=== PATIENT | female | born 1950 | race Caucasian/White ===

== ENCOUNTER → 2017-11-04 16:51 | Outpatient (CLI) | payer MEDICARE, SELFPAY ==
[2017-11-04 18:17] LABS: Hematocrit 36.5 % (37-47); Hemoglobin 11.2 g/dl (12.0-15.0); Mean Corp Hgb Conc 30.7 g/gl (32-36); Mean Corpuscular Hgb 24.3 pg (27.0-32.0); Mean Corpuscular Volume 79.3 fL (81-99); Mean Platelet Vol. 9.7 fl (6.2-12.0); Platelet Count 194 K/mm3 (150-450); RBC Distribution Width CV 14.4 % (11.6-14.6); RBC Distribution Width SD 41.3 fl (35.1-43.9); White Blood Count 5.6 K/mm3 (4.4-11.0)
[2017-11-04 18:19] LABS: Scan Indicated on CBC? Y/N NO
== END ==
PROVIDERS: Family Provider Internal Medicine; PCP Internal Medicine; Visit Provider Surgery
DX: D64.9 Anemia, unspecified (principal)
CPT/HCPCS: 36415; 85027

== ENCOUNTER 2017-11-28 06:46 | Day surgery (SDC) | payer MEDICARE, SELFPAY ==
[2017-11-28] VITALS (7 sets, daily range): BP systolic 111–145; BP diastolic 63–80; PULSE 74–88; RESP 16–18; TEMP 36.3–37.1; O2SAT 92–97; BMI 40.0
--- NOTE | 2017-11-28 | IMM_PTH ---
PATIENT: JA ADAME LOC: [facility] U#:[id number] AGE/SX: 66/F ROOM: RE11/28/[address]: Dr. Jose M Carrillo MD : 1950 BED: DIS: 11/28/2017 SPEC #: [id number] RECD: 12/01/17 10:50 STATUS: YOAV REJaci #: [id number] ALFONSO: 11/28/17 00:[address]: Jose M Carrillo DEPT: IMMUNOHISTOCHEMISTRY RECD BY: Jenny Flores ENTERED: 12/01/17 10:51 SP TYPE: IMMUNO OTHR DR: Dr. Caitlin Moreland MD Tissues: D - Stomach, NOS Procedures: H Pylori (initial) PHYSICIAN & INSTITUTION [place] [id number] SPECIMEN INFORMATION: Tissue Source: D ? Biopsy gastric antrum Clinical Info: Positive FIT Specimen Number: [id number] CPT code: 02899 METHODOLOGY: Deparaffinized sections of prefer/formalin-fixed tissue or PAP/DQ stained slides are incubated with monoclonal/polyclonal antibodies/oligonucleotide probes. Localization is made via biotin free immunoperoxidase method. Appropriate controls are performed and reacted as expected. Results on target cell population are indicated in the following table: RESULTS: ANTIBODY / CLONE RESULT Block D H Pylori (polyclonal) negative These tests were developed and their performance characteristics determined by [facility]. They may not have been cleared or approved by the U.S. Food and Drug Administration. The FDA has determined that such clearance or approval is not necessary. INTERPRETATION: D. Gastric antrum, biopsy: Negative for Helicobacter pylori organisms. AM:bandar 12/03/17
--- NOTE | 2017-11-28 08:39 | COLBX_PTH ---
PATIENT: JA ADAME LOC: [facility] U#:[id number] AGE/SX: 66/F ROOM: RE11/28/[address]: Dr. Jose M Carrillo MD : 1950 BED: DIS: 11/28/2017 SPEC #: [id number] RECD: 11/28/17 11:38 STATUS: YOAV NEVA #: [id number] ALFONSO: 11/28/17 08:[address]: Jose M Carrillo DEPT: SURGICAL PATHOLOGY RECD BY: Jose Angel Carrizales ENTERED: 11/28/17 13:21 SP TYPE: COLON BX OTHR DR: Dr. Caitlin Moreland MD Tissues: A - Ileum, NOS B - Ascending colon C - Rectum, NOS D - Gastric mucous membrane E - Gastric mucous membrane F - Esophageal mucous membrane G - Esophageal mucous membrane Procedures: Surgery Specimen Level IV HEADER OPERATION: Colonoscopy; EGD with biopsy PRE-OP DIAGNOSIS: Positive FIT TISSUE SUBMITTED: A ? Terminal ileum biopsy, B ? Ascending colon biopsy adjacent to anastomosis, C ? Rectal polyp, D ? Biopsy gastric antrum, E ? Biopsy polyp, gastric, F ? Biopsy distal esophagus, G ? Biopsy mid esophagus MICROSCOPIC DIAGNOSIS A. Terminal ileum, biopsy: Ulceration with associated acute and chronic inflammation and granulation. B. Ascending colon adjacent to anastomosis, biopsy: No pathologic diagnosis. C. Rectal polyp, biopsy: Fragments of serrated adenoma. D. Gastric antrum, biopsy: Mild chronic gastritis. E. Gastric polyp, biopsy: Fundic gland polyp. F. Distal esophagus, biopsy: Strips of benign superficial squamous epithelium. G. Mid esophagus, biopsy: Strips of benign superficial squamous mucosa. No evidence of esophagitis. AM:bandar 12/01/17 COMMENT D. The results of immunohistochemistry for Helicobacter pylori will be reported separately ([id number]). F. There is no evidence of esophagitis. Junctional mucosa is not represented in the biopsy. Clinical correlation is suggested. MICROSCOPIC DESCRIPTION Slides are reviewed. GROSS DESCRIPTION A - Received in fixative is one container labeled with the patient's name and designated terminal ileum biopsy. The specimen consists of one irregular fragment of light smith soft tissue that measures 0.5 x 0.2 x 0.1 cm. The specimen is totally submitted in one cassette. B - Received in fixative is one container labeled with the patient's name and designated ascending colon biopsy adjacent to anastomosis. The specimen consists of one irregular fragment of light smith soft tissue that measures 1 x 0.2 x 0.1 cm. The specimen is totally submitted in one cassette. C - Received in fixative is one container labeled with the patient's name and designated rectal polyp. The specimen consists of multiple irregular fragments of light smith soft tissue that in aggregate measure 1 x 0.3 x 0.1 cm. The specimen is totally submitted in one cassette. D - Received in fixative is one container labeled with the patient's name and designated biopsy gastric antrum. The specimen consists of one irregular fragment of light smith soft tissue that measures 0.4 x 0.2 x 0.1 cm. The specimen is totally submitted in one cassette. E - Received in fixative is one container labeled with the patient's name and designated gastric polyp. The specimen consists of one irregular fragment of light smith soft tissue that measures 0.2 x 0.2 x 0.1 cm. The specimen is totally submitted in one cassette. F - Received in fixative is one container labeled with the patient's name and designated distal esophagus. The specimen consists of one irregular fragment of light smtih soft tissue that measures 0.3 x 0.1 x 0.1 cm. The specimen is totally submitted in one cassette. G - Received in fixative is one container labeled with the patient's name and designated biopsy mid esophagus. The specimen consists of one irregular fragment of light smith soft tissue that measures 0.3 x 0.1 x 0.1 cm. The specimen is totally submitted in one cassette. / SJ:rg 11/28/17 TC:2 CPT: 42259 x7
--- NOTE | 2017-11-28 08:50 | PCM.OPRPT ---
Problem List (1) Positive FIT (fecal immunochemical test) Status: Acute Report of Operation Date of Procedure: 11/28/17 Pre-Operative Diagnosis: Fit test positive Post-Operative Diagnosis: Antral gastritis, gastric fundic polyps. Patent ileocolonic anastomosis. Sigmoid diverticulosis. Diminutive polyp of the rectum. Internal and external hemorrhoids Surgery/Procedure Performed:: Esophagogastroduodenoscopy with antral biopsies and gastric polyp biopsies and distal and mid esophageal biopsies. Colonoscopy with terminal ileum biopsy. Ascending colon biopsy adjacent to the anastomosis. And cold forcep rectal biopsy polypectomy Description of Surgical Findings:: Timeout and informed consent was obtained. 66-year-old female was taken to the endoscopy suite. All biopsies performed with cold forceps. She underwent oral anesthesia with Cetacaine. She was placed in the left upper skin position. Throughout the procedure for both the upper and lower endoscopy she received a total of 100 mg of Demerol and 3 mg of Versed is intravenous sedation. GIF gastroscope was inserted and soft line that proximal mid distal esophagus did not appear to be grossly remarkable EG junction was at 35 cm upon entering the stomach a mild diffuse antral gastritis was identified. The scope was advanced through the pylorus the first and second and third portions of the duodenum were inspected this was not remarkable. The scope was withdrawn back into the stomach antral biopsy was obtained. The scope was retroflexed. The cardia was inspected and there were scattered gastric fundic polyps. No active bleeding. Scope was placed back in antegrade viewing position and greater and lesser curvatures were inspected. No free bleeding no ulcerations. A biopsy was obtained of 1 of the territory sales representative gastric fundic polyps. Excess fluid and air was aspirated free. The scope was withdrawn. The distal and midesophagus was biopsied. The mucosa otherwise appeared normal. Excess fluid and air was aspirated free. External inspection of the anus revealed external and internal hemorrhoids. Slight stenosis on digital palpation with a fibrous type field. No bleeding. Flexible colonoscope inserted the rectum advanced through a somewhat tortuous sigmoid colon was then nicely advanced to the transverse colon to the ascending colon where the ileocolonic anastomosis from the previous right colectomy was identified. Photographs were obtained. Cold forcep biopsy was obtained of the terminal ileum. Cold forcep biopsies of the proximal ascending colon adjacent to the anastomosis. The scope was then withdrawn from the ascending transverse descending sigmoid colon. Scattered diverticulosis of the sigmoid was identified no active bleeding. A diminutive sessile 6 mm polyp of the rectum was identified. Cold forceps were used to eradicate and sample this. The scope was retroflexed. Internal hemorrhoids noted. No active bleeding. Impression Antral gastritis. Gastric fundic polyps. No source for active upper GI bleeding though gastritis certainly potential source of card test positive. Patent ileocolonic anastomosis. Sigmoid diverticulosis. Diminutive sessile polyp of the rectum. Internal and external hemorrhoids. No active bleeding. His upper and lower endoscopy was September 13, 2010. Pending pathology results will recommend follow-up colonoscopy in 5 years. There were no clinical findings that would suggest current active Crohn's disease. Cc: Dr. Moreland and Carolyn Velazquez NP The upper endoscopy was initiated at 0827. It was completed at 0831. The colonoscopy started 0835. The ileocolonic anastomosis was reached at 0837. Procedure was completed at 0847. Jose M Carrillo M.D., F.A.C.S. Type of Anesthesia:: IV Sedation
== END 2017-11-28 09:45 | disposition home or self-care (01) ==
LOC: EN 06:47 → AC 06:56
PROVIDERS: Family Provider Internal Medicine; PCP Internal Medicine; Visit Provider Surgery
PROC: 0DJD8ZZ Inspection of Lower Intestinal Tract, Via Natural or Artificial Opening Endoscopic (ICD-10-PCS; CPT 45378; principal; 2017-11-28 07:55)
DX: K29.50 Unspecified chronic gastritis without bleeding (principal); K57.30 Diverticulosis of large intestine without perforation or abscess without bleeding; K62.1 Rectal polyp; K31.7 Polyp of stomach and duodenum; K64.4 Residual hemorrhoidal skin tags; I10 Essential (primary) hypertension; R19.5 Other fecal abnormalities; Z86.718 Personal history of other venous thrombosis and embolism; D64.9 Anemia, unspecified
CPT/HCPCS: 43239; 45380; 88305; 88342; 99152; 99153; J7120

== ENCOUNTER → 2018-05-06 08:40 | Outpatient (CLI) | payer MEDICARE, SELFPAY ==
--- NOTE | 2018-05-06 08:45 | RAD_ITS ---
STUDY: X-RAY - ESOPHAGUS (BARIUM SWALLOW) WITH FLUOROSCOPY REASON FOR EXAM: Female, 67 years old. Dysphagia. TECHNIQUE: 13 view(s) of the esophagus were obtained following swallowing of barium. FLUOROSCOPY TIME (if supplied): (0:33) minutes/seconds COMPARISON: None. FINDINGS: There is no demonstrated esophageal foreign body. There is no demonstrated stricture or mucosal abnormality. There is a small hiatal hernia of the fundus of the stomach. The patient ingested a 12 mm tablet of barium. The tablet is trapped at the gastroesophageal junction. There is atherosclerotic tortuosity of the aortic arch and descending thoracic aorta. Normal visualized pulmonary parenchyma. Normal visualized osseous structures of the thorax. IMPRESSION: Small hiatal hernia. No evidence of gastroesophageal junction. The patient ingested a 12 mm tablet of barium. The tablet is trapped at the gastroesophageal junction. Electronically Signed: Turner Samuel MD at 9:26 EDT Tel [phone], Service support , STUDY: AIR-CONTRAST UPPER GI SERIES. REASON FOR EXAM: Female, 67 years old. Abdominal pain and dysphagia. FLUOROSCOPY TIME (if supplied): (0:33) minutes/seconds. 14 fluoroscopic images were obtained. TECHNIQUE: The patient ingested barium. Multiple images of the esophagus, stomach and duodenum were obtained. COMPARISON: None. FINDINGS: There is a small sliding nail hernia without gastroesophageal reflux. The stomach is unremarkable. There is no evidence of ulceration. No mass lesion is seen. The duodenum is unremarkable as well. RAD/Upper GI w/BA Swallow IMPRESSION: Small sliding hiatal hernia without gastroesophageal reflux. Electronically Signed: Turner Samuel MD at 9:56 EDT Tel [phone], Service support ,
== END ==
PROVIDERS: Family Provider Internal Medicine; PCP Internal Medicine; Visit Provider Surgery
DX: R10.13 Epigastric pain (principal)
CPT/HCPCS: 74246

== ENCOUNTER 2018-06-11 07:11 | Day surgery (SDC) | payer MEDICARE, SELFPAY ==
[2018-06-11 07:24] VITALS: BP 139/78; PULSE 95; RESP 16; TEMP 36.3; O2SAT 100
--- NOTE | 2018-06-11 09:58 | SUR.OPER ---
LIDOCAINE GEL TO L. NARE. ATTEMPTED NASAL INTUBATION OF PROBE INTO L.NARE WITHOUT SUCCESS. LIDOCAINE GEL THEN APPLIED TO R.NARE. PROBE INSERTED TO APPROPRIATE LOCATION. TAPED IN PLACE WITH BLUE TAPE. PT. RECLINED. MANOMETRY TESTING PERFORMED. PROBE REMOVED. RN ESCORTED PT. OUT TO WAITING ROOM.
== END 2018-06-11 08:10 | disposition home or self-care (01) ==
LOC: EN 07:12
PROVIDERS: Family Provider Internal Medicine; PCP Internal Medicine; Referring Provider Surgery; Visit Provider Surgery
PROC: F00ZJWZ Instrumental Swallowing and Oral Function Assessment using Swallowing Equipment (ICD-10-PCS; CPT 43235; principal; 2018-06-11 07:25)
DX: R10.13 Epigastric pain (principal)
CPT/HCPCS: 91010

== ENCOUNTER 2019-01-18 13:17 | Observation (INO) | payer MEDICARE, SELFPAY ==
[2019-01-07 14:30] VITALS: BP 137/75; PULSE 84; RESP 16; TEMP 36.7; O2SAT 94; BMI 41.4
--- NOTE | 2019-01-07 14:37 | SDCEKG_ITS ---
Test Reason : Blood Pressure : / mmHG Vent. Rate : 076 BPM Atrial Rate : 076 BPM P-R Int : 192 ms QRS Dur : 156 ms QT Int : 426 ms P-R-T Axes : 050 009 013 degrees QTc Int : 479 ms Normal sinus rhythm Right bundle branch block Abnormal ECG Confirmed by KELI SOTO, RAUL ([id number]), film editor KATIANA JACOBS ([id number]) on 01/13/2019 11:54:11 AM Referred By: Roni Emmanuel Confirmed By:RAUL DICKEY MD
[2019-01-07 15:09] LABS: Absolute Lymphocyte Count 1.16 X10^3/ul (0.83-4.51); Absolute Neutrophil Count 4.3 X10^3/uL (2.0-7.7); Basophil# 0.03 X10^3/uL; Basophil% 0.5 % (0-1); Eosinophil# 0.23 X10^3/uL; Eosinophils% 3.7 % (0-5); Hematocrit 37.6 % (37-47); Hemoglobin 12.1 g/dl (12.0-15.0); Lymphocyte # 1.16 X10^3/ul (4.0); Lymphocyte % 18.6 % (19-41); Mean Corp Hgb Conc 32.2 g/gl (32-36); Mean Corpuscular Hgb 23.6 pg (27.0-32.0); Mean Corpuscular Volume 73.4 fL (81-99); Mean Platelet Vol. 9.9 fl (6.2-12.0); Monocyte# 0.45 X10^3/uL; Monocyte% 7.2 % (0-10); Neutrophil # 4.33 X10^3/uL (2.7-7.7); Neutrophil % 69.7 % (47-70); POSITIVE COUNT NO; POSITIVE DIFFERENTIAL NO; POSITIVE MORPHOLOGY NO; Platelet Count 223 K/mm3 (150-450); RBC Distribution Width CV 15.8 % (11.6-14.6); RBC Distribution Width SD 41.3 fl (35.1-43.9); Red Blood Count 5.12 M/mm3 (4.2-5.4); White Blood Count 6.2 K/mm3 (4.4-11.0)
[2019-01-07 15:28] LABS: Anion Gap 5 (5-15); BUN 23 mg/dL (7-18); BUN/Creat Ratio 24.4 RATIO (10-20); Calcium,Total 9.3 mg/dL (8.5-10.1); Chloride 107 mmol/L (98-107); Creatinine, Serum 0.94 mg/dL (0.55-1.02); EST Glomerular Filtration Rate 63 mL/min (>60); Est Glom Filt Rate - Afr Amer 76 mL/min (>60); Estimated Creatinine Clearance 43.22 ml/min; Glucose 99 mg/dL (74-106); Potassium 3.5 mmol/L (3.5-5.1); Sodium Level 139 mmol/L (136-145)
--- NOTE | 2019-01-14 14:11 | CASEMGMT ---
Call placed to patient to discuss discharge needs after upcoming surgery. Patient plans to return home with assistance from . Patient has outpatient PT set up at [facility] and will assist with transportation. Patient has a walker. She will be getting a shower seat and grab bars and the toilet is a higher rise toilet. There is a bedroom and bathroom on the 1st level of the home. There are approximately 4 steps to enter home. Informed patient that RN-CM will likely visit patient prior to discharge. Noelle Russ LPN Clinical Support
[2019-01-18] VITALS (9 sets, daily range): BP systolic 129–146; BP diastolic 58–83; PULSE 86–94; RESP 16; TEMP 36.3–36.9; O2SAT 94–99; BMI 41.4
[2019-01-18] MEDS: Acetaminophen 500 MG Tablet 1000 MG PO (11:38)
[2019-01-18] MEDS: oxyCODONE HCl Cr 10 MG Tablet PO (11:38)
[2019-01-18] MEDS: Lactated Ringers 1,000 ML 999 ML IV (11:54)
--- NOTE | 2019-01-18 12:40 | KNEE_PTH ---
PATIENT: JA ADAME LOC: MS3 U#:[id number] AGE/SX: 68/F ROOM: MS313 RE01/18/[address]: Dr. Roni Emmanuel DO : 1950 BED: 1 DIS: 01/19/2019 SPEC #: [id number] RECD: 01/18/19 16:16 STATUS: YOAV REJaci #: [id number] ALFONSO: 01/18/19 12:[address]: Roni Emmanuel DEPT: SURGICAL PATHOLOGY RECD BY: Oralia Isbell ENTERED: 01/19/19 09:24 SP TYPE: TOTAL KNEE OTHR DR: Dr. Caitlin Moreland MD Tissues: Knee, NOS Procedures: Decalcification bone/plaque Surgery Specimen Level IV HEADER OPERATION: Total knee replacement PRE-OP DIAGNOSIS: Endstage tricompartmental osteoarthritis, right knee TISSUE SUBMITTED: Right knee bone and tissue MICROSCOPIC DIAGNOSIS Bone and soft tissue, right knee, total knee replacement: Pieces of bone with degenerative osteoarthritic changes. Fibroadipose tissue, fibroconnective tissue and reactive synovial tissue. SHYLA:bandar 01/22/19 MICROSCOPIC DESCRIPTION Slides are reviewed. GROSS DESCRIPTION Received is one container designated bone and soft tissue right knee. The specimen consists of multiple fragments of smith-yellow bone measuring in aggregate 12 x 9 x 3 cm. Also in the specimen container are multiple fragments of yellow-white soft tissue measuring in aggregate 9 x 7 x 3 cm. A number of bony fragments contain articular surfaces consistent with tibial plateau and femoral condyle and displaying prominent osteophyte formation, eburnation, and bone erosion. Solar Energy Advisor sections are submitted in two cassettes as follows: 1 - soft tissue, 2 - bone after decalcification. / SHYLA:bandar 01/19/19 TC:5 [facility]: [id number], [id number]
--- NOTE | 2019-01-18 14:42 | PCM.OPRPT ---
Report of Operation Date of Procedure: 01/18/19 Pre-Operative Diagnosis: OA right knee Post-Operative Diagnosis: same Surgery/Procedure Performed:: Right TKR Description of Surgical Findings:: Primary Surgeon/Physician: Roni Emmanuel rail loader: Luke Munoz PA-C rail loader: Pre-Operative Diagnosis: OA right knee Post-Operative Diagnosis: same Surgery/Procedure Performed: Right TKR Estimated Blood Loss: minimal Specimen's Removed: bone Type of Anesthesia: spinal ASA Class: 3 Implants: [Chel Triathlon size 3 CR pressfit femur, size 4 pressfit tibia, 11 mm polyethylene spacer, 32 mm pressfit patella ] Indications: Patient has severe end-stage osteoarthritis diagnosed via x-rays in the knee. They have failed all forms of conservative measures including activity modification, injections, anti-inflammatories, use of assistive device. The patient has pain that affects on a daily basis and prevents him from doing things that they enjoyed. They have elected to undergo the above procedure. The risks of the procedure were discussed at length and their questions were answered. Procedure Description: The patient was greeted in the preoperative area. The [right ] knee was then marked with a surgical marker. Patient was then taken to or Suite 2. They were administered a dose of antibiotics as well as tranexamic acid. Once adequate anesthesia was obtained and airway was secured to placed in supine position on the operating room table. A well-padded tourniquet was placed on the affected extremity. Leg was then prepped and draped in the usual sterile fashion from the knee down. Ioban was used on the skin. Surgical timeout was then performed and confirmed with all present. Six-inch Esmarch was used to examine the limb and tourniquet was then inflated to 250 mmHg. A longitudinal incision was then planned and carried out in the anterior aspect of the knee. The dissection was then carried the length of the incision the extensor mechanism was identified. Standard medial parapatellar arthrotomy was then performed revealing severe eburnation of bone and periarticular osteophytes. There is complete loss of cartilage especially in the medial compartment with varus alignment. Anterior fat pad was removed for visualization purposes and the anterior medial aspect of the tibia was skeletonized for exposure to the knee. The knee was then flexed the patella was inverted. Opening reamer was then used in the femur approximately 1 cm anterior to the attachment of the PCL. The intramedullary valgus wand was then placed in the femur set at 5? of valgus. The distal femoral cutting jig was then applied to the femur with anticipated resection of approximately 8 mm. This was then made with a oscillating saw. The sizing guide was then placed referencing off the posterior condyles and also reference off the epicondylar axis. This was measured and the appropriate size 4-in-1 cutting jig was then applied to the distal femur. Anterior posterior cuts were made followed by the anterior and posterior chamfer cuts. These bony pieces and fragments were removed and placed on the back table. Posterior retractor was then utilized and the tibia was subluxed anteriorly. Intramedullary tibial alignment jig was then applied to the tibia referencing off the medial one third of the tibial tubercle the anterior tibial spine the middle aspect of the tibiotalar joint. Also reference off patient's naknek slope. The tibial cutting jig was then pinned with anticipated resection of 2 mm off of the deficient medial tibial condyle. This cut was made with the oscillating saw. Once this was complete a laminar expediter clerk was utilized in both medial lateral meniscus were removed and a posterior capsular osteophytes were also removed. Posterior capsule release was performed in the posterior capsule as well as the geniculate arteries are treated with the aqua Bertha. The tibia was incised and the appropriate sized tibial tray was then pinned. The femoral box cutting jig was then applied to the femur and the box was prepared removing a portion of the intercondylar notch. The femoral trial was then placed and the knee was trialed. Full flexion-extension were easily achieved. The knee seemed to balance quite nicely. Any remaining osteophytes were removed at this time. Once this was complete the patella was everted and the Nahid patella reaming device was then utilized the patella was then placed in the appropriate jig and reamer was then used to remove approximately 9 mm of the undersurface of the patella. A soft tissue remaining was in the way was removed and patella trial was then placed listed maintain excellent tracking using the no thumbs technique. The tibial tray at this point was punched to accommodate the fins of the final implant. The trial components were removed and the knee was copiously irrigated. Did use a cocktail of injection for postoperative pain control. The final components were then placed in the standard fashion. The tourniquet was deflated and hemostasis was perfect with Bovie cautery as well as the aqua Manus. The knee is once again trialed with different size polyethylenes to ensure the full range of motion was achieved as well as excellent balancing ligamentously was achieved. At this point the knee was copiously irrigated. Final implant was then inserted locking mechanism was engaged and confirmed to be locked. The arthrotomy was then closed with #1 Vicryl aggravate type fashion interrupted. Subcutaneous tissue was closed with 0 Vicryl and surgical vale were placed in the skin. A occlusive silver impregnated dressing was then applied followed by well-padded sterile dressing secured with an Mayur wrap. The patient was taken to the PACU in stable condition. No complications known at this time. Postoperatively we will maintain standard total knee postoperative protocol. The use of the physician activities assistant was integral during this procedure. They assisted with positioning placement of the tourniquet retracting closure and placement of the dressing. The procedure would have been much more difficult without their expertise and assistance rail loader: Jalil Munoz Type of Anesthesia:: Spinal Anesthesiologist: Drake Jo Specimen's removed: bone - Admit VTE Documentation VTE Present on Admission: No VTE Mechan Device Prophylaxis: SCD's, Thigh High RORO Hose VTE Pharm Prophylaxis ordered?: Yes
--- NOTE | 2019-01-18 14:48 | OP.PCM_ITS ---
Report of Operation Date of Procedure: 01/18/19 Pre-Operative Diagnosis: OA right knee Post-Operative Diagnosis: same Surgery/Procedure Performed:: Right TKR Description of Surgical Findings:: Primary Surgeon/Physician: Roni Emmanuel web site developer: Luke Munoz PA-C web site developer: Pre-Operative Diagnosis: OA right knee Post-Operative Diagnosis: same Surgery/Procedure Performed: Right TKR Estimated Blood Loss: minimal Specimen's Removed: bone Type of Anesthesia: spinal ASA Class: 3 Implants: [Chel Triathlon size 3 CR pressfit femur, size 4 pressfit tibia, 11 mm polyethylene spacer, 32 mm pressfit patella ] Indications: Patient has severe end-stage osteoarthritis diagnosed via x-rays in the knee. They have failed all forms of conservative measures including activity modification, injections, anti-inflammatories, use of assistive device. The patient has pain that affects on a daily basis and prevents him from doing things that they enjoyed. They have elected to undergo the above procedure. The risks of the procedure were discussed at length and their questions were answered. Procedure Description: The patient was greeted in the preoperative area. The [right ] knee was then marked with a surgical marker. Patient was then taken to or [address]. They were administered a dose of antibiotics as well as tranexamic acid. Once adequate anesthesia was obtained and airway was secured to placed in supine position on the operating room table. A well-padded tourniquet was placed on the affected extremity. Leg was then prepped and draped in the usual sterile fashion from the knee down. Ioban was used on the skin. Surgical timeout was then performed and confirmed with all present. Six-inch Esmarch was used to examine the limb and tourniquet was then inflated to 250 mmHg. A longitudinal incision was then planned and carried out in the anterior aspect of the knee. The dissection was then carried the length of the incision the extensor mechanism was identified. Standard medial parapatellar arthrotomy was then performed revealing severe eburnation of bone and periarticular osteoph ytes. There is complete loss of cartilage especially in the medial compartment with varus alignment. Anterior fat pad was removed for visualization purposes and the anterior medial aspect of the tibia was skeletonized for exposure to the knee. The knee was then flexed the patella was inverted. Opening reamer was then used in the femur approximately 1 cm anterior to the attachment of the PCL. The intramedullary valgus wand was then placed in the femur set at 5? of valgus. The distal femoral cutting jig was then applied to the femur with anticipated resection of approximately 8 mm. This was then made with a oscillating saw. The sizing guide was then placed referencing off the posterior condyles and also reference off the epicondylar axis. This was measured and the appropriate size 4-in-1 cutting jig was then applied to the distal femur. Anterior posterior cuts were made followed by the anterior and posterior chamfer cuts. These bony pieces and fragments were removed and placed on the back table. Posterior retractor was then utilized and the tibia was subluxed anteriorly. Intramedullary tibial alignment jig was then applied to the tibia referencing off the medial one third of the tibial tubercle the anterior tibial spine the middle aspect of the tibiotalar joint. Also reference off patient's tribe slope. The tibial cutting jig was then pinned with anticipated resection of 2 mm off of the deficient medial tibial condyle. This cut was made with the oscillating saw. Once this was complete a laminar electric motor rebuilder was utilized in both medial lateral meniscus were removed and a posterior capsular osteophytes were also removed. Posterior capsule release was performed in the posterior capsule as well as the geniculate arteries are treated with the aqua Bertha. The tibia was incised and the appropriate sized tibial tray was then pinned. The femoral box cutting jig was then applied to the femur and the box was prepared removing a portion of the intercondylar notch. The femoral trial was then placed and the knee was trialed. Full flexion-extension were easily achieved. The knee seemed to balance quite nicely. Any remaining osteophytes were removed at this time. Once this was complete the patella was everted and the Nahid patella reaming device was then utilized the patella was then placed in the appropriate jig and reamer was then used to remove approximately 9 mm of the undersurface of the patella. A soft tissue remaining was in the way was removed and patella trial was then placed listed maintain excellent tracking using the no thumbs technique . The tibial tray at this point was punched to accommodate the fins of the final implant. The trial components were removed and the knee was copiously irrigated. Did use a cocktail of injection for postoperative pain control. The final components were then placed in the standard fashion. The tourniquet was deflated and hemostasis was perfect with Bovie cautery as well as the aqua Manus. The knee is once again trialed with different size polyethylenes to ensure the full range of motion was achieved as well as excellent balancing ligamentously was achieved. At this point the knee was copiously irrigated. Final implant was then inserted locking mechanism was engaged and confirmed to be locked. The arthrotomy was then closed with #1 Vicryl aggravate type fashion interrupted. Subcutaneous tissue was closed with 0 Vicryl and surgical vale were placed in the skin. A occlusive silver impregnated dressing was then applied followed by well-padded sterile dressing secured with an Mayur wrap. The patient was taken to the PACU in stable condition. No complications known at this time. Postoperatively we will maintain standard total knee postoperative protocol. The use of the physician cafe assistant was integral during this procedure. They assisted with positioning placement of the tourniquet retracting closure and placement of the dressing. The procedure would have been much more difficult without their expertise and assistance web site developer: Jalil Munoz Type of Anesthesia:: Spinal Anesthesiologist: Drake Jo Specimen's removed: bone - Admit VTE Documentation VTE Present on Admission: No VTE Mechan Device Prophylaxis: SCD's, Thigh High RORO Hose VTE Pharm Prophylaxis ordered?: Yes
[2019-01-18] MEDS: Ondansetron 4 MG/2 ML Vial IV (17:31)
[2019-01-18] MEDS: Lactated Ringers 1,000 ML 100 ML IV (18:19)
[2019-01-18] MEDS: amLODIPine 10 MG Tablet PO (21:44)
[2019-01-18] MEDS: Aspirin 325 MG Tablet PO (21:44)
[2019-01-18] MEDS: Fluticasone 0.05% 1 SPRAY NASAL.SRY NASAL (21:44)
[2019-01-19 02:29] VITALS: BP 145/77; PULSE 80; RESP 16; TEMP 37.1; O2SAT 94
[2019-01-19] MEDS: HYDROcodone Bitartrate/Apap 5/325 Tablet PO ×2 (04:10→06:16)
[2019-01-19 07:44] VITALS: BP 129/54; PULSE 65; RESP 18; TEMP 37.1; O2SAT 95
--- NOTE | 2019-01-19 07:45 | PCM.PN.ORT ---
Subjective: Patient sitting at bedside, patient pain well managed. Patient denies chest pain, shortness breath, calf pain, nausea vomiting. Patient states she is ready for discharge home today. Objective: Dressing is clean dry intact, negative signs or symptoms of DVT. Vital signs labs within normal limits. Patient is neurovascular intact afebrile. Patient speaking in full sentences without respiratory distress. - Physical Exam General: Alert, Oriented x3, Cooperative HEENT: PERRLA Oral: Moist Mucosa Neurological: Cranial nerves II-XII grossly intact Psych/Mental Status: Normal Affect, Alert and oriented to time, place, person, mood and affect Vital Signs Temp Pulse Resp BP Pulse Ox 98.7 F 80 16 145/77 H 94 01/19/19 02:29 01/19/19 02:29 01/19/19 02:29 01/19/19 02:29 01/19/19 02:29 Oxygen Flow Rate (L/min) 2 Oxygen Delivery Method Room Air Weight: 99.5 kg Body Mass Index (BMI) 41.4 Intake and Output for Last 24 Hours 01/17/19 01/18/19 01/19/19 23:59 23:59 23:59 Intake Total 2330 / 2330 1900 / 1900 Output Total 1300 / 1300 Balance 2330 / 2330 600 / 600 Medical Necessity - Tobacco Use Smoking Status: Never smoker Tobacco Use: Non-smoker Assessment/Plan All Active Problems (Last Reviewed 06/17/18 @ 07:36 by Myah Coronado) Positive FIT (fecal immunochemical test) (Acute) [place] esophagus (Acute) Epigastric pain (Acute) S/P tonsillectomy (Acute) S/P cholecystectomy (Acute) S/P ovarian cystectomy (Acute) History of esophagogastroduodenoscopy (EGD) (Acute) S/P colonoscopy (Acute) Sesamoiditis (Acute) Sciatica (Acute) Internal hemorrhoids (Acute) Gastritis (Acute) Diverticulosis of large intestine (Acute) Diverticulosis of colon (Acute) DVT (deep venous thrombosis) (Acute) Cardiomegaly (Acute) Bowel perforation (Acute) Abdominal pain (Acute) Anemia (Acute) Chest pain (Acute) Status post right total knee arthroplasty 1. Will discontinue [place], will start Tylenol extra strength 2 every 8 hours, OxyIR 5 mg 1-2 every 6 for severe pain 2. Continue physical therapy with weightbearing as tolerated with walker 3. Aspirin 325 mg 1 p.o. every 12 hours x30 days for postop DVT prophylaxis 4. Encourage incentive spirometry 5. Follow-up as scheduled, see pink sheet 6. 6. Patient will continue with outpatient physical therapy at [facility] 7. Discharge home today after p.m. therapy
[2019-01-19] MEDS: Lisinopril 20 MG Tablet PO (07:52)
[2019-01-19] MEDS: Aspirin 325 MG Tablet PO (07:53)
[2019-01-19] MEDS: Pantoprazole Sodium 20 MG Tablet PO (07:55)
--- NOTE | 2019-01-19 07:57 | DCINST_ITS ---
Discharge Diet: No Restrictions Discharge Activity: May Not Drive, May Shower, Use Walker May shower in (days): 3 Ice area for (Minutes): 20 - each hour while awake. Weight Bearing Status: Weight bearing as tolerated Elevate: Operative Extremity Additional Activity Instructions:: Wear elastic stockings for 2 weeks after your surgery. Call your doctor if your incision/area has: Continuous Slow Oozing, Sudden Increased Bleeding, Increased Pain/ Swelling, Increased Redness, Foul Smelling Discharge Call your doctor if you observe: Fever of 101 or Higher, Coldness, Increased Pain - in extremity, Numbness or Tingling, Change in Color, Calf discomfort, Uncontrolled pain Change Dressing in (Days):: 0 - and daily as needed. Remove Dressing in (days):: 8 Cleanse incision/area with: Soap & Water Allergies/Adverse Reactions: Allergies amoxicillin trihydrate [From Augmentin] Allergy (Verified 01/07/19 14:16) Rash Cephalosporins Allergy (Verified 01/07/19 14:16) Rash potassium clavulanate [From Augmentin] Allergy (Verified 01/07/19 14:16) Rash Sulfa (Sulfonamide Antibiotics) Allergy (Verified 01/07/19 14:16) Rash Medications to take at Discharge Amlodipine [Norvasc] 10 mg PO QHS 04/03/16 Meloxicam [Mobic] 15 mg PO DAILY 04/03/16 albuterol sulfate HFA 90 mcg/actuation aerosol inhaler 2 puff INHALATION Q6H PRN 11/04/17 Fluticasone 0.05% [Flonase Nasal [place]] 1 spray NASAL QHS 01/07/19 Glucosa Gant 2Kcl/Chondroitin Gant [Glucosamine-Chondroitin Cap] 2,000 mg PO DAILY 01/07/19 Lisinopril [Zestril] 20 mg PO DAILY 01/07/19 Omeprazole 20 mg PO DAILY 01/07/19 Acetaminophen [Tylenol] 1,000 mg PO Q8 #90 tab 01/19/19 Aspirin 325 mg PO BID #60 tab 01/19/19 Oxycodone [Oxyir] 5 mg PO Q6H PRN PRN 7 Days #80 tab 01/19/19 Senna/Docusate Sodium [Senokot-S, Cesia-Colace] 1 tab PO DAILY #20 tab 01/19/19 The following prescriptions were given: Oxycodone [Oxyir] 5 mg PO Q6H PRN PRN 7 Days #80 tab PRN Reason: Severe Pain (-05/27) Acetaminophen [Tylenol] 1,000 mg PO Q8 #90 tab Senna/Docusate Sodium [Senokot-S, Cesia-Colace] 1 tab PO DAILY #20 tab Aspirin 325 mg PO BID #60 tab Primary Care Physician: Caitlin Moreland MD [Primary Care Provider] - Test Results: Test results from this visit will be discussed in further detail at your follow- up appointment, if applicable. Please Follow Up With: Jalil Munoz PA-C When: see pink sheet
[2019-01-19 09:30] LABS: Acetaminophen (Tylenol) Level 5.4 ug/mL (10.0-30.0)
--- NOTE | 2019-01-19 10:40 | CASEMGMT ---
RN REJI Face to Face with patient for initial transition planning/care coordination assessment. RN CM introduced self and role at [facility]. Patient lying in bed, alert and oriented. Patient willing to participate in assessment and is able to answer all questions appropriately. Care providers, pharmacy, and demographics verified. Patient wishes to discharge home and is setup with [facility] for outpatient therapy with providing transportation. Patient states she has cane, walker, raised toilet, and shower seat. Patient states she has no further needs or concerns at this time. CM to follow for discharge planning needs that may arise
[2019-01-19] MEDS: 0.9% NaCl Peripheral Flush Adult/Peds IV (12:01)
[2019-01-19] MEDS: oxyCODONE 5 MG Tablet PO (12:05)
[2019-01-19 13:17] VITALS: BP 150/66; PULSE 88; RESP 18; TEMP 36.7; O2SAT 98
[2019-01-19] MEDS: Acetaminophen 500 MG Tablet 1000 MG PO (13:22)
== END 2019-01-19 13:38 | disposition home or self-care (01) ==
LOC: SDC 13:51
PROVIDERS: Physician Assistant; Admitting Provider Orthopaedic Surgery; Family Provider Internal Medicine; PCP Internal Medicine; Referring Provider Orthopaedic Surgery; Visit Provider Orthopaedic Surgery
PROC: (CPT 27447; principal; 2019-01-18 12:15)
DX: M17.11 Unilateral primary osteoarthritis, right knee (principal); R94.31 Abnormal electrocardiogram [ECG] [EKG]; I45.10 Unspecified right bundle-branch block; I10 Essential (primary) hypertension; K21.9 Gastro-esophageal reflux disease without esophagitis; Z86.718 Personal history of other venous thrombosis and embolism; Z79.899 Other long term (current) drug therapy
CPT/HCPCS: 01400; 27447; 64447; 36415; 80048; 80329; 85025; 87081; 88305; 88311; 93005; 96361; 96365; 96366; 96375; 97162; 97166; 97530; 97535; 99218; C1776; J7120; A4216; G0378; G0379; G0480; J2405

== ENCOUNTER → 2019-05-20 13:11 | Outpatient (CLI) | payer MEDICARE, SELFPAY ==
[2019-01-18 16:42] VITALS: BMI 41.4
--- NOTE | 2019-05-20 13:13 | CT_ITS ---
Exam: Noncontrast CT of the left shoulder. HISTORY: Left shoulder pain. COMPARISON: None-no radiographs. FINDINGS: No acute fracture or dislocation. Severe glenohumeral osteoarthritis with subchondral cysts especially of the glenoid. Severe acromioclavicular osteoarthritis with inferior osteophytes. Marked cephalad migration of the humeral head indicating complete chronic rotator cuff tear. The humeral head articulates directly with the undersurface of the acromion which shows erosion of the undersurface. CT/Extremity Upper without Contra IMPRESSION: Severe degenerative changes and evidence for complete chronic rotator cuff tear. Electronically Signed: Stalin Sanchez MD at 18:27 EDT , Service support ,
== END ==
PROVIDERS: Family Provider Internal Medicine; PCP Internal Medicine; Referring Provider Specialist; Visit Provider Specialist
DX: M19.212 Secondary osteoarthritis, left shoulder (principal)
CPT/HCPCS: 73200

== ENCOUNTER → 2019-05-31 14:02 | Outpatient (CLI) | payer SELFPAY ==
[2019-01-18 16:42] VITALS: BMI 41.4
--- NOTE | 2019-05-31 14:09 | CT_ITS ---
STUDY: CT LEFT SHOULDER REASON FOR EXAM: Left shoulder osteoarthritis. TECHNIQUE: The patient was scanned in a multi detector CT scanner. High resolution transaxial imaging was performed without the administration of intravenous contrast material. Sagittal and coronal images were reconstructed. Individualized dose optimization techniques were used for this CT. COMPARISON: CT images 05/20/2019. FINDINGS: There is advanced glenohumeral arthrosis with marginal osteophytes of the humeral head, subchondral cystic change of the glenoid and humeral head, joint space loss and erosion of the posterior glenoid (axial images 15-22). There is superior migration of the humeral head abutting the acromion (sagittal reconstruction 67-69) consistent with rotator cuff pathology. There is cystic change of the greater tuberosity. Normal visualized lateral clavicle. There is acromioclavicular arthrosis (coronal reconstruction 48). There is a Type II morphology (curved), with a neutral orientation. There is atrophy with partial fat replacement of the supraspinatus, infraspinatus muscles and teres minor muscles (sagittal reconstruction 49). CT/Extremity Upper without Contra IMPRESSION: Advanced glenohumeral arthrosis with erosion of the posterior glenoid. Superior migration of the humeral head consistent with rotator cuff pathology with atrophy of the supraspinatus, infraspinatus and teres minor muscles. Acromioclavicular arthrosis. Electronically Signed: Buzz Cormier MD at 15:06 EDT Tel , Service support ,
== END ==
PROVIDERS: Family Provider Internal Medicine; PCP Internal Medicine; Referring Provider Specialist; Visit Provider Specialist
DX: M19.012 Primary osteoarthritis, left shoulder (principal)
CPT/HCPCS: 73200

== ENCOUNTER → 2020-09-18 14:47 | Outpatient (CLI) | payer MEDICARE, SELFPAY ==
[2019-01-18 16:42] VITALS: BMI 41.4
--- NOTE | 2020-09-18 14:49 | CT_ITS ---
STUDY: CT RIGHT SHOULDER REASON FOR EXAM: Female, 69 years old. Right shoulder osteoarthritis, materialize shoulder protocol. No injury or prior surgery, hx hypertension. RADIATION DOSAGE (If Supplied By Facility): CTDIvol = ( 30.78 ) mGy, DLP = ( 639.35 ) mGycm TECHNIQUE: The patient was scanned in a multi detector CT scanner. High resolution transaxial imaging was performed without the administration of intravenous contrast material. Sagittal and coronal images were reconstructed. Individualized dose optimization techniques were used for this CT. COMPARISON: None. FINDINGS: There is moderate to severe narrowing of the glenohumeral articulation and bulky osteophyte of the medial and inferior aspect head, in addition to subchondral cystic changes of the glenoid. A small joint effusion is also present. The humeral head is also high riding abutting the undersurface of the acromium indicating a full-thickness tear of the rotator cuff tendons. A small loose body is seen in the joint space. No demonstrated acute fracture. Normal coracoid process. Normal visualized lateral clavicle. There is mild osteoarthritis with articular joint space narrowing. There is a Type II morphology (curved), with a neutral orientation. Unremarkable visualized muscles and soft tissue structures. Unremarkable visualized aspects of the right lung. Degenerative changes are seen in the thoracic spine. CT/Extremity Upper without Contra IMPRESSION: Moderate to severe DJD of the right shoulder joint Electronically Signed: Franko Nam MD at 20:05 EST , Service support ,
== END ==
PROVIDERS: PCP Internal Medicine; Referring Provider Specialist; Visit Provider Specialist
DX: M19.211 Secondary osteoarthritis, right shoulder (principal)
CPT/HCPCS: 73200

== ENCOUNTER → 2020-10-27 13:56 | Outpatient (CLI) | payer MEDICARE, SELFPAY ==
[2020-10-27 15:54] LABS: Albumin, Serum 3.3 g/dL (3.2-5.0)
== END ==
PROVIDERS: PCP Internal Medicine; Referring Provider Specialist; Visit Provider Specialist
DX: Z01.812 Encounter for preprocedural laboratory examination (principal)
CPT/HCPCS: 36415; 82040

== ENCOUNTER 2021-08-15 15:25 | Inpatient (IN) | payer MEDICARE, SELFPAY ==
[2021-08-15] VITALS (8 sets, daily range): BP systolic 127–181; BP diastolic 64–78; PULSE 79–105; RESP 15–18; TEMP 36.9; O2SAT 95–99; BMI 40.2; BMI 41.1
--- NOTE | 2021-08-15 15:28 | EKG12_ITS ---
Test Reason : NEAR SYNCOPE Blood Pressure : / mmHG Vent. Rate : 088 BPM Atrial Rate : 088 BPM P-R Int : 180 ms QRS Dur : 144 ms QT Int : 384 ms P-R-T Axes : 057 021 007 degrees QTc Int : 464 ms Sinus rhythm with Premature supraventricular complexes Right bundle branch block Abnormal ECG Confirmed by KELI SOTO, RAUL ([id number]), supervising film or videotape editor SHAWN PALOMINO ([id number]) on 08/21/2021 10:27:42 AM Referred By: BRIANNE Confirmed By:RAUL DICKEY MD
--- NOTE | 2021-08-15 15:43 | RAD_ITS ---
INDICATION: Stroke EXAMINATION/TECHNIQUE: X-RAY - XR Chest 1 View COMPARISON: 04/03/2016 FINDINGS: LINES/DEVICES: None. LUNGS: No consolidation, edema or effusion. No pneumothorax. MEDIASTINUM AND CARDIOVASCULAR STRUCTURES: Cardiac silhouette not enlarged. Central airways and mediastinal contour are unremarkable. BONES AND SOFT TISSUES: Bilateral shoulder prosthesis is unremarkable. Degenerative bone changes are seen. RAD/Chest 1 View (Portable) IMPRESSION: No radiographic evidence of acute cardiopulmonary disease. Electronically Signed: Derrick Gray MD at 16:02 EST Tel , Service support ,
[2021-08-15 15:44] LABS: Absolute Lymphocyte Count 1.15 X10^3/uL (0.83-4.51); Absolute Neutrophil Count 4.2 X10^3/uL (2.0-7.7); Basophil# 0.05 X10^3/uL; Basophil% 0.8 % (0-1); Eosinophil# 0.17 X10^3/uL; Eosinophils% 2.8 % (0-5); Hematocrit 25.6 % (37-47); Lymphocyte # 1.15 X10^3/ul (0.83-4.51); Lymphocyte % 18.7 % (19-41); Mean Corp Hgb Conc 27.3 g/dL (32-36); Mean Corpuscular Hgb 16.8 pg (27.0-32.0); Mean Corpuscular Volume 61.5 fL (81-99); Monocyte# 0.52 X10^3/uL; Monocyte% 8.4 % (0-10); NRBC Flagged by Analyzer 0 % (0-5); Neutrophil # 4.22 X10^3/uL (2.7-7.7); Neutrophil % 68.5 % (47-70); Platelet Count 318 K/mm3 (150-450); RBC Distribution Width CV 17.2 % (11.6-14.6); RBC Distribution Width SD 36.7 fl (35.1-43.9); Red Blood Count 4.16 M/mm3 (4.2-5.4); White Blood Count 6.2 K/mm3 (4.4-11.0)
[2021-08-15 15:53] LABS: International Normalized Ratio 1.1; Prothrombin Time (Protime)PT. 13.4 SECONDS (11.7-14.9)
[2021-08-15 15:54] LABS: Partial Thromboplast Time 30.5 Seconds (24.1-36.2)
[2021-08-15 15:55] LABS: Anion Gap 7 (5-15); BUN 22 mg/dL (7-18); BUN/Creat Ratio 25.2 RATIO (10-20); Calcium,Total 9.6 mg/dL (8.5-10.1); Chloride 108 mmol/L (98-107); Creatinine, Serum 0.87 mg/dL (0.55-1.02); EST Glomerular Filtration Rate 68 mL/min (>60); Est Glom Filt Rate - Afr Amer 82 mL/min (>60); Estimated Creatinine Clearance 47.59 ml/min; Glucose 122 mg/dL (74-106); Potassium 3.7 mmol/L (3.5-5.1); Sodium Level 141 mmol/L (136-145)
--- NOTE | 2021-08-15 17:47 | EDS_ITS ---
HPI History of Present Illness Chief Complaint: Dizziness Informant: patient Onset/Context/Timing Onset: Today Context: Sudden Onset Timing: Continuous Quality: Lightheaded, weak, shaky Location: Generalized Worsened by: Nothing Relieved by: Nothing Narrative Narrative: Patient presents with dizziness that began today. Patient states she felt like she was going to pass out. Patient states she felt shaky and weak ever since. Patient states she feels lightheaded. Patient states nothing makes it worse and nothing makes it better. Patient denies any chest pain or shortness of breath. Patient denies any palpitations. Patient denies any nausea or or vomiting. Patient denies any melena or hematochezia. Patient denies any abdominal pain. Patient denies any fevers or chills. Patient denies any sick contacts. [facility] Medical History (Updated 08/15/21 @ 21:[address] Victor Hugo Jimenez, ) Abdominal pain Anemia Bowel perforation Cardiomegaly Chest pain Diverticulosis of colon Diverticulosis of large intestine DVT (deep venous thrombosis) Epigastric pain Gastritis HTN (hypertension) Internal hemorrhoids [place] esophagus Sciatica Sesamoiditis Home Medications amlodipine 10 mg PO QHS 04/03/16 [History Last Taken 11/27/17] meloxicam 15 mg PO DAILY 04/03/16 [History Last Taken 11/27/17] albuterol sulfate 90 mcg/actuation aerosol inhaler 2 puff INHALATION Q6H PRN 11/04/17 [History Last Taken 11/27/17] fluticasone propionate 1 spray NASAL QHS 01/07/19 [History Last Taken Unknown] lisinopril 20 mg PO DAILY 01/07/19 [History Last Taken Unknown] omeprazole 20 mg PO DAILY 01/07/19 [History Last Taken Unknown] acetaminophen 1,000 mg PO Q8 #90 tab 01/19/19 [Rx Last Taken Unknown] montelukast 10 mg PO DAILY 08/15/21 [History Last Taken Unknown] Allergy/AdvReac Type Severity Reaction Status Date / Time amoxicillin trihydrate Allergy Rash Verified 08/15/21 15:28 [From Augmentin] Cephalosporins Allergy Rash Verified 08/15/21 15:28 potassium clavulanate Allergy Rash Verified 08/15/21 15:28 [From Augmentin] Sulfa (Sulfonamide Allergy Rash Verified 08/15/21 15:28 Antibiotics) Family History (System 07/18/21 @ 10:02 by Pb Posey) Sister Arthritis Breast cancer Osteoporosis Father Diabetes Cancer Skin Mother Hypertension Cancer skin cancer Osteoporosis Surgical History History of esophagogastroduodenoscopy (EGD) Hx of ileostomy S/P cholecystectomy S/P colonoscopy S/P ovarian cystectomy S/P tonsillectomy Social History Smoking Status: Never smoker second hand exposure: No alcohol intake: never substance use type: does not use caffeine: Yes what type of physical activity do you participate in: none frequency: does not exercise seatbelt use: always ROS ROS ED Constitutional Constitutional ED: Denies chills or fever(s) Eyes Eyes: Denies blurry vision or change in vision ENT ENT ED: Denies rhinorrhea or sore throat Cardiovascular Cardiovascular: Denies chest pain or palpitations Respiratory/Chest Respiratory/Chest: Denies cough or dyspnea Gastrointestinal Gastrointestinal: Denies nausea or vomiting Genitourinary Genitourinary ED: Denies dysuria or hematuria Musculoskeletal Musculoskeletal: Denies back pain or neck pain Integumentary Denies abscess or rash Neurologic Neurologic: Reports weakness; Denies headache(s) Allergic/Immunologic Allergic/Immunologic ED: Denies mouth swelling or urticaria EXAM Physical Exam Const Vital Signs: 08/15/21 15:26 08/15/21 17:30 08/15/21 17:33 Temperature 98.4 F Temperature Source Temporal Pulse Rate 105 H 88 Pulse Rate [Lying] Pulse Rate [Sitting] Pulse Rate [Standing] Respiratory Rate 18 16 Respiratory Effort Normal Non-Labored Respiratory Pattern Normal Blood Pressure 181/65 H 142/71 H Blood Pressure [Lying] Blood Pressure [Sitting] Blood Pressure [Standing] Blood Pressure Mean 103 94 Blood Pressure Mean [Lying] Blood Pressure Mean [Sitting] Blood Pressure Mean [Standing] Pulse Ox 98 99 Oxygen Delivery Method Room Air Room Air 08/15/21 18:00 08/15/21 19:00 08/15/21 19:07 Temperature Temperature Source Pulse Rate 93 83 Pulse Rate [Lying] 79 Pulse Rate [Sitting] 95 Pulse Rate [Standing] 95 Respiratory Rate 15 16 Respiratory Effort Respiratory Pattern Blood Pressure 127/64 H Blood Pressure [Lying] 151/65 H Blood Pressure [Sitting] 153/67 H Blood Pressure [Standing] 163/78 H Blood Pressure Mean 85 Blood Pressure Mean [Lying] 93 Blood Pressure Mean [Sitting] 95 Blood Pressure Mean [Standing] 106 Pulse Ox 99 97 Oxygen Delivery Method Room Air Room Air Positive well nourished and well developed General Appearance ED: well developed HEENT Reports moist mucous membranes Neck supple and no JVD Resp normal respiratory effort and clear to auscultation bilaterally Cardio regular rate, regular rhythm and no murmurs GI normal to inspection, nondistended, normoactive bowel sounds and non-tender Palpation: soft Extremity normal to inspection General Extremety ED: Negative for edema or tenderness General Extremity: Negative for edema Neuro oriented x3, CN's II-XII intact bilaterally and no sensory deficits noted Sensorium / Orientation: alert Motor Exam: strength 5/5 throughout Psych mental status grossly normal Skin no rashes or lesions noted MDM MDM MDM Narrative Medical decision making narrative: EKG was obtained. On my interpretation, it showed a normal sinus rhythm with a rate of 88. CO interval, and QTc intervals were normal. [place] was normal. There is a right bundle branch block pattern noted. There are no acute ST or T wave changes. CBC shows a hemoglobin of 7.0 and hematocrit 25.6. Platelets were normal. Previous CBC was from 01/07/2019 which showed a normal hemoglobin of 12.1. PT with INR and PTT were normal. Basic metabolic profile was essentially within normal limits. Stool was guaiac negative. Portable 1 view chest x-ray was obtained. On my interpretation, lung allen are clear. There is normal cardiac silhouette. Bony thorax is normal. There is no acute process noted. Radiologist also interpreted the x-ray and agrees. Orthostatic vital signs were obtained and were within normal limits. Patient is feeling better on reevaluation. Patient states her dizziness is improving. Case was discussed with the hospitalist. She will be in to evaluate the patient and admit the patient for observation. She requested that a repeat CBC be obtained. This was ordered. Patient was typed and crossed for 1 unit of blood. This will be transfused. Patient understands and is agreeable with plan. All questions were answered. Lab Data Attestation: I reviewed the patient's lab results. Labs: Laboratory Results - last 24 hr 08/15/21 08/15/21 08/15/21 15:33 15:33 15:33 WBC 6.2 RBC 4.16 L Hgb 7.0 L Hct 25.6 L MCV 61.5 L MCH 16.8 L MCHC 27.3 L RDW Std Deviation 36.7 RDW Coeff of Anuradha 17.2 H Plt Count 318 MPV 9.0 Immature Gran % (Auto) 0.800 Neut % (Auto) 68.5 Lymph % (Auto) 18.7 L [place] % (Auto) 8.4 Eos % (Auto) 2.8 Baso % (Auto) 0.8 Absolute Neuts (auto) 4.2 Absolute Lymphs (auto) 1.15 Nucleated RBC % 0 PT 13.4 INR 1.1 APTT 30.5 Sodium 141 Potassium 3.7 Chloride 108 H Carbon Dioxide 26.0 Anion Gap 7 BUN 22 H Creatinine 0.87 Estim Creat Clear Calc 47.59 Est GFR (MDRD) Af Amer 82 Est GFR (MDRD) Non-Af 68 BUN/Creatinine Ratio 25.2 H Glucose 122 H Calcium 9.6 Iron TIBC Iron Saturation Ferritin Total Bilirubin Direct Bilirubin AST ALT Alkaline Phosphatase Total Protein Albumin Globulin 08/15/21 08/15/21 15:33 15:33 WBC RBC Hgb Hct MCV MCH MCHC RDW Std Deviation RDW Coeff of Anuradha Plt Count MPV Immature Gran % (Auto) Neut % (Auto) Lymph % (Auto) [place] % (Auto) Eos % (Auto) Baso % (Auto) Absolute Neuts (auto) Absolute Lymphs (auto) Nucleated RBC % PT INR APTT Sodium Potassium Chloride Carbon Dioxide Anion Gap BUN Creatinine Estim Creat Clear Calc Est GFR (MDRD) Af Amer Est GFR (MDRD) Non-Af BUN/Creatinine Ratio Glucose Calcium Iron 11 L TIBC 525 H Iron Saturation 2.1 L Ferritin 7 L Total Bilirubin 0.30 Direct Bilirubin 0.08 AST 14 L ALT 24 Alkaline Phosphatase 132 H Total Protein 6.9 Albumin 3.4 Globulin 3.5 Radiography Chest X-Ray - ED: 1 View, Read by ED Physician, Read by Radiologist and Normal Diagnostic Testing: Clinical Impression(s) from Imaging Studies Chest X-Ray 08/15/21 15:43 IMPRESSION: No radiographic evidence of acute cardiopulmonary disease. Electronically Signed: Derrick Gray MD at 16:02 EST Tel , Service support , EKG Initial EKG: Attestation: I personally reviewed and interpreted this EKG as follows: Interpretation: Sinus Rhythm (88), No Acute Injury Pattern and RBBB Prior EKG tracings: available for review Prior: Unchanged (01/07/2019) Treatment and Re-Evaluation Vital Sign Attestation:: Vital signs were reviewed prior to admission. They are stable. Discharge Plan Dx/Rx/DC Orders Clinical Impression: Anemia Disposition Disposition: Acute Care Hospital [facility] Discharge Date/Time: 08/15/21 21:45
[2021-08-15 21:31] LABS: AST(SGOT) 14 U/L (15-37); Alanine Aminotransfer ALT/SGPT 24 U/L (13-56); Albumin, Serum 3.4 g/dL (3.2-5.0); Alkaline Phosphatase 132 U/L (45-117); Bilirubin, Direct 0.08 mg/dL (0.00-0.30); Globulin 3.5 g/dL (2.2-4.2); Protein, Total 6.9 g/dL (6.4-8.2)
--- NOTE | 2021-08-15 22:08 | CDU_ITS ---
Reason For Study: Presyncope, Carotid bruit Rt. Velocities/BP Lt. Velocities/BP Prox CCA 96.9/20 cm/sec. Prox CCA 84.6/17 cm/sec. Mid CCA 91.7/25.2 cm/sec. Mid CCA 82.7/18.8 cm/sec. Dist CCA 65.6/20 cm/sec. Dist CCA 64.5/18.8 cm/sec. Prox ICA 51.3/14.7 cm/sec. Prox ICA 58.1/13.9 cm/sec. Mid ICA 106/35.8 cm/sec. Mid ICA 98.6/36 cm/sec. Dist ICA 156.1/43 cm/sec. Dist ICA 127/36.2 cm/sec. Rt. ICA/CCA = 1.70. Lt. ICA/CCA = 1.54. Prox ECA 93/10.8 cm/sec. Prox ECA 90/7.9 cm/sec. Rt. Vert. 73.1/20.4 cm/sec. Lt. Vert. 46.5/12.4 cm/sec. Right Extracranial There is homogeneous, smooth atherosclerotic plaque noted in the right common carotid artery. There is homogeneous, smooth atherosclerotic plaque noted in the right internal carotid artery. The right internal carotid artery is very tortuous. There is intimal thickening but no significant atherosclerotic plaque noted in the right external carotid artery. Antegrade flow is noted in the right vertebral artery. Left Extracranial There is homogeneous, smooth atherosclerotic plaque noted in the left common carotid artery. There is intimal thickening but no significant atherosclerotic plaque noted in the left internal carotid artery. The left internal carotid artery is very tortuous. There is intimal thickening but no significant atherosclerotic plaque noted in the left external carotid artery. Antegrade flow is noted in the left vertebral artery. Procedure This is a Carotid Duplex examination using B-mode, color flow and specral Doppler. Carotid Duplex [id number]. The study was technically difficult. Exam performed portable in patient room. VL/Carotid Duplex Ultrasound Interpretation Summary Minimal smooth plaque of the right internal carotid artery with tortuosity note d. There area of velocity elevations were noted in the distal internal carotid art brock and likely is artificially elevated at 156 cm/s flow consistent with 50 to 69% stenosis but t his is likely an overestimation. The velocity within the proximal right internal carotid artery is normal and less than 50% stenosis Less than 50% stenosis right external carotid artery Intimal thickening of the left internal carotid artery with tortuosity noted. Less than 50% stenosis left internal carotid artery Less than 50% stenosis left external carotid artery Patent antegrade vertebrals bilaterally Ordering Physician: Stacey Aldridge Referring Physician: Caitlin Moreland M.D. Performed By: Harriet Vargas RVT
--- NOTE | 2021-08-15 22:08 | ECHOD_ITS ---
Reason For Study: SYNCOPE/NEAR SYNCOPE Procedure This was a 2D Doppler, Color Flow transthoracic echocardiogram. The study was technically difficult. Poor parasternal accoustic windows. Exam performed portable in patient room. Left Ventricle Technically difficult study, image quality is about 6 out of 10, and may affect the reliability of interpretation. Despite this, I can still assess wall motion with confidence. The valvular structures are less well depicted. Preserved left ventricular systolic function, visually estimated left ventricular ejection fraction is about 65 to 70%. Upper normal LV wall thickness, normal chamber dimension, no regional wall motion abnormality is appreciated. No gross evidence of diastolic dysfunction. Right Ventricle The right ventricle is suboptimally visualized. Overall right ventricular systolic function appears normal right ventricular cavity size appears normal. Atria Left atrium is mildly dilated, with measured left atrial volume index of 42 mL/m??. Right atrial size is probably normal, with the right atrium is not adequately visualized. Mitral Valve The mitral valve is structurally normal. No prolapse or stenosis seen. Tricuspid Valve Normal tricuspid valve. Aortic Valve Difficult to visualize, but appears tricuspid without aortic stenosis or regurgitation. Pulmonic Valve The pulmonic valve is not well visualized. Great Vessels Normal aortic root. The inferior vena cava is not dilated. Inferior vena cava collapse with sniff. Pericardium/Pleural No pericardial effusion. MMode/2D Measurements & Calculations LVIDd: 4.8 cm IVSd: 1.1 cm Ao root diam: 3.2 cm LVIDs: 3.1 cm LVPWd: 1.1 cm RVDd: 3.3 cm FS: 35.9 % LAV(MOD-bp): 82.6 ml LVAd ap4: 29.0 cm2 LVAd ap2: 26.7 cm2 LAV(MOD-bp) Indexed: 41.6 ml/m2 LVLd ap4: 8.0 cm LVLd ap2: 8.0 cm LAV(MOD-sp2): 71.3 ml EDV(MOD-sp4): 87.5 ml EDV(MOD-sp2): 77.5 ml LAV(MOD-sp4): 88.9 ml EDV(sp4-el): 89.7 ml EDV(sp2-el): 75.7 ml LVAs ap4: 16.4 cm2 LVAs ap2: 15.8 cm2 LVLs ap4: 6.6 cm LVLs ap2: 6.4 cm ESV(MOD-sp4): 36.2 ml ESV(MOD-sp2): 32.2 ml ESV(sp4-el): 34.8 ml ESV(sp2-el): 33.0 ml EF(MOD-sp4): 58.6 % EF(MOD-sp2): 58.4 % EF(sp4-el): 61.3 % SV(MOD-sp4): 51.2 ml SV(MOD-sp2): 45.3 ml SV(sp4-el): 55.0 ml LA dimension(2D): 3.4 cm LA A4 area: 26.0 cm2 RA A4 area: 14.2 cm2 Doppler Measurements & Calculations MV E max sav: 70.7 cm/sec Lat Peak E' Sav: 10.5 cm/sec Med Peak E' Sav: 9.4 cm/sec MV A max sav: 94.6 cm/sec E/E' lat: 6.8 E/E' med: 7.5 MV E/A: 0.75 Ao V2 max: 171.6 cm/sec LV V1 max: 117.9 cm/sec PA V2 max: 100.8 cm/sec Ao max P.8 mmHg LV V1 max P.6 mmHg Ao V2 mean: 112.0 cm/sec LV V1 mean P.5 mmHg Ao mean P.6 mmHg LV V1 mean: 73.9 cm/sec Ao V2 VTI: 33.7 cm LV V1 VTI: 23.2 cm ECHO/Echo Complete Interpretation Summary Technically difficult study, image quality is about 6 out of 10, and may affect the reliability of interpretation. Despite this, I can still assess wall motion with confidence. T he valvular structures are less well depicted. Preserved left ventricular systolic function, visually estimated left ventricul ar ejection fraction is about 65 to 70%. Upper normal LV wall thickness, normal chamber dimension, no regional wall jerman on abnormality is appreciated. The right ventricle is suboptimally visualized. Overall right ventricular systo lic function appears normal right ventricular cavity size appears normal. No gross evidence of diastolic dysfunction. Left atrium is mildly dilated, with measured left atrial volume index of 42 mL/ m??. Right atrial size is probably normal, with the right atrium is not adequately v isualized Difficult to visualize, but appears tricuspid without aortic stenosis or regurg itation Within the limits of the study all valves appear grossly normal. There is no appreciable tricuspid regurgitation hence PA systolic pressure coul d not be assessed No prior echocardiogram report is available for comparison Ordering Physician: Stacey Aldridge Referring Physician: Caitlin Moreland Performed By: Myah Espinal, BENI, RVT
[2021-08-15 22:13] LABS: Ferritin 7 ng/mL (8-252); Iron 11 ug/dL (50-170); Iron Binding Capacity,Total 525 ug/dL (250-450); PERCENT IRON SATURATION 2.1 % (15.0-55.0)
[2021-08-15] MEDS: Fluticasone 0.05% 1 SPRAY NASAL.SRY NASAL (22:43)
[2021-08-15] MEDS: amLODIPine 10 MG Tablet PO (22:45)
--- NOTE | 2021-08-15 23:14 | PCM.HP.STD ---
HPI - General General Date of Admission: 08/15/21 Date of Service: 08/15/21 Chief Complaint: Presyncope HPI Narrative JA ADAME, is a 70 F who presented to the emergency department on 08/15/2021 with a presyncopal episode that occurred while she was sitting baking cookies earlier this evening. She states she was sitting there baking cookies and all of a sudden felt lightheaded and that she was going into a tunnel and almost passed out. She states she not had this previously and was feeling well prior to this but when pressed further she did admit to some exertional shortness of breath that had been going on for a little bit of time although specific timeframe was not able to be given. Upon my evaluation she felt completely better and felt that she was back to baseline. She denied any fever or chills, chest pain, nausea or vomiting, shortness of breath at rest, cough, nausea, vomiting, diarrhea, constipation, melena, hematemesis, hematochezia, abdominal pain, or sick contacts. Her vital signs in the emergency department were stable and her orthostatic vitals were negative. Her CBC revealed anemia with a hemoglobin of 7 and an MCV of 61. Her most recent lab that we have access to was on 01/07/2019 at which time she had a hemoglobin of 12.1 and an MCV of 73.4. Her platelet count was normal. Her coag studies were normal. Her CMP was overall unremarkable with a normal BUN to serum creatinine ratio normal bilirubin and normal LFTs. Given her marked microcytic anemia iron studies were performed and she has an elevated TIBC with a reduced iron, iron sat, and a low ferritin level. She was Hemoccult negative in the emergency department. She is on meloxicam for which she takes regularly and she did admit to taking 1 dose of aspirin prior to presentation given her presyncopal event. In the emergency department 1 unit of packed red blood cells was ordered and request for admission was made. It is unclear at this time where her blood loss is coming from as she has no obvious source at this time. [facility] Medical History Abdominal pain Anemia Bowel perforation Cardiomegaly Chest pain Diverticulosis of colon Diverticulosis of large intestine DVT (deep venous thrombosis) Epigastric pain Gastritis HTN (hypertension) Internal hemorrhoids [place] esophagus Sciatica Sesamoiditis Home Medications amlodipine 10 mg PO QHS 04/03/16 [History Last Taken 11/27/17] meloxicam 15 mg PO DAILY 04/03/16 [History Last Taken 11/27/17] albuterol sulfate 90 mcg/actuation aerosol inhaler 2 puff INHALATION Q6H PRN 11/04/17 [History Last Taken 11/27/17] fluticasone propionate 1 spray NASAL QHS 01/07/19 [History Last Taken Unknown] lisinopril 20 mg PO DAILY 01/07/19 [History Last Taken Unknown] omeprazole 20 mg PO DAILY 01/07/19 [History Last Taken Unknown] acetaminophen 1,000 mg PO Q8 #90 tab 01/19/19 [Rx Last Taken Unknown] montelukast 10 mg PO DAILY 08/15/21 [History Last Taken Unknown] Allergy/AdvReac Type Severity Reaction Status Date / Time amoxicillin trihydrate Allergy Rash Verified 08/15/21 15:28 [From Augmentin] Cephalosporins Allergy Rash Verified 08/15/21 15:28 potassium clavulanate Allergy Rash Verified 08/15/21 15:28 [From Augmentin] Sulfa (Sulfonamide Allergy Rash Verified 08/15/21 15:28 Antibiotics) Family History Sister Arthritis Breast cancer Osteoporosis Father Diabetes Cancer Skin Mother Hypertension Cancer skin cancer Osteoporosis Surgical History History of esophagogastroduodenoscopy (EGD) Hx of ileostomy S/P cholecystectomy S/P colonoscopy S/P ovarian cystectomy S/P tonsillectomy Social History Smoking Status: Never smoker second hand exposure: No alcohol intake: never substance use type: does not use caffeine: Yes what type of physical activity do you participate in: none frequency: does not exercise seatbelt use: always ROS Constitutional Constitutional: Denies anorexia, change in weight, chills, fatigue, fever(s), malaise, night sweats, weakness or other Eyes Eyes: Denies blurry vision, change in eye color, change in vision, discharge from eye(s), double vision, erythema, eye pain, loss of vision or other ENT HEENT: Denies abnormal hearing, dysphagia, ear pain, epistaxis, headache(s), hearing loss, nasal congestion, nasal discharge, post nasal drip, sinus pressure, sore throat or other Cardiovascular Cardiovascular: Reports dyspnea on exertion, lightheadedness and other Details: Presyncope ; Denies chest pain, claudication, edema, orthopnea, palpitations, paroxysmal nocturnal dyspnea, rapid heart rate or syncope Respiratory/Chest Respiratory/Chest: Reports shortness of breath with exertion; Denies cough, dyspnea, excessive phlegm production, hemoptysis, productive cough, shortness of breath at rest, wheezing or other Gastrointestinal Gastrointestinal: Denies abdominal pain, coffee ground emesis, constipation, diarrhea, dyspepsia, hematemesis, hematochezia, loose stools, melena, nausea, vomiting or other Genitourinary Genitourinary: Denies burning urination, difficulty urinating, dysuria, hematuria, nocturia, urinary frequency, urinary hesitancy, urinary incontinence, urinary urgency or other Musculoskeletal Musculoskeletal: Denies arthralgias, back pain, joint pain, joint stiffness, joint swelling, myalgias, neck pain or other Neurologic Neurologic: Denies abnormal gait, abnormal speech, confusion, disequilibrium, dizziness, focal weakness, headache(s), numbness, paresthesias, seizure-like activity, seizures, syncope, tingling, tremor(s) or other Psychiatric Psychiatric: Denies anxiety, depression, homicidal ideation, suicidal ideation or other Endocrine Endocrinology: Denies change in body appearance, cold intolerance, excessive sweating, heat intolerance, polydipsia, polyuria or other Hematologic/Lymphatic Hematologic/Lymphatic: Denies anemia, easy bleeding, easy bruising, lymphadenopathy or other Allergic/Immunologic Allergic/Immunologic: Denies rhinitis, hives, eczemia, asthma or other Vital Signs Vital Signs Vital Signs: 08/15/21 15:26 08/15/21 17:30 08/15/21 17:33 Temperature 98.4 F Temperature Source Temporal Pulse Rate 105 H 88 Pulse Rate [Lying] Pulse Rate [Sitting] Pulse Rate [Standing] Respiratory Rate 18 16 Respiratory Effort Normal Non-Labored Respiratory Pattern Normal Blood Pressure 181/65 H 142/71 H Blood Pressure [Lying] Blood Pressure [Sitting] Blood Pressure [Standing] Blood Pressure Mean 103 94 Blood Pressure Mean [Lying] Blood Pressure Mean [Sitting] Blood Pressure Mean [Standing] Blood Pressure Source Blood Pressure Position Blood Pressure Location Pulse Ox 98 99 Oxygen Delivery Method Room Air Room Air 08/15/21 18:00 08/15/21 19:00 08/15/21 19:07 Temperature Temperature Source Pulse Rate 93 83 Pulse Rate [Lying] 79 Pulse Rate [Sitting] 95 Pulse Rate [Standing] 95 Respiratory Rate 15 16 Respiratory Effort Respiratory Pattern Blood Pressure 127/64 H Blood Pressure [Lying] 151/65 H Blood Pressure [Sitting] 153/67 H Blood Pressure [Standing] 163/78 H Blood Pressure Mean 85 Blood Pressure Mean [Lying] 93 Blood Pressure Mean [Sitting] 95 Blood Pressure Mean [Standing] 106 Blood Pressure Source Blood Pressure Position Blood Pressure Location Pulse Ox 99 97 Oxygen Delivery Method Room Air Room Air 08/15/21 21:30 08/15/21 22:00 Temperature 98.4 F 98.4 F Temperature Source Temporal Oral Pulse Rate 90 91 Pulse Rate [Lying] Pulse Rate [Sitting] Pulse Rate [Standing] Respiratory Rate 15 18 Respiratory Effort Respiratory Pattern Blood Pressure 161/67 H 154/77 H Blood Pressure [Lying] Blood Pressure [Sitting] Blood Pressure [Standing] Blood Pressure Mean 98 102 Blood Pressure Mean [Lying] Blood Pressure Mean [Sitting] Blood Pressure Mean [Standing] Blood Pressure Source Monitor Blood Pressure Position Semi-Fowlers Blood Pressure Location Right Arm Pulse Ox 98 95 Oxygen Delivery Method Room Air Room Air Weight Weight: 101.9 kg Body Mass Index (BMI) 41.1 Physical Exam Const alert, oriented x3 and no apparent distress Constitutional Narrative: Morbidly obese older white female sitting up in bed, at bedside, patient appears comfortable and nontoxic General Appearance: cooperative HEENT normocephalic, head/scalp atraumatic, hearing grossly normal bilaterally and moist oral mucous membranes HEENT Narrative: Mallampati is 2, no thrush Eyes PERRL and EOMs intact bilaterally Eyes Narrative: Pale conjunctive a bilaterally, no scleral icterus Neck no lymphadenopathy, supple and no JVD Neck Narrative: Right-sided carotid bruit Resp normal respiratory effort, no retractions, no use of accessory muscles and clear to auscultation bilaterally Auscultation: Negative for crackles, rales, rhonchi or wheezes Cardio regular rate, regular rhythm, S1 normal heart sound, S2 normal heart sound, no murmurs, no rub, no gallops, no clicks and no JVD GI normal to inspection, nondistended, normoactive bowel sounds, soft to palpation, non-tender and non-distended Extremity no clubbing, cyanosis or edema Peripheral Pulses: Yes pulses 2+ throughout Skin no rashes or lesions noted, no wounds, skin turgor normal, no jaundice, no petechiae and no mottling Neuro oriented x3, CN's II-XII intact bilaterally, moves all extremities and no focal motor deficits Sensorium / Orientation: awake, alert, oriented to person, oriented to place and oriented to time Speech: speech normal Motor Exam: strength 5/5 throughout Results Lab / Micro Data Attestation: I reviewed the patient's lab results. Result Diagrams: 08/15/21 23:23 08/15/21 15:33 Labs: Laboratory Results - last 24 hr 08/15/21 15:33: WBC 6.2, RBC 4.16 L, Hgb 7.0 L, Hct 25.6 L, MCV 61.5 L, MCH 16.8 L, MCHC 27.3 L, RDW Std Deviation 36.7, RDW Coeff of Anuradha 17.2 H, Plt Count 318, MPV 9.0, Immature Gran % (Auto) 0.800, Neut % (Auto) 68.5, Lymph % (Auto) 18.7 L, Cottle % (Auto) 8.4, Eos % (Auto) 2.8, Baso % (Auto) 0.8, Absolute Neuts (auto) 4.2, Absolute Lymphs (auto) 1.15, Nucleated RBC % 0 08/15/21 15:33: PT 13.4, INR 1.1, APTT 30.5 08/15/21 15:33: Sodium 141, Potassium 3.7, Chloride 108 H, Carbon Dioxide 26.0, Anion Gap 7, BUN 22 H, Creatinine 0.87, Estim Creat Clear Calc 47.59, Est GFR (MDRD) Af Amer 82, Est GFR (MDRD) Non-Af 68, BUN/Creatinine Ratio 25.2 H, Glucose 122 H, Calcium 9.6 08/15/21 15:33: Total Bilirubin 0.30, Direct Bilirubin 0.08, AST 14 L, ALT 24, Alkaline Phosphatase 132 H, Total Protein 6.9, Albumin 3.4, Globulin 3.5 08/15/21 15:33: Iron 11 L, TIBC 525 H, Iron Saturation 2.1 L, Ferritin 7 L 08/15/21 21:18: WBC Cancelled, Corrected WBC Cancelled, RBC Cancelled, Hgb Cancelled, Hct Cancelled, MCV Cancelled, MCH Cancelled, MCHC Cancelled, RDW Std Deviation Cancelled, RDW Coeff of Anuradha Cancelled, Plt Count Cancelled, MPV Cancelled, Immature Gran % (Auto) Cancelled, Neut % (Auto) Cancelled, Lymph % (Auto) Cancelled, Cottle % (Auto) Cancelled, Eos % (Auto) Cancelled, Baso % (Auto) Cancelled, Absolute Neuts (auto) Cancelled, Absolute Lymphs (auto) Cancelled, Total Counted Cancelled, Neutrophils % (Manual) Cancelled, Band Neutrophils % Cancelled, Lymphocytes % (Manual) Cancelled, Monocytes % (Manual) Cancelled, Eosinophils % (Manual) Cancelled, Basophils % (Manual) Cancelled, Metamyelocytes % Cancelled, Myelocytes % Cancelled, Promyelocytes % Cancelled, Blast Cells % Cancelled, Plasma Cell % (Manual) Cancelled, Other Cells % Cancelled, Nucleated RBC % Cancelled, Nucleated RBCs/100 WBC Cancelled, Differential Comment Cancelled, Diff Path Review Cancelled, Hypersegmented Neuts Cancelled, Atypical Lymphocytes Cancelled, Reactive Lymphocytes Cancelled, Smudge Cells Cancelled, Toxic Granulation Cancelled, Toxic Vacuolation Cancelled, Dohle Bodies Cancelled, Eugenia Rods Cancelled, Platelet Estimate Cancelled, Plt Morphology Comment Cancelled, RBC Morphology Cancelled, Polychromasia Cancelled, Hypochromasia Cancelled, Poikilocytosis Cancelled, Basophilic Stippling Cancelled, Anisocytosis Cancelled, Microcytosis Cancelled, Macrocytosis Cancelled, Spherocytes Cancelled, Sickle Cells Cancelled, Target Cells Cancelled, Tear Drop Cells Cancelled, Ovalocytes Cancelled, Stomatocytes Cancelled, [place] Bodies Cancelled, [place] Cells Cancelled, Bite Cells Cancelled, Crenated Cell Cancelled, Acanthocytes (Spur) Cancelled, Rouleaux Cancelled, Schistocytes Cancelled 08/15/21 21:18: Crossmatch See Detail Micro: Microbiology 08/15/21 20:00 Stool Stool Occult Blood (NATA) - Final Radiology Impression Chest X-Ray 08/15/21 15:43 IMPRESSION: No radiographic evidence of acute cardiopulmonary disease. Electronically Signed: Derrick Gray MD at 16:02 EST Tel , Service support , Assessment & Plan Assessment/Plan (1) Microcytic anemia: (2) Pre-syncope: (3) Carotid bruit: (4) Iron deficiency: PLAN: Presyncope -Occurred while patient was in a sitting position -Orthostatic vitals were negative -Patient with marked anemia on admission and a hemoglobin of 7 -Patient also with a right-sided carotid bruit -Check carotid Dopplers -Check echocardiogram -Work-up anemia -Monitor on telemetry Iron deficient anemia -Hemoccult negative in the emergency department -Iron studies consistent with iron deficiency -1 unit packed red blood cells ordered for transfusion -200 mg of IV Venofer -Protonix IV 40 mg twice daily -Clear liquid diet for now -Consult GI for potential EGD and colonoscopy -Last EGD and colonoscopy were performed in 2018 for a positive FIT and she was found to have antral gastritis with gastric fundic polyps a patent ileocolonic anastomosis and sigmoid diverticulosis with a sessile polyp in the rectum and internal and external hemorrhoids -She is on meloxicam daily and took a 324 mg aspirin prior to presentation because she felt poorly today -Hold meloxicam -Check every 4 hour H&H's Right-sided carotid bruit -Check carotid Dopplers Hypertension -Continue amlodipine 10 A nightly -Continue lisinopril 20 mg daily GERD/hiatal hernia -Continue PPI but hold omeprazole and give IV Protonix 40 mg twice daily given concern for GI blood loss Allergies -Continue Singulair and nasal spray DVT prophylaxis -SCDs -No chemoprophylaxis given concern for bleeding CODE STATUS -Full code Charges/Coding Visit Charges Inpatient E&M: 18970 Init Hosp L3
[2021-08-15 23:29] LABS: Absolute Lymphocyte Count 1.39 X10^3/uL (0.83-4.51); Absolute Neutrophil Count 3.5 X10^3/uL (2.0-7.7); Basophil# 0.05 X10^3/uL; Basophil% 0.9 % (0-1); Eosinophil# 0.23 X10^3/uL; Eosinophils% 3.9 % (0-5); Hematocrit 23.2 % (37-47); Hemoglobin 6.4 g/dL (12.0-15.0); Lymphocyte # 1.39 X10^3/ul (0.83-4.51); Lymphocyte % 23.7 % (19-41); Mean Corp Hgb Conc 27.6 g/dL (32-36); Mean Corpuscular Hgb 16.8 pg (27.0-32.0); Mean Corpuscular Volume 61.1 fL (81-99); Mean Platelet Vol. 8.7 fl (6.2-12.0); Monocyte# 0.63 X10^3/uL; Monocyte% 10.8 % (0-10); NRBC Flagged by Analyzer 0 % (0-5); Neutrophil # 3.53 X10^3/uL (2.7-7.7); Neutrophil % 60.2 % (47-70); Platelet Count 262 K/mm3 (150-450); RBC Distribution Width CV 17.3 % (11.6-14.6); White Blood Count 5.9 K/mm3 (4.4-11.0)
[2021-08-16] VITALS (20 sets, daily range): BP systolic 131–168; BP diastolic 60–87; PULSE 76–96; RESP 16–18; TEMP 36.1–36.8; O2SAT 94–100; BMI 41.1
[2021-08-16 01:07] LABS: Hematocrit 23.7 % (37-47); Hemoglobin 6.4 g/dL (12.0-15.0)
--- NOTE | 2021-08-16 02:43 | NURSING ---
RN unable to chart vitals under Tar in [facility] in appropriate location for blood transfusion. RN will chart vitals in [facility] under vital location.
--- NOTE | 2021-08-16 03:26 | NURSING ---
RN unable to document vitals under TAR. Vitals documented in [facility] under prn vitals. Vitals at 0326 were HR 86, BP 148/73, Resp 18, 98% on Room Air, 97.8 degree temporal.
[2021-08-16] MEDS: 0.9% Saline Lock 10 ML Syringe IV ×2 (04:08→09:20)
--- NOTE | 2021-08-16 04:14 | NURSING ---
Pt completed blood transfusion at 0405 of 1 unit of PRBCs. Ending vitals were 97.8 degree oral temp, HR 85, BP 144/67, 97% on room air, resp 17.
--- NOTE | 2021-08-16 04:20 | PCS.PANDOC ---
PANDEMIC DOCUMENTATION INITIATED: Date: 04/02/2021 Time: 190
[2021-08-16 05:38] LABS: Absolute Lymphocyte Count 0.96 X10^3/uL (0.83-4.51); Absolute Neutrophil Count 2.6 X10^3/uL (2.0-7.7); Basophil# 0.03 X10^3/uL; Basophil% 0.7 % (0-1); Eosinophil# 0.17 X10^3/uL; Eosinophils% 3.9 % (0-5); Hemoglobin 7.2 g/dL (12.0-15.0); Lymphocyte # 0.96 X10^3/ul (0.83-4.51); Lymphocyte % 22.3 % (19-41); Mean Corp Hgb Conc 27.7 g/dL (32-36); Mean Corpuscular Hgb 17.8 pg (27.0-32.0); Mean Corpuscular Volume 64.2 fL (81-99); Mean Platelet Vol. 9.1 fl (6.2-12.0); Monocyte# 0.49 X10^3/uL; Monocyte% 11.4 % (0-10); NRBC Flagged by Analyzer 0.5 % (0-5); Neutrophil # 2.63 X10^3/uL (2.7-7.7); POSITIVE MORPHOLOGY YES; Platelet Count 264 K/mm3 (150-450); RBC Distribution Width CV 20.4 % (11.6-14.6); RBC Distribution Width SD 42.7 fl (35.1-43.9); Red Blood Count 4.05 M/mm3 (4.2-5.4); White Blood Count 4.3 K/mm3 (4.4-11.0)
[2021-08-16 05:43] LABS: Differential Indicated SCAN CRITERIA MET
[2021-08-16 05:55] LABS: Anisocytosis 3+
[2021-08-16 06:11] LABS: ALB/GLOB Ratio 0.9 RATIO (0.9-2.4); AST(SGOT) 15 U/L (15-37); Alanine Aminotransfer ALT/SGPT 21 U/L (13-56); Albumin, Serum 2.9 g/dL (3.2-5.0); Alkaline Phosphatase 113 U/L (45-117); Anion Gap 6 (5-15); BUN 15 mg/dL (7-18); Calcium,Total 8.7 mg/dL (8.5-10.1); Chloride 110 mmol/L (98-107); Creatinine, Serum 0.68 mg/dL (0.55-1.02); EST Glomerular Filtration Rate 91 mL/min (>60); Est Glom Filt Rate - Afr Amer 110 mL/min (>60); Globulin 3.2 g/dL (2.2-4.2); Glucose 120 mg/dL (74-106); Magnesium 2.1 mg/dL (1.6-2.6); Phosphorus 3.3 mg/dL (2.5-4.9); Potassium 3.4 mmol/L (3.5-5.1); Protein, Total 6.1 g/dL (6.4-8.2); Sodium Level 142 mmol/L (136-145)
--- NOTE | 2021-08-16 10:55 | CASEMGMT ---
RN CM Assessment: Face to Face with patient for initial transition planning/care coordination assessment. Patient alert and oriented, sitting up in bed, in no apparent distress. at bedside. CCM introduced self and role at [facility]. Care providers, pharmacy, and demographics verified. PCP: Merly Specialists: None Preferred Pharmacy: [facility] [place] Insurance: [facility] [place] Prescription Benefit: yes Living Will/HPOA: Patient states she has a living will. HPOA is [place]. Patient made aware these forms are not on file at [facility] and may be brought in to be scanned into record. LNOK: , [place] Golden Living Arrangements: Patient lives with in split-level house with no steps to enter the home. Patient states independent with ADLs prior to hospitalization. Social: never smoker, denies ETOH use Transportation: Self DME/HHC: Patient has shower chair, raised toilet seat and grab bars in home. Denies previous HHC or SNF stays. Plan: home
--- NOTE | 2021-08-16 12:02 | CHAPLAIN ---
Type of Pastoral Visit _x__ Initial Visit ___ Follow-up Visit ___ On-call Visit ___ General Patient Visit ___ Spiritual Assessment ___ Family Conference ___ Bereavement ___ Rapid Response ___ Code Blue ___ Other (describe below) Pastoral Care Referral From _x__ Patient ___ Family ___ Nurse ___ Physician ___ Tour Coordinator ___ Aging Department Supervisor ___ Other (describe below) Sacrament/Intervention _x__ Active listening ___ Anointing ___ Jewish ___ Bereavement ___ Communion _x__ Mira exploration ___ _x__ Life review _x__ Prayer ___ Reconciliation ___ Sacrament of Sick _x__ Supportive presence ___ Wedding ___ Other (describe below) Pastoral Comments spouse is with patient; both are waiting on test results
--- NOTE | 2021-08-16 13:55 | CON.PCM.SX_ITS ---
Assessment & Plan Assessment/Plan (1) Microcytic anemia: (2) Positive FIT (fecal immunochemical test): PLAN: I have discussed the above with the patient. I have offered the patient EGD for evaluation. Also discussed with patient if we do not find any obvious cause of bleeding may need to repeat a colonoscopy which could possibly be done as an outpatient depending on how patient is doing clinically. I have explained the risks/benefits of the procedure and described the procedure. I have discussed the risks with the patient, including but not limited to: infection, bleeding, perforation of the GI tract requiring emergency surgery, inability to complete the procedure, injury to any internal organs, complications of anesthesia, etc. - the patient understands and agrees to proceed. I have answered all the patient's questions to the patient's satisfaction and the patient has no further questions. Jeanie Rajput M.D. Pager: [phone] [facility] [address] [place] [address], [address] [place] [address] Office: [phone] HPI Consult Data Date of Consult: 08/16/21 HPI Narrative HPI Narrative: JA ADAME, is a 70 F who presents to the ER after presyncopal episode yesterday. Patient was noted to have a hemoglobin 6.4 patient did get 1 units packed red blood cells currently hemoglobin is 7.2. Patient denies any bright red blood per stool or black stool. Patient states she previously had an EGD and colonoscopy with Dr. Carrillo it has been several years may be around 3-5 patient is unsure. Patient does take omeprazole 40 mg p.o. daily along with meloxicam for joint pain. Patient states her reflux symptoms have been resolved with medication. [facility] Medical History Abdominal pain Anemia Bowel perforation Cardiomegaly Chest pain Diverticulosis of colon Diverticulosis of large intestine DVT (deep venous thrombosis) Epigastric pain Gastritis HTN (hypertension) Internal hemorrhoids [place] esophagus Sciatica Sesamoiditis Home Medications amlodipine 10 mg PO QHS 04/03/16 [History Last Taken 11/27/17] meloxicam 15 mg PO DAILY 04/03/16 [History Last Taken 11/27/17] albuterol sulfate 90 mcg/actuation aerosol inhaler 2 puff INHALATION Q6H PRN 11/04/17 [History Last Taken 11/27/17] fluticasone propionate 1 spray NASAL QHS 01/07/19 [History Last Taken Unknown] lisinopril 20 mg PO DAILY 01/07/19 [History Last Taken Unknown] omeprazole 20 mg PO DAILY 01/07/19 [History Last Taken Unknown] acetaminophen 1,000 mg PO Q8 #90 tab 01/19/19 [Rx Last Taken Unknown] montelukast 10 mg PO DAILY 08/15/21 [History Last Taken Unknown] Allergy/AdvReac Type Severity Reaction Status Date / Time amoxicillin trihydrate Allergy Rash Verified 08/15/21 15:28 [From Augmentin] Cephalosporins Allergy Rash Verified 08/15/21 15:28 potassium clavulanate Allergy Rash Verified 08/15/21 15:28 [From Augmentin] Sulfa (Sulfonamide Allergy Rash Verified 08/15/21 15:28 Antibiotics) Family History Sister Arthritis Breast cancer Osteoporosis Father Diabetes Cancer Skin Mother Hypertension Cancer skin cancer Osteoporosis Surgical History History of esophagogastroduodenoscopy (EGD) Hx of ileostomy S/P cholecystectomy S/P colonoscopy S/P ovarian cystectomy S/P tonsillectomy Social History Smoking Status: Never smoker second hand exposure: No alcohol intake: never substance use type: does not use caffeine: Yes what type of physical activity do you participate in: none frequency: does not exercise seatbelt use: always ROS Constitutional Constitutional: Denies anorexia, change in weight, chills, fever(s), malaise, night sweats, weakness or other Eyes Eyes: Denies blurry vision, change in eye color, discharge from eye(s), double vision, erythema, eye pain or other ENT HEENT: Denies abnormal hearing, dysphagia, ear pain, headache(s), hearing loss, post nasal drip, sore throat or other Cardiovascular Cardiovascular: Reports dyspnea on exertion, lightheadedness and other Details: Presyncope ; Denies chest pain, claudication, edema, orthopnea, palpitations, paroxysmal nocturnal dyspnea or rapid heart rate Respiratory/Chest Respiratory/Chest: Reports shortness of breath with exertion; Denies cough, excessive phlegm production, hemoptysis, shortness of breath at rest, wheezing or other Gastrointestinal Gastrointestinal: Denies abdominal pain, coffee ground emesis, constipation, diarrhea, dyspepsia, hematemesis, hematochezia, loose stools, melena, nausea, vomiting or other Genitourinary Genitourinary: Denies burning urination, dysuria, nocturia, urinary hesitancy or other Musculoskeletal Musculoskeletal: Reports joint pain; Denies arthralgias, joint stiffness, myalgias, neck pain or other Neurologic Neurologic: Denies abnormal speech, confusion, disequilibrium, focal weakness, headache(s), numbness, seizure-like activity, seizures, syncope, tingling, marisa mor(s) or other Psychiatric Psychiatric: Denies anxiety, depression, homicidal ideation, suicidal ideation or other Endocrine Endocrinology: Denies change in body appearance, cold intolerance, excessive sweating, polydipsia, polyuria or other Hematologic/Lymphatic Hematologic/Lymphatic: Denies anemia, easy bleeding, easy bruising, lymphadenopathy or other Allergic/Immunologic Allergic/Immunologic: Denies rhinitis, hives, eczemia, asthma or other Physical Exam Const alert, oriented x3 and no apparent distress HEENT normocephalic and head/scalp atraumatic Resp normal respiratory effort Cardio regular rate Rate: regular rate GI soft to palpation; Negative for non-distended Palpation: Negative for tender or guarding Extremity no clubbing, cyanosis or edema Skin Rashes: no rashes Neuro CN's II-XII intact bilaterally Psych mental status grossly normal Lab / Micro Data Result Diagrams: 08/16/21 05:10 08/16/21 05:10 Labs: Laboratory Results - last 24 hr 08/15/21 15:33: WBC 6.2, RBC 4.16 L, Hgb 7.0 L, Hct 25.6 L, MCV 61.5 L, MCH 16.8 L, MCHC 27.3 L, RDW Std Deviation 36.7, RDW Coeff of Anuradha 17.2 H, Plt Count 318, MPV 9.0, Immature Gran % (Auto) 0.800, Neut % (Auto) 68.5, Lymph % (Auto) 18.7 L , Spencer % (Auto) 8.4, Eos % (Auto) 2.8, Baso % (Auto) 0.8, Absolute Neuts (auto) 4.2, Absolute Lymphs (auto) 1.15, Nucleated RBC % 0 08/15/21 15:33: PT 13.4, INR 1.1, APTT 30.5 08/15/21 15:33: Sodium 141, Potassium 3.7, Chloride 108 H, Carbon Dioxide 26.0, Anion Gap 7, BUN 22 H, Creatinine 0.87, Estim Creat Clear Calc 47.59, Est GFR (MDRD) Af Amer 82, Est GFR (MDRD) Non-Af 68, BUN/Creatinine Ratio 25.2 H, Glucose 122 H, Calcium 9.6 08/15/21 15:33: Total Bilirubin 0.30, Direct Bilirubin 0.08, AST 14 L, ALT 24, Alkaline Phosphatase 132 H, Total Protein 6.9, Albumin 3.4, Globulin 3.5 08/15/21 15:33: Iron 11 L, TIBC 525 H, Iron Saturation 2.1 L, Ferritin 7 L 08/15/21 21:18: WBC Cancelled, Corrected WBC Cancelled, RBC Cancelled, Hgb Cancelled, Hct Cancelled, MCV Cancelled, MCH Cancelled, MCHC Cancelled, RDW Std Deviation Cancelled, RDW Coeff of Anuradha Cancelled, Plt Count Cancelled, MPV Cancelled, Immature Gran % (Auto) Cancelled, Neut % (Auto) Cancelled, Lymph % (Auto) Cancelled, Spencer % (Auto) Cancelled, Eos % (Auto) Cancelled, Baso % (Auto) Cancelled, Absolute Neuts (auto) Cancelled, Absolute Lymphs (auto) Cancelled, Total Counted Cancelled, Neutrophils % (Manual) Cancelled, Band Neutrophils % Cancelled, Lymphocytes % (Manual) Cancelled, Monocytes % (Manual) Cancelled, Eosinophils % (Manual) Cancelled, Basophils % (Manual) Cancelled, Metamyelocytes % Cancelled, Myelocytes % Cancelled, Promyelocytes % Cancelled, Blast Cells % Cancelled, Plasma Cell % (Manual) Cancelled, Other Cells % Cancelled, Nucleated RBC % Cancelled, Nucleated RBCs/100 WBC Cancelled, Differential Comment Cancelled, Diff Path Review Cancelled, Hypersegmented Neuts Cancelled, Atypical Lymphocytes Cancelled, Reactive Lymphocytes Cancelled, Smudge Cells Cancelled, Toxic Granulation Cancelled, Toxic Vacuolation Cancelled, Dohle Bodies Cancelled, Eugenia Rods Cancelled, Platelet Estimate Cancelled, Plt Morphology Comment Cancelled, RBC Morphology Cancelled, Polychromasia Cancelled, Hypochromasia Cancelled, Poikilocytosis Cancelled, Basophilic Stippling Cance lled, Anisocytosis Cancelled, Microcytosis Cancelled, Macrocytosis Cancelled, Spherocytes Cancelled, Sickle Cells Cancelled, Target Cells Cancelled, Tear Drop Cells Cancelled, Ovalocytes Cancelled, Stomatocytes Cancelled, [place] Bodies Cancelled, [place] Cells Cancelled, Bite Cells Cancelled, Crenated Cell Cancelled, Acanthocytes (Spur) Cancelled, Rouleaux Cancelled, Schistocytes Cancelled 08/15/21 21:18: Blood Type A POSITIVE, Antibody Screen NEGATIVE, Crossmatch See Detail 08/15/21 23:23: WBC 5.9, RBC 3.80 L, Hgb 6.4 L, Hct 23.2 L, MCV 61.1 L, MCH 16.8 L, MCHC 27.6 L, RDW Std Deviation 37.0, RDW Coeff of Anuradha 17.3 H, Plt Count 262, MPV 8.7, Immature Gran % (Auto) 0.500, Neut % (Auto) 60.2, Lymph % (Auto) 23.7, Spencer % (Auto) 10.8 H, Eos % (Auto) 3.9, Baso % (Auto) 0.9, Absolute Neuts (auto) 3.5, Absolute Lymphs (auto) 1.39, Nucleated RBC % 0 08/16/21 00:50: Hgb 6.4 L, Hct 23.7 L 08/16/21 05:10: WBC 4.3 L, RBC 4.05 L, Hgb 7.2 L, Hct 26.0 L, MCV 64.2 L D, MCH 17.8 L, MCHC 27.7 L, RDW Std Deviation 42.7, RDW Coeff of Anuradha 20.4 H, Plt Count 264, MPV 9.1, Immature Gran % (Auto) 0.700, Neut % (Auto) 61.0, Lymph % (Auto) 22.3, Spencer % (Auto) 11.4 H, Eos % (Auto) 3.9, Baso % (Auto) 0.7, Absolute Neuts (auto) 2.6, Absolute Lymphs (auto) 0.96, Nucleated RBC % 0.5, Anisocytosis 3+ 08/16/21 05:10: Sodium 142, Potassium 3.4 L, Chloride 110 H, Carbon Dioxide 26.0, Anion Gap 6, BUN 15, Creatinine 0.68, Estim Creat Clear Calc 41.40, Est GFR (MDRD) Af Amer 110, Est GFR (MDRD) Non-Af 91, BUN/Creatinine Ratio 22.0 H, Glucose 120 H, Calcium 8.7, Phosphorus 3.3, Magnesium 2.1, Total Bilirubin 0.40, AST 15, ALT 21, Alkaline Phosphatase 113, Total Protein 6.1 L, Albumin 2.9 L, Globulin 3.2, Albumin/Globulin Ratio 0.9 Micro: Microbiology 08/15/21 20:00 Stool Stool Occult Blood (NATA) - Final Radiology Impression Chest X-Ray 08/15/21 15:43 IMPRESSION: No radiographic evidence of acute cardiopulmonary disease. Electronically Signed: Derrick Gray MD at 16:02 EST Tel , Service support , Carotid Duplex 08/15/21 22:08 Interpretation Summary Minimal smooth plaque of the right internal carotid artery with tortuosity noted. There area of velocity elevations were noted in the distal internal carotid artery and likely is artificially elevated at 156 cm/s flow consistent with 50 to 69% stenosis but this is likely an overestimation. The velocity within the proximal right internal carotid artery is normal and less than 50% stenosis Less than 50% stenosis right external carotid artery Intimal thickening of the left internal carotid artery with tortuosity noted. Less than 50% stenosis left internal carotid artery Less than 50% stenosis left external carotid artery Patent antegrade vertebrals bilaterally Ordering Physician: Stacey Aldridge Referring Physician: Caitlin Moreland M.D. Performed By: Harriet Vargas RVT Procedure Criteria Type of Procedure Procedure Type: Elective Elective Risks - COVID COVID Risk Discussion: The surgeon/proceduralist and patient have discussed in detail the risk of exposure to and/or potential harm posed by the COVID-19 virus with having a surgery/procedure at this time versus the risk of delaying the surgery/procedure. It is not possible to know either the risk of delaying the surgery or procedure or chance of getting an infection with perfect accuracy, but a joint decision was made between the patient and the surgeon/proceduralist to proceed at this time with the scheduled surgery/procedure as indicated on the consent form. Charges/Coding Visit Charges Inpatient E&M: 43490 Init Hosp L3
--- NOTE | 2021-08-16 14:20 | IMM_PTH ---
PATIENT: JA ADAME LOC: [facility] U#:[id number] AGE/SX: 70/F ROOM: [facility] RE08/16/[address]: Dr. James Zambrano DO : 1950 BED: 1 DIS: 08/17/2021 SPEC #: [id number] RECD: 08/20/21 12:20 STATUS: YOAV REQ #: [id number] ALFONSO: 08/16/21 14:[address]: Jeanie Rajput DEPT: IMMUNOHISTOCHEMISTRY RECD BY: Jenny Flores ENTERED: 08/20/21 12:23 SP TYPE: IMMUNO OTHR DR: DO Dr. Caitlin Lopez MD Dr. Mark Tereletsky, DO Tissues: Stomach, NOS Procedures: H Pylori (initial) PHYSICIAN & INSTITUTION [place] [address] SPECIMEN INFORMATION: Tissue Source: Biopsy of gastric polyp near GE junction Clinical Info: Microcytic anemia, positive FIT Specimen Number: [id number] CPT code: 15243 METHODOLOGY: Deparaffinized sections of prefer/formalin-fixed tissue or PAP/DQ stained slides are incubated with monoclonal/polyclonal antibodies/oligonucleotide probes. Localization is made via biotin free immunoperoxidase method. Appropriate controls are performed and reacted as expected. Results on target cell population are indicated in the following table: RESULTS: ANTIBODY / CLONE RESULT H Pylori (polyclonal) negative These tests were developed and their performance characteristics determined by [facility]. They may not have been cleared or approved by the U.S. Food and Drug Administration. The FDA has determined that such clearance or approval is not necessary. INTERPRETATION: Gastric polyp near GE junction, biopsy: Negative for Helicobacter pylori organisms. SJ:bandar 08/21/2021
--- NOTE | 2021-08-16 14:20 | EGD_PTH ---
PATIENT: JA ADAME LOC: [facility] U#:[id number] AGE/SX: 70/F ROOM: [facility] RE08/16/[address]: Dr. James Zambrano DO : 1950 BED: 1 DIS: 08/17/2021 SPEC #: [id number] RECD: 08/20/21 09:31 STATUS: YOAV REJaci #: [id number] ALFONSO: 08/16/21 14:[address]: Jeanie Rajput DEPT: SURGICAL PATHOLOGY RECD BY: Gracia Morales ENTERED: 08/20/21 09:31 SP TYPE: EGD BIOPSY OTHR DR: DO Dr. Caitlin Lopez MD Dr. Mark Tereletsky, DO Dr. Tamera Robotham, MD Tissues: Gastric mucous membrane Procedures: Surgery Specimen Level IV Comments: @ Ordering doctor for SUIV edited from to @ by TURNER at 08/20/21 1516 @ Submitting doctor edited from to @ by KIMBEROD at 08/20/21 1516 HEADER OPERATION: [place] DIAGNOSIS: Microcytic anemia, positive FIT TISSUE SUBMITTED: Biopsy of gastric polyp near GE junction for H. pylori and path MICROSCOPIC DIAGNOSIS Gastric polyp near GE junction, biopsy: Fragments of gastric mucosa with focal changes consistent with hyperplastic/inflammatory polyp and chronic inflammation. SHYLA:bandar 08/21/2021 COMMENT The results of immunohistochemistry for Helicobacter pylori will be reported separately ([id number]). MICROSCOPIC DESCRIPTION Slides are reviewed. GROSS DESCRIPTION Received in fixative is one container labeled with the patient's name and designated biopsy gastric polyp near GE junction. The specimen consists of multiple irregular fragments of light smith soft tissue that in aggregate measure 0.4 x 0.3 x 0.1 cm. The specimen is totally submitted in one cassette. / SHYLA:bandar 08/20/21 TC:5 [facility]: [id number]
--- NOTE | 2021-08-16 16:15 | OP.EGD_ITS ---
Patient Name: Kayli Golden Procedure Date: 08/16/2021 3:43 PM Date of : 1950 Age: 70 Procedure: Upper GI endoscopy Indications: Iron deficiency anemia Providers: Jeanie Rajput MD Medicines: Monitored Anesthesia Care Patient Profile: This is a 70 year old female. Complications: No immediate complications. Procedure: Pre-Anesthesia Assessment: - Prior to the procedure, a History and Physical was performed, and patient medications and allergies were reviewed. The patient's tolerance of previous anesthesia was also reviewed. The risks and benefits of the procedure and the sedation options and risks were discussed with the patient. All questions were answered, and informed consent was obtained. Prior Anticoagulants: The patient has taken no previous anticoagulant or antiplatelet agents. ASA Grade Assessment: Per anesthesia. After reviewing the risks and benefits, the patient was deemed in satisfactory condition to undergo the procedure. After obtaining informed consent, the endoscope was passed under direct vision. Throughout the procedure, the patient's blood pressure, pulse, and oxygen saturations were monitored continuously. The gastroscope was introduced through the mouth, and advanced to the second part of duodenum. The upper GI endoscopy was accomplished without difficulty. The patient tolerated the procedure well. Scope In: 3:55:46 PM Scope Out: 4:05:45 PM Total Procedure Duration Time 0 hours 9 minutes 59 seconds Findings: The Z-line was variable and was found 40 cm from the incisors. Multiple less than 5 mm semi-sessile polyps with no bleeding and no stigmata of recent bleeding were found in the gastric body. The polyp was removed with a cold biopsy forceps. Resection and retrieval were complete. Biopsies were taken with a cold forceps for histology. Biopsies were taken with a cold forceps for Helicobacter pylori cultures. Mildly erythematous mucosa without bleeding was found in the gastric antrum. The examined duodenum was normal. The cardia and gastric fundus were normal on retroflexion. Impression: - Z-line variable, 40 cm from the incisors. - Multiple gastric polyps. Resected and retrieved. Biopsied. - Erythematous mucosa in the antrum. - Normal examined duodenum. Recommendation: - Await pathology results. - Return patient to [facility] for ongoing care. - Continue present medications. - Perform a colonoscopy to be scheduled as outpatient. Procedure Code(s): --- Professional --- 91123, Esophagogastroduodenoscopy, flexible, transoral; with biopsy, single or multiple Diagnosis Code(s): --- Professional --- K22.8, Other specified diseases of esophagus K31.7, Polyp of stomach and duodenum K31.89, Other diseases of stomach and duodenum D50.9, Iron deficiency anemia, unspecified CPT copyright 2017 [employer]. All rights reserved. The codes documented in this report are preliminary and upon vineyard tender review may be revised to meet current compliance requirements. MD Jeanie Kyle MD 08/16/2021 4:14:39 PM This report has been signed electronically. Number of Addenda: 0 Note Initiated On: 08/16/2021 3:43 PM
--- NOTE | 2021-08-16 16:16 | OP.CCLET_ITS ---
08/16/2021 Caitlin Moreland [address] [place] [address] Re : Upper GI endoscopy procedure for Kayli Golden Dear Dr. Moreland This procedure was performed on July. My impressions and recommendations are as follows: Impressions : - Z-line variable, 40 cm from the incisors. - Multiple gastric polyps. Resected and retrieved. Biopsied. - Erythematous mucosa in the antrum. - Normal examined duodenum. Recommendations : - Await pathology results. - Return patient to [facility] for ongoing care. - Continue present medications. - Perform a colonoscopy to be scheduled as outpatient. My findings are described in the full procedure note, which is enclosed. If I can be of further assistance, please feel free to contact me at Doctor phone number(s): , Work: . Sincerely, MD Jeanie Kyle MD 08/16/2021 4:14:39 PM This report has been signed electronically.
[2021-08-16] MEDS: Montelukast 10 MG Tablet PO (17:26)
[2021-08-16] MEDS: Lisinopril 20 MG Tablet PO (17:26)
--- NOTE | 2021-08-16 19:32 | PN.HOSP_ITS ---
Subjective Subjective Patient was seen and examined today, I talked at length with her and her , gastroenterology was not on-call today and I had general surgery perform an EGD today, EGD showed no evidence of acute bleeding and there was no evidence of gastric or duodenal ulcers. Esophagus also appeared to be normal. I recommend transfusing patient with 1 more unit of packed red blood cells, I will give her another infusion of Venofer tomorrow. CBC will be rechecked in the morning. Objective Data Objective Data Vital Signs: Vital Signs Temp Pulse Resp BP Pulse Ox 97.5 F L 86 16 151/74 H 98 08/16/21 17:00 08/16/21 17:00 08/16/21 17:00 08/16/21 17:00 08/16/21 17:00 Oxygen Delivery Method Room Air Weight: 101.9 kg Body Mass Index (BMI) 41.1 Intake & Output: Intake and Output for Last 24 Hours 08/14/21 08/15/21 08/16/21 23:59 23:59 23:59 Intake Total 330 / 330 680 / 680 Balance 330 / 330 680 / 680 Lab / Micro Data Result Diagrams: 08/17/21 14:19 08/16/21 05:10 Labs: Laboratory Results - last 24 hr 08/15/21 15:33: Total Bilirubin 0.30, Direct Bilirubin 0.08, AST 14 L, ALT 24, Alkaline Phosphatase 132 H, Total Protein 6.9, Albumin 3.4, Globulin 3.5 08/15/21 15:33: Iron 11 L, TIBC 525 H, Iron Saturation 2.1 L, Ferritin 7 L 08/15/21 21:18: WBC Cancelled, Corrected WBC Cancelled, RBC Cancelled, Hgb Cancelled, Hct Cancelled, MCV Cancelled, MCH Cancelled, MCHC Cancelled, RDW Std Deviation Cancelled, RDW Coeff of Anuradha Cancelled, Plt Count Cancelled, MPV Cancelled, Immature Gran % (Auto) Cancelled, Neut % (Auto) Cancelled, Lymph % (A uto) Cancelled, Bates % (Auto) Cancelled, Eos % (Auto) Cancelled, Baso % (Auto) Cancelled, Absolute Neuts (auto) Cancelled, Absolute Lymphs (auto) Cancelled, Total Counted Cancelled, Neutrophils % (Manual) Cancelled, Band Neutrophils % Cancelled, Lymphocytes % (Manual) Cancelled, Monocytes % (Manual) Cancelled, Eosinophils % (Manual) Cancelled, Basophils % (Manual) Cancelled, Metamyelocytes % Cancelled, Myelocytes % Cancelled, Promyelocytes % Cancelled, Blast Cells % Cancelled, Plasma Cell % (Manual) Cancelled, Other Cells % Cancelled, Nucleated RBC % Cancelled, Nucleated RBCs/100 WBC Cancelled, Differential Comment Cancelled, Diff Path Review Cancelled, Hypersegmented Neuts Cancelled, Atypical Lymphocytes Cancelled, Reactive Lymphocytes Cancelled, Smudge Cells Cancelled, Toxic Granulation Cancelled, Toxic Vacuolation Cancelled, Dohle Bodies Cancelled, Eugenia Rods Cancelled, Platelet Estimate Cancelled, Plt Morphology Comment Cancelled, RBC Morphology Cancelled, Polychromasia Cancelled, H ypochromasia Cancelled, Poikilocytosis Cancelled, Basophilic Stippling Cancelled, Anisocytosis Cancelled, Microcytosis Cancelled, Macrocytosis Cancelled, Spherocytes Cancelled, Sickle Cells Cancelled, Target Cells Cancelled, Tear Drop Cells Cancelled, Ovalocytes Cancelled, Stomatocytes Cancelled, [place] Bodies Cancelled, Solis Cells Cancelled, Bite Cells Cancelled, Crenated Cell Cancelled, Acanthocytes (Spur) Cancelled, Rouleaux Cancelled, Schistocytes Cancelled 08/15/21 21:18: Blood Type A POSITIVE, Antibody Screen NEGATIVE, Crossmatch See Detail 08/15/21 21:18: Crossmatch See Detail 08/15/21 23:23: WBC 5.9, RBC 3.80 L, Hgb 6.4 L, Hct 23.2 L, MCV 61.1 L, MCH 16.8 L, MCHC 27.6 L, RDW Std Deviation 37.0, RDW Coeff of Anuradha 17.3 H, Plt Count 262, MPV 8.7, Immature Gran % (Auto) 0.500, Neut % (Auto) 60.2, Lymph % (Auto) 23.7, Bates % (Auto) 10.8 H, Eos % (Auto) 3.9, Baso % (Auto) 0.9, Absolute Neuts (auto) 3.5, Absolute Lymphs (auto) 1.39, Nucleated RBC % 0 08/16/21 00:50: Hgb 6.4 L, Hct 23.7 L 08/16/21 05:10: WBC 4.3 L, RBC 4.05 L, Hgb 7.2 L, Hct 26.0 L, MCV 64.2 L D, MCH 17.8 L, MCHC 27.7 L, RDW Std Deviation 42.7, RDW Coeff of Anuradha 20.4 H, Plt Count 264, MPV 9.1, Immature Gran % (Auto) 0.700, Neut % (Auto) 61.0, Lymph % (Auto) 22.3, Bates % (Auto) 11.4 H, Eos % (Auto) 3.9, Baso % (Auto) 0.7, Absolute Neuts (auto) 2.6, Absolute Lymphs (auto) 0.96, Nucleated RBC % 0.5, Anisocytosis 3+ 08/16/21 05:10: Sodium 142, Potassium 3.4 L, Chloride 110 H, Carbon Dioxide 26.0, Anion Gap 6, BUN 15, Creatinine 0.68, Estim Creat Clear Calc 41.40, Est GFR (MDRD) Af Amer 110, Est GFR (MDRD) Non-Af 91, BUN/Creatinine Ratio 22.0 H, Glucose 120 H, Calcium 8.7, Phosphorus 3.3, Magnesium 2.1, Total Bilirubin 0.40, AST 15, ALT 21, Alkaline Phosphatase 113, Total Protein 6.1 L, Albumin 2.9 L, Globulin 3.2, Albumin/Globulin Ratio 0.9 Micro: Microbiology 08/15/21 20:00 Stool Stool Occult Blood (NATA) - Final Radiography Diagnostic Testing: Radiology Impression Carotid Duplex 08/15/21 22:08 Interpretation Summary Minimal smooth plaque of the right internal carotid artery with tortuosity noted. There area of velocity elevations were noted in the distal internal carotid artery and likely is artificially elevated at 156 cm/s flow consistent with 50 to 69% stenosis but this is likely an overestimation. The velocity within the proximal right internal carotid artery is normal and less than 50% stenosis Less than 50% stenosis right external carotid artery Intimal thickening of the left internal carotid artery with tortuosity noted. Less than 50% stenosis left internal carotid artery Less than 50% stenosis left external carotid artery Patent antegrade vertebrals bilaterally Ordering Physician: Stacey Aldridge Referring Physician: Caitlin Moreland M.D. Performed By: Harriet Vargas, EDUARDT Physical Exam Const alert, oriented x3, no apparent distress and healthy appearing General Appearance: cooperative, well kempt and well developed Orientation / Consciousness: awake, oriented to person, oriented to place and oriented to time HEENT normocephalic and moist oral mucous membranes Eyes PERRL, EOMs intact bilaterally and conjunctivae normal Neck nuchal rigidity, supple, no JVD, thyroid normal and no carotid bruits General: trachea midline Resp normal respiratory effort and clear to auscultation bilaterally Auscultation: Negative for rales, rhonchi or wheezes Cardio regular rate, regular rhythm, no murmurs, no rub and no gallops GI normal to inspection, nondistended, normoactive bowel sounds, soft to palpation, non-tender and non-distended Extremity no clubbing, cyanosis or edema Skin no rashes or lesions noted General Skin Exam: no breakdown Neuro oriented x3, CN's II-XII intact bilaterally, no focal motor deficits and no sensory deficits noted Sensorium / Orientation: awake and alert Speech: speech normal Psych thought process normal and affect normal Assessment & Plan Assessment/Plan (1) Iron deficiency: PLAN: 1. Acute anemia-iron deficient in nature, etiology unclear-patient will be transfused 1 unit of packed red blood cells and be given Venofer #2 presyncope secondary to #1-patient is ambulating without difficulty presently #3 essential hypertension-patient is to remain on her home medications #4 hyperlipidemia-patient is to remain on her home medications #5 osteoarthritis-patient is currently on meloxicam, she does use a PPI in addition Charges/Coding Visit Charges Inpatient E&M: 67657 Subs Hosp L2
[2021-08-16] MEDS: amLODIPine 10 MG Tablet PO (21:44)
[2021-08-16] MEDS: Fluticasone 0.05% 1 SPRAY NASAL.SRY NASAL (21:44)
[2021-08-17] VITALS (9 sets, daily range): BP systolic 127–141; BP diastolic 59–75; PULSE 73–90; RESP 16–18; TEMP 36.6; O2SAT 97–100
[2021-08-17 05:25] LABS: Absolute Lymphocyte Count 1.09 X10^3/uL (0.83-4.51); Absolute Neutrophil Count 3.1 X10^3/uL (2.0-7.7); Basophil# 0.06 X10^3/uL; Basophil% 1.2 % (0-1); Eosinophil# 0.18 X10^3/uL; Eosinophils% 3.6 % (0-5); Hematocrit 27.1 % (37-47); Hemoglobin 7.6 g/dL (12.0-15.0); Lymphocyte # 1.09 X10^3/ul (0.83-4.51); Lymphocyte % 21.7 % (19-41); Mean Corpuscular Hgb 17.9 pg (27.0-32.0); Mean Corpuscular Volume 63.9 fL (81-99); Monocyte# 0.58 X10^3/uL; Monocyte% 11.6 % (0-10); NRBC Flagged by Analyzer 0.4 % (0-5); Neutrophil # 3.06 X10^3/uL (2.7-7.7); Neutrophil % 60.9 % (47-70); POSITIVE MORPHOLOGY YES; Platelet Count 264 K/mm3 (150-450); RBC Distribution Width CV 20.8 % (11.6-14.6); RBC Distribution Width SD 43.8 fl (35.1-43.9); Red Blood Count 4.24 M/mm3 (4.2-5.4)
[2021-08-17 05:28] LABS: Differential Indicated SCAN CRITERIA MET
[2021-08-17 05:54] LABS: Anisocytosis 2+; Polychromasia RARE
--- NOTE | 2021-08-17 09:33 | PCM.PN.SRG ---
Subjective Subjective Patient is currently getting IV iron also was to get 1 unit packed red blood cells last night did not get hung until this morning. Patient's hemoglobin 7.6 from 7.2 without getting any blood. Objective Data Objective Data Vital Signs: Vital Signs Temp Pulse Resp BP Pulse Ox 97.9 F 85 16 141/75 H 100 08/17/21 08:58 08/17/21 08:58 08/17/21 08:43 08/17/21 08:58 08/17/21 08:58 Oxygen Delivery Method Room Air Weight: 224 lb 10.417 oz Body Mass Index (BMI) 41.1 Intake & Output: Intake and Output for Last 24 Hours 08/15/21 08/16/21 08/17/21 23:59 23:59 23:59 Intake Total 330 / 330 680 / 680 0 / 0 Balance 330 / 330 680 / 680 0 / 0 Lab / Micro Data Result Diagrams: 08/17/21 05:04 08/16/21 05:10 Labs: Laboratory Results - last 24 hr 08/15/21 21:18: Crossmatch See Detail 08/15/21 21:18: Crossmatch See Detail 08/17/21 05:04: WBC 5.0, RBC 4.24, Hgb 7.6 L, Hct 27.1 L, MCV 63.9 L, MCH 17.9 L, MCHC 28.0 L, RDW Std Deviation 43.8, RDW Coeff of Anuradha 20.8 H, Plt Count 264, MPV 9.0, Immature Gran % (Auto) 1.000 H, Neut % (Auto) 60.9, Lymph % (Auto) 21.7, Weld % (Auto) 11.6 H, Eos % (Auto) 3.6, Baso % (Auto) 1.2 H, Absolute Neuts (auto) 3.1, Absolute Lymphs (auto) 1.09, Nucleated RBC % 0.4, Polychromasia RARE, Anisocytosis 2+ Micro: Microbiology 08/15/21 20:00 Stool Stool Occult Blood (NATA) - Final Radiography Diagnostic Testing: Radiology Impression Carotid Duplex 08/15/21 22:08 Interpretation Summary Minimal smooth plaque of the right internal carotid artery with tortuosity noted. There area of velocity elevations were noted in the distal internal carotid artery and likely is artificially elevated at 156 cm/s flow consistent with 50 to 69% stenosis but this is likely an overestimation. The velocity within the proximal right internal carotid artery is normal and less than 50% stenosis Less than 50% stenosis right external carotid artery Intimal thickening of the left internal carotid artery with tortuosity noted. Less than 50% stenosis left internal carotid artery Less than 50% stenosis left external carotid artery Patent antegrade vertebrals bilaterally Ordering Physician: Stacey Aldridge Referring Physician: Caitlin Moreland M.D. Performed By: Harriet Vargas RVT Physical Exam Const oriented x3 and no apparent distress Resp normal respiratory effort Cardio regular rate GI soft to palpation and non-tender Inspection: Negative for abdominal distention Assessment & Plan Assessment/Plan (1) Microcytic anemia: (2) Positive FIT (fecal immunochemical test): PLAN: Patient's hemoglobin has remained stable and actually improved without continued blood to 7.6. Patient is currently getting 1 unit packed red blood cells this morning. Patient has no other complaints. We will plan for an outpatient colonoscopy with Dr. Carrillo as that is who patient requested. Office will contact patient on Friday. Jeanie Rajput M.D. Pager: [phone] [facility] [address] [place] [address], [facility], [address] [place] [address] Office: [phone]
[2021-08-17] MEDS: Lisinopril 20 MG Tablet PO (10:12)
[2021-08-17] MEDS: Pantoprazole Sodium 40 MG Tablet PO (10:12)
[2021-08-17 14:26] LABS: Hemoglobin 8.6 g/dL (12.0-15.0)
--- NOTE | 2021-08-17 14:54 | PCM.DC ---
Discharge Instructions Diet Discharge Diet: No restrictions Activity Discharge Activity: Return to Normal Activity Weight Bearing Status: Full weight bearing Follow Up Care Test Results: Test results from this visit will be discussed in further detail at your follow-up appointment, if applicable. Discharge Plan Admission Admit Date/Time: 08/16/21 10:06 Primary Reason for Your Visit: anemia Attending Provider: James Zambrano Primary Care Provider: Caitlin Moreland Consulting Providers: Jeanie Rajput Instructions Additional Instructions / Restrictions: Take Ferrous sulfate 325 mg twice a day on an empty stomach if possible Discharge Hemoglobin was 8.6 Discharge Orders/Prescriptions Prescriptions: New pantoprazole [Protonix] 40 mg tablet,delayed release (DR/EC) 40 mg PO DAILY Qty: 30 RF: 0 atorvastatin [Lipitor] 20 mg tablet 20 mg PO DAILY Qty: 30 RF: 0 Continued albuterol sulfate 90 mcg/actuation HFA aerosol inhaler 2 puff INHALATION Q6H PRN (Reason: Sob &/Or Wheezing) RF: 0 meloxicam 15 MG tablet 15 mg PO DAILY RF: 0 amlodipine 10 MG tablet 10 mg PO QHS RF: 0 fluticasone propionate 1 SPRAY spray,suspension 1 spray NASAL QHS RF: 0 lisinopril 20 MG tablet 20 mg PO DAILY RF: 0 acetaminophen 500 MG tablet 1,000 mg PO Q8 Qty: 90 RF: 0 montelukast 10 mg tablet 10 mg PO DAILY RF: 0 Discontinued omeprazole 20 MG tablet,delayed release (DR/EC) 20 mg PO DAILY RF: 0 Referrals / Follow Up: Caitlin Moreland MD [Primary Care Provider] - Within 2 Weeks Disposition Disposition (needs filled in before D/C Order can be placed): Home, Self Care
--- NOTE | 2021-08-17 15:00 | NURSING ---
This RN is taking over care at this time.
--- NOTE | 2021-08-17 15:25 | PCM.DC.SUM ---
Providers Date of Admission: 08/16/21 Date of Discharge: 08/17/21 Primary Care Physician: Dr. Caitlin Moreland MD Consultations 08/16/21 13:12 Consult: General Surgery Routine Consulting Provider: Jeanie Rajput Reason for Consult: anemia EMERGENT Consult: No MD Notified: Yes Date Notified: 08/16/21 Time Notified: 13:12 Method of Notification: Verbal Reason For Visit: PRESYNCOPE WITH ACUTE ANEMIA Diagnosis Discharge Diagnosis (1) Microcytic anemia: Status: Acute Code(s): D50.9 - Iron deficiency anemia, unspecified (2) Positive FIT (fecal immunochemical test): Status: Inactive Code(s): R19.5 - Other fecal abnormalities Plan: 1. Acute on chronic iron deficiency anemia-etiology unclear #2 presyncopal episode secondary to #1 #3 essential hypertension #4 osteoarthritis #5 hyperlipidemia #6 multiple gastric polyps #7 mild gastritis Medications at Discharge Home Medications amlodipine 10 mg PO QHS 04/03/16 meloxicam 15 mg PO DAILY 04/03/16 albuterol sulfate 90 mcg/actuation aerosol inhaler 2 puff INHALATION Q6H PRN 11/04/17 fluticasone propionate 1 spray NASAL QHS 01/07/19 lisinopril 20 mg PO DAILY 01/07/19 acetaminophen 1,000 mg PO Q8 #90 tab 01/19/19 montelukast 10 mg PO DAILY 08/15/21 atorvastatin [Lipitor] 20 mg PO DAILY #30 tab 08/17/21 pantoprazole [Protonix] 40 mg PO DAILY #30 tab 08/17/21 Hospital Course Operations None Procedures 2-D Echocardiogram, EGD and - (Carotid duplex scan) Summary of Care Provided Minutes Spent on Discharge: 31 Hospital Course: This 70-year-old white female was seen in the emergency room at [facility] after she had an episode at her home during which she almost fainted. Work-up in the emergency room revealed the patient to be anemic with a hemoglobin of 6.4. The remainder of the work-up done in the emergency room was unremarkable. Patient was admitted to PCU, she received transfusion of packed red blood cells, patient's iron level was noted to be low, she was given IV Venofer, she was seen in consultation by general surgery and underwent an EGD which revealed mild gastritis and multiple gastric polyps. No active bleeding was seen. On 08/17/2021, patient was seen and examined: On examination she appeared in good health and spirits, she does not appear to be in any distress. Vital signs as documented. Skin warm and dry and without overt rashes. Neck without JVD, thyroid appears normal, trachea is midline, neck is supple. Lungs clear, normal air movement was noted. Heart exam notable for regular rhythm, normal sounds and absence of murmurs, rubs or gallops. Abdomen unremarkable and without evidence of organomegaly, masses, or abdominal aortic enlargement, bowel sounds are present in all 4 quadrants, no abdominal tenderness was noted. Extremities nonedematous, no cyanosis was noted, no clubbing was noted. Neuro: Cranial nerves II through XII are grossly intact, no focal motor deficits were noted, sensation to light touch and pinprick is intact, motor exam 5/5 throughout. Psych: Patient is alert and oriented x3, she does not appear anxious or depressed, she does not appear agitated. Patient was discharged home in stable condition on 08/17/2021, I went over the risk of taking meloxicam with the patient and she decided she wanted continue taking the medication, I placed her on Protonix 40 mg daily to guard against any gastric irritation. Weight / BMI Weight Weight: 101.9 kg Body Mass Index (BMI) 41.1 ABG / Lab / Microbiology Data Result Diagrams: 08/17/21 14:19 08/16/21 05:10 Laboratory: Laboratory Results - last 24 hr 08/15/21 21:18: Crossmatch See Detail 08/15/21 21:18: Crossmatch See Detail 08/17/21 05:04: WBC 5.0, RBC 4.24, Hgb 7.6 L, Hct 27.1 L, MCV 63.9 L, MCH 17.9 L, MCHC 28.0 L, RDW Std Deviation 43.8, RDW Coeff of Anuradha 20.8 H, Plt Count 264, MPV 9.0, Immature Gran % (Auto) 1.000 H, Neut % (Auto) 60.9, Lymph % (Auto) 21.7, Bowie % (Auto) 11.6 H, Eos % (Auto) 3.6, Baso % (Auto) 1.2 H, Absolute Neuts (auto) 3.1, Absolute Lymphs (auto) 1.09, Nucleated RBC % 0.4, Polychromasia RARE, Anisocytosis 2+ 08/17/21 14:19: Hgb 8.6 L Microbiology: Microbiology 08/15/21 20:00 Stool Stool Occult Blood (NATA) - Final D/C Instructions Discharge Diet: No restrictions Weight Bearing Status: Full weight bearing Meaningful Use Info Meaningful Use Diagnoses (Choose all that apply): None applicable Discharge Plan Admission Admit Date/Time: 08/16/21 10:06 Primary Reason for Your Visit: anemia Attending Provider: James Zambrano Primary Care Provider: Caitlin Moreland Consulting Providers: Jeanie Rajput Instructions Additional Instructions / Restrictions: Take Ferrous sulfate 325 mg twice a day on an empty stomach if possible Discharge Hemoglobin was 8.6 Discharge Orders/Prescriptions Prescriptions: New pantoprazole [Protonix] 40 mg tablet,delayed release (DR/EC) 40 mg PO DAILY Qty: 30 RF: 0 atorvastatin [Lipitor] 20 mg tablet 20 mg PO DAILY Qty: 30 RF: 0 Continued albuterol sulfate 90 mcg/actuation HFA aerosol inhaler 2 puff INHALATION Q6H PRN (Reason: Sob &/Or Wheezing) RF: 0 meloxicam 15 MG tablet 15 mg PO DAILY RF: 0 amlodipine 10 MG tablet 10 mg PO QHS RF: 0 fluticasone propionate 1 SPRAY spray,suspension 1 spray NASAL QHS RF: 0 lisinopril 20 MG tablet 20 mg PO DAILY RF: 0 acetaminophen 500 MG tablet 1,000 mg PO Q8 Qty: 90 RF: 0 montelukast 10 mg tablet 10 mg PO DAILY RF: 0 Discontinued omeprazole 20 MG tablet,delayed release (DR/EC) 20 mg PO DAILY RF: 0 Referrals / Follow Up: Caitlin Moreland MD [Primary Care Provider] - Within 2 Weeks Disposition Disposition (needs filled in before D/C Order can be placed): Home, Self Care Charges/Coding Visit Charges Inpatient E&M: 52426 Disch Hosp
== END 2021-08-17 15:59 | disposition home or self-care (01) | DRG 812 ==
LOC: ED 21:11 → PCU 21:14
PROVIDERS: Surgery; Admitting Provider Internal Medicine; Emergency Provider Emergency Medicine; PCP Internal Medicine; Visit Provider Internal Medicine
PROC: 0DJ08ZZ Inspection of Upper Intestinal Tract, Via Natural or Artificial Opening Endoscopic (ICD-10-PCS; CPT 43235; principal; 2021-08-16 14:15)
DX: D50.9 Iron deficiency anemia, unspecified (principal); R09.89 Other specified symptoms and signs involving the circulatory and respiratory systems; K31.7 Polyp of stomach and duodenum; R19.5 Other fecal abnormalities; I10 Essential (primary) hypertension; K29.70 Gastritis, unspecified, without bleeding; K31.89 Other diseases of stomach and duodenum; E78.5 Hyperlipidemia, unspecified; M19.90 Unspecified osteoarthritis, unspecified site; R55 Syncope and collapse; K21.9 Gastro-esophageal reflux disease without esophagitis; K22.89 Other specified disease of esophagus; Z79.1 Long term (current) use of non-steroidal anti-inflammatories (NSAID); Z82.49 Family history of ischemic heart disease and other diseases of the circulatory system; Z83.3 Family history of diabetes mellitus; Z85.3 Personal history of malignant neoplasm of breast; Z85.828 Personal history of other malignant neoplasm of skin; Z88.1 Allergy status to other antibiotic agents; Z88.2 Allergy status to sulfonamides; Z90.49 Acquired absence of other specified parts of digestive tract; Z93.2 Ileostomy status
CPT/HCPCS: 36415; 71045; 80048; 80053; 80076; 82274; 82728; 83540; 83550; 83735; 84100; 85014; 85018; 85025; 85610; 85730; 86850; 86900; 86901; 86920; 86922; 88305; 88342; 93005; 93306; 93880; 99251; 99285; J7040; J7050; P9016; A4216; G0463; J2916

== ENCOUNTER 2021-09-18 08:55 | Day surgery (SDC) | payer MEDICARE, SELFPAY ==
[2021-09-18] VITALS (7 sets, daily range): BP systolic 95–142; BP diastolic 63–82; PULSE 69–81; RESP 16; TEMP 36.7–37.2; O2SAT 95–99; BMI 39.5
--- NOTE | 2021-09-18 | COLBX_PTH ---
PATIENT: JA ADAME LOC: EN U#:[id number] AGE/SX: 70/F ROOM: RE09/18/[address]: Dr. Jose M Carrillo MD : 1950 BED: DIS: 09/18/2021 SPEC #: [id number] RECD: 09/18/21 13:09 STATUS: YOAV NEVA #: [id number] ALFONSO: 09/18/21 00:[address]: Jose M Carrillo DEPT: SURGICAL PATHOLOGY RECD BY: Jose Angel Carrizales ENTERED: 09/18/21 13:09 SP TYPE: COLON BX OTHR DR: Dr. Caitlin Moreland MD Tissues: Ileum, NOS Procedures: Surgery Specimen Level IV HEADER OPERATION: Colonoscopy (MAC) PRE-OP DIAGNOSIS: Iron deficiency, microcytic anemia TISSUE SUBMITTED: Terminal ileum biopsy MICROSCOPIC DIAGNOSIS Terminal ileum, biopsy: Ulceration with associated acute and chronic inflammation and granulation. Fibrinopurulent material. AM:bandar 09/19/2021 MICROSCOPIC DESCRIPTION Slides are reviewed. GROSS DESCRIPTION Received in fixative is one container labeled with the patient's name and designated terminal ileum. The specimen consists of multiple irregular fragments of light smith soft tissue that in aggregate measure 1 x 0.5 x 0.1 cm. The specimen is totally submitted in one cassette. / AM:bandar 09/18/2021 TC:2 CPT: 88999
--- NOTE | 2021-09-18 09:37 | HP.PCM_ITS ---
HPI - General HPI Narrative JA ADAME, is a 70 F who presents for colonoscopy. She was hospitalized August 16, [address] Heard performed an upper endoscopy. The patient's had a previous colonoscopy November 2017 that was not remarkable. The patient needs completion of her suspected GI blood loss work-up with a col onoscopy. Yesterday she complained of some mild epigastric pain. It kind of waxed and waned. She states currently it is gone. She was able to take the MiraLAX bowel prep [facility] Medical History (Updated 09/13/21 @ 16:36 by Patricia Obregon) Abdominal pain Anemia Anemia Arthritis Back pain Bowel perforation Cardiomegaly Chest pain COVID Diverticulosis of colon Diverticulosis of large intestine DVT (deep venous thrombosis) DVT (deep venous thrombosis) Epigastric pain Gastric reflux Gastritis History of diverticulitis History of echocardiogram History of edema History of hiatal hernia History of steroid therapy History of stress test HTN (hypertension) Internal hemorrhoids [place] esophagus Non-smoker Positive FIT (fecal immunochemical test) Post-menopausal Pre-syncope Sciatica Sesamoiditis Shortness of breath on exertion Wears glasses Wears partial dentures Home Medications amlodipine 10 mg PO QHS 04/03/16 [History Last Taken 11/27/17] meloxicam 15 mg PO DAILY 04/03/16 [History Last Taken 11/27/17] albuterol sulfate 90 mcg/actuation aerosol inhaler 2 puff INHALATION Q6H PRN 0 11/04/17 [History Last Taken 11/27/17] fluticasone propionate 1 spray NASAL QHS 01/07/19 [History Last Taken Unknown] lisinopril 20 mg PO DAILY 01/07/19 [History Last Taken Unknown] montelukast 10 mg PO DAILY 08/15/21 [History Last Taken Unknown] pantoprazole [Protonix] 40 mg PO DAILY #30 tab 08/17/21 [Rx Last Taken Unknown] acetaminophen 1,000 mg PO Q8 PRN 08/22/21 [History Last Taken Unknown] ferrous sulfate 325 mg PO BID 08/22/21 [History Last Taken Unknown] multivitamin 1 tab PO DAILY 08/22/21 [History Last Taken Unknown] vitamins A,C,T-zafy-dqrzdy [PreserVision AREDS] 1 cap PO BID 08/22/21 [History Last Taken Unknown] atorvastatin [Lipitor] 20 mg PO QHS 09/13/21 [History Last Taken Unknown] Allergy/AdvReac Type Severity Reaction Status Date / Time amoxicillin trihydrate Allergy Rash Verified 09/18/21 09:35 [From Augmentin] Cephalosporins Allergy Rash Verified 09/18/21 09:35 potassium clavulanate Allergy Rash Verified 09/18/21 09:35 [From Augmentin] Sulfa (Sulfonamide Allergy Rash Verified 09/18/21 09:35 Antibiotics) Family History Sister Arthritis Breast cancer Osteoporosis Father Diabetes Cancer Skin Mother Hypertension Cancer skin cancer Osteoporosis Surgical History (Updated 08/22/21 @ 08:47 by Camila Slade) History of cardiac catheterization History of esophagogastroduodenoscopy (EGD) History of esophagogastroduodenoscopy (EGD) Hx of ileostomy Hx of total knee replacement Hx of total shoulder replacement S/P cholecystectomy S/P colonoscopy S/P ovarian cystectomy S/P tonsillectomy Social History Smoking Status: Never smoker second hand exposure: No alcohol intake: never substance use type: does not use caffeine: Yes what type of physical activity do you participate in: none frequency: does not exercise seatbelt use: always ROS Constitutional Constitutional: Reports systems reviewed and no addt'l complaints, except as documented Cardiovascular Cardiovascular: Denies chest pain Respiratory/Chest Respiratory/Chest: Denies shortness of breath at rest Gastrointestinal Gastrointestinal: Denies abdominal pain, change in bowel habits, hematochezia or melena Physical Exam Const alert, oriented x3 and no apparent distress General Appearance: cooperative and comfortable Eyes General Eye: normal appearance of both eyes Neck General: normal visual inspection Chest inspection of chest normal Resp Effort and Inspection: able to speak in complete sentences and symmetric chest movement Auscultation: clear to auscultation bilaterally Cardio regular rate and regular rhythm GI soft to palpation, non-tender and non-distended Extremity no calf tenderness Neuro oriented x3 Psych thought process normal Assessment & Plan Assessment/Plan (1) Iron deficiency: (2) Microcytic anemia: PLAN: The patient presents in somewhat of an open access forum. Plan to proceed with a colonoscopy looking for potential source of microcytic anemia. She is aware of the technique, benefit, risk, alternatives. She has had an opportunity to ask and have questions answered. We will proceed as noted. Regarding her epigastric pain she is already had a cholecystectomy. She might require additional primary care and/or surgical follow-up as an outpatient. Jose M Carrillo M.D., F.A.C.S.
[2021-09-18] MEDS: Lactated Ringers 1,000 ML 15 ML IV (09:45)
[2021-09-18 10:58] LABS: Hematocrit 38.4 % (37-47); Hemoglobin 11.5 g/dL (12.0-15.0); Mean Corp Hgb Conc 29.9 g/dL (32-36); Mean Corpuscular Hgb 21.5 pg (27.0-32.0); Mean Corpuscular Volume 71.6 fL (81-99); Mean Platelet Vol. 9.9 fl (6.2-12.0); POSITIVE MORPHOLOGY YES; Platelet Count 191 K/mm3 (150-450); Red Blood Count 5.36 M/mm3 (4.2-5.4); White Blood Count 4.3 K/mm3 (4.4-11.0)
[2021-09-18 11:00] LABS: Scan Indicated on CBC? Y/N YES- FLAGS NOTED
--- NOTE | 2021-09-18 11:07 | OP.COLON_ITS ---
Patient Name: Kayli Golden Procedure Date: 09/18/2021 10:37 AM Date of : 1950 Age: 70 Procedure: Colonoscopy Indications: Iron deficiency anemia Providers: Jose M Carrillo MD Medicines: See the Anesthesia note for documentation of the administered medications Patient Profile: Last Colonoscopy: November 2017. Complications: No immediate complications. Procedure: Pre-Anesthesia Assessment: - Prior to the procedure, a History and Physical was performed, and patient medications and allergies were reviewed. The patient's tolerance of previous anesthesia was also reviewed. The risks and benefits of the procedure and the sedation options and risks were discussed with the patient. All questions were answered, and informed consent was obtained. Prior Anticoagulants: The patient has taken no previous anticoagulant or antiplatelet agents. ASA Grade Assessment: II - A patient with mild systemic disease. After reviewing the risks and benefits, the patient was deemed in satisfactory condition to undergo the procedure. After I obtained informed consent, the scope was passed under direct vision. Throughout the procedure, the patient's blood pressure, pulse, and oxygen saturations were monitored continuously. The colonoscope was introduced through the anus and advanced to the ileocolonic anastomosis. The colonoscopy was performed without difficulty. The patient tolerated the procedure well. The quality of the bowel preparation was fair. Ileocolonic anastomosis were photographed. Scope In: 10:46:01 AM Scope Withdrawal Time 0 hours 7 minutes 57 seconds Scope Out: 10:59:14 AM Total Procedure Duration Time 0 hours 13 minutes 13 seconds Findings: The digital rectal exam findings include non-thrombosed internal hemorrhoids and internal hemorrhoids that prolapse with straining, but require manual replacement into the anal canal (Grade III). There was evidence of a prior functional end-to-end ileo-colonic anastomosis in the proximal ascending colon. This was patent and was characterized by inflammation. Biopsies were taken with a cold forceps for histology. Scattered diverticula were found in the sigmoid colon. Impression: - Preparation of the colon was fair. - Non-thrombosed internal hemorrhoids and internal hemorrhoids that prolapse with straining, but require manual replacement into the anal canal (Grade III) found on digital rectal exam. - Patent functional end-to-end ileo-colonic anastomosis, characterized by inflammation. Biopsied. - Diverticulosis in the sigmoid colon. Recommendation: - Discharge patient to home. - Resume previous diet. - Continue present medications. - Telephone my office for pathology results in 1 week. - Repeat colonoscopy in 10 years for screening purposes. Procedure Code(s): --- Professional --- 60014, Colonoscopy, flexible; with biopsy, single or multiple Diagnosis Code(s): --- Professional --- K64.2, Third degree hemorrhoids Z98.0, Intestinal bypass and anastomosis status D50.9, Iron deficiency anemia, unspecified K57.30, Diverticulosis of large intestine without perforation or abscess without bleeding CPT copyright 2017 [employer]. All rights reserved. The codes documented in this report are preliminary and upon embossing tool setter review may be revised to meet current compliance requirements. Jose M Carrillo MD 09/18/2021 11:06:27 AM This report has been signed electronically. Number of Addenda: 0 Note Initiated On: 09/18/2021 10:37 AM
--- NOTE | 2021-09-18 11:08 | OP.CCLET_ITS ---
09/18/2021 Caitlin Moreland [address] [place] [address] Re : Colonoscopy procedure for Kayli Golden Dear Dr. Moreland This procedure was performed on Saturday, September 18, 2021. My impressions and recommendations are as follows: Impressions : - Preparation of the colon was fair. - Non-thrombosed internal hemorrhoids and internal hemorrhoids that prolapse with straining, but require manual replacement into the anal canal (Grade III) found on digital rectal exam. - Patent functional end-to-end ileo-colonic anastomosis, characterized by inflammation. Biopsied. - Diverticulosis in the sigmoid colon. Recommendations : - Discharge patient to home. - Resume previous diet. - Continue present medications. - Telephone my office for pathology results in 1 week. - Repeat colonoscopy in 10 years for screening purposes. My findings are described in the full procedure note, which is enclosed. If I can be of further assistance, please feel free to contact me at Doctor phone number(s): Work: . Sincerely, Jose M Carrillo MD 09/18/2021 11:06:27 AM This report has been signed electronically.
== END 2021-09-18 23:59 | disposition home or self-care (01) ==
LOC: EN 08:57 → AC 08:58
PROVIDERS: PCP Internal Medicine; Referring Provider Internal Medicine; Visit Provider Surgery
PROC: 0DJD8ZZ Inspection of Lower Intestinal Tract, Via Natural or Artificial Opening Endoscopic (ICD-10-PCS; CPT 45378; principal; 2021-09-18 10:10)
DX: K57.30 Diverticulosis of large intestine without perforation or abscess without bleeding (principal); D50.9 Iron deficiency anemia, unspecified; K64.2 Third degree hemorrhoids; I10 Essential (primary) hypertension; Z98.0 Intestinal bypass and anastomosis status
CPT/HCPCS: 45380; 85027; 88305; J7120; J2405

== ENCOUNTER 2021-10-08 10:29 | Outpatient (CLI) | payer MEDICARE, SELFPAY ==
[2021-10-08 11:06] LABS: Erythrocyte Sedimentation Rate 23 mm/hr (0-30)
[2021-10-08 12:14] LABS: Vitamin B12 329 pg/mL (211-911)
[2021-10-08 12:18] LABS: CRP 5.82 mg/L (0.0-3.0); Iron 36 ug/dL (50-170); Iron Binding Capacity,Total 355 ug/dL (250-450); LDH 157 U/L (84-246); PERCENT IRON SATURATION 10.1 % (15.0-55.0)
[2021-10-09 16:08] LABS: Albumin 3.4 g/dL (2.9-4.4); Alpha-1-Globulins 0.2 g/dL (0.0-0.4); Alpha-2-Globulins 0.8 g/dL (0.4-1.0); Gamma Globulin 0.8 g/dL (0.4-1.8); HEPATITIS B SURFACE AG Negative (Negative); Hepatitis A IgM Antibody Negative (Negative); Hepatitis B Core AB IgM Negative (Negative); Immunoglobulin A 132 mg/dL (87-352); Immunoglobulin G 828 mg/dL (586-1602); Immunoglobulin M 76 mg/dL (26-217); PROEL- TOTAL PROTEIN 6.1 g/dL (6.0-8.5)
[2021-10-09 17:23] LABS: Hep C Antibodies <0.1 s/co ratio (0.0-0.9); IMMUNOFIXATION RESULT,S Comment: (.)
== END 2021-10-08 23:59 | disposition home or self-care (01) ==
LOC: LAB 10:31
PROVIDERS: PCP Internal Medicine; Referring Provider Internal Medicine Gastroenterology; Visit Provider Internal Medicine Gastroenterology
DX: K50.90 Crohn's disease, unspecified, without complications (principal)
CPT/HCPCS: 36415; 80074; 82607; 82746; 82784; 83540; 83550; 83615; 84165; 85652; 86140; 86334

== ENCOUNTER 2021-11-27 10:19 | Outpatient (CLI) | payer MEDICARE, SELFPAY ==
[2021-11-27 10:44] LABS: Absolute Lymphocyte Count 0.96 X10^3/uL (0.83-4.51); Basophil# 0.05 X10^3/uL; Basophil% 0.9 % (0-1); Eosinophil# 0.19 X10^3/uL; Eosinophils% 3.3 % (0-5); Hematocrit 40.3 % (37-47); Hemoglobin 12.5 g/dL (12.0-15.0); Lymphocyte # 0.96 X10^3/ul (0.83-4.51); Lymphocyte % 16.8 % (19-41); Mean Corpuscular Volume 77.5 fL (81-99); Mean Platelet Vol. 9.4 fl (6.2-12.0); Monocyte# 0.46 X10^3/uL; Monocyte% 8.1 % (0-10); NRBC Flagged by Analyzer 0 % (0-5); Neutrophil # 4.03 X10^3/uL (2.7-7.7); Neutrophil % 70.5 % (47-70); Platelet Count 199 K/mm3 (150-450); RBC Distribution Width CV 15.2 % (11.6-14.6); RBC Distribution Width SD 40.8 fl (35.1-43.9); RET-HE 27.6 pg (30-35); Reticulocyte Count 1.26 % (0.5-1.5); White Blood Count 5.7 K/mm3 (4.4-11.0)
[2021-11-27 11:18] LABS: Ferritin 62 ng/mL (8-252); Iron Binding Capacity,Total 354 ug/dL (250-450); LDH 169 U/L (84-246)
[2021-11-28 16:20] LABS: Albumin 3.5 g/dL (2.9-4.4); Alpha-1-Globulins 0.3 g/dL (0.0-0.4); Alpha-2-Globulins 0.9 g/dL (0.4-1.0); Endomysial Antibody IgA Negative (Negative); Immunoglobulin A 137 mg/dL (87-352); Immunoglobulin G 894 mg/dL (586-1602); Immunoglobulin M 70 mg/dL (26-217); PROEL- TOTAL PROTEIN 6.6 g/dL (6.0-8.5)
[2021-11-28 21:39] LABS: Deamidated Gliadin IgA 4 units (0-19); Deamidated Gliadin IgG 4 units (0-19); Haptoglobin 183 mg/dL (37-355); Immunoglobulin A 131 mg/dL (87-352); t-Transglutaminase IgA <2 U/mL (0-3)
== END 2021-11-27 23:59 | disposition home or self-care (01) ==
PROVIDERS: PCP Internal Medicine; Referring Provider Internal Medicine Gastroenterology; Visit Provider Internal Medicine Gastroenterology
DX: K50.90 Crohn's disease, unspecified, without complications (principal); D50.9 Iron deficiency anemia, unspecified
CPT/HCPCS: 36415; 82728; 82784; 83010; 83516; 83550; 83615; 84165; 85025; 85045; 86140; 86255; 86334

== ENCOUNTER → 2021-12-04 | Outpatient (CLI) | payer MEDICARE, SELFPAY ==
--- NOTE | 2021-12-04 13:50 | RAD_ITS ---
STUDY: X-RAY - ABDOMEN/PELVIS REASON FOR EXAM: Female, 70 years old. Patency Capsule patency capsule, pt. states she took it yesterday at 8 am TECHNIQUE: Single view AP. 2 images. At 1:52 PM. COMPARISON: None. FINDINGS: There is a rectangular shaped opaque object lower abdomen overlying the upper sacrum presumably the patency capsule. This may be within the sigmoid colon or small bowel. Bowel gas pattern is normal. No bowel obstruction. Calcified uterine fibroid. Surgical clips in the right midabdomen. Also surgical clips right upper abdomen previous cholecystectomy. RAD/Abdomen Single View IMPRESSION: Patency capsule overlying the lower abdomen at the upper sacrum. Electronically Signed: Pauline Romero MD at 4:40 EDT ,
== END | disposition home or self-care (01) ==
LOC: RAD 13:41
PROVIDERS: PCP Internal Medicine; Referring Provider Internal Medicine Gastroenterology; Visit Provider Internal Medicine Gastroenterology
DX: K50.90 Crohn's disease, unspecified, without complications (principal)
CPT/HCPCS: 74018

== ENCOUNTER → 2021-12-05 | Outpatient (CLI) | payer MEDICARE, SELFPAY ==
--- NOTE | 2021-12-05 07:19 | CT_ITS ---
STUDY: CT ABDOMEN AND PELVIS WITH CONTRAST REASON FOR EXAM: Female, 70 years old. Crohn''s disease monitoring RADIATION DOSAGE (If Supplied By Facility): CTDIvol = ( 17.76 ) mGy, DLP = ( 1028.18 ) mGycm TECHNIQUE: Transaxial images were obtained from the dome of the diaphragm to the symphysis pubis with oral contrast. Oral and amp; IV Readi-CAT and amp; 100mL Isovue-300 was administered. Sagittal and coronal images were reconstructed. Individualized dose optimization techniques were used for this CT. COMPARISON: 11/16/2012 FINDINGS: The visualized lung bases are unremarkable. The visualized portions of the heart are within normal limits. Normal liver. There are surgical clips in the gallbladder fossa consistent with a prior cholecystectomy. Normal spleen. Normal pancreas. Normal bilateral adrenal glands. Normal right kidney. 2 cm cyst in the upper pole the left kidney. Normal visualized stomach. Mild wall thickening and focal dilatation of the distal ileum a few centimeters proximal to the ileocecal valve with some small adjacent mesenteric lymph nodes consistent with chronic Crohn''s disease. No stranding of the surrounding fat to suggest active inflammation. Normal colon. There are surgical clips in the region of the appendix consistent with a prior appendectomy. Normal abdominal aorta. Normal inferior vena cava. Normal retroperitoneum. Normal urinary bladder. Partially calcified degenerated fibroid uterus. Normal abdominal wall. Mild dextroscoliosis of lumbar spine with degenerative disc disease. CT/Abdomen/Pelvis WITH Contrast IMPRESSION: Chronic Crohn''s disease with some focal wall thickening and dilatation of the distal ileum with some adjacent mesenteric lymph nodes but no evidence of active inflammation. Electronically Signed: Godwin Curran MD at 8:20 EDT ,
[2021-12-05 07:31] LABS: CREATININE FINGERSTICK 0.8 mg/dL (0.55-1.02); EGFR FINGERSTICK > 60.0000 mL/min (>60)
== END | disposition home or self-care (01) ==
LOC: CT 07:19
PROVIDERS: PCP Internal Medicine; Visit Provider Internal Medicine Gastroenterology
DX: I10 Essential (primary) hypertension (principal); K50.90 Crohn's disease, unspecified, without complications
CPT/HCPCS: 74177; Q9967

== ENCOUNTER 2023-09-15 09:51 | Inpatient (IN) | payer MEDICARE, SELFPAY ==
[2023-09-15] VITALS (13 sets, daily range): BP systolic 122–183; BP diastolic 67–93; PULSE 76–100; RESP 14–18; TEMP 35–36.7; O2SAT 95–99; BMI 44.0; BMI 43.7
[2023-09-15] MEDS: Aspirin 81 MG TAB.CHEW 324 MG PO (10:12)
--- NOTE | 2023-09-15 10:13 | EDS_ITS ---
HPI History of Present Illness Chief Complaint: Chest Pain Informant: patient and spouse/S.O. Narrative Narrative: Presents ED chest pressure recurrent 9 AM this morning. States 3 AM walk to the bathroom had pain in the left side going across her chest. She had tingling bilateral shoulders. She is short of breath and sweaty. Lasted 5 minutes and went away. 9 AM had substernal pressure took Tylenol currently pressure is 2 out of 10. She she states had heart cath 20 years ago with no intervention. Hypertension hyperlipidemia. Denies tobacco. Denies family history of MIs at a young age. Prior Similar Symptoms: No CVD Risk Factors: Positive for Hypertension and Hypercholesterolemia; Negative for Diabetes, Family History 1' </=55 or Smoking [facility] Medical History (Updated 09/15/23 @ 10:[address] Eric Fuentes DO) Abdominal pain Anemia Anemia Arthritis Back pain Bowel perforation Cardiomegaly Chest pain COVID Crohn's disease Diverticulosis of colon Diverticulosis of large intestine DVT (deep venous thrombosis) DVT (deep venous thrombosis) Epigastric pain Gastric reflux Gastritis History of diverticulitis History of echocardiogram History of edema History of hiatal hernia History of steroid therapy History of stress test HTN (hypertension) Internal hemorrhoids [place] esophagus Non-smoker Positive FIT (fecal immunochemical test) Post-menopausal Pre-syncope Sciatica Sesamoiditis Shortness of breath on exertion Wears glasses Wears partial dentures Home Medications amlodipine 10 mg tablet 10 mg PO QHS bp 04/03/16 [History Last Taken 09/14/23] albuterol sulfate 90 mcg/actuation aerosol inhaler 2 puff inhalation Q6H PRN Sob &/Or Wheezing 11/04/17 [History Last Taken 09/15/23] fluticasone propionate 50 mcg/actuation nasal spray,suspension 1 spray QHS nasal congestion 01/07/19 [History Last Taken 09/14/23] lisinopril 20 mg tablet 20 mg PO DAILY bp 01/07/19 [History Last Taken 09/15/23] montelukast 10 mg tablet 10 mg PO DAILY 08/15/21 [History Last Taken 09/14/23] acetaminophen 500 mg tablet 1,000 mg PO Q8 PRN Pain 08/22/21 [History Last Taken 09/15/23] multivitamin 1 tab PO DAILY 08/22/21 [History Last Taken 09/14/23] vitamins A,C,P-wnlg-amyous 4,296 mcg-226 mg-90 mg capsule (PreserVision AREDS) 1 cap PO BID 08/22/21 [History Last Taken 09/15/23] atorvastatin 20 mg tablet (Lipitor) 20 mg PO QHS 09/13/21 [History Last Taken 09/14/23] Lactobacillus acidophilus 10 billion cell capsule (NewFlora) 100 mmu cells PO DAILY 09/15/23 [History Last Taken 09/14/23] azelastine 205.5 mcg (0.15 %) nasal spray (Astepro Allergy) 1 spray intranasal DAILY 09/15/23 [History Last Taken 09/15/23] fluticasone furoate 200 mcg-vilanterol 25 mcg/dose inhalation powder (Breo Ellipta) 1 inh inhalation Q24H 09/15/23 [History Last Taken 09/14/23] omeprazole 20 mg delayed release,disintegrating tablet 20 mg PO DAILY 09/15/23 [History Last Taken 09/14/23] Allergy/AdvReac Type Severity Reaction Status Date / Time amoxicillin trihydrate Allergy Rash Verified 09/15/23 09:53 [From Augmentin] Cephalosporins Allergy Rash Verified 09/15/23 09:53 potassium clavulanate Allergy Rash Verified 09/15/23 09:53 [From Augmentin] Sulfa (Sulfonamide Allergy Rash Verified 09/15/23 09:53 Antibiotics) Family History Sister Arthritis Breast cancer Osteoporosis Father Diabetes Cancer Skin Mother Hypertension Cancer skin cancer Osteoporosis Surgical History History of cardiac catheterization History of esophagogastroduodenoscopy (EGD) History of esophagogastroduodenoscopy (EGD) Hx of ileostomy Hx of total knee replacement Hx of total shoulder replacement S/P cholecystectomy S/P colonoscopy S/P ovarian cystectomy S/P tonsillectomy Social History Smoking Status: Never smoker second hand exposure: No alcohol intake: never substance use type: does not use caffeine: Yes what type of physical activity do you participate in: none frequency: does not exercise seatbelt use: always ROS ROS ED Constitutional Constitutional ED: Denies chills, fever(s) or sweats Eyes Eyes: Denies change in vision ENT ENT ED: Denies dysphagia or sore throat Cardiovascular Cardiovascular: Reports chest pain; Denies leg edema, palpitations or racing heartbeat Respiratory/Chest Respiratory/Chest: Denies cough, dyspnea or dyspnea on exertion Gastrointestinal Gastrointestinal: Denies abdominal pain, diarrhea, nausea or vomiting Genitourinary Genitourinary ED: Denies dysuria, hematuria or urinary frequency Musculoskeletal Musculoskeletal: Denies back pain, extremity pain or neck pain Integumentary Denies rash or wounds Neurologic Neurologic: Denies headache(s), paresthesias or weakness EXAM Physical Exam Const Vital Signs: 09/15/23 09:52 09/15/23 10:07 09/15/23 10:15 Temperature 97.7 F L Temperature Source Temporal Pulse Rate 88 88 Respiratory Rate 16 16 Respiratory Effort Blood Pressure 183/93 H 163/89 H Blood Pressure Mean 123 113 Pulse Ox 99 98 97 Oxygen Delivery Method Room Air Room Air 09/15/23 10:10 09/15/23 10:15 09/15/23 10:22 Temperature Temperature Source Pulse Rate 100 90 Respiratory Rate 16 Respiratory Effort Normal Blood Pressure 181/83 H 178/86 H Blood Pressure Mean 116 Pulse Ox 97 Oxygen Delivery Method Room Air Positive well nourished and well developed General Appearance ED: well developed and NAD HEENT Reports moist mucous membranes normocephalic and atraumatic Eyes PERRL, EOMs intact bilaterally and conjunctivae normal General Eye ED: Yes normal appearance of both eyes Neck no lymphadenopathy and supple General: Negative for tenderness Chest Wall Chest: Negative for tenderness Resp normal respiratory effort and normal air movement Effort and Inspection: symmetric chest movement; Negative for respiratory distress Cardio regular rate, regular rhythm and no murmurs Peripheral Pulses: pulses 2+ throughout GI normal to inspection, nondistended, normoactive bowel sounds and non-tender Palpation: Negative for guarding or rebound tenderness present Back/Spine no CVA tenderness and no thoracic nor lumbar tenderness Extremity normal to inspection General Extremety ED: Negative for edema or tenderness General Extremity: Negative for edema Neuro oriented x3 and no sensory deficits noted Sensorium / Orientation: awake and alert Skin no rashes or lesions noted and no wounds Heart Score History: Highly Suspicious ECG: Significant ST-Depression Age: >/= 65 years Risk Factors: >/= 3 Risk Factors or History of CAD Score: 8 MDM MDM MDM Narrative Medical decision making narrative: Interventions / MDM: Differential diagnosis: Diagnosis considered but do not suspect: N/A My EKG interpretation: Sinus rhythm normal rate, ST depression lateral leads, isolated ST elevation in aVR, right bundle branch block. Right bundle branch is chronic compared to [address] changes compared to then. Imaging independently reviewed and interpreted by myself: 1 view chest x-ray: No acute process. External documents reviewed: N/A Test considered but not ordered:N/A ED course: EKG with concerning ST changes isolated aVR elevation. New compared to 2020. Concern for STEMI equivalent. She given aspirin nitro. Cardiac labs chest x-ray. I spoke with Dr. Jeter, interventionalists 1010, images were sent through the back line. He is coming down to evaluate the patient ED to help with disposition plans. 1025: Dr. Jeter down to see the patient. He agrees with the EKG changes. She has ACS symptoms. He request heparin bolus of 5000 units. 1 view chest x-ray interpreted myself shows no acute process. Cardiac enzymes pending. 1030: After his evaluate the patient patient symptom-free after nitroglycerin. With her currently symptom-free he would like her on heparin drip, admitted to hospitalist service to PCU, evaluation of cardiac enzymes and echocardiogram prior to decision to cath. Re-evaluation: stable Disposition discussed with patient/family/significant other: Patient and significant other Case discussed with consulting clinician: Interventional cardiology, hospitalist This note was generated with [employer] dictation software. It may contain incorrect words, spelling, and punctuation that were not noted in checking the note before signing. Lab Data Attestation: I reviewed the patient's lab results. Labs: Laboratory Results - last 24 hr 09/15/23 10:10 WBC 7.6 RBC 5.19 Hgb 12.7 Hct 40.8 MCV 78.6 L MCH 24.5 L MCHC 31.1 L RDW Std Deviation 45.1 H RDW Coeff of Anuradha 15.9 H Plt Count 211 MPV 9.4 Immature Gran % (Auto) 0.700 Neut % (Auto) 73.6 H Lymph % (Auto) 14.2 L Estill % (Auto) 7.5 Eos % (Auto) 3.3 Baso % (Auto) 0.7 Absolute Neuts (auto) 5.6 Absolute Lymphs (auto) 1.08 Nucleated RBC % 0 PT 12.9 INR 1.0 APTT 30.2 Sodium 141 Potassium 3.7 Chloride 108 H Carbon Dioxide 29.0 Anion Gap 4 L BUN 18 Creatinine 0.77 Estim Creat Clear Calc 71.24 Est GFR (MDRD) Af Amer 95 Est GFR (MDRD) Non-Af 79 BUN/Creatinine Ratio 23.5 H Glucose 161 H Calcium 9.8 Troponin I High Sens 7 Radiography Diagnostic Testing: Clinical Impression(s) from Imaging Studies Chest X-Ray 09/15/23 10:22 IMPRESSION: Mild degree of cardiomegaly. Prominence of the central pulmonary artery suggestive of a possible pulmonary hypertension. Status post bilateral shoulder replacement. Electronically Signed: Turner Samuel MD at 10:45 EST Reading Location ID and State: [address] [place] [address] , Service support , Critical Care Time Critical Care Time: Yes Critical care time (excluding procedures): 30-74 minutes, Discussing w/Patient &/or Family/Casino Accountant, Discussing w/Consultants, Arranging Admission or Transfer, Performing Direct Patient Care at Bedside and - (35 minutes) Discharge Plan Dx/Rx/DC Orders Clinical Impression: ACS (acute coronary syndrome), Chest pain, RBBB Disposition Disposition: Acute Care [facility] Discharge Date/Time: 09/15/23 12:26
[2023-09-15] MEDS: Nitroglycerin SL (ED/IMG/CATH) 0.4 MG TABLET 0.400000000000000022 MG SL (10:15)
[2023-09-15 10:21] LABS: Absolute Lymphocyte Count 1.08 X10^3/uL (0.83-4.51); Absolute Neutrophil Count 5.6 X10^3/uL (2.0-7.7); Basophil# 0.05 X10^3/uL; Basophil% 0.7 % (0-1); Eosinophil# 0.25 X10^3/uL; Eosinophils% 3.3 % (0-5); Hematocrit 40.8 % (37-47); Hemoglobin 12.7 g/dL (12.0-15.0); Lymphocyte # 1.08 X10^3/ul (0.83-4.51); Lymphocyte % 14.2 % (19-41); Mean Corp Hgb Conc 31.1 g/dL (32-36); Mean Corpuscular Hgb 24.5 pg (27.0-32.0); Mean Corpuscular Volume 78.6 fL (81-99); Mean Platelet Vol. 9.4 fl (6.2-12.0); Monocyte# 0.57 X10^3/uL; Monocyte% 7.5 % (0-10); NRBC Flagged by Analyzer 0 % (0-5); Neutrophil # 5.63 X10^3/uL (2.7-7.7); Neutrophil % 73.6 % (47-70); Platelet Count 211 K/mm3 (150-450); RBC Distribution Width CV 15.9 % (11.6-14.6); RBC Distribution Width SD 45.1 fl (35.1-43.9); Red Blood Count 5.19 M/mm3 (4.2-5.4); White Blood Count 7.6 K/mm3 (4.4-11.0)
--- NOTE | 2023-09-15 10:22 | RAD_ITS ---
STUDY: X-RAY CHEST REASON FOR EXAM: Female, 72 years old. Chest pain TECHNIQUE: Single AP portable view of the chest. COMPARISON: Comparison is made with prior study dated August 15, 2021. FINDINGS: The lungs are clear and expanded. There is no demonstrated pleural abnormality. There is mild cardiac enlargement. Normal mediastinum and rimma. There is prominence of the pulmonary hilar arteries without peripheral pulmonary vascular congestion, suggesting pulmonary hypertension. Normal visualized aortic arch and descending thoracic aorta. There are diffuse degenerative changes of the visualized thoracic spine. Status post bilateral reverse shoulder replacement. There is no demonstrated abnormality of the visualized soft tissue structures of the upper abdomen. RAD/Chest 1 View (Portable) IMPRESSION: Mild degree of cardiomegaly. Prominence of the central pulmonary artery suggestive of a possible pulmonary hypertension. Status post bilateral shoulder replacement. Electronically Signed: Turner Samuel MD at 10:45 EST ,
[2023-09-15] MEDS: Heparin Injection (Vial) 5,000 UNIT/ML VIAL 5000 UNIT IV (10:30)
--- NOTE | 2023-09-15 10:32 | ED.RN ---
THIS RN ENTYERS ROOM, DR. TRAN AT BEDSIDE WITH THE PATIENT. PT REPORTS THAT SHE IS PAIN FREE AFTER [address] TRAN PT WITH BE ADMITTED FOR CARDIAC WORKUP BUT THAT PATIENT DOES NOT NEED TO GOFROM ED TO WATCH AND CLOCK REPAIR CLERK OF THIS MOMENT.
[2023-09-15 10:37] LABS: Anion Gap 4 (5-15); BUN 18 mg/dL (7-18); BUN/Creat Ratio 23.5 RATIO (10-20); Calcium,Total 9.8 mg/dL (8.5-10.1); Chloride 108 mmol/L (98-107); Creatinine, Serum 0.77 mg/dL (0.55-1.02); EST Glomerular Filtration Rate 79 mL/min (>60); Est Glom Filt Rate - Afr Amer 95 mL/min (>60); Estimated Creatinine Clearance 71.24 ml/min; Glucose 161 mg/dL (74-106); Potassium 3.7 mmol/L (3.5-5.1); Sodium Level 141 mmol/L (136-145); Troponin-I HS (w/2H Reflex) 7 pg/mL (3.0-54.0)
[2023-09-15] MEDS: Nitroglycerin Oint 1 INCH PACKET TD (10:51)
[2023-09-15] MEDS: HEPARIN/D5w 25,000 UNITS 25,000 UNITS/250 ML IV.SOLN. 10 UNITS CONT INF (10:52)
[2023-09-15 10:56] LABS: Prothrombin Time (Protime)PT. 12.9 SECONDS (11.7-14.9)
[2023-09-15 10:57] LABS: Partial Thromboplast Time 30.2 Seconds (24.1-36.2)
[2023-09-15 12:15] LABS: Reflex Troponin-HS? (from REC) Y
--- NOTE | 2023-09-15 12:32 | ECHOCS_ITS ---
Reason For Study: CHEST PAIN Procedure This was a 2D Doppler, Color Flow transthoracic echocardiogram. The study was technically difficult. Exam performed portable in patient room. Left Ventricle Normal left ventricle. The estimated ejection fraction is 55-60 %. Right Ventricle Normal right ventricle. Normal systolic function. Atria The left atrium is mildly enlarged. Normal right atrium. Mitral Valve The mitral valve is structurally normal. No prolapse or stenosis seen. Trivial mitral valve insufficiency. Tricuspid Valve Normal tricuspid valve. Aortic Valve Trisinus/trileaflet aortic valve. Pulmonic Valve The pulmonic valve is not well visualized. Great Vessels Normal aortic root. Pericardium/Pleural No pericardial effusion. Medication Diluted definity 2ml given slow IV push to enhance endocardial definition. MMode/2D Measurements & Calculations LVIDd: 4.7 cm IVSd: 1.2 cm Ao root diam: 3.0 cm LVIDs: 2.8 cm LVPWd: 1.1 cm RVDd: 4.0 cm FS: 40.5 % LAV(MOD-bp): 49.7 ml LVAd ap4: 27.4 cm2 SV(MOD-sp4): 55.0 ml LAV(MOD-bp) Indexed: 24.6 ml/m2 LVLd ap4: 7.3 cm LAV(MOD-sp2): 47.5 ml EDV(MOD-sp4): 85.3 ml LAV(MOD-sp4): 51.5 ml EDV(sp4-el): 87.5 ml LVAs ap4: 14.6 cm2 LVLs ap4: 6.1 cm ESV(MOD-sp4): 30.3 ml ESV(sp4-el): 29.6 ml EF(MOD-sp4): 64.5 % EF(sp4-el): 66.2 % SV(sp4-el): 57.9 ml LA A4 area: 18.8 cm2 LA dimension(2D): 3.5 cm RA A4 area: 15.8 cm2 TAPSE: 2.1 cm Time Measurements MV dec time: 0.26 sec Doppler Measurements & Calculations MV E max sav: 54.8 cm/sec Lat Peak E' Sav: 10.1 cm/sec Med Peak E' Sav: 6.9 cm/sec MV A max sav: 79.3 cm/sec E/E' lat: 5.4 E/E' med: 7.9 MV E/A: 0.69 Ao V2 max: 153.3 cm/sec LV V1 max: 125.6 cm/sec PA V2 max: 97.8 cm/sec Ao max P.4 mmHg LV V1 max P.3 mmHg TR max sav: 258.5 cm/sec TR max P.7 mmHg ECHO/Echo Complete W/ Contrast Interpretation Summary The estimated ejection fraction is 55-60 %. Normal LV Systolic functjion Ordering Physician: Victor Hugo Pierre Referring Physician: KIMBERLY SULLIVAN Performed By: Aidee Benitez RDCS
[2023-09-15 13:18] LABS: Troponin-I HS 8 pg/mL (3.0-54.0)
--- NOTE | 2023-09-15 13:30 | PCM.CONS.C ---
Assessment & Plan Assessment/Plan (1) Chest pain: (2) RBBB: (3) HTN (hypertension): QUALIFIERS: Hypertension type: essential hypertension Qualified Code(s): I10 - Essential (primary) hypertension PLAN: Plan Troponins are pending. If troponins come back elevated would then pursue a diagnostic heart catheterization. If troponins are negative with patient's symptoms would like to proceed with a stress test. Either of these can be done tomorrow. Echocardiogram is pending. For now we will continue with home blood pressure medications. Will continue to monitor and adjust if need be. HPI Consult Data Date of Consult: 09/15/23 HPI Narrative HPI Narrative: JA ADAME, is a 72 F who presented to [facility] ER on 09/15/2023 with chest pain. Patient states that she awoke at 3 AM with substernal chest discomfort. It lasted approximately 5 minutes. She had contemplated on coming to the emergency room at that time however since it resolved she decided to stay at home. She then developed chest discomfort around 9:00 this morning this was similar to what it had been previously. She decided to present to the emergency room at this time. She did have a diagnostic heart catheterization in 2015 which demonstrated normal coronary arteries. She had an echocardiogram in July 2021. This demonstrated a preserved ejection fraction of about 60 to 70%. Left atrium was mildly dilated. She does have a history of hypertension, hyperlipidemia and a right bundle branch block. Troponin so far have trended 7 and 8. She denies any other cardiac symptoms. She does not have any worsening shortness of breath or fatigue. She does not have any palpitations. She does not have any lower extremity edema. She does not have any lightheadedness and or dizziness. [facility] Medical History (Updated 09/15/23 @ 10:[address] Eric Fuentes DO) Abdominal pain Anemia Anemia Arthritis Back pain Bowel perforation Cardiomegaly Chest pain COVID Crohn's disease Diverticulosis of colon Diverticulosis of large intestine DVT (deep venous thrombosis) DVT (deep venous thrombosis) Epigastric pain Gastric reflux Gastritis History of diverticulitis History of echocardiogram History of edema History of hiatal hernia History of steroid therapy History of stress test HTN (hypertension) Internal hemorrhoids [place] esophagus Non-smoker Positive FIT (fecal immunochemical test) Post-menopausal Pre-syncope Sciatica Sesamoiditis Shortness of breath on exertion Wears glasses Wears partial dentures Home Medications amlodipine 10 mg tablet 10 mg PO QHS bp 04/03/16 [History Last Taken 09/14/23] albuterol sulfate 90 mcg/actuation aerosol inhaler 2 puff inhalation Q6H PRN Sob &/Or Wheezing 11/04/17 [History Last Taken 09/15/23] fluticasone propionate 50 mcg/actuation nasal spray,suspension 1 spray QHS nasal congestion 01/07/19 [History Last Taken 09/14/23] lisinopril 20 mg tablet 20 mg PO DAILY bp 01/07/19 [History Last Taken 09/15/23] montelukast 10 mg tablet 10 mg PO DAILY 08/15/21 [History Last Taken 09/14/23] acetaminophen 500 mg tablet 1,000 mg PO Q8 PRN Pain 08/22/21 [History Last Taken 09/15/23] multivitamin 1 tab PO DAILY 08/22/21 [History Last Taken 09/14/23] vitamins A,C,Y-knli-rpvnir 4,296 mcg-226 mg-90 mg capsule (PreserVision AREDS) 1 cap PO BID 08/22/21 [History Last Taken 09/15/23] atorvastatin 20 mg tablet (Lipitor) 20 mg PO QHS 09/13/21 [History Last Taken 09/14/23] Lactobacillus acidophilus 10 billion cell capsule (NewFlora) 100 mmu cells PO DAILY 09/15/23 [History Last Taken 09/14/23] azelastine 205.5 mcg (0.15 %) nasal spray (Astepro Allergy) 1 spray intranasal DAILY 09/15/23 [History Last Taken 09/15/23] fluticasone furoate 200 mcg-vilanterol 25 mcg/dose inhalation powder (Breo Ellipta) 1 inh inhalation Q24H 09/15/23 [History Last Taken 09/14/23] omeprazole 20 mg delayed release,disintegrating tablet 20 mg PO DAILY 09/15/23 [History Last Taken 09/14/23] Allergy/AdvReac Type Severity Reaction Status Date / Time amoxicillin trihydrate Allergy Rash Verified 09/15/23 09:53 [From Augmentin] Cephalosporins Allergy Rash Verified 09/15/23 09:53 potassium clavulanate Allergy Rash Verified 09/15/23 09:53 [From Augmentin] Sulfa (Sulfonamide Allergy Rash Verified 09/15/23 09:53 Antibiotics) Family History Sister Arthritis Breast cancer Osteoporosis Father Diabetes Cancer Skin Mother Hypertension Cancer skin cancer Osteoporosis Surgical History History of cardiac catheterization History of esophagogastroduodenoscopy (EGD) History of esophagogastroduodenoscopy (EGD) Hx of ileostomy Hx of total knee replacement Hx of total shoulder replacement S/P cholecystectomy S/P colonoscopy S/P ovarian cystectomy S/P tonsillectomy Social History Smoking Status: Never smoker second hand exposure: No alcohol intake: never substance use type: does not use caffeine: Yes what type of physical activity do you participate in: none frequency: does not exercise seatbelt use: always ROS Constitutional Constitutional: Denies change in weight, chills, fatigue, frequent falls, headache(s) or lethargy Eyes Eyes: Denies acute decrease in peripheral vision, blurry vision or change in vision ENT HEENT: Denies dizziness, dry mouth, epistaxis, headache(s), tinnitus or vertigo Cardiovascular Cardiovascular: Reports as per HPI Respiratory/Chest Respiratory/Chest: Denies cough, dyspnea, dyspnea on exertion, tachypnea or wheezing Gastrointestinal Gastrointestinal: Denies abdominal pain, bloating, coffee ground emesis, diarrhea, heartburn, hematemesis, hematochezia, melena or nausea Genitourinary Genitourinary: Denies hematuria Musculoskeletal Musculoskeletal: Denies myalgias, numbness or tingling Neurologic Neurologic: Denies abnormal gait, abnormal speech, memory loss, paresthesias or weakness Physical Exam Const alert, oriented x3, no apparent distress and healthy appearing HEENT normocephalic, head/scalp atraumatic, hearing grossly normal bilaterally, external ears normal, external nose normal and moist oral mucous membranes Eyes PERRL, EOMs intact bilaterally, conjunctivae normal and no scleral icterus Neck no lymphadenopathy, supple and no JVD Resp normal respiratory effort and clear to auscultation bilaterally Cardio regular rate, regular rhythm, S1 normal heart sound, S2 normal heart sound, no murmurs, no rub, no gallops, no clicks, no JVD and peripheral pulses 2+ throughout GI normal to inspection, nondistended, normoactive bowel sounds, soft to palpation, non-tender and non-distended Extremity normal to inspection, normal capillary refill, no clubbing, cyanosis or edema and no pedal edema Neuro oriented x3, CN's II-XII intact bilaterally, moves all extremities and no focal motor deficits Psych cooperative and affect normal Risk Stratification Risk Stratification Applicable: Yes Age >/= 65: Yes >/= 3 CAD Risk Factors (HTN, HLD, DM, family hx of CAD, or current smoker): Yes Aspirin Use in the Past 7 Days: No Severe Angina (>/= episodes in 24 hours): Yes EKG ST Changes >/= 0.5mm: No Positive Cardiac Marker: No JACE Risk Stratification Score: 3 JACE % Risk: 13% Risk Charges/Coding Visit Charges Office Visits / Consults: 89706 IP Consult L3 Objective Data Vital Signs: Vital Signs Temp Pulse Resp BP Pulse Ox O2 Del Method 97.8 F 76 14 162/67 H 99 Room Air 09/15/23 12:34 09/15/23 12:34 09/15/23 12:34 09/15/23 12:34 09/15/23 12:34 09/15/23 12:34 Oxygen Delivery Method Room Air Weight: 231 lb 11.293 oz Body Mass Index (BMI) 43.7 Lab / Micro Data 09/15/23 10:10 09/15/23 10:10 Labs: Laboratory Results - last 24 hr 09/15/23 10:10: WBC 7.6, RBC 5.19, Hgb 12.7, Hct 40.8, MCV 78.6 L, MCH 24.5 L, MCHC 31.1 L, RDW Std Deviation 45.1 H, RDW Coeff of Anuradha 15.9 H, Plt Count 211, MPV 9.4, Immature Gran % (Auto) 0.700, Neut % (Auto) 73.6 H, Lymph % (Auto) 14.2 L, [place] % (Auto) 7.5, Eos % (Auto) 3.3, Baso % (Auto) 0.7, Absolute Neuts (auto) 5.6, Absolute Lymphs (auto) 1.08, Nucleated RBC % 0, PT 12.9, INR 1.0, APTT 30.2, Sodium 141, Potassium 3.7, Chloride 108 H, Carbon Dioxide 29.0, Anion Gap 4 L, BUN 18, Creatinine 0.77, Estim Creat Clear Calc 71.24, Est GFR (MDRD) Af Amer 95, Est GFR (MDRD) Non-Af 79, BUN/Creatinine Ratio 23.5 H, Glucose 161 H, Calcium 9.8, Troponin I High Sens 7 09/15/23 12:38: Troponin I High Sens 8 Cardiology Labs/Tests 09/15/23 10:10: WBC 7.6, RBC 5.19, Hgb 12.7, Hct 40.8, MCV 78.6 L, MCH 24.5 L, MCHC 31.1 L, Plt Count 211, MPV 9.4, Immature Gran % (Auto) 0.700, Neut % (Auto) 73.6 H, Lymph % (Auto) 14.2 L, [place] % (Auto) 7.5, Eos % (Auto) 3.3, Baso % (Auto) 0.7, Absolute Neuts (auto) 5.6, Nucleated RBC % 0, PT 12.9, INR 1.0, APTT 30.2, Sodium 141, Potassium 3.7, Chloride 108 H, Carbon Dioxide 29.0, Anion Gap 4 L, BUN 18, Creatinine 0.77, Est GFR (MDRD) Af Amer 95, Est GFR (MDRD) Non-Af 79, BUN/Creatinine Ratio 23.5 H, Glucose 161 H, Calcium 9.8 Radiography Diagnostic Testing: Radiology Impression Chest X-Ray 09/15/23 10:22 IMPRESSION: Mild degree of cardiomegaly. Prominence of the central pulmonary artery suggestive of a possible pulmonary hypertension. Status post bilateral shoulder replacement. Electronically Signed: Turner Samuel MD at 10:45 EST ,
--- NOTE | 2023-09-15 16:09 | PCM.HP.STD ---
HPI - General General Date of Admission: 09/15/23 Chief Complaint: Chest pain HPI Narrative JA ADAME, is a 72 F who presents with chest pain. Symptoms began at 3 AM. Patient was going to the bathroom when this occurred. His chest pain is left-sided going down both of her arms. Patient was diaphoretic and shortness of breath with this as well. Never experienced this before. Presented emergency room and I received nitroglycerin and heparin and symptoms subsequently resolved. Cardiology was contacted and recommended admission with further evaluation. [facility] Medical History Abdominal pain Anemia Anemia Arthritis Back pain Bowel perforation Cardiomegaly Chest pain COVID Crohn's disease Diverticulosis of colon Diverticulosis of large intestine DVT (deep venous thrombosis) DVT (deep venous thrombosis) Epigastric pain Gastric reflux Gastritis History of diverticulitis History of echocardiogram History of edema History of hiatal hernia History of steroid therapy History of stress test HTN (hypertension) Internal hemorrhoids [place] esophagus Non-smoker Positive FIT (fecal immunochemical test) Post-menopausal Pre-syncope Sciatica Sesamoiditis Shortness of breath on exertion Wears glasses Wears partial dentures Home Medications amlodipine 10 mg tablet 10 mg PO QHS bp 04/03/16 [History Last Taken 09/14/23] albuterol sulfate 90 mcg/actuation aerosol inhaler 2 puff inhalation Q6H PRN Sob &/Or Wheezing 11/04/17 [History Last Taken 09/15/23] fluticasone propionate 50 mcg/actuation nasal spray,suspension 1 spray QHS nasal congestion 01/07/19 [History Last Taken 09/14/23] lisinopril 20 mg tablet 20 mg PO DAILY bp 01/07/19 [History Last Taken 09/15/23] montelukast 10 mg tablet 10 mg PO DAILY 08/15/21 [History Last Taken 09/14/23] acetaminophen 500 mg tablet 1,000 mg PO Q8 PRN Pain 08/22/21 [History Last Taken 09/15/23] multivitamin 1 tab PO DAILY 08/22/21 [History Last Taken 09/14/23] vitamins A,C,C-upac-sghuva 4,296 mcg-226 mg-90 mg capsule (PreserVision AREDS) 1 cap PO BID 08/22/21 [History Last Taken 09/15/23] atorvastatin 20 mg tablet (Lipitor) 20 mg PO QHS 09/13/21 [History Last Taken 09/14/23] Lactobacillus acidophilus 10 billion cell capsule (NewFlora) 100 mmu cells PO DAILY 09/15/23 [History Last Taken 09/14/23] azelastine 205.5 mcg (0.15 %) nasal spray (Astepro Allergy) 1 spray intranasal DAILY 09/15/23 [History Last Taken 09/15/23] fluticasone furoate 200 mcg-vilanterol 25 mcg/dose inhalation powder (Breo Ellipta) 1 inh inhalation Q24H 09/15/23 [History Last Taken 09/14/23] omeprazole 20 mg delayed release,disintegrating tablet 20 mg PO DAILY 09/15/23 [History Last Taken 09/14/23] Allergy/AdvReac Type Severity Reaction Status Date / Time amoxicillin trihydrate Allergy Rash Verified 09/15/23 09:53 [From Augmentin] Cephalosporins Allergy Rash Verified 09/15/23 09:53 potassium clavulanate Allergy Rash Verified 09/15/23 09:53 [From Augmentin] Sulfa (Sulfonamide Allergy Rash Verified 09/15/23 09:53 Antibiotics) Family History Sister Arthritis Breast cancer Osteoporosis Father Diabetes Cancer Skin Mother Hypertension Cancer skin cancer Osteoporosis Surgical History History of cardiac catheterization History of esophagogastroduodenoscopy (EGD) History of esophagogastroduodenoscopy (EGD) Hx of ileostomy Hx of total knee replacement Hx of total shoulder replacement S/P cholecystectomy S/P colonoscopy S/P ovarian cystectomy S/P tonsillectomy Social History Smoking Status: Never smoker second hand exposure: No alcohol intake: never substance use type: does not use caffeine: Yes what type of physical activity do you participate in: none frequency: does not exercise seatbelt use: always Vital Signs Vital Signs Vital Signs: 09/15/23 09:52 09/15/23 10:07 09/15/23 10:15 Temperature 36.5 C L Temperature Source Temporal Pulse Rate 88 88 Respiratory Rate 16 16 Respiratory Effort Respiratory Depth Respiratory Pattern Blood Pressure 183/93 H 163/89 H Blood Pressure [BP] Blood Pressure Mean 123 113 Blood Pressure Mean [BP] Blood Pressure Source [BP] Blood Pressure Position [BP] Blood Pressure Location [BP] Pulse Ox 99 98 97 Oxygen Delivery Method Room Air Room Air 09/15/23 10:10 09/15/23 10:15 09/15/23 10:22 Temperature Temperature Source Pulse Rate 100 90 Respiratory Rate 16 Respiratory Effort Normal Respiratory Depth Respiratory Pattern Blood Pressure 181/83 H 178/86 H Blood Pressure [BP] Blood Pressure Mean 116 Blood Pressure Mean [BP] Blood Pressure Source [BP] Blood Pressure Position [BP] Blood Pressure Location [BP] Pulse Ox 97 Oxygen Delivery Method Room Air 09/15/23 10:51 09/15/23 12:13 09/15/23 11:00 Temperature 35 C L Temperature Source Pulse Rate 83 85 83 Respiratory Rate 15 16 Respiratory Effort Respiratory Depth Respiratory Pattern Blood Pressure 170/86 H 131/82 H 157/80 H Blood Pressure [BP] Blood Pressure Mean 98 105 Blood Pressure Mean [BP] Blood Pressure Source [BP] Blood Pressure Position [BP] Blood Pressure Location [BP] Pulse Ox 95 Oxygen Delivery Method Room Air 09/15/23 11:30 09/15/23 12:24 09/15/23 12:34 Temperature 36.6 C Temperature Source Oral Pulse Rate 84 81 76 Respiratory Rate 17 16 14 Respiratory Effort Respiratory Depth Respiratory Pattern Blood Pressure 122/80 H 124/77 H Blood Pressure [BP] 162/67 H Blood Pressure Mean 94 92 Blood Pressure Mean [BP] 98 Blood Pressure Source [BP] Monitor Blood Pressure Position [BP] Sitting Blood Pressure Location [BP] Right Arm Pulse Ox 98 95 99 Oxygen Delivery Method Room Air Room Air 09/15/23 14:00 Temperature Temperature Source Pulse Rate Respiratory Rate Respiratory Effort Normal Respiratory Depth Normal Respiratory Pattern Normal Blood Pressure Blood Pressure [BP] Blood Pressure Mean Blood Pressure Mean [BP] Blood Pressure Source [BP] Blood Pressure Position [BP] Blood Pressure Location [BP] Pulse Ox Oxygen Delivery Method Room Air Weight Weight: 105.1 kg Body Mass Index (BMI) 43.7 Physical Exam Const alert and no apparent distress HEENT normocephalic Cardio regular rate, regular rhythm and S1 normal heart sound GI normal to inspection, nondistended, normoactive bowel sounds Extremity normal to inspection and full ROM Neuro Sensorium / Orientation: awake and alert Results Lab / Micro Data 09/15/23 10:10 09/15/23 10:10 Labs: Laboratory Results - last 24 hr 09/15/23 10:10: WBC 7.6, RBC 5.19, Hgb 12.7, Hct 40.8, MCV 78.6 L, MCH 24.5 L, MCHC 31.1 L, RDW Std Deviation 45.1 H, RDW Coeff of Anuradha 15.9 H, Plt Count 211, MPV 9.4, Immature Gran % (Auto) 0.700, Neut % (Auto) 73.6 H, Lymph % (Auto) 14.2 L, [place] % (Auto) 7.5, Eos % (Auto) 3.3, Baso % (Auto) 0.7, Absolute Neuts (auto) 5.6, Absolute Lymphs (auto) 1.08, Nucleated RBC % 0, PT 12.9, INR 1.0, APTT 30.2, Sodium 141, Potassium 3.7, Chloride 108 H, Carbon Dioxide 29.0, Anion Gap 4 L, BUN 18, Creatinine 0.77, Estim Creat Clear Calc 71.24, Est GFR (MDRD) Af Amer 95, Est GFR (MDRD) Non-Af 79, BUN/Creatinine Ratio 23.5 H, Glucose 161 H, Calcium 9.8, Troponin I High Sens 7 09/15/23 12:38: Troponin I High Sens 8 Imaging Radiology Impression Chest X-Ray 09/15/23 10:22 IMPRESSION: Mild degree of cardiomegaly. Prominence of the central pulmonary artery suggestive of a possible pulmonary hypertension. Status post bilateral shoulder replacement. Electronically Signed: Turner Samuel MD at 10:45 EST , Assessment & Plan Assessment/Plan (1) ACS (acute coronary syndrome): PLAN: Plan Acute coronary syndrome Patient with acute symptoms. Resolved with nitroglycerin. Continue with heparin drip per cardiology recommendations. Patient did receive aspirin in the emergency room and will continue with 81 daily. Discussed with Rebeka with cardiology, plan is for stress test on the and then further evaluation based on that. Troponins thus far are normal. Chronic conditions Hypertension: Continue with amlodipine Hyperlipidemia: Continue with atorvastatin, lisinopril VTE prophylaxis: Not indicated as patient is already anticoagulated. Charges/Coding Visit Charges Inpatient E&M: 87569 Init Hosp L3
[2023-09-15 17:08] LABS: Troponin-I HS 9 pg/mL (3.0-54.0)
[2023-09-15 17:22] LABS: Partial Thromboplast Time 76.7 Seconds (24.1-36.2)
[2023-09-15] MEDS: Fluticasone 0.05% 1 SPRAY NASAL.SRY NASAL (21:04)
[2023-09-15] MEDS: Multivitamin (Healthy Eyes) Capsule 1 CAP PO (21:06)
[2023-09-15] MEDS: Atorvastatin Calcium 20 MG Tablet PO (21:08)
[2023-09-15] MEDS: amLODIPine 10 MG Tablet PO (21:08)
[2023-09-15] MEDS: Albuterol 2.5 MG/3 ML VIAL.NEB. INHALATION (21:15)
[2023-09-15] MEDS: Budesonide Respules 0.5 MG/2 ML AMPUL.NEB. INHALATION (21:15)
[2023-09-16 00:14] LABS: Partial Thromboplast Time 60.2 Seconds (24.1-36.2)
[2023-09-16 02:53] VITALS: BP 156/78; PULSE 80; RESP 18; TEMP 36.5; O2SAT 94
[2023-09-16 05:58] LABS: Partial Thromboplast Time 54.2 Seconds (24.1-36.2)
[2023-09-16 06:26] LABS: Cholesterol 132 mg/dL (200); High Density Lipoprotein 52 mg/dL; Triglycerides 348 mg/dL; Very Low Density Lipoprotein 70 mg/dL (5-40)
[2023-09-16] MEDS: Lisinopril 20 MG Tablet PO (07:18)
[2023-09-16] MEDS: Aspirin E.C. 81 MG Tablet PO (07:18)
[2023-09-16 07:20] VITALS: BP 157/68; PULSE 84; RESP 18; TEMP 36.6; O2SAT 96
--- NOTE | 2023-09-16 08:51 | PN.HOSP_ITS ---
Subjective Subjective No further chest pain. Feels well. Objective Data Objective Data Vital Signs: Vital Signs Temp Pulse Resp BP Pulse Ox O2 Del Method 36.6 C 84 18 157/68 H 96 Room Air 09/16/23 07:20 09/16/23 07:20 09/16/23 07:20 09/16/23 07:20 09/16/23 07:20 09/16/23 07:20 Oxygen Delivery Method Room Air Weight: 105.1 kg Body Mass Index (BMI) 43.7 Intake & Output: Intake and Output for Last 24 Hours 09/14/23 09/15/23 09/16/23 23:59 23:59 23:59 Intake Total 317.67 / 317.67 123.57 / 123.57 Balance 317.67 / 317.67 123.57 / 123.57 Lab / Micro Data 09/15/23 10:10 09/15/23 10:10 Labs: Laboratory Results - last 24 hr 09/15/23 10:10: WBC 7.6, RBC 5.19, Hgb 12.7, Hct 40.8, MCV 78.6 L, MCH 24.5 L, MCHC 31.1 L, RDW Std Deviation 45.1 H, RDW Coeff of Anruadha 15.9 H, Plt Count 211, MPV 9.4, Immature Gran % (Auto) 0.700, Neut % (Auto) 73.6 H, Lymph % (Auto) 14.2 L, [place] % (Auto) 7.5, Eos % (Auto) 3.3, Baso % (Auto) 0.7, Absolute Neuts (auto) 5.6, Absolute Lymphs (auto) 1.08, Nucleated RBC % 0, PT 12.9, INR 1.0, APTT 30.2, Sodium 141, Potassium 3.7, Chloride 108 H, Carbon Dioxide 29.0, Anion Gap 4 L, BUN 18, Creatinine 0.77, Estim Creat Clear Calc 71.24, Est GFR (MDRD) Af Amer 95, Est GFR (MDRD) Non-Af 79, BUN/Creatinine Ratio 23.5 H, Glucose 161 H, Calcium 9.8, Troponin I High Sens 7 09/15/23 12:38: Troponin I High Sens 8 09/15/23 16:40: APTT 76.7 H, Troponin I High Sens 9 09/15/23 23:45: APTT 60.2 H 09/16/23 05:35: APTT 54.2 H, Triglycerides 348 H, Cholesterol 132, LDL Cholesterol 10, VLDL Cholesterol 70 H, HDL Cholesterol 52 Radiography Diagnostic Testing: Radiology Impression Chest X-Ray 09/15/23 10:22 IMPRESSION: Mild degree of cardiomegaly. Prominence of the central pulmonary artery suggestive of a possible pulmonary hypertension. Status post bilateral shoulder replacement. Electronically Signed: Turner Samuel MD at 10:45 EST , Echocardiogram 09/15/23 12:32 Interpretation Summary The estimated ejection fraction is 55-60 %. Normal LV Systolic functjion Ordering Physician: Victor Hugo Pierre Referring Physician: KIMBERLY SULLIVAN Performed By: Aidee Benitez RDCS Physical Exam Const alert and no apparent distress HEENT head/scalp atraumatic and moist oral mucous membranes Resp no use of accessory muscles Assessment & Plan Assessment/Plan (1) ACS (acute coronary syndrome): PLAN: Plan Acute coronary syndrome * Patient with acute symptoms. Resolved with nitroglycerin. * Troponins, echo, stress test negative * EKG showed RBBB, reviewed with the patient and her at bedside, that was present at least in 2020. This is a benign finding and no additional workup necessary for that. Chronic conditions * Hypertension: Continue with amlodipine * Hyperlipidemia: Continue with atorvastatin, lisinopril VTE prophylaxis: Not indicated as patient is already anticoagulated.
[2023-09-16] MEDS: Montelukast 10 MG Tablet PO (09:14)
[2023-09-16] MEDS: Pantoprazole Sodium 20 MG Tablet PO (09:14)
[2023-09-16] MEDS: Multivitamin (Healthy Eyes) Capsule 1 CAP PO (09:14)
[2023-09-16 09:18] VITALS: BP 150/73; PULSE 90; RESP 16; TEMP 36.4; O2SAT 96
--- NOTE | 2023-09-16 10:04 | STRESSREP_ITS ---
Stress Test Report Pharmacologic/Lexiscan myocardial perfusion stress test. Indication; 72-year-old female with history of chest pain Has abnormal EKG with a right bundle branch block nonspecific T wave changes in the inferior lead Underwent evaluation by Lexiscan sestamibi to evaluate for myocardial ischemia Stress protocol: Resting EKG demonstrates. Normal sinus rhythm. 0.4 mg of regadenoson was infused per usual protocol followed by rapid intravenous saline flush injection continuous EKG monitoring was performed. The maximum heart rate attained was 108 bpm which was 72% of maximum predicted heart . Stress EKG showed[, no significant change from the resting EKG, underlying right bundle branch block With some T wave and ST changes in the inferior lead Arrhythmia: No arrhythmia demonstrated Symptoms: Patient had no symptoms of chest pain Blood pressure at rest: 154/88 mmHg blood pressure at the end of stress: 160/78 mmHg Myocardial perfusion protocol. 14.6 mCi ]of Technetium 99m Sestamibi was injected at rest. [ 0.4 mg ]of Regadenoson was infused per usual protocol peak infusion[44.7 mCi ]of Technetium 99m sestamibi was injected. Stress images were obtained stress and rest images were reconstructed and compared in the short axis vertical and horizontal long axis. Gated images were also obtained Perfusion SPECT analysis: Review of the images demonstrate normal uptake of sestamibi at rest, post stress images demonstrate similar uptake of sestamibi to the resting images, homogeneous tracer uptake With no evidence of reversible myocardial ischemia. Gated SPECT analysis: The gated ejection fraction is 77%. Wall motion showed hyperdynamic left ventricle. Conclusion: Negative Lexiscan sestamibi myocardial perfusion study for reversible myocardial ischemia Hyperdynamic left ventricle. Drake Jeter MD,FACC,[facility]
--- NOTE | 2023-09-16 11:15 | CASEMGMT ---
RN CM Face to Face with patient for initial transition planning/care coordination assessment. RN CM introduced self and role at [facility]. Patient lying in bed, alert and oriented, at bedside. Patient willing to participate in assessment and is able to answer all questions appropriately. Care providers, pharmacy, and demographics verified. Patient wishes to discharge home, denies need for home health at this time. Patient states she has no further needs or concerns at this time. CM to follow for discharge planning needs that may arise. PCP: Merly Specialists: Domi Jones child specialist; Preferred Pharmacy: [facility] Insurance: [facility] Prescription Benefit: yes Living Will/HPOA: yes, Adelso Golden LNOK: , son Living Arrangements: Patient lives with in a split level home with 7-8 steps and railing to enter the home. Patient states she is independent at home. Transportation: self, DME/HHC: Patient has shower chair, raised toilet, cane, and pulse ox. No previous HHC or SNF. Disposition Plan: Patient to discharge home with family support and follow-up plans in place. Harriet BENOIT, RN, CM
--- NOTE | 2023-09-16 11:58 | DS.PCM_ITS ---
Providers Date of Admission: 09/15/23 Primary Care Physician: Dr. Caitlin Sullivan MD Consultations 09/15/23 12:32 Consult: Cardiology Routine Consulting Provider: Drake Jeter Reason for Consult: Chest Pain EMERGENT Consult: No MD Notified: Yes Date Notified: 09/15/23 Time Notified: 10:50 Method of Notification: ED Physician Initiated Reason For Visit: ACS Diagnosis Discharge Diagnosis (1) ACS (acute coronary syndrome): Status: Acute Code(s): I24.9 - Acute ischemic heart disease, unspecified Plan Acute coronary syndrome * Patient with acute symptoms. Resolved with nitroglycerin. * Troponins, echo, stress test negative * EKG showed RBBB, reviewed with the patient and her at bedside, that was present at least in 2020. This is a benign finding and no additional w orkup necessary for that. Chronic conditions * Hypertension: Continue with amlodipine * Hyperlipidemia: Continue with atorvastatin, lisinopril VTE prophylaxis: Not indicated as patient is already anticoagulated. Medications at Discharge Home Medications amlodipine 10 mg tablet 10 mg PO QHS bp 04/03/16 albuterol sulfate 90 mcg/actuation aerosol inhaler 2 puff inhalation Q6H PRN Sob &/Or Wheezing 11/04/17 fluticasone propionate 50 mcg/actuation nasal spray,suspension 1 spray QHS nasal congestion 01/07/19 lisinopril 20 mg tablet 20 mg PO DAILY bp 01/07/19 montelukast 10 mg tablet 10 mg PO DAILY 08/15/21 acetaminophen 500 mg tablet 1,000 mg PO Q8 PRN Pain 08/22/21 multivitamin 1 tab PO DAILY 08/22/21 vitamins A,C,K-rreg-cybsym 4,296 mcg-226 mg-90 mg capsule (PreserVision AREDS) 1 cap PO BID 08/22/21 atorvastatin 20 mg tablet (Lipitor) 20 mg PO QHS 09/13/21 Lactobacillus acidophilus 10 billion cell capsule (NewFlora) 100 mmu cells PO DAILY 09/15/23 azelastine 205.5 mcg (0.15 %) nasal spray (Astepro Allergy) 1 spray intranasal DAILY 09/15/23 fluticasone furoate 200 mcg-vilanterol 25 mcg/dose inhalation powder (Breo Ellipta) 1 inh inhalation Q24H 09/15/23 omeprazole 20 mg delayed release,disintegrating tablet 20 mg PO DAILY 09/15/23 Hospital Course Operations None Procedures 2-D Echocardiogram and Stress test Summary of Care Provided Minutes Spent on Discharge: 35 Weight / BMI Weight Weight: 105.1 kg Body Mass Index (BMI) 43.7 ABG / Lab / Microbiology Data 09/15/23 10:10 09/15/23 10:10 Laboratory: Laboratory Results - last 24 hr 09/15/23 12:38: Troponin I High Sens 8 09/15/23 16:40: APTT 76.7 H, Troponin I High Sens 9 09/15/23 23:45: APTT 60.2 H 09/16/23 05:35: APTT 54.2 H, Triglycerides 348 H, Cholesterol 132, LDL Cholesterol 10, VLDL Cholesterol 70 H, HDL Cholesterol 52 Radiography Diagnostic Testing: Radiology Impression Echocardiogram 09/15/23 12:32 Interpretation Summary The estimated ejection fraction is 55-60 %. Normal LV Systolic functjion Ordering Physician: Victor Hugo Pierre Referring Physician: CAITLIN SULLIVAN Performed By: Aidee Benitez ABDULKADIR D/C Instructions Discharge Diet: No restrictions Meaningful Use Info Meaningful Use Diagnoses (Choose all that apply): None applicable Discharge Plan Admission Admit Date/Time: 09/15/23 10:46 Primary Reason for Your Visit: chest pain Attending Provider: Victor Hugo Pierre Primary Care Provider: Caitlin Sullivan Consulting Providers: Drake Jeter Instructions Additional Instructions / Restrictions: You underwent a workup for your chest pain. It does not appear to be cardiac. Possibly could be related with esophageal spasm but your heart was okay with echocardiogram and stress test. You do have a right bundle branch block on your EKG. This has been present since 2020. This typically is a benign finding and no additional workup is necessary. Discharge Orders/Prescriptions Prescriptions: Continued albuterol sulfate 90 mcg/actuation HFA aerosol inhaler 2 puff INHALATION Q6H PRN (Reason: Sob &/Or Wheezing) amlodipine 10 MG tablet 10 mg PO QHS Patient Comments: heart, blood pressure fluticasone propionate 1 SPRAY spray,suspension 1 spray NASAL QHS lisinopril 20 MG tablet 20 mg PO DAILY Patient Comments: blood pressure montelukast 10 mg tablet 10 mg PO DAILY Patient Comments: TAKE 1 TABLET DAILY AT BEDTIME acetaminophen 500 MG tablet 1,000 mg PO Q8 PRN (Reason: Pain) multivitamin Tablet 1 tab PO DAILY PreserVision AREDS [phone],320-226-200 gdtp-ah-yzag Capsule 1 cap PO BID atorvastatin [Lipitor] 20 mg tablet 20 mg PO QHS fluticasone furoate-vilanterol [Breo Ellipta] 200-25 mcg/dose blister with device 1 inh INHALATION Q24H omeprazole 20 mg tablet,disintegrat, delay rel 20 mg PO DAILY azelastine [Astepro Allergy] 205.5 mcg (0.15 %) spray,non-aerosol 1 spray intranasal DAILY Rx Instructions: administer into each nostril NewFlora 10 billion cell capsule 100 mmu cells PO DAILY Patient Comments: UNSURE OF STRENGTH OR BRAND PURCHASED PRIOBIOTIC AT THE [employer] [facility] [place] Referrals / Follow Up: Caitlin Sullivan MD [Primary Care Provider] - Within 2 Weeks Disposition Disposition (needs filled in before D/C Order can be placed): Home, Self Care Charges/Coding Visit Charges Inpatient E&M: 58789 Disch Hosp >30min
--- NOTE | 2023-09-16 12:05 | PHA.DC.MR.R ---
Pharmacy [place] Med Reconciliation Pharmacy Service has performed discharge medication reconciliation for this patient. The patient's discharge medication list was reviewed for discrepancies and discrepancies were resolved. Medications at Discharge Home Medications amlodipine 10 mg tablet 10 mg PO QHS bp 04/03/16 albuterol sulfate 90 mcg/actuation aerosol inhaler 2 puff inhalation Q6H PRN Sob &/Or Wheezing 11/04/17 fluticasone propionate 50 mcg/actuation nasal spray,suspension 1 spray QHS nasal congestion 01/07/19 lisinopril 20 mg tablet 20 mg PO DAILY bp 01/07/19 montelukast 10 mg tablet 10 mg PO DAILY 08/15/21 acetaminophen 500 mg tablet 1,000 mg PO Q8 PRN Pain 08/22/21 multivitamin 1 tab PO DAILY 08/22/21 vitamins A,C,P-ebvm-ichdym 4,296 mcg-226 mg-90 mg capsule (PreserVision AREDS) 1 cap PO BID 08/22/21 atorvastatin 20 mg tablet (Lipitor) 20 mg PO QHS 09/13/21 Lactobacillus acidophilus 10 billion cell capsule (NewFlora) 100 mmu cells PO DAILY 09/15/23 azelastine 205.5 mcg (0.15 %) nasal spray (Astepro Allergy) 1 spray intranasal DAILY 09/15/23 fluticasone furoate 200 mcg-vilanterol 25 mcg/dose inhalation powder (Breo Ellipta) 1 inh inhalation Q24H 09/15/23 omeprazole 20 mg delayed release,disintegrating tablet 20 mg PO DAILY 09/15/23
[2023-09-16 13:17] VITALS: BP 148/70; PULSE 89; RESP 18; TEMP 36.3; O2SAT 97
--- NOTE | 2023-09-16 14:18 | CHAPLAIN ---
Type of Pastoral Visit _x__ Initial Visit ___ Follow-up Visit ___ On-call Visit ___ General Patient Visit ___ Spiritual Assessment ___ Family Conference ___ Bereavement ___ Rapid Response ___ Code Blue ___ Other (describe below) Pastoral Care Referral From _x__ Patient ___ Family ___ Nurse ___ Physician ___ Rivet Sticker ___ Bed Setter ___ Other (describe below) Sacrament/Intervention _x__ Active listening ___ Anointing ___ Latter-Day ___ Bereavement ___ Communion ___ Mira exploration ___ ___ Life review ___ Prayer ___ Reconciliation ___ Sacrament of Sick ___ Supportive presence ___ Wedding ___ Other (describe below) Pastoral Comments patient and spouse are in room; pt reports that she has had testing and nothing unusual was found and I'm feeling much better since I came in ; pt is being discharged so declares there are no further concerns or needs
== END 2023-09-16 13:15 | disposition home or self-care (01) | DRG 311 ==
LOC: ED 10:33 → PCU 11:05
PROVIDERS: Emergency Provider Emergency Medicine; PCP Internal Medicine
DX: I24.9 Acute ischemic heart disease, unspecified (principal); E78.5 Hyperlipidemia, unspecified; I10 Essential (primary) hypertension; I45.10 Unspecified right bundle-branch block; Z86.16 Personal history of COVID-19
CPT/HCPCS: 36415; 71045; 78452; 80048; 80061; 84484; 85025; 85610; 85730; 93005; 93017; 93306; 94640; 99285; A9500; J7030; Q9957; A4216; C8929; J2785

== ENCOUNTER → 2023-10-30 | Outpatient (CLI) | payer MEDICARE, SELFPAY ==
--- NOTE | 2023-10-30 14:42 | CT_ITS ---
CT LEFT LOWER EXTREMITY WITH 3-D IMAGING CLINICAL INDICATION: UNILATERAL PRIMARY OSTEO, LEFT KNEE TECHNIQUE: Axial CT images of the left lower extremity (including left hip, left knee, and left ankle) was performed without IV contrast material. Coronal and sagittal reformats were provided. RADIATION DOSAGE (If Supplied By Facility): CTDIvol = ( 19.31 ) mGy, DLP = ( 1548.63 ) mGycm COMPARISON: Left knee radiographs dated 12/23/2011. FINDINGS: Bones: There is mild degenerative arthrosis of the left hip joint with small marginal osteophyte formation. There is tricompartment degenerative arthrosis of the left knee with joint space narrowing, marginal osteophyte formation, and subchondral sclerosis/cyst formation, most severe in the medial femorotibial compartment. There is degenerative arthrosis at the talonavicular, navicular-cuneiform, and second through fifth tarsometatarsal joints. There are plantar and posterior calcaneal spurs. Osseous structures are intact without evidence of fracture or dislocation. No lytic or blastic osseous masses. Soft Tissues: There are calcified uterine fibroids, the largest measuring 3.6 cm in diameter. There is a moderate left knee joint effusion. The deep soft tissue structures are unremarkable. The superficial soft tissues are unremarkable without evidence of edema, hematoma, or foreign body. CT/Extremity Lower without Contra IMPRESSION: Tricompartment degenerative arthrosis of the left knee, most severe in the medial femorotibial compartment. Moderate left knee joint effusion. Electronically Signed: Kole Aldridge MD at 15:10 EDT Reading Location ID and State: 6 [facility] , Service support ,
== END | disposition home or self-care (01) ==
LOC: CT 14:32
PROVIDERS: PCP Internal Medicine; Referring Provider Orthopaedic Surgery; Visit Provider Orthopaedic Surgery
DX: M17.12 Unilateral primary osteoarthritis, left knee (principal); M21.162 Varus deformity, not elsewhere classified, left knee
CPT/HCPCS: 73700

== ENCOUNTER 2023-11-17 05:17 | Day surgery (SDC) | payer MEDICARE, SELFPAY ==
[2023-10-20 13:35] LABS: Hemoglobin A1c 6.8 % (3.8-5.6)
[2023-10-30 16:18] LABS: Absolute Lymphocyte Count 1.08 X10^3/uL (0.83-4.51); Absolute Neutrophil Count 5.7 X10^3/uL (2.0-7.7); Basophil# 0.06 X10^3/uL; Basophil% 0.8 % (0-1); Eosinophil# 0.32 X10^3/uL; Eosinophils% 4.1 % (0-5); Hematocrit 39.4 % (37-47); Hemoglobin 12.1 g/dL (12.0-15.0); Lymphocyte # 1.08 X10^3/ul (0.83-4.51); Mean Corp Hgb Conc 30.7 g/dL (32-36); Mean Corpuscular Hgb 24.4 pg (27.0-32.0); Mean Corpuscular Volume 79.4 fL (81-99); Mean Platelet Vol. 10.1 fl (6.2-12.0); Monocyte# 0.55 X10^3/uL; Monocyte% 7.1 % (0-10); NRBC Flagged by Analyzer 0 % (0-5); Neutrophil % 73.6 % (47-70); Platelet Count 217 K/mm3 (150-450); RBC Distribution Width CV 15.1 % (11.6-14.6); RBC Distribution Width SD 43.6 fl (35.1-43.9); Red Blood Count 4.96 M/mm3 (4.2-5.4); White Blood Count 7.7 K/mm3 (4.4-11.0)
[2023-10-30 16:57] LABS: Anion Gap 8 (5-15); BUN 27 mg/dL (7-18); BUN/Creat Ratio 35.4 RATIO (10-20); Calcium,Total 9.5 mg/dL (8.5-10.1); Chloride 105 mmol/L (98-107); Creatinine, Serum 0.76 mg/dL (0.55-1.02); EST Glomerular Filtration Rate 79 mL/min (>60); Est Glom Filt Rate - Afr Amer 96 mL/min (>60); Glucose 170 mg/dL (74-106); Potassium 3.8 mmol/L (3.5-5.1); Sodium Level 140 mmol/L (136-145)
--- NOTE | 2023-11-06 11:40 | EKG12_ITS ---
Test Reason : PRE-OP Blood Pressure : / mmHG Vent. Rate : 080 BPM Atrial Rate : 080 BPM P-R Int : 194 ms QRS Dur : 160 ms QT Int : 418 ms P-R-T Axes : 045 019 003 degrees QTc Int : 482 ms Normal sinus rhythm Right bundle branch block Abnormal ECG Confirmed by KELI SOTO, RAUL ([id number]), continuity editor MENDEL MA ([id number]) on 11/07/2023 6:17:32 AM Referred By: Roni Emmanuel Confirmed By:RAUL DICKEY MD
[2023-11-17] VITALS (8 sets, daily range): BP systolic 113–177; BP diastolic 71–95; PULSE 87–100; RESP 12–18; TEMP 36.2–37.1; O2SAT 94–100; BMI 42.8
--- NOTE | 2023-11-17 | KNEE_PTH ---
PATIENT: JA ADMAE LOC: [facility] [place] U#:[id number] AGE/SX: 72/F ROOM: RE11/17/[address]: Dr. Placido Jaramillo MD : 1950 BED: DIS: 11/17/2023 SPEC #: [id number] RECD: 11/17/23 13:00 STATUS: YOAV NEVA #: [id number] ALFONSO: 11/17/23 00:[address]: Placido Jaramillo DEPT: SURGICAL PATHOLOGY RECD BY: Jose Angel Carrizales ENTERED: 11/17/23 13:00 SP TYPE: TOTAL KNEE OTHR DR: Dr. Caitlin Moreland MD Tissues: Knee, NOS Procedures: Decalcification bone/plaque Surgery Specimen Level IV HEADER OPERATION: ERAS, total knee replacement robotic arm assist PRE-OP DIAGNOSIS: Unilateral primary osteoarthritis, left knee TISSUE SUBMITTED: Bone and soft tissue left knee MICROSCOPIC DIAGNOSIS Bone and soft tissue, left knee, total knee replacement/resection: Pieces of bone with degenerative osteoarthritic changes. Fibroadipose tissue, fibroconnective tissue and reactive synovial tissue. SHYLA: 11/20/23 MICROSCOPIC DESCRIPTION Slides are reviewed. GROSS DESCRIPTION Received is one container designated bone and soft tissue left knee. The specimen consists of multiple fragments of smith-yellow bone measuring in aggregate 9.0 x 10.0 x 3.0 cm. Also in the specimen container are multiple fragments of fibrocartilaginous tissue measuring in aggregate 8.0 x 5.0 x 2.0 cm. A number of bony fragments contain articular surfaces consistent with tibial plateau and femoral condyle and displaying prominent osteophyte formation, eburnation and bone erosion. Brick And Blocker Aid Labor sections are submitted in two cassettes as follows: 1 - soft tissue, 2 - bone after decalcification. SHYLA/ 11/17/23 TC:5 CPT: 28448, 09632
[2023-11-17] MEDS: Lactated Ringers 1,000 ML 999 ML IV ×2 (06:03→09:38)
[2023-11-17] MEDS: Magnesium 1 GM over 15 mins IV (06:04)
[2023-11-17] MEDS: Acetaminophen 500 MG Tablet 1000 MG PO (06:05)
[2023-11-17] MEDS: Gabapentin 600 MG Tablet PO (06:06)
[2023-11-17] MEDS: Lactated Ringers 1,000 ML 75 ML IV (06:10)
[2023-11-17 06:36] LABS: Bedside Glucose 162 mg/dL (74-106)
[2023-11-17] MEDS: DEXTROSE 5% IV (07:30)
[2023-11-17] MEDS: CLINDAMYCIN IV (07:30)
[2023-11-17] MEDS: WATER IV (07:30)
[2023-11-17] MEDS: TXA 1000mg in NS100 100ml (IVPB at Incision) 660 MG IV (07:45)
[2023-11-17] MEDS: dexAMETHasone 10 MG/ML Vial IV (07:50)
[2023-11-17] MEDS: TXA 1000mg in NS100 100ml (IVPB at Closure) 660 MG IV (08:41)
[2023-11-17] MEDS: JPS (Morphine 10mg/ml) OPERA.SITE (08:42)
--- NOTE | 2023-11-17 08:43 | OP.PCM_ITS ---
Report of Operation Date of Procedure: 11/17/23 Pre-Operative Diagnosis: Left knee primary osteoarthritis Post-Operative Diagnosis: Left knee primary osteoarthritis Surgery/Procedure Performed:: Left knee minimally invasive robotic assisted total knee replacement. Description of Surgical Findings:: Stable knee with good patella tracking. STAGE 4 OA. Despite varus wear pattern, patient had with soft tissue Surgeon: Placido Jaramillo electrical wiring lineman: Jalil Munoz Type of Anesthesia: Spinal General Anesthesia Anesthesiologist: Drake Jo Special Medications: 2 g Ancef, 1 g TXA at incision, 1 g TXA closure, 10 mg Decadron, joint cocktail (5 mg Duramorph, 30 mL of 0.5% Ropivicaine, 1000 units of epinephrine, 30 mg of Toradol) Specimen's removed: Bony cuts Estimated Blood Loss (mL): 125 Fluids Replaced: 1000 mL crystalloid Description of Procedure: Implants used: 1. Chel size 2 triathlon cruciate retaining distal femoral press-fit component 2. Chel size 3 press-fit tritanium tibial baseplate 3. Gully X3 12 mm CS polyethylene 4. Chel X3 35 mm asymmetric patella Brief history operative indications: 72-year-old F with history of left knee osteoarthritis with radiographic findi ngs with loss of joint space, osteophyte formation and subchondral sclerosis. Failed conservative measures as mentioned in the H&P. Discussion of total knee arthroplasty as well as risk and benefits were discussed the patient including but not limited to blood loss, DVTs, PEs, neurovascular damage, general risk of anesthesia including loss of life, and stiffness or instability were discussed with patient. Patient demonstrated understanding and was able to sign informed consent. Procedure: On the date of procedure patient's left lower extremity was marked in the preoperative area. The patient was then taken back to the operating room where the patient was placed on the table in the supine position. All bony prominences were identified a well-padded. Anesthesia assumed control of the C-spine and airway and remained controlled throughout the remainder of the procedure. A tourniquet was placed on the left upper thigh and the leg was prepped in a sterile fashion. The surgeon then scrubbed at this time .Upon reentering the room left lower extremity was draped in a standard orthopedic fashion. A timeout was then called and everyone agreed upon the side, the site, the procedure to be performed, patient's identity and antibiotics given. Esmarch bandage was used to exsanguinate the extremity and the tourniquet was placed up to 250 mmHg with the knee in flexion. A midline skin incision was made and sharp dissection was taken down through skin subcutaneous tissue and fat. The standard medial parapatellar incision was made and the patella was subluxed laterally. An Appropriate deep MCL release was done and the fat pad was resected. Our attention was then directed to the patella. The patella was everted and a flat resection was made. The knee was then flexed up in 2 femoral pins were placed inside the incision and 2 tibial pins were placed outside the incision in the medial tibia bicortically. Once this was completed the 2 checkpoints in the femur and tibia were placed. Knee was then flexed up and the bony landmarks were registered. Once this was completed knee was taken through range of motion and manually stressed allowing us to a plan for an appropriate tibial cut. The robotic arm was brought into the field sterilely and checkpoint and saw were registered. Based on the patient's deformity the tibial cut was made neutral to the tibial axis. At this time the tensioner was then placed in the joint and ligament tension was checked at 90 degrees and full extension. Based on the patient's ligamentous tension appropriate adjustments were made to the operative plan and ligament releases were done. Once we were happy with our operative plan with balanced flexion and extension gaps our attention was directed to the femur. The robot was brought into the fi eld sterilely and registered. Posterior condylar cuts, anterior chamfer cuts and anterior cuts were appropriately made for a size 2 femur. When these were completed the saws were switched out in the distal femoral and posterior chamfer cuts were made. Protecting the soft tissue throughout this time. A size 3 tibial base plate was selected. the knee was flexed to 90 degrees and the soft tissues and posterior osteophytes were removed from the joint. 40 cc of the periarticular injection was injected into the posterior medial corner of the joint. The appropriate trials were then placed on the femur and tibia. A trial polyethylene was trialed to ensure proper balancing and stability of the knee. The appropriate tibial internal rotation was then marked with a bovie. Our attention was then directed to the patella. The lug holes were drilled and the patella trial was placed. Patellar tracking was checked and deemed appropriate. Once we were happy lug holes were drilled for the femur and trial components were removed. the tibia was subluxed and pinned into place and the keel was punched and drilled appropriately. Final components were verified and opened, and cement was mixed in a vacuum. [facility] Simplex cement was used. The wound was copiously irrigated with normal saline. When the cement was ready the components were impacted into place starting with the tibia, femur and finally cementing the patella. The trial poly component was placed and the knee was placed in full extension. All excess cement was removed in the process. Once the cement had cured the tracking, alignment and balance were verified and a size 12 mm CS polyethylene component was placed. Once the final components were placed a 3-minute dilute Betadine lavage was performed followed by an Irrisept lavage was performed and the wound was copiously irrigated with normal saline solution and the periarticular injection was given. The wound was closed in a layer palacios fashion using #1 vicryl interrupted sutures for the arthrotomy, 2-0 interrupted Vicryl suture for the subcuticular layer and vale for final skin closure. A sterile compressive dressing was then placed. The patient was then awakened from anesthesia, transferred to the [facility] and transferred to the PACU for recovery. Post op plan DVT ppx: Xarelto 10 mg daily for 2 weeks due to previous DVT followed by 2 weeks of ASA 81mg BID, thigh high compression stockings Follow up: in office in 2 weeks for wound check PT: to start POD #0 at hospital, outpatient PT should be arranged. Patient's BMI is greater than [address] her on doxycycline for 2 weeks postoperatively My physician assistant hall director was a vital part of this case. He was important in appropriate retraction during the case, and protection of soft tissues during bony cuts. His intimate knowledge of the case and my steps aided in safe and expedient completion of the procedure as well as appropriate position of the leg during the case. He was also vital in assisting with closure under my direct supervision. Due to the complexity of this case robotic arm was used to assist in the surgery to improve accuracy and clinical outcomes. Complications No intraoperative complications Admit VTE Documentation VTE Present on Admission: No VTE Mechan Device Prophylaxis: SCD's and Thigh High RORO Hose VTE Pharm Prophylaxis ordered?: Yes
--- NOTE | 2023-11-17 08:49 | RAD_ITS ---
STUDY: X-RAY - LEFT KNEE REASON FOR EXAM: Female, 72 years old. TKA -- in PACU TECHNIQUE: 2 views of the left knee. COMPARISON: None. FINDINGS: There are new postoperative changes related to left total knee arthroplasty with patellar resurfacing. There is a vertical staple line along the anterior aspect of the knee. There is gas in the patellofemoral joint recess and anterior soft tissues, compatible with recent surgery. The orthopedic hardware components are intact. There is no periprosthetic fracture. Normal proximal tibiofibular articulation. RAD/Knee 1 or 2 Views IMPRESSION: New postoperative changes related to left total knee arthroplasty. Electronically Signed: Kole Aldridge MD at 10:26 EDT ,
[2023-11-17] MEDS: Lactated Ringers 1,000 ML 125 ML IV (10:50)
[2023-11-17] MEDS: Cefazolin 1 GM/50 ML BAG IV (11:39)
== END 2023-11-17 13:15 | disposition home or self-care (01) ==
LOC: SDC 05:21 → AC 05:22
PROVIDERS: Anesthesiology; Orthopaedic Surgery; PCP Internal Medicine; Referring Provider Specialist; Visit Provider Specialist
PROC: 0SRD0JZ Replacement of Left Knee Joint with Synthetic Substitute, Open Approach (ICD-10-PCS; CPT 27447; principal; 2023-11-17 07:00)
DX: M17.12 Unilateral primary osteoarthritis, left knee (principal); K50.90 Crohn's disease, unspecified, without complications; Z68.41 Body mass index [BMI] 40.0-44.9, adult; Z86.718 Personal history of other venous thrombosis and embolism; M21.162 Varus deformity, not elsewhere classified, left knee; I10 Essential (primary) hypertension; E66.9 Obesity, unspecified; Z90.49 Acquired absence of other specified parts of digestive tract; Z87.42 Personal history of other diseases of the female genital tract; Z86.16 Personal history of COVID-19; K21.9 Gastro-esophageal reflux disease without esophagitis; Z96.611 Presence of right artificial shoulder joint; Z96.612 Presence of left artificial shoulder joint; R94.31 Abnormal electrocardiogram [ECG] [EKG]; I45.10 Unspecified right bundle-branch block; Z79.899 Other long term (current) drug therapy
CPT/HCPCS: 27447; 64447; 01402; S2900; 36415; 73560; 80048; 82962; 83036; 83735; 85025; 87081; 88305; 88311; 93005; 97162; C1776; J7120; J2405; J3475

== ENCOUNTER → 2023-11-24 | Outpatient (CLI) | payer MEDICARE, SELFPAY ==
--- NOTE | 2023-11-24 10:58 | VDLE_ITS ---
Reason For Study: LLE SWELLING RIGHT LEFT CFV is compressible, spontaneous, phasic, GSV is normal. competent and demonstrates normal CFV is compressible, spontaneous, phasic, augmentation. competent, and demonstrates normal Procedure augmentation. This is a venous duplex using B-mode, color FV is compressible, spontaneous, phasic, flow and spectral Doppler. competent and demonstrates normal Exam performed in department. augmentation. The study was technically difficult. POP V is compressible, spontaneous, phasic, A preliminary report was called and/or faxed competent and demonstrates normal to Primo Valverde PA-C @ [phone] @ 11:25 augmentation. AM. T/P Trunk is compressible. PTV & PERV difficult to asses, appear compressible. VL/Venous Duplex US, Unilateral Interpretation Summary Deep veins of the left lower extremity are patent and compressible segmentally. There is no evidence of left lower extremity deep vein thrombosis. The left great saphenous vein ginna ears patent and compressible segmentally. Limited study below knee Ordering Physician: Primo Valverde Referring Physician: Caitlin Moreland Performed By: Myah Espinal, BENI, RVT
== END | disposition home or self-care (01) ==
LOC: CVS 10:57
PROVIDERS: PCP Internal Medicine; Referring Provider Physician Assistant Surgical; Visit Provider Physician Assistant Surgical
DX: R22.42 Localized swelling, mass and lump, left lower limb (principal)
CPT/HCPCS: 93971

== ENCOUNTER 2024-08-23 06:34 | Day surgery (SDC) | payer MEDICARE, SELFPAY ==
--- NOTE | 2024-07-27 15:45 | PAT.ANE_ITS ---
PAT status Pat Assessment PAT Assessment: PAT Anesthesia Results to Eval 07/27/24 14:28 Pre-Assessment Diagnosis/Proposed Procedure Planned Operative Procedure(s): ANTERIOR RIGHT TOTAL HIP ARTHROPLASTY Anesthesia History Anesthesia History - director financial planning: Anesthesia History - director financial planning Hx Hospitalization No 07/27/24 14:17 Any Problems With Anesthesia No 07/27/24 14:17 Cholinesterase deficiency No 07/27/24 14:17 You/Your Family Experience No 07/27/24 14:17 fever (hyperthermia) with Relationship Recent Exposure to Contagious No 11/17/23 06:12 Disease Does patient have nerve No 07/27/24 14:17 stimulator Patient instructed to have device shut off --Does patient have Pacemaker or ICD? When Was Last Pacemaker Check QUESTION #4 FULL TEXT: You/Your Family Experience fever (hyperthermia) with Anesthesia Last Oral Intake Last Oral intake: Last Oral Intake NPO since Meds taken in AM with sips of water? Meds patient instructed to take am of surgery PONV PONV - director financial planning: PONV - director financial planning Female Yes 07/27/24 14:17 HX of Motion Sickness No 07/27/24 14:17 HX of N/V After Surgery No 07/27/24 14:17 Non-Smoker Yes 07/27/24 14:17 Duration of Surgery greater Yes 07/27/24 14:17 than 60 minutes Number of Risk Factors 3 07/27/24 14:17 PONV Score Moderate Risk 07/27/24 14:17 Height & Weight Height & Weight: Anesthesia: Height & Weight Height 5 ft 2 in 11/17/23 06:12 Respiratory Assessment Respiratory Assessment - director financial planning: Respiratory Tract Infection Hx - director financial planning Hx Respiratory Tract Infection No 07/27/24 14:17 STOP Sleep Apnea STOP Sleep Apnea - director financial planning: STOP Sleep Apnea - director financial planning Hx Hypertension Yes: CONTROLLED WITH MEDS 07/27/24 14:17 Hx Sleep Apnea No 07/27/24 14:17 CPAP BIPAP Do you snore loudly (louder No 07/27/24 14:17 than talking or can be heard Do you often feel tired/ No 07/27/24 14:17 fatigued/ sleepy during daytime? Has anyone observed you stop No 07/27/24 14:17 breathing during sleep? STOP Results Negative 07/27/24 14:17 QUESTION #5 FULL TEXT : Do you snore loudly (louder than talking or can be heard through closed doors)? 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 Specify any problems Hx of Preganancy in last 3 No 07/27/24 14:17 Months Nurse Filling Out Transfusion DSCHRIBER 07/27/24 14:17 & Questions: Date: 07/27/24 07/27/24 14:17 Time: 14:18 07/27/24 14:17 Patient unable to answer at this time (ie. confused, unrespo /Reproduction History /Reproductive History - director financial planning: /Reproductive Hx- director financial planning Hx Now No 07/27/24 14:17 Gestational Age (in weeks): EDC: Hx Hx Para Hx Section SAB No 07/27/24 14:17 PFSH Medical History (Updated 07/27/24 @ 14:24 by Denise Varner) History of renal disease Restless legs Dietary restriction Asthma History of pain when walking Hypertension Chest pain RBBB Crohn's disease COVID Wears partial dentures Wears glasses Post-menopausal Arthritis Anemia DVT (deep venous thrombosis) History of hiatal hernia History of diverticulitis Gastric reflux Non-smoker History of edema History of echocardiogram History of stress test Jackhammer esophagus Epigastric pain Positive FIT (fecal immunochemical test) Sesamoiditis Sciatica Internal hemorrhoids Gastritis Diverticulosis of large intestine Diverticulosis of colon DVT (deep venous thrombosis) Cardiomegaly Bowel perforation Abdominal pain Anemia Chest pain HTN (hypertension) Home Medications ?Medication ?Instructions ?Recorded ?Last Taken ?Type amlodipine 10 mg tablet 10 mg PO QPM bp 04/03/16 11/16/23 History albuterol sulfate 90 mcg/actuation 2 puff inhalation Q6H PRN Sob &/Or 11/04/17 11/03/23 History aerosol inhaler Wheezing fluticasone propionate 50 1 spray QHS nasal congestion 01/07/19 11/16/23 History mcg/actuation nasal spray,suspension lisinopril 20 mg tablet 20 mg PO DAILY bp 01/07/19 11/17/23 History montelukast 10 mg tablet 10 mg PO QHS 08/15/21 11/16/23 History acetaminophen 500 mg tablet 1,000 mg PO Q8 PRN Pain 08/22/21 09/15/23 History multivitamin 1 tab PO DAILY 08/22/21 11/12/23 History atorvastatin 20 mg tablet (Lipitor) 20 mg PO QHS 09/13/21 11/16/23 History Lactobacillus acidophilus 10 100 mmu cells PO DAILY 09/15/23 11/12/23 History billion cell capsule (NewFlora) azelastine 205.5 mcg (0.15 %) 1 spray intranasal DAILY 09/15/23 11/16/23 History nasal spray (Astepro Allergy) omeprazole 20 mg delayed 20 mg PO DAILY 09/15/23 11/17/23 History release,disintegrating tablet mometasone-formoterol HFA 200 2 inh inhalation BID 10/15/23 Unknown History mcg-5 mcg/actuation aerosol inhaler (Dulera) cholecalciferol (vitamin D3) 25 25 mcg PO DAILY 07/27/24 Unknown History mcg (1,000 unit) capsule (Vitamin D3) Allergy/AdvReac Type Severity Reaction Status Date / Time amoxicillin trihydrate (From Allergy Rash Verified 07/27/24 14:10 Augmentin) Cephalosporins Allergy Rash Verified 07/27/24 14:10 potassium clavulanate (From Allergy Rash Verified 07/27/24 14:10 Augmentin) Sulfa (Sulfonamide Allergy Rash Verified 07/27/24 14:10 Antibiotics) Family History Sister Arthritis Breast cancer Osteoporosis Father Diabetes Cancer Skin Mother Hypertension Cancer skin cancer Osteoporosis Surgical History (Updated 07/27/24 @ 14:24 by Denise Varner) Hx of total knee arthroplasty History of cardiac catheterization Hx of total knee replacement Hx of total shoulder replacement History of esophagogastroduodenoscopy (EGD) Hx of ileostomy S/P tonsillectomy S/P cholecystectomy S/P ovarian cystectomy History of esophagogastroduodenoscopy (EGD) S/P colonoscopy Social History Smoking Status: Never smoker second hand exposure: No alcohol intake: never substance use type: does not use caffeine: Yes what type of physical activity do you participate in: none frequency: does not exercise seatbelt use: always
--- NOTE | 2024-07-27 16:18 | PAT.ANESEVAL ---
PAT status Pat Assessment PAT Assessment: PAT Anesthesia Results to Eval 07/27/24 14:28 Pre-Assessment Diagnosis/Proposed Procedure Planned Operative Procedure(s): ANTERIOR RIGHT TOTAL HIP ARTHROPLASTY Anesthesia History Anesthesia History - patient support tech: Anesthesia History - patient support tech Hx Hospitalization No 07/27/24 14:17 Any Problems With Anesthesia No 07/27/24 14:17 Cholinesterase deficiency No 07/27/24 14:17 You/Your Family Experience No 07/27/24 14:17 fever (hyperthermia) with Relationship Recent Exposure to Contagious No 11/17/23 06:12 Disease Does patient have nerve No 07/27/24 14:17 stimulator Patient instructed to have device shut off --Does patient have Pacemaker or ICD? When Was Last Pacemaker Check QUESTION #4 FULL TEXT: You/Your Family Experience fever (hyperthermia) with Anesthesia Last Oral Intake Last Oral intake: Last Oral Intake NPO since Meds taken in AM with sips of water? Meds patient instructed to take am of surgery PONV PONV - patient support tech: PONV - patient support tech Female Yes 07/27/24 14:17 HX of Motion Sickness No 07/27/24 14:17 HX of N/V After Surgery No 07/27/24 14:17 Non-Smoker Yes 07/27/24 14:17 Duration of Surgery greater Yes 07/27/24 14:17 than 60 minutes Number of Risk Factors 3 07/27/24 14:17 PONV Score Moderate Risk 07/27/24 14:17 Height & Weight Height & Weight: Anesthesia: Height & Weight Height 5 ft 2 in 11/17/23 06:12 Respiratory Assessment Respiratory Assessment - patient support tech: Respiratory Tract Infection Hx - patient support tech Hx Respiratory Tract Infection No 07/27/24 14:17 STOP Sleep Apnea STOP Sleep Apnea - patient support tech: STOP Sleep Apnea - patient support tech Hx Hypertension Yes: CONTROLLED WITH MEDS 07/27/24 14:17 Hx Sleep Apnea No 07/27/24 14:17 CPAP BIPAP Do you snore loudly (louder No 07/27/24 14:17 than talking or can be heard Do you often feel tired/ No 07/27/24 14:17 fatigued/ sleepy during daytime? Has anyone observed you stop No 07/27/24 14:17 breathing during sleep? STOP Results Negative 07/27/24 14:17 QUESTION #5 FULL TEXT : Do you snore loudly (louder than talking or can be heard through closed doors)? 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 Specify any problems Hx of Preganancy in last 3 No 07/27/24 14:17 Months Nurse Filling Out Transfusion DSCHRIBER 07/27/24 14:17 & Questions: Date: 07/27/24 07/27/24 14:17 Time: 14:18 07/27/24 14:17 Patient unable to answer at this time (ie. confused, unrespo /Reproduction History /Reproductive History - patient support tech: /Reproductive Hx- patient support tech Hx Now No 07/27/24 14:17 Gestational Age (in weeks): EDC: Hx Hx Para Hx Section SAB No 07/27/24 14:17 PFSH Medical History (Updated 07/27/24 @ 14:24 by Denise Varner) History of renal disease Restless legs Dietary restriction Asthma History of pain when walking Hypertension Chest pain RBBB Crohn's disease COVID Wears partial dentures Wears glasses Post-menopausal Arthritis Anemia DVT (deep venous thrombosis) History of hiatal hernia History of diverticulitis Gastric reflux Non-smoker History of edema History of echocardiogram History of stress test Jackhammer esophagus Epigastric pain Positive FIT (fecal immunochemical test) Sesamoiditis Sciatica Internal hemorrhoids Gastritis Diverticulosis of large intestine Diverticulosis of colon DVT (deep venous thrombosis) Cardiomegaly Bowel perforation Abdominal pain Anemia Chest pain HTN (hypertension) Home Medications ?Medication ?Instructions ?Recorded ?Last Taken ?Type amlodipine 10 mg tablet 10 mg PO QPM bp 04/03/16 11/16/23 History albuterol sulfate 90 mcg/actuation 2 puff inhalation Q6H PRN Sob &/Or 11/04/17 11/03/23 History aerosol inhaler Wheezing fluticasone propionate 50 1 spray QHS nasal congestion 01/07/19 11/16/23 History mcg/actuation nasal spray,suspension lisinopril 20 mg tablet 20 mg PO DAILY bp 01/07/19 11/17/23 History montelukast 10 mg tablet 10 mg PO QHS 08/15/21 11/16/23 History acetaminophen 500 mg tablet 1,000 mg PO Q8 PRN Pain 08/22/21 09/15/23 History multivitamin 1 tab PO DAILY 08/22/21 11/12/23 History atorvastatin 20 mg tablet (Lipitor) 20 mg PO QHS 09/13/21 11/16/23 History Lactobacillus acidophilus 10 100 mmu cells PO DAILY 09/15/23 11/12/23 History billion cell capsule (NewFlora) azelastine 205.5 mcg (0.15 %) 1 spray intranasal DAILY 09/15/23 11/16/23 History nasal spray (Astepro Allergy) omeprazole 20 mg delayed 20 mg PO DAILY 09/15/23 11/17/23 History release,disintegrating tablet mometasone-formoterol HFA 200 2 inh inhalation BID 10/15/23 Unknown History mcg-5 mcg/actuation aerosol inhaler (Dulera) cholecalciferol (vitamin D3) 25 25 mcg PO DAILY 07/27/24 Unknown History mcg (1,000 unit) capsule (Vitamin D3) Allergy/AdvReac Type Severity Reaction Status Date / Time amoxicillin trihydrate (From Allergy Rash Verified 07/27/24 14:10 Augmentin) Cephalosporins Allergy Rash Verified 07/27/24 14:10 potassium clavulanate (From Allergy Rash Verified 07/27/24 14:10 Augmentin) Sulfa (Sulfonamide Allergy Rash Verified 07/27/24 14:10 Antibiotics) Family History Sister Arthritis Breast cancer Osteoporosis Father Diabetes Cancer Skin Mother Hypertension Cancer skin cancer Osteoporosis Surgical History (Updated 07/27/24 @ 14:24 by Denise Varner) Hx of total knee arthroplasty History of cardiac catheterization Hx of total knee replacement Hx of total shoulder replacement History of esophagogastroduodenoscopy (EGD) Hx of ileostomy S/P tonsillectomy S/P cholecystectomy S/P ovarian cystectomy History of esophagogastroduodenoscopy (EGD) S/P colonoscopy Social History Smoking Status: Never smoker second hand exposure: No alcohol intake: never substance use type: does not use caffeine: Yes what type of physical activity do you participate in: none frequency: does not exercise seatbelt use: always Audit: Pertinent Findings Pertinent Findings EKG Perinent findings: November 06, 2023. Normal sinus rhythm. Right bundle branch block. Stress test pertinent findings: September 16, 2023. Ejection fraction is 77%. No evidence of reversible myocardial ischemia. Echo (EF%) pertinent findings: September 15, 2023. Ejection fraction is 55 to 60%. Consult pertinent findings: September 15, 2023. Cardiac checkup. Patient with chest pain right bundle branch block and hypertension. Will check an echo. See above Recommendation Anesthesia Recommendation Anesthesia recommendation: OPTIMIZED for anesthesia
[2024-07-27 16:33] LABS: Absolute Lymphocyte Count 1.39 X10^3/uL (0.83-4.51); Absolute Neutrophil Count 4.7 X10^3/uL (2.0-7.7); Basophil# 0.05 X10^3/uL; Basophil% 0.7 % (0-1); Eosinophil# 0.27 X10^3/uL; Eosinophils% 3.9 % (0-5); Hematocrit 38.2 % (37-47); Hemoglobin 11.7 g/dL (12.0-15.0); Lymphocyte # 1.39 X10^3/ul (0.83-4.51); Lymphocyte % 19.9 % (19-41); Mean Corp Hgb Conc 30.6 g/dL (32-36); Mean Corpuscular Hgb 23.2 pg (27.0-32.0); Mean Corpuscular Volume 75.6 fL (81-99); Mean Platelet Vol. 10.4 fl (6.2-12.0); Monocyte# 0.53 X10^3/uL; Monocyte% 7.6 % (0-10); NRBC Flagged by Analyzer 0 % (0-5); Neutrophil # 4.74 X10^3/uL (2.7-7.7); Neutrophil % 67.6 % (47-70); Platelet Count 231 K/mm3 (150-450); RBC Distribution Width CV 14.9 % (11.6-14.6); RBC Distribution Width SD 40.6 fl (35.1-43.9); Red Blood Count 5.05 M/mm3 (4.2-5.4)
[2024-07-27 16:41] LABS: Albumin, Serum 3.5 g/dL (3.2-5.0); Anion Gap 5 (5-15); BUN 20 mg/dL (7-18); BUN/Creat Ratio 25.8 RATIO (10-20); Calcium,Total 9.7 mg/dL (8.5-10.1); Chloride 105 mmol/L (98-107); Creatinine, Serum 0.77 mg/dL (0.55-1.02); EST Glomerular Filtration Rate 78 mL/min (>60); Est Glom Filt Rate - Afr Amer 94 mL/min (>60); Glucose 100 mg/dL (74-106); Potassium 4.1 mmol/L (3.5-5.1); Sodium Level 138 mmol/L (136-145)
[2024-07-27 16:54] LABS: Magnesium 1.9 mg/dL (1.6-2.6)
--- NOTE | 2024-08-16 14:15 | HP.PCM_ITS ---
History and Physical History and Physical Patient Name: Kayli Golden : 1950From:? ANNALISE TERRY PA-C DATE OF PRE-OPERATIVE EXAM: 08/16/2024 DATE OF SURGERY:? 08/23/2024 SCHEDULED PROCEDURE:? Direct anterior right total hip arthroplasty HISTORY OF PRESENT ILLNESS: Preoperative history and physical exam was performed on August 16, 2024.? This is a 73-year-old female who has had ongoing pain with her right hip since 2020.? She gets pain in the groin and deep buttock region.? Pain has been aching and sharp.? Pain has been more consistent over the past several months.? She does state the pain can reach a 10/10 at the end of the day and on average 5/10.? Pain does worsen throughout the day.? She has difficulty with activities of daily living including walking, housework, shopping, and leisure activities.? She has tried conservative measures including rest, elevation, physical therapy and home exercises with minimal relief.? She has also been on oral medications including Tylenol and meloxicam with minimal relief.? She denies past history of surgery on the right hip.? Patient does state her sleep has been affected from the right hip pain.? She has recently underwent a left total knee arthroplasty on November 17, 2023 and doing well.? Patient has obtain surgical clearance from the primary care provider Silvana Silveira.? Patient has medical history pertinent for hypertension, gastroesophageal reflux disease, esophageal spasms, hypercholesterolemia, asthma, Crohn's disease, history of right leg cellulitis 2009, history of DVT 2013 after bowel surgery, anemia.? Patient denies any recent chest pain, shortness of breath, fevers chills or recent infections.? After failing conservative measures and discussing all treatment options with Dr. Placido Jaramillo, the patient does wish to proceed with a direct anterior right total hip arthroplasty. REVIEW OF SYSTEMS: Review Of Systems: Constitutional: Denies change in appetite, fever and weight change. Cardiovasular: Denies chest pain, heart murmur and irregular heartbeat. Respiratory: Reports wheezing, but denies cough, pneumonia, shortness of breath and tuberculosis. Gastrointestinal: Reports diarrhea and heartburn, but denies constipation, nausea, rectal itching, bloody stools and vomiting. Genitourinary: Reports incontinence. Musculoskeletal: Reports gait disturbance, leg swelling, pain and trouble walking, but denies weakness. Skin: Denies Raynaud's, history of shingles and tattoo. Neurological: Denies ambulatory dysfunction, dizziness, numbness/tingling and tremor. Psychiatric: Denies anxiety, insomnia and stress. Hematologic/Lymphatic: Reports anemia and past transfusion, but denies bleeding/bruising tendency. Reviewed and updated. PAST MEDICAL HISTORY: Advance Care Plan: Other Directive, LIVING WILL Effective Date: 12/23/2018 Past Medical History: Medical Problems: Arthritis, High Blood Pressure, GERD, esophageal spasms, Hypercholesterolemia, Asthma, crohn's diease cellulitis - (2009) right leg History Of Blood Clots/ DVT - (2013) right leg Anemia, Sciatica, cardiomegaly, previous blood transfusion Accidents: None Surgical Hx: Colon Resection - (2011) [facility] DR SOLIS Gallbladder - (1995) [facility] Tonsillectomy - (1959) RT TKR - (01/18/2019) [email or web address] LT Total Shoulder Reverse - (07/06/2019) [facility] @ [facility] RT Reverse Total Shoulder - (10/31/2020) [facility] AT [facility] Knee Replacement LT - (11/17/2023) ROBOTIC ASSISTED DR. JARAMILLO AT [facility] Anesthesia Complications: None Assistive Devices: Glasses, Dentures Reviewed and updated. SOCIAL HISTORY: Social History: Marital: .Occupation: Retired.Work Status: Retired.Hand Dominance: Right- handed. Personal Habits:? Cigarette Use: Never Smoked Cigarettes.Smokeless Tobacco: Never Used Smokeless Tobacco.E-Cigarette Use: Never used.Alcohol: Denies use.Drug Use: Denies Use.Enjoy Exercising: Exercises 1-3 x/month. Reviewed and updated. VITALS: Ht: 62 Wt: 208lb Wt k.349 BMI: 38.0 BP: 128/78 Pulse: 61 Resp: 16 T: 97.3 T: 36.3C Pain Level: 5 O2SatR: 97 ALLERGIES: Augmentin - Rash Cephalosporins - Rash Sulfa - Rash Doxycycline MEDICATIONS: Oxycodone HCL 5 mg 1-2 tablets? by mouth every 4 hours as needed, Ondansetron HCL 4 mg 1 tablet by mouth every 8 hours as needed for nausea, Xarelto 10 mg 1 tablet by mouth every day, Folic Acid 1 mg 1 by mouth every day, Iron 325 (65 Fe) MG daily, Amlodipine Besylate 10 mg 1 by mouth every day, Omeprazole 20 mg 1 by mouth every day, Fluticasone Propionate Nasal [place] 50 mcg/Act 1 po daily, Lisinopril 20 mg 1po qday, Centrum Silver? 1 by mouth every day, Albuterol Sulfate HFA 108 (90 Base) mcg/Act inhale 2 puffs as instructed every 4 hours as needed for wheezing/shortness of b, Atorvastatin Calcium 20 mg 1 po qdaily, Montelukast Sodium 10 mg 1 po qdaily, Meloxicam 7.5 mg twice daily PRE-OP EXAM: General appearance:NORMAL? Other: Eyes: Conjunctivae and lids: NORMAL? Pupils: ERR Ears, Nose, Mouth, and Throat: NORMAL? Other: Inspection of lips, teeth and gums: NORMAL?? Other: Neck: Examination of neck: no masses noted. Respiratory: Assessment of respiratory effort: NORMAL?? Other: ? Auscultation of lungs: clear to auscultation no wheezes, rhonchi or rales. Cardiovascular:? Auscultation of heart: regular rate and rhythm, no murmurs, gallops or rubs. PHYSICAL EXAMINATION: On exam patient walks with an antalgic gait.? Right hip has tenderness to palpation over the lateral hip at the greater trochanteric region.? She has increased pain with range of motion with internal rotation in neutral and external rotation 30.? Strength 4/5 secondary to pain.? Hip flexion 70.? Sensation intact to light touch. IMAGING STUDIES: Previous x-rays of the right hip reveal moderate to severe joint space narrowing with osteophyte formation and subchondral sclerosis consistent with moderate to severe stage IV osteoarthritis.? There are central calcifications and densities in patient's abdomen. IMPRESSION: 1.? Severe right hip osteoarthritis 2.? Hypertension 3.? Gastroesophageal reflux disease 4.? Hypercholesterolemia ? 5.? Asthma 6.? Crohn's disease 7.? History of DVT 2014 8.? Anemia 9.? Sciatica 10.? Obesity with BMI 38.0 PLAN: Dr. Placido Jaramillo did discuss and review with the patient all treatment options including surgical versus nonsurgical options.? Patient does wish to proceed with the above-stated procedure.? Potential risks, benefits, and complications of the procedure were discussed in detail including but not limited to , infection, nerve and blood vessel damage, persistent pain, numbness, tingling, paresthesias, blood clot, pulmonary embolism, and requirement for possible further surgery.? The patient expressed full understanding and has no further questions for the doctor.? Patient does agree to proceed with the above-stated procedure and has signed the surgery consent form. POST-OP MEDICATION PLAN: Pain Medications:? Patient was given the following medications at the preoperative visit: Oxycodone, Rivaroxaban, Zofran.? She was instructed to lease picker aspirin 81 mg, extra strength Tylenol, and senna.? Patient takes omeprazole at home.? I did advise patient to hold off of the meloxicam until she has finished the Rivaroxaban for DVT prophylaxis.? She was recently placed on folic acid and ferrous sulfate due to recent anemia.? She will remain on this postoperatively until following up with her primary care physician.? She states she has PCP appointment 1 week postoperatively.? I did advise patient that she will continue on our anemia protocol and I would defer to primary care for future labs and continue treatment.? She voiced understanding.? She will also continue our nutrition protocol.? She will bring her walker to the hospital for postoperative use. DVT Prophylaxis: Due to patient's past history of DVT she will be placed on Rivaroxaban 10 mg once daily for 2 weeks postoperatively.? This will be followed by aspirin 81 mg twice daily for an additional 2 weeks. This dictation was created using voice recognition software. Phonetic and/or grammatical errors may exist. ___? I have re-examined the patient.? There are no clinical changes since date of exam. ___? See progress notes for changes. ___? Dictated on admission Date: ? Time: Signature:
[2024-08-23] VITALS (13 sets, daily range): BP systolic 120–147; BP diastolic 39–77; PULSE 73–91; RESP 16–20; TEMP 36.1–37; O2SAT 96–100; BMI 38.0
[2024-08-23] MEDS: Magnesium 2 GM for ERAS IV (07:10)
[2024-08-23] MEDS: Lactated Ringers 1,000 ML 999 ML IV (07:26)
[2024-08-23] MEDS: Gabapentin 600 MG Tablet PO (07:26)
[2024-08-23] MEDS: Acetaminophen 500 MG Tablet 1000 MG PO ×2 (07:26→15:16)
[2024-08-23 07:46] LABS: Bedside Glucose 139 mg/dL (74-106)
--- NOTE | 2024-08-23 07:54 | PRE.ANES_ITS ---
ASA Classification* ASA Classification ASA Classification: 3 Assessment & Plan Anesthesia* Anesthesia Assessment Anesthesia Assessment: Discussed sedation and/or anesthesia options, risks, benefits, and alternatives with patient/parents/legal guardian/POA. Questions invited. The patient/parents/legal guardian/POA seems to understand and agrees to proceed with anesthesia plan. Reviewed the physical assessment, medical history, allergy history and patient home medications list prior to surgery/procedure/anesthetic and documented any changes. Performed airway and anesthesia risk assessments. Anesthesia Type Anesthesia Type: Spinal Anesthesia Focused Assessment* Temperature: 98.6 F Pulse Rate: 73 Blood Pressure: 147/64 Respiratory Rate: 18 Pulse Ox: 99 Airway Assessment Mouth opens: >3 cm Mallampati Score: II Focused Labs Anesthesia Preop lab: CBC WBC 7.0 K/mm3 (4.4-11.0) 07/27/24 15:36 RBC 5.05 M/mm3 (4.2-5.4) 07/27/24 15:36 Hgb 11.7 g/dL (12.0-15.0) L 07/27/24 15:36 Hct 38.2 % (37-47) 07/27/24 15:36 Plt Count 231 K/mm3 (150-450) 07/27/24 15:36 CHEMISTRY Potassium 4.1 mmol/L (3.5-5.1) 07/27/24 15:36 Sodium 138 mmol/L (136-145) 07/27/24 15:36 Magnesium 1.9 mg/dL (1.6-2.6) 07/27/24 15:36 Phosphorus 3.3 mg/dL (2.5-4.9) 08/16/21 05:10 BUN 20 mg/dL (7-18) H 07/27/24 15:36 Creatinine 0.77 mg/dL (0.55-1.02) 07/27/24 15:36 Glucose 100 mg/dL (74-106) 07/27/24 15:36 POC Glucose 139 mg/dL (74-106) H 08/23/24 07:19 TSH 1.05 uIU/mL (0.358-3.74) 04/03/16 09:14 COAG PT 12.9 SECONDS (11.7-14.9) 09/15/23 10:10 Pre-Assessment Diagnosis/Proposed Procedure Planned Operative Procedure(s): ANTERIOR RIGHT TOTAL HIP ARTHROPLASTY Anesthesia History Anesthesia History - cleaner: Anesthesia History - cleaner Hx Hospitalization No 07/27/24 14:17 Any Problems With Anesthesia No 07/27/24 14:17 Cholinesterase deficiency No 07/27/24 14:17 You/Your Family Experience No 07/27/24 14:17 fever (hyperthermia) with Relationship Recent Exposure to Contagious No 08/23/24 07:03 Disease Does patient have nerve No 07/27/24 14:17 stimulator Patient instructed to have device shut off --Does patient have Pacemaker No 08/23/24 07:03 or ICD? When Was Last Pacemaker Check QUESTION #4 FULL TEXT: You/Your Family Experience fever (hyperthermia) with Anesthesia Last Oral Intake Last Oral intake: Last Oral Intake NPO since 04:30 08/23/24 07:03 Meds taken in AM with sips of Yes 08/23/24 07:03 water? Meds patient instructed to dulera 08/23/24 07:03 take am of surgery PONV PONV - cleaner: PONV - cleaner Female Yes 07/27/24 14:17 HX of Motion Sickness No 07/27/24 14:17 HX of N/V After Surgery No 07/27/24 14:17 Non-Smoker Yes 07/27/24 14:17 Duration of Surgery greater Yes 07/27/24 14:17 than 60 minutes Number of Risk Factors 3 07/27/24 14:17 PONV Score Moderate Risk 07/27/24 14:17 Height & Weight Height & Weight: Anesthesia: Height & Weight Height 5 ft 2 in 08/23/24 07:03 Weight: 94.3 kg 08/23/24 07:03 Body Mass Index (BMI) 38.0 08/23/24 07:03 Respiratory Assessment Respiratory Assessment - cleaner: Respiratory Tract Infection Hx - cleaner Hx Respiratory Tract Infection No 07/27/24 14:17 STOP Sleep Apnea STOP Sleep Apnea - cleaner: STOP Sleep Apnea - cleaner Hx Hypertension Yes: CONTROLLED WITH MEDS 07/27/24 14:17 Hx Sleep Apnea No 07/27/24 14:17 CPAP BIPAP Do you snore loudly (louder No 07/27/24 14:17 than talking or can be heard Do you often feel tired/ No 07/27/24 14:17 fatigued/ sleepy during daytime? Has anyone observed you stop No 07/27/24 14:17 breathing during sleep? STOP Results Negative 07/27/24 14:17 QUESTION #5 FULL TEXT : Do you snore loudly (louder than talking or can be heard through closed doors)? 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 Specify any problems Hx of Preganancy in last 3 No 07/27/24 14:17 Months Nurse Filling Out Transfusion DSCHRIBER 07/27/24 14:17 & Questions: Date: 07/27/24 07/27/24 14:17 Time: 14:18 07/27/24 14:17 Patient unable to answer at this time (ie. confused, unrespo /Reproduction History /Reproductive History - cleaner: /Reproductive Hx- cleaner Hx Now No 07/27/24 14:17 Gestational Age (in weeks): EDC: Hx Hx Para Hx Section SAB No 07/27/24 14:17 Active Medications Active Medications: Current Medications Generic Name Dose Route Start Last Admin Trade Name Freq PRN Reason Stop Dose Admin Acetaminophen 1,000 mg 08/23/24 08:45 08/23/24 07:26 Acetaminophen 500 Mg Tablet PO 08/23/24 08:46 1,000 mg X1 ONE Administration Acetaminophen 1,000 mg 08/23/24 14:00 Acetaminophen 500 Mg Tablet PO Q8 DIMITRIS Albuterol Sulfate 2 puff 08/23/24 07:21 Albuterol Sulfate 8 Gm Inhaler (60 Puffs) INHALATION Q6H PRN Sob &/Or Wheezing Amlodipine Besylate 10 mg 08/23/24 21:00 Amlodipine 10 Mg Tablet PO QPM [facility] Protocol Atorvastatin Calcium 20 mg 08/23/24 22:00 Atorvastatin Calcium 20 Mg Tablet PO QHS [facility] Cholecalciferol 25 mcg 08/23/24 10:00 Cholecalciferol (Vit D3) 25 Mcg Tablet (1,000 Units) PO DAILY [facility] Tranexamic Acid 2,000 mg/ 0 mg 08/23/24 08:45 Sodium Chloride 100 ml OPERA.SITE 08/23/24 08:46 X1 ONE Sodium Chloride 77.4 ml/ 0 ml 08/23/24 08:45 Ropivacaine 200 mg/ OPERA.SITE 08/23/24 08:46 Epinephrine HCl 0.6 mg/ X1 ONE Ketorolac Tromethamine 30 mg/ Morphine Sulfate 5 mg Dexamethasone Sodium Phosphate 10 mg 08/23/24 08:45 Dexamethasone 10 Mg/Ml Vial IV 08/23/24 08:46 X1 ONE Enteral Nutritional Formula 237 ml 08/23/24 08:00 Ensure Surgery 237 Ml Liquid PO TIDCM [facility] Famotidine 20 mg 08/23/24 10:00 Famotidine 20 Mg Tablet PO DAILY [facility] Fluticasone Propionate 1 spray 08/23/24 22:00 Fluticasone 0.05% 1 [place] Nasal.Sry NASAL QHS [facility] Gabapentin 600 mg 08/23/24 08:45 08/23/24 07:26 Gabapentin 600 Mg Tablet PO 08/23/24 08:46 600 mg X1 ONE Administration Lactated Ringer's 1,000 mls @ 999 mls/hr 08/23/24 08:45 08/23/24 07:26 IV 08/23/24 09:45 999 mls/hr .Q1H1M [facility] Administration Cefazolin Sodium 2 gm/ N/A 20 mls @ 400 mls/hr 08/23/24 08:45 IV 08/23/24 08:47 PREOP ONE Magnesium Sulfate 2 gm/ 104 mls @ 208 mls/hr 08/23/24 08:45 08/23/24 07:10 Dextrose IV 08/23/24 09:14 208 mls/hr X1 ONE Administration Cefazolin Sodium 1 gm in 50 mls @ 150 mls/hr 08/23/24 14:00 IV 08/23/24 22:19 Q8 [facility] Insulin Human Lispro 1 - 6 unit 08/23/24 08:45 Insulin Lispro 100 Unit/Ml Insuln.Pen SC Q4H PRN PRN BG>/= 180, SEE PROTOCOL Protocol Ketorolac Tromethamine 15 mg 08/23/24 07:22 Ketorolac 15 Mg/Ml Vial IV 08/25/24 07:24 Q6H PRN PRN Pain Score 1-5 Lisinopril 20 mg 08/23/24 10:00 Lisinopril 20 Mg Tablet PO DAILY [facility] Protocol Montelukast Sodium 10 mg 08/23/24 22:00 Montelukast 10 Mg Tablet PO QHS [facility] Morphine Sulfate 2 - 4 mg 08/23/24 07:22 Morphine 2 Mg/Ml Syringe IV Q2H PRN PRN Pain Score 4-10 Multivitamins 1 tablet 08/23/24 10:00 Multivitamins,Therapeutic Tablet PO DAILY [facility] Non-Formulary Medication 1 spray 08/23/24 10:00 Azelastine [Astepro Allergy] INTRANASAL DAILY [facility] Non-Formulary Medication 2 inh 08/23/24 10:00 Mometasone-Formoterol [Dulera] INHALATION BID [facility] Ondansetron HCl 4 mg 08/23/24 07:22 Ondansetron 4 Mg/2 Ml Vial IV Q8H PRN PRN NAUSEA Oxycodone HCl 5 - 10 mg 08/23/24 07:22 Oxycodone 5 Mg Tablet PO Q4H PRN PRN Pain Score 4-10 Pantoprazole Sodium 20 mg 08/23/24 10:00 Pantoprazole Sodium 20 Mg Tablet PO DAILY [facility] Promethazine HCl 12.5 mg 08/23/24 07:22 Promethazine 25 Mg/Ml Syringe IM Q6H PRN PRN NAUSEA/VOMITING Protocol Rivaroxaban 10 mg 08/24/24 06:00 Rivaroxaban 10 Mg Tablet PO DAILY@0600 [facility] Senna/Docusate Sodium 2 tablet 08/23/24 10:00 Senna/Docusate Sodium 1 Tablet PO BID [facility] Medical History History of renal disease Restless legs Dietary restriction Asthma History of pain when walking Hypertension Chest pain RBBB Crohn's disease COVID Wears partial dentures Wears glasses Post-menopausal Arthritis Anemia DVT (deep venous thrombosis) History of hiatal hernia History of diverticulitis Gastric reflux Non-smoker History of edema History of echocardiogram History of stress test [place] esophagus Epigastric pain Positive FIT (fecal immunochemical test) Sesamoiditis Sciatica Internal hemorrhoids Gastritis Diverticulosis of large intestine Diverticulosis of colon DVT (deep venous thrombosis) Cardiomegaly Bowel perforation Abdominal pain Anemia Chest pain HTN (hypertension) Home Medications ?Medication ?Instructions ?Recorded ?Last Taken ?Type amlodipine 10 mg tablet 10 mg PO QPM bp 04/03/16 11/16/23 History albuterol sulfate 90 mcg/actuation 2 puff inhalation Q6H PRN Sob &/Or 11/04/17 11/03/23 History aerosol inhaler Wheezing fluticasone propionate 50 1 spray QHS nasal congestion 01/07/19 11/16/23 History mcg/actuation nasal spray,suspension lisinopril 20 mg tablet 20 mg PO DAILY bp 01/07/19 11/17/23 History montelukast 10 mg tablet 10 mg PO QHS 08/15/21 11/16/23 History acetaminophen 500 mg tablet 1,000 mg PO Q8 PRN Pain 08/22/21 09/15/23 History multivitamin 1 tab PO DAILY 08/22/21 11/12/23 History atorvastatin 20 mg tablet (Lipitor) 20 mg PO QHS 09/13/21 11/16/23 History Lactobacillus acidophilus 10 100 mmu cells PO DAILY 09/15/23 11/12/23 History billion cell capsule (NewFlora) azelastine 205.5 mcg (0.15 %) 1 spray intranasal DAILY 09/15/23 11/16/23 History nasal spray (Astepro Allergy) omeprazole 20 mg delayed 20 mg PO DAILY 09/15/23 11/17/23 History release,disintegrating tablet mometasone-formoterol HFA 200 2 inh inhalation BID 10/15/23 08/23/24 History mcg-5 mcg/actuation aerosol inhaler (Dulera) cholecalciferol (vitamin D3) 25 25 mcg PO DAILY 07/27/24 Unknown History mcg (1,000 unit) capsule (Vitamin D3) Allergy/AdvReac Type Severity Reaction Status Date / Time amoxicillin trihydrate (From Allergy Rash Verified 08/23/24 07:02 Augmentin) Cephalosporins Allergy Rash Verified 08/23/24 07:02 potassium clavulanate (From Allergy Rash Verified 08/23/24 07:02 Augmentin) Sulfa (Sulfonamide Allergy Rash Verified 08/23/24 07:02 Antibiotics) Family History Sister Arthritis Breast cancer Osteoporosis Father Diabetes Cancer Skin Mother Hypertension Cancer skin cancer Osteoporosis Surgical History Hx of total knee arthroplasty History of cardiac catheterization Hx of total knee replacement Hx of total shoulder replacement History of esophagogastroduodenoscopy (EGD) Hx of ileostomy S/P tonsillectomy S/P cholecystectomy S/P ovarian cystectomy History of esophagogastroduodenoscopy (EGD) S/P colonoscopy Social History Smoking Status: Never smoker second hand exposure: No alcohol intake: never substance use type: does not use caffeine: Yes what type of physical activity do you participate in: none frequency: does not exercise seatbelt use: always Review of Systems (Anesthesia) ROS Narrative System reviewed and no additional complaints, except as documented.
[2024-08-23] MEDS: Lactated Ringers 1,000 ML 75 ML IV (08:30)
--- NOTE | 2024-08-23 08:45 | HIP_PTH ---
PATIENT: JA ADAME LOC: [facility] [place] U#:[id number] AGE/SX: 73/F ROOM: RE08/23/[address]: Dr. Placido Jaramillo MD : 1950 BED: DIS: 08/23/2024 SPEC #: [id number] RECD: 08/23/24 14:20 STATUS: YOAV REJaci #: [id number] ALFONSO: 08/23/24 08:[address]: Placido Jaramillo DEPT: SURGICAL PATHOLOGY RECD BY: Gracia Morales ENTERED: 08/24/24 10:50 SP TYPE: TOTAL HIP OTHR DR: Dr. Caitlin Moreland MD Tissues: Hip, NOS Procedures: Decalcification bone/plaque Surgery Specimen Level IV HEADER OPERATION: Anterior right total hip arthroplasty PRE-OP DIAGNOSIS: Severe right hip osteoarthritis TISSUE SUBMITTED: Right hip bone MICROSCOPIC DIAGNOSIS Right hip bone and soft tissue, total hip replacement/resection: Femoral head with degenerative osteoarthritic changes. Fragments of fibrocartilaginous tissue and reactive synovial tissue. SJ: 08/27/2024 MICROSCOPIC DESCRIPTION Slides are reviewed. GROSS DESCRIPTION Received is one container labeled with the patient's name and designated bone and soft tissue right hip. The specimen consists of a smith femoral head measuring 4.0 x 4.0 x 3.0 cm. The articular surface displays prominent osteophyte formation and bone erosion. Also present in the specimen container are two detached pieces of bone consistent with portion of femoral neck measuring in aggregate 4.5 x 3.0 x 1.2cm. Detached pieces of soft tissue including reamings measures in aggregate 7.0 x 3.5 x 2.0cm. Real Estate Specialist sections are submitted in two cassettes as follows: 1 - soft tissue, 2 - bone after decalcification. / SHYLA. 08/24/2024 TC:5 CPT: 89126, 92317
[2024-08-23] MEDS: Cefazolin 2 GM in Syringe 10 ML IV (09:12)
[2024-08-23] MEDS: dexAMETHasone 10 MG/ML Vial IV (09:28)
--- NOTE | 2024-08-23 09:40 | RAD_ITS ---
STUDY: X-RAY - PELVIS AND RIGHT HIP REASON FOR EXAM: Female, 73 years old. Right hip arthroplasty TECHNIQUE: 6 intraoperative views of the pelvis and hip. 14.6 seconds of fluoroscopy, dose of 2.26mGy COMPARISON: None. FINDINGS: No intraoperative complications are noted during right hip replacement surgery. Components demonstrate anatomic alignment. RAD/Hip 1 view with Pelvis IMPRESSION: No intraoperative complications noted during right hip replacement surgery Electronically Signed: Edi Patton MD at 10:56 EST ,
--- NOTE | 2024-08-23 10:24 | OP.PCM_ITS ---
Operative Report (Standard) Operative Information Date of Procedure: 08/23/24 Pre-Operative Diagnosis: Right hip primary osteoarthritis Post-Operative Diagnosis: Right hip primary osteoarthritis Surgery/Procedure Performed: Right minimally invasive direct anterior hip replacement communications senior associate: Yes Tv Production Assistant: Primo Valverde Tasks completed by first sampler: Other (See operative report) Additional medical assistant dermatology?: No Type of Anesthesia: Spinal RN Documented Start/Stop Times: Operation Date: 08/23/24 08:45 Case Time Into Pre-Op 08/23/24 06:49 Anesthesia Start 08/23/24 08:58 Into Room 08/23/24 08:58 Out of Pre-Op 08/23/24 08:58 Procedure Start 08/23/24 09:14 Procedure End 08/23/24 11:00 Anesthesia End 08/23/24 11:06 Out of Room 08/23/24 11:06 Into Recovery 08/23/24 11:10 Into Phase II Recovery 08/23/24 11:56 Out of Recovery 08/23/24 11:56 Procedure Start Time: 09:14 Procedure Stop Time: 11:00 Select all DRAINS/GRAFTS/IMPLANTS that apply: Prosthetic device Prosthetic device details: See operative report Special Medications: Ancef Estimated Blood Loss: 300 mL Fluids Replaced: 1200 mL crystalloid Specimen collected: Yes Description of specimen(s) removed: Bony cuts Description of surgery: Components used: 1. Accolade 2 [place] femoral stem size 2 127? 2. Chel trident 2 acetabular shell size 48 mm 3. Chel X3 polyethylene D 4. [place] Biolox delta 36mm, 0mm femoral head Brief history operative indications: 73 yo F who failed conservative measures for their hip osteoarthritis. X-rays were consistent with osteoarthritis including joint space narrowing, osteophyte formation and subchondral cysts. Total hip replacement was discussed with the patient with risks and benefits including but not limited to blood loss, DVTs, PEs, neurovascular damage, dislocation, general risks of anesthesia including loss of life. Patient demonstrated an understanding medical clearance is obtained the patient was consented for surgery. Procedure: On the date of procedure the patient's R hip was marked in the preoperative area. Patient was then taken back to the operating room where anesthesia assumed control of the C-spine and airway and administered anesthetic. Patient was transferred to the operating table and placed in the supine position. The hips were placed at the break of the bed and a sacral bump was placed. The R lower extremity was then prepped out in a sterile fashion using chlorhexidine while the surgeon scrubbed. The PA was vital in the positioning of the patient. Upon reentering the room the R lower extremity was draped in the standard orthopedic fashion and the incision was marked. A timeout was called and everyone agreed upon the side, the site, the procedure be performed, antibody given, and patient's identity. At this time incision was made through skin, subcutaneous tissue, and fat down to fascia. The fascia was then incised and the TFL was retracted laterally. A retractor was placed on the lateral border of the femoral neck. Attention was directed to the inferior portion of the approach and all crossing vessels were identified and appropriately coagulated. A retractor was then placed on the medial portion of the femoral neck. The anterior capsule was then cleared of all soft tissue and then H shaped c apsulotomy was made. The retractors were then placed inside the capsule. The femoral neck was identified and a cleanup cut was made. At this time a power corkscrew was used to remove the femoral head. Attention was then turned toward the acetabulum where the soft tissues were appropriately retracted and the acetabulum was sequentially reamed to 48 mm. A 48 mm cup was then selected and impacted into place. Acetabular liner was impacted into place and locking mechanism was verified. The position of the acetabular cup was then verified under live fluoroscopy. Attention was then turned to the femur. Soft tissue releases on the medial and lateral femoral neck were appropriately done, the leg was externally rotated and lateralized. A Meier retractor was placed medially and proximally to the greater trochanter this allowed appropriate visualization and exposure of the femoral canal. Rongeour was then used to remove excess lateral bone. A canal finder and entry broach were used to open the proximal canal. Once we verified we were down the femoral canal we subsequently broached up to a size 2 femur. The appropriate neck was placed in the previously selected head was trialed with a 0 mm neck. Traction was pulled and the hip was reduced with internal rotation. Once it was appropriately reduced and stability was checked. There was minimal shuck, equal leg lengths and appropriate stability with hyperextension and external rotation as well as with 90? flexion and internal rotation. Fluoroscopy was then also used to verify the position of the components and leg lengths using the contralateral side for comparison. The trial components were then dislocated the proximal femur was again exposed and the components were removed from the wound. The final components were verified and opened. The wound was copiously irrigated out with normal saline. The acetabulum was checked for any residual debris. The final components were placed and impacted. Traction and internal rotation were again used to reduce the hip. After adequate reduction the hip remained stable with appropriate leg lengths. The final components were once again checked with live fluoroscopy and were found to be satisfactory. The wound was then copiously irrigated with normal saline once more, and hemostasis was obtained. Closure was then done using #1 Vicryl runner to close the fascia. A 2-0 vicryl interuppted sutures were used to close the subcutaneous skin. A 3-0 Monocryl and Steri-Strips were used for final skin closure. A Silverlon dressing was placed. Patient was awakened by anesthesia and transferred to the [facility]. Patient was then transferred to the PACU for recovery. Postoperative plan: Patient will get 24 hours postop antibiotics. Patient will get in-house physic al therapy and will be weight-bear as tolerated. Patient will follow up in office in 2 weeks for a wound check and x-rays. Xarelto for DVT prophylaxis due to previous DVT. During the course of the procedure the physician customs opener verifier packer (PE) played a vital role. Their intimate knowledge of my steps in the procedure aided in safe and expedient completion of the procedure. The PE played a vital rolls in positioning particularly in obtaining the appropriate positioning of the sacral bump. The PE was also vital in the retraction of soft tissues during the exposure and especially the femoral work as this is a vital part of the procedure to prevent complications and fractures. The PE was also vital and protecting soft tissues during times of bony cuts and reaming. He also played a vital role in closure with my direct supervision. The PE was also important during reduction and dislocation of the joint and trials intraoperatively. Surgical Findings: Stable hip. Leg lengths restored Complications Complications: No Admit VTE Documentation VTE Present on Admission: No VTE Mechan Device Prophylaxis: SCD's and Thigh High RORO Hose VTE Pharm Prophylaxis ordered?: Yes
[2024-08-23] MEDS: TRANEXAMIC ACID 2,000 MG, 0.9% Normal Saline (100mL Bag) 100 ML OPERA.SITE (10:25)
[2024-08-23] MEDS: JPS (Morphine 10mg/ml) OPERA.SITE (10:29)
--- NOTE | 2024-08-23 11:10 | PCM.POST.ANE ---
Anesthesia: Postop Eval I Current Vital Signs Temperature: 97.8 F Pulse Rate: 76 Blood Pressure: 120/52 Respiratory Rate: 16 Pulse Ox: 97 Oxygen Delivery Method: Room Air Assessment Airway patent: Yes Spontaneous unlabored respirations: Yes Mental status: Awake and Calm nausea: No Vomiting: No Anesthesia Complication: No Fluid Hydration Crystalloid volume administer (ml): 1,400 Total IV fluid infused: 1,400 Progress Note Anesthesia document: Postop Eval 1 completed: Yes
--- NOTE | 2024-08-23 11:13 | EKG12_ITS ---
Test Reason : post opp Blood Pressure : */* mmHG Vent. Rate : 81 BPM Atrial Rate : 81 BPM P-R Int : 202 ms QRS Dur : 172 ms QT Int : 444 ms P-R-T Axes : 50 2 21 degrees QTcB Int : 515 ms Normal sinus rhythm Right bundle branch block Abnormal ECG No previous ECGs available Confirmed by Roni Dash ([id number]), social media editor SHAWN PALOMINO ([id number]) on 08/25/2024 9:45:52 AM Referred By: Placido Jaramillo Confirmed By: Roni Dash
--- NOTE | 2024-08-23 11:35 | RAD_ITS ---
STUDY: X-RAY - PELVIS AND RIGHT HIP REASON FOR EXAM: Female, 73 years old. Postop from hip replacement surgery TECHNIQUE: 2 views of the pelvis and hip. COMPARISON: None. FINDINGS: Patient is postop from right hip replacement surgery. Components demonstrate anatomic alignment. No plain film evidence of postoperative complication. Normal postoperative soft tissue swelling and subcutaneous emphysema RAD/Hip Min 2 Views (Portable) IMPRESSION: Replaced right hip joint demonstrates anatomic alignment, no plain film evidence of postoperative complication Electronically Signed: Edi Patton MD at 12:09 EST ,
--- NOTE | 2024-08-23 12:00 | PCM.POSTANE2 ---
Anesthesia Postop Eval I Sum Postop Eval Completion status Anesthesia document: Postop Eval 1 completed: Yes Anesthesia Postop Eval I Summary Anesthesia Postop Eval I Summary: Anesthesia Postop Eval I: Assessment Summary Airway patent Yes 08/23/24 11:14 Spontaneous unlabored Yes 08/23/24 11:14 respirations Mental status Awake,Calm 08/23/24 11:14 nausea No 08/23/24 11:14 Vomiting No 08/23/24 11:14 Anesthesia Postop Eval I: Fluid Summary Crystalloid volume administer 1,400 08/23/24 11:14 (ml) Colloids volume administered ( ml) Blood Product volume administered (ml) Total IV fluid infused 1,400 08/23/24 11:14 Anesthesia Postop Eval I: Summary Notes Anesthesia Complication No 08/23/24 11:14 Anesthesia Complication Comment: Post-operative progress note Anesthesia: Postop Eval II Evaluation Mental status: Awake Pain Level: 0 nausea: No Vomiting: No
--- NOTE | 2024-08-23 14:05 | SUR.PHASEII ---
PATIENT HAD TO VOID. SO THIS NURSE AND ANOTHER NURSE GOT PATIENT UP TO [facility] [place]. PATIENT DID WELL, BUT HAS SOME WEAKNESS IN THAT RIGHT LEG THAT CAUSED IT TO START TO BUCKLE. PATIENT PUT IN CHAIR WITH ARMS. GOING TO MONITOR THIS AND TRY AGAIN IN 30MIN-HOUR TO SEE IF SHE WILL BE READY FOR PHYSICALL THERAPY.
--- NOTE | 2024-08-23 15:30 | SUR.PHASEII ---
PATIENT UP TO [facility] AGAIN. HER RIGHT LEG GAVE OUT SOME AGAIN ON THE WAY TO THE [facility]. I HAD ANOTHER NURSE ASSIST BACK TO THE CHAIR AND SHE DID BETTER ON THAT TRANSFER. PT CALLED TO COME DOWN TO TALK TO HER AND EVALUATE.
--- NOTE | 2024-08-23 16:10 | SUR.PHASEII ---
PATIENT IS CURRENTLY WORKING WITH PHYSCIAL THERAPY AND DOING WELL. SHE WILL BE READY TO DISCHARGE THEN.
== END 2024-08-23 16:36 | disposition home or self-care (01) ==
LOC: SDC 06:34 → AC 06:36
PROVIDERS: Anesthesiology; PCP Internal Medicine; Referring Provider Specialist; Visit Provider Specialist
PROC: (CPT 27284; principal; 2024-08-23 08:20)
DX: M16.11 Unilateral primary osteoarthritis, right hip (principal); Z79.4 Long term (current) use of insulin; J45.909 Unspecified asthma, uncomplicated; D64.9 Anemia, unspecified; E78.00 Pure hypercholesterolemia, unspecified; I10 Essential (primary) hypertension; K21.9 Gastro-esophageal reflux disease without esophagitis; Z96.652 Presence of left artificial knee joint; Z86.718 Personal history of other venous thrombosis and embolism; Z79.01 Long term (current) use of anticoagulants; Z79.899 Other long term (current) drug therapy
CPT/HCPCS: 27130; 01214; 36415; 73501; 73502; 76000; 80048; 82040; 82962; 83735; 85025; 87081; 88305; 88311; 93005; 97162; C1776

== ENCOUNTER 2024-09-30 12:50 | Emergency (ER) | payer MEDICARE, SELFPAY ==
[2024-09-30] VITALS (7 sets, daily range): BP systolic 136–183; BP diastolic 65–90; PULSE 79–103; RESP 16–19; TEMP 36.6–36.8; O2SAT 95–99; BMI 41.1
--- NOTE | 2024-09-30 13:05 | RAD_ITS ---
EXAM: HIP, UNI W/ PELVIS 2-3 VIEWS CLINICAL HISTORY: Possible right hip dislocation following injury. COMPARISON: Comparison is made with prior examination dated August 23, 2024. TECHNIQUE: Three views were obtained. FINDINGS: There is evidence of superior anterior dislocation of the prosthetic right hip. Calcified fibroid uterus. Disc space narrowing in the lower lumbar spine. RAD/HIP, UNI W/ Pelvis 2-3 Views IMPRESSION: Lateral anterior dislocation of the prosthetic right hip. Reading Location: [facility]
[2024-09-30] MEDS: Ondansetron 4 MG/2 ML Vial IV (13:10)
[2024-09-30] MEDS: Morphine 4 MG/ML Syringe IV ×2 (13:11→14:20)
--- NOTE | 2024-09-30 13:17 | ED.VIS.LOWEX ---
HPI History of Present Illness Chief Complaint: Lower Extremity Injury Informant: patient and family Narrative Narrative: 5-week postop right total hip arthroplasty performed electively by Dr. Jaramillo. Patient went home the same day has been doing well. Today turning to get in the shower she felt her hip pop out. She sat down on the commode. No direct falls or injuries. Last meal 10:30 AM. Was brought in by EMS. [facility] Medical History History of renal disease Restless legs Dietary restriction Asthma History of pain when walking Hypertension Chest pain RBBB Crohn's disease COVID Wears partial dentures Wears glasses Post-menopausal Arthritis Anemia DVT (deep venous thrombosis) History of hiatal hernia History of diverticulitis Gastric reflux Non-smoker History of edema History of echocardiogram History of stress test [place] esophagus Epigastric pain Positive FIT (fecal immunochemical test) Sesamoiditis Sciatica Internal hemorrhoids Gastritis Diverticulosis of large intestine Diverticulosis of colon DVT (deep venous thrombosis) Cardiomegaly Bowel perforation Abdominal pain Anemia Chest pain HTN (hypertension) Home Medications ?Medication ?Instructions ?Recorded ?Last Taken ?Type amlodipine 10 mg tablet 10 mg PO QPM bp 04/03/16 11/16/23 History albuterol sulfate 90 mcg/actuation 2 puff inhalation Q6H PRN Sob &/Or 11/04/17 11/03/23 History aerosol inhaler Wheezing fluticasone propionate 50 1 spray QHS nasal congestion 01/07/19 11/16/23 History mcg/actuation nasal spray,suspension lisinopril 20 mg tablet 20 mg PO DAILY bp 01/07/19 11/17/23 History montelukast 10 mg tablet 10 mg PO QHS 08/15/21 11/16/23 History acetaminophen 500 mg tablet 1,000 mg PO Q8 PRN Pain 08/22/21 09/15/23 History multivitamin 1 tab PO DAILY 08/22/21 11/12/23 History atorvastatin 20 mg tablet (Lipitor) 20 mg PO QHS 09/13/21 11/16/23 History Lactobacillus acidophilus 10 100 mmu cells PO DAILY 09/15/23 11/12/23 History billion cell capsule (NewFlora) azelastine 205.5 mcg (0.15 %) 1 spray intranasal DAILY 09/15/23 11/16/23 History nasal spray (Astepro Allergy) omeprazole 20 mg delayed 20 mg PO DAILY 09/15/23 11/17/23 History release,disintegrating tablet mometasone-formoterol HFA 200 2 inh inhalation BID 10/15/23 08/23/24 History mcg-5 mcg/actuation aerosol inhaler (Dulera) cholecalciferol (vitamin D3) 25 25 mcg PO DAILY 07/27/24 Unknown History mcg (1,000 unit) capsule (Vitamin D3) Allergy/AdvReac Type Severity Reaction Status Date / Time amoxicillin trihydrate (From Allergy Rash Verified 09/30/24 12:51 Augmentin) Cephalosporins Allergy Rash Verified 09/30/24 12:51 potassium clavulanate (From Allergy Rash Verified 09/30/24 12:51 Augmentin) Sulfa (Sulfonamide Allergy Rash Verified 09/30/24 12:51 Antibiotics) Family History Sister Arthritis Breast cancer Osteoporosis Father Diabetes Cancer Skin Mother Hypertension Cancer skin cancer Osteoporosis Surgical History Hx of total knee arthroplasty History of cardiac catheterization Hx of total knee replacement Hx of total shoulder replacement History of esophagogastroduodenoscopy (EGD) Hx of ileostomy S/P tonsillectomy S/P cholecystectomy S/P ovarian cystectomy History of esophagogastroduodenoscopy (EGD) S/P colonoscopy Social History Smoking Status: Never smoker second hand exposure: No alcohol intake: never substance use type: does not use caffeine: Yes what type of physical activity do you participate in: none frequency: does not exercise seatbelt use: always ROS ROS ED Constitutional Constitutional ED: Denies chills, fever(s) or sweats Cardiovascular Cardiovascular: Denies chest pain Respiratory/Chest Respiratory/Chest: Denies cough Gastrointestinal Gastrointestinal: Denies abdominal pain, diarrhea, nausea or vomiting Musculoskeletal Musculoskeletal: Reports extremity pain; Denies back pain or neck pain Neurologic Neurologic: Denies headache(s) EXAM Physical Exam Const Vital Signs: 09/30/24 12:51 09/30/24 14:50 09/30/24 15:04 Temperature 98.3 F 98.1 F Temperature Source Oral Pulse Rate 89 103 H Pulse Rate [1 (Initial Baseline)] Pulse Rate [4] Pulse Rate [5] Respiratory Rate 16 18 Respiratory Rate [1 (Initial Baseline)] Respiratory Rate [4] Respiratory Rate [5] Blood Pressure 183/72 H 174/90 H Blood Pressure [1 (Initial Baseline)] Blood Pressure [4] Blood Pressure [5] Blood Pressure Mean 109 Baseline BP 174/90 Pulse Ox 98 99 Oxygen Delivery Method Room Air Nasal Cannula Oxygen Delivery Method [1 (Initial Baseline)] Oxygen Delivery Method [4] Oxygen Delivery Method [5] Oxygen Flow Rate (L/min) 2 Oxygen Flow Rate (L/min) [1 (Initial Baseline)] Oxygen Flow Rate (L/min) [4] Oxygen Flow Rate (L/min) [5] EtCo2 (Normal 35-45 , high quality CPR 10-20 & ROSC>/=40mmHg 36 36 EtCo2 (Normal 35-45 , high quality CPR 10-20 & ROSC>/=40mmHg [1 (Initial Baseline)] EtCo2 (Normal 35-45 , high quality CPR 10-20 & ROSC>/=40mmHg [4] EtCo2 (Normal 35-45 , high quality CPR 10-20 & ROSC>/=40mmHg [5] 09/30/24 15:04 09/30/24 15:14 09/30/24 15:19 Temperature Temperature Source Pulse Rate 89 91 Pulse Rate [1 (Initial Baseline)] 88 Pulse Rate [4] 88 Pulse Rate [5] 91 Respiratory Rate 18 18 Respiratory Rate [1 (Initial Baseline)] 18 Respiratory Rate [4] 18 Respiratory Rate [5] 18 Blood Pressure 157/73 H 151/66 H Blood Pressure [1 (Initial Baseline)] 174/90 H Blood Pressure [4] 145/65 H Blood Pressure [5] 157/73 H Blood Pressure Mean Baseline BP Pulse Ox 98 95 Oxygen Delivery Method Nasal Cannula Room Air Oxygen Delivery Method [1 (Initial Baseline)] Nasal Cannula Oxygen Delivery Method [4] Nasal Cannula Oxygen Delivery Method [5] Nasal Cannula Oxygen Flow Rate (L/min) 2 Oxygen Flow Rate (L/min) [1 (Initial Baseline)] 2 Oxygen Flow Rate (L/min) [4] 2 Oxygen Flow Rate (L/min) [5] 2 EtCo2 (Normal 35-45 , high quality CPR 10-20 & ROSC>/=40mmHg 33 34 EtCo2 (Normal 35-45 , high quality CPR 10-20 & ROSC>/=40mmHg [1 (Initial Baseline)] 36 EtCo2 (Normal 35-45 , high quality CPR 10-20 & ROSC>/=40mmHg [4] 35 EtCo2 (Normal 35-45 , high quality CPR 10-20 & ROSC>/=40mmHg [5] 34 09/30/24 15:23 09/30/24 15:26 Temperature Temperature Source Pulse Rate 91 91 Pulse Rate [1 (Initial Baseline)] Pulse Rate [4] Pulse Rate [5] Respiratory Rate 18 19 H Respiratory Rate [1 (Initial Baseline)] Respiratory Rate [4] Respiratory Rate [5] Blood Pressure 153/70 H 153/70 H Blood Pressure [1 (Initial Baseline)] Blood Pressure [4] Blood Pressure [5] Blood Pressure Mean 97 Baseline BP Pulse Ox 95 95 Oxygen Delivery Method Room Air Room Air Oxygen Delivery Method [1 (Initial Baseline)] Oxygen Delivery Method [4] Oxygen Delivery Method [5] Oxygen Flow Rate (L/min) Oxygen Flow Rate (L/min) [1 (Initial Baseline)] Oxygen Flow Rate (L/min) [4] Oxygen Flow Rate (L/min) [5] EtCo2 (Normal 35-45 , high quality CPR 10-20 & ROSC>/=40mmHg 34 EtCo2 (Normal 35-45 , high quality CPR 10-20 & ROSC>/=40mmHg [1 (Initial Baseline)] EtCo2 (Normal 35-45 , high quality CPR 10-20 & ROSC>/=40mmHg [4] EtCo2 (Normal 35-45 , high quality CPR 10-20 & ROSC>/=40mmHg [5] Positive well nourished and well developed General Appearance ED: well developed and NAD HEENT Reports moist mucous membranes normocephalic and atraumatic Eyes General Eye ED: Yes normal appearance of both eyes Neck full ROM Chest Wall Chest: Negative for tenderness Resp normal respiratory effort and normal air movement Effort and Inspection: symmetric chest movement; Negative for respiratory distress Cardio regular rate, regular rhythm and no murmurs Peripheral Pulses: pulses 2+ throughout GI normal to inspection, nondistended, normoactive bowel sounds and non-tender Palpation: Negative for guarding or rebound tenderness present Extremity Extremity Narrative: Patient right lower extremity, shortening and external rotation. General Extremety ED: Yes edema and tenderness General Extremity: edema Neuro oriented x3 and no sensory deficits noted Sensorium / Orientation: awake and alert Skin no rashes or lesions noted and no wounds MDM MDM MDM Narrative Medical decision making narrative: Interventions / MDM: Differential diagnosis: Right hip dislocation, conscious sedation Diagnosis considered but do not suspect: N/A My EKG interpretation: N/A Imaging independently reviewed and interpreted by myself: Three-view x-ray right hip with pelvis: Anterior dislocation of the prosthetic hip. No fracture. Also read by radiology. Postreduction 2 view right hip: reduction of the hip. External documents reviewed: N/A Test considered but not ordered:N/A ED course: Clinically concerns for dislocation with her history. Will keep n.p.o. establish IV for basic labs, morphine Zofran, right hip and pelvis x-ray for further evaluation. Three-view x-ray right hip with pelvis: Anterior dislocation. Consent obtained discussed relocation. 1504: Written consent obtained risk and benefits discussed. Procedure note:Patient placed director cardiac pulse ox capnography oxygen nasal cannula. Timeout 1504. Total of 70 mg IV propofol was given. Good sedation performed blood pressure stable pulse ox capnography stable. Nursing assistance with stabilization of the pelvis, perform gentle Theron's maneuver of the lower leg, felt pop back into place. No difficulties. Normal lengthening of the leg with good movement of the hip. Knee immobilizer was placed. Patient tolerated procedure well. Postreduction films ordered. 1650: Patient able to ambulate with a walker with no difficulties. I discussed with on-call orthopedist Dr. Shahab Bella who will update her orthopedist. She will call the office tomorrow for outpatient follow-up. Re-evaluation: stable Disposition discussed with patient/family/significant other: Patient and family Case discussed with consulting clinician: Orthopedics This note was generated with [employer] D[employer] dictation software. It may contain incorrect words, spelling, and punctuation that were not noted in checking the note before signing. Lab Data Labs: Laboratory Results - last 24 hr 09/30/24 13:00 WBC 7.5 RBC 4.76 Hgb 11.2 L Hct 37.5 MCV 78.8 L MCH 23.5 L MCHC 29.9 L RDW Std Deviation 43.7 RDW Coeff of Anuradha 15.2 H Plt Count 226 MPV 9.9 Immature Gran % (Auto) 0.400 Neut % (Auto) 78.5 H Lymph % (Auto) 11.8 L [place] % (Auto) 6.6 Eos % (Auto) 2.3 Baso % (Auto) 0.4 Absolute Neuts (auto) 5.9 Absolute Lymphs (auto) 0.88 Nucleated RBC % 0 Sodium 142 Potassium 3.7 Chloride 108 H Carbon Dioxide 26.0 Anion Gap 7 BUN 24 H Creatinine 0.81 Estim Creat Clear Calc 69.20 Est GFR (MDRD) Af Amer 88 Est GFR (MDRD) Non-Af 73 BUN/Creatinine Ratio 29.5 H Glucose 184 H Calcium 9.4 Radiography Diagnostic Testing: Clinical Impression(s) from Imaging Studies Hip/Pelvis X-Ray 09/30/24 13:05 IMPRESSION: Lateral anterior dislocation of the prosthetic right hip. Reading Location: [facility] Hip X-Ray 09/30/24 15:35 IMPRESSION: Satisfactory right prosthetic hip reduction. Reading Location: [facility] Procedures Procedural Sedation 1 (Initial Baseline): Consent Signed: Yes Any Problems With Anesthesia: No Sedation medication: Propofol Dose: 70 Route: IV Maliampati Score: Class II ASA Classification: II Discharge Plan Triage Chief Complaint: Lower Extremity Injury ED Provider: Eric Fuentes Dx/Rx/DC Orders Clinical Impression: Anterior dislocation of right hip, History of conscious sedation Instructions: ED Procedural Sedation, (Adult), ED Hip Replace Dislocation Reduc Prescriptions: No Action albuterol sulfate 90 mcg/actuation HFA aerosol inhaler 2 puff INHALATION Q6H PRN (Reason: Sob &/Or Wheezing) amlodipine 10 MG tablet 10 mg PO QPM Patient Comments: heart, blood pressure fluticasone propionate 1 SPRAY spray,suspension 1 spray NASAL QHS lisinopril 20 MG tablet 20 mg PO DAILY Patient Comments: blood pressure montelukast 10 mg tablet 10 mg PO QHS Patient Comments: TAKE 1 TABLET DAILY AT BEDTIME acetaminophen 500 MG tablet 1,000 mg PO Q8 PRN (Reason: Pain) multivitamin Tablet 1 tab PO DAILY atorvastatin [Lipitor] 20 mg tablet 20 mg PO QHS omeprazole 20 mg tablet,disintegrat, delay rel 20 mg PO DAILY azelastine [Astepro Allergy] 205.5 mcg (0.15 %) spray,non-aerosol 1 spray intranasal DAILY Rx Instructions: administer into each nostril NewFlora 10 billion cell capsule 100 mmu cells PO DAILY Patient Comments: UNSURE OF STRENGTH OR BRAND PURCHASED PRIOBIOTIC AT THE [email or web address] [facility] 200-5 mcg/actuation HFA aerosol inhaler 2 inh inhalation BID cholecalciferol (vitamin D3) [Vitamin D3] 25 mcg (1,000 unit) capsule 25 mcg PO DAILY Primary Care Provider: aCitlin Moreland Referrals: Caitlin Moreland MD [Primary Care Provider] - Placido Jaramillo MD [Med Staff - Active Staff] - 1 Day Activity Restrictions/Additional Instructions: Your hip reduced in the ED. Discussed with Dr. Shahab Bella. Call Dr. Jaramillo's office tomorrow to schedule follow-up. Maintain your knee immobilizer. Use your walker. Print Language: Faroese Disposition Disposition: Home, Self Care
[2024-09-30 13:22] LABS: Absolute Lymphocyte Count 0.88 X10^3/uL (0.83-4.51); Absolute Neutrophil Count 5.9 X10^3/uL (2.0-7.7); Basophil# 0.03 X10^3/uL; Basophil% 0.4 % (0-1); Eosinophil# 0.17 X10^3/uL; Eosinophils% 2.3 % (0-5); Hematocrit 37.5 % (37-47); Hemoglobin 11.2 g/dL (12.0-15.0); Lymphocyte # 0.88 X10^3/ul (0.83-4.51); Lymphocyte % 11.8 % (19-41); Mean Corp Hgb Conc 29.9 g/dL (32-36); Mean Corpuscular Hgb 23.5 pg (27.0-32.0); Mean Corpuscular Volume 78.8 fL (81-99); Mean Platelet Vol. 9.9 fl (6.2-12.0); Monocyte# 0.49 X10^3/uL; Monocyte% 6.6 % (0-10); NRBC Flagged by Analyzer 0 % (0-5); Neutrophil # 5.88 X10^3/uL (2.7-7.7); Neutrophil % 78.5 % (47-70); Platelet Count 226 K/mm3 (150-450); RBC Distribution Width CV 15.2 % (11.6-14.6); RBC Distribution Width SD 43.7 fl (35.1-43.9); Red Blood Count 4.76 M/mm3 (4.2-5.4); White Blood Count 7.5 K/mm3 (4.4-11.0)
[2024-09-30 13:45] LABS: Anion Gap 7 (5-15); BUN 24 mg/dL (7-18); BUN/Creat Ratio 29.5 RATIO (10-20); Calcium,Total 9.4 mg/dL (8.5-10.1); Chloride 108 mmol/L (98-107); Creatinine, Serum 0.81 mg/dL (0.55-1.02); EST Glomerular Filtration Rate 73 mL/min (>60); Est Glom Filt Rate - Afr Amer 88 mL/min (>60); Glucose 184 mg/dL (74-106); Potassium 3.7 mmol/L (3.5-5.1); Sodium Level 142 mmol/L (136-145)
[2024-09-30] MEDS: Propofol 200 MG/20 ML Vial IV BOLUS (14:20)
--- NOTE | 2024-09-30 15:35 | RAD_ITS ---
EXAM: HIP MIN 2 VIEWS (PORTABLE) CLINICAL HISTORY: Postreduction x-ray. COMPARISON: Comparison is made with prior study done earlier in the day. TECHNIQUE: Two views were obtained. FINDINGS: Satisfactory reduction of the right hip dislocation. RAD/Hip Min 2 Views (Portable) IMPRESSION: Satisfactory right prosthetic hip reduction. Reading Location: [place] [id number]
== END 2024-09-30 17:12 | disposition home or self-care (01) ==
PROVIDERS: Emergency Provider Emergency Medicine; PCP Internal Medicine; Referring Provider Emergency Medicine; Visit Provider Emergency Medicine
DX: T84.020A Dislocation of internal right hip prosthesis, initial encounter (principal); Z96.641 Presence of right artificial hip joint; I10 Essential (primary) hypertension; J45.909 Unspecified asthma, uncomplicated; K21.9 Gastro-esophageal reflux disease without esophagitis; X58.XXXA Exposure to other specified factors, initial encounter
CPT/HCPCS: 27265; 73502; 80048; 85025; 96374; 96375; 96376; 99152; 99285; A4216; J2405

== ENCOUNTER 2024-10-05 21:25 | Emergency (ER) | payer MEDICARE, SELFPAY ==
[2024-10-05 21:26] VITALS: BP 132/77; PULSE 80; RESP 18; TEMP 36.8; O2SAT 99; BMI 40.9
--- NOTE | 2024-10-05 22:08 | RAD_ITS ---
PROCEDURE: HIP, UNI W/ PELVIS 2-3 VIEWS REASON FOR EXAM: Dislocation. TECHNIQUE: Two views of the right hip and single frontal view of the pelvis are obtained. COMPARISON: 09/30/2024. FINDINGS: Right hip arthroplasty is present. There is superior, lateral dislocation of the right femoral head prosthesis as compared to the acetabular cap. No acute fracture is seen. There are degenerative changes of the left hip joint. There is a prominent calcified density measuring 4.1 cm in the left aspect of the pelvis likely related to a calcified uterine fibroid. RAD/HIP, UNI W/ Pelvis 2-3 Views IMPRESSION: Superior, lateral dislocation of the right femoral head prosthesis as compared to the acetabular cap. Reading Location: [facility]
[2024-10-05] MEDS: Ondansetron 4 MG/2 ML Vial IV (22:19)
[2024-10-05] MEDS: 0.9% Normal Saline (1000mL) 1,000 ML 999 ML IV (22:19)
[2024-10-05] MEDS: Morphine 4 MG/ML Syringe IV (22:19)
[2024-10-05] MEDS: Propofol 200 MG/20 ML Vial IV BOLUS (23:18)
[2024-10-05] MEDS: Midazolam 5 MG/ML Syringe IV (23:18)
[2024-10-05 23:25] VITALS: BP 138/60; PULSE 89; RESP 15; O2SAT 96
[2024-10-05 23:28] VITALS: BP 131/60; PULSE 89; RESP 14; O2SAT 99
--- NOTE | 2024-10-05 23:28 | RAD_ITS ---
PROCEDURE: HIP 2 VIEW REASON FOR EXAM: 73-year-old female, status post interval hip reduction. TECHNIQUE: 2 views of the right hip COMPARISON: Same day hip radiographs FINDINGS: Interval reduction of the right total hip arthroplasty. Normal alignment. RAD/Hip 1 view with Pelvis IMPRESSION: Satisfactory right prosthetic hip reduction. Reading Location: [id number]
[2024-10-05 23:30] VITALS: BP 138/60; BP 141/78; BP 142/76; BP 150/65; BP 171/71; PULSE 88; PULSE 89; PULSE 90; PULSE 95; RESP 14; RESP 16; RESP 17; O2SAT 100; O2SAT 95; O2SAT 97; O2SAT 99
[2024-10-05 23:33] VITALS: BP 128/61; PULSE 89; RESP 14; O2SAT 96
[2024-10-05 23:38] VITALS: BP 132/62; PULSE 91; RESP 13; O2SAT 95
--- NOTE | 2024-10-06 00:24 | EX.ED.DYSGE1 ---
HPI History of Present Illness Chief Complaint: Lower Extremity Injury Informant: patient and family Narrative Narrative: Patient is a 73-year-old female with past medical history of hypertension and Crohn's disease. She underwent a complete hip replacement 6 weeks ago. She states around 9-930 this evening she was standing and she went to turn and her right leg just gave out. She states when she fell she did not strike her head or have loss of consciousness. She states her son was present in the house and was able to help her and therefore she was not lying on the ground for hours. She reports that she could not stand or move the right leg following the fall. She reports that it was dislocated roughly 7 days ago and had to be reset in the ER. She states it feels similar at this time and with concern for hip dislocation presents for evaluation [facility] Medical History History of renal disease Restless legs Dietary restriction Asthma History of pain when walking Hypertension Chest pain RBBB Crohn's disease COVID Wears partial dentures Wears glasses Post-menopausal Arthritis Anemia DVT (deep venous thrombosis) History of hiatal hernia History of diverticulitis Gastric reflux Non-smoker History of edema History of echocardiogram History of stress test [place] esophagus Epigastric pain Positive FIT (fecal immunochemical test) Sesamoiditis Sciatica Internal hemorrhoids Gastritis Diverticulosis of large intestine Diverticulosis of colon DVT (deep venous thrombosis) Cardiomegaly Bowel perforation Abdominal pain Anemia Chest pain HTN (hypertension) Home Medications ?Medication ?Instructions ?Recorded ?Last Taken ?Type amlodipine 10 mg tablet 10 mg PO QPM bp 04/03/16 11/16/23 History albuterol sulfate 90 mcg/actuation 2 puff inhalation Q6H PRN Sob &/Or 11/04/17 11/03/23 History aerosol inhaler Wheezing fluticasone propionate 50 1 spray QHS nasal congestion 01/07/19 11/16/23 History mcg/actuation nasal spray,suspension lisinopril 20 mg tablet 20 mg PO DAILY bp 01/07/19 11/17/23 History montelukast 10 mg tablet 10 mg PO QHS 08/15/21 11/16/23 History acetaminophen 500 mg tablet 1,000 mg PO Q8 PRN Pain 08/22/21 09/15/23 History multivitamin 1 tab PO DAILY 08/22/21 11/12/23 History atorvastatin 20 mg tablet (Lipitor) 20 mg PO QHS 09/13/21 11/16/23 History Lactobacillus acidophilus 10 100 mmu cells PO DAILY 09/15/23 11/12/23 History billion cell capsule (NewFlora) azelastine 205.5 mcg (0.15 %) 1 spray intranasal DAILY 09/15/23 11/16/23 History nasal spray (Astepro Allergy) omeprazole 20 mg delayed 20 mg PO DAILY 09/15/23 11/17/23 History release,disintegrating tablet mometasone-formoterol HFA 200 2 inh inhalation BID 10/15/23 08/23/24 History mcg-5 mcg/actuation aerosol inhaler (Dulera) cholecalciferol (vitamin D3) 25 25 mcg PO DAILY 07/27/24 Unknown History mcg (1,000 unit) capsule (Vitamin D3) meloxicam 7.5 mg tablet 7.5 mg PO BID 10/05/24 Unknown History Allergy/AdvReac Type Severity Reaction Status Date / Time amoxicillin trihydrate (From Allergy Rash Verified 10/05/24 21:26 Augmentin) Cephalosporins Allergy Rash Verified 10/05/24 21:26 potassium clavulanate (From Allergy Rash Verified 10/05/24 21:26 Augmentin) Sulfa (Sulfonamide Allergy Rash Verified 10/05/24 21:26 Antibiotics) Family History Sister Arthritis Breast cancer Osteoporosis Father Diabetes Cancer Skin Mother Hypertension Cancer skin cancer Osteoporosis Surgical History Hx of total knee arthroplasty History of cardiac catheterization Hx of total knee replacement Hx of total shoulder replacement History of esophagogastroduodenoscopy (EGD) Hx of ileostomy S/P tonsillectomy S/P cholecystectomy S/P ovarian cystectomy History of esophagogastroduodenoscopy (EGD) S/P colonoscopy Social History Smoking Status: Never smoker second hand exposure: No alcohol intake: never substance use type: does not use caffeine: Yes what type of physical activity do you participate in: none frequency: does not exercise seatbelt use: always ROS ROS ED Constitutional Constitutional ED: Denies chills or fever(s) Eyes Eyes: Denies blurry vision, change in vision or diplopia ENT ENT ED: Denies sore throat Cardiovascular Cardiovascular: Reports other Details: Negative syncope ; Denies chest pain or palpitations Respiratory/Chest Respiratory/Chest: Denies cough or dyspnea Gastrointestinal Gastrointestinal: Denies abdominal pain, diarrhea, nausea or vomiting Genitourinary Genitourinary ED: Denies dysuria Musculoskeletal Musculoskeletal: Reports other Details: Positive right hip pain ; Denies back pain or neck pain Integumentary Denies Abrasions or rash Neurologic Neurologic: Denies headache(s), paresthesias or weakness Hematologic/Lymphatic Hematologic/Lymphatic: Denies easy bleeding or easy bruising EXAM Physical Exam Const Vital Signs: 10/05/24 21:26 10/05/24 23:25 10/05/24 23:28 Temperature 98.2 F Temperature Source Oral Pulse Rate 80 89 89 Pulse Rate [1 (Initial Baseline)] Pulse Rate [2] Pulse Rate [3] Pulse Rate [4] Pulse Rate [5] Pulse Rate [6] Respiratory Rate 18 15 14 Respiratory Rate [1 (Initial Baseline)] Respiratory Rate [2] Respiratory Rate [3] Respiratory Rate [4] Respiratory Rate [5] Respiratory Rate [6] Blood Pressure 132/77 H 138/60 H 131/60 H Blood Pressure [1 (Initial Baseline)] Blood Pressure [2] Blood Pressure [3] Blood Pressure [4] Blood Pressure [5] Blood Pressure [6] Blood Pressure Mean 95 86 Pulse Ox 99 96 99 Oxygen Delivery Method Room Air Nasal Cannula Room Air Oxygen Delivery Method [1 (Initial Baseline)] Oxygen Delivery Method [2] Oxygen Delivery Method [3] Oxygen Delivery Method [4] Oxygen Delivery Method [5] Oxygen Delivery Method [6] Oxygen Flow Rate (L/min) 2 Oxygen Flow Rate (L/min) [1 (Initial Baseline)] Oxygen Flow Rate (L/min) [2] Oxygen Flow Rate (L/min) [3] Oxygen Flow Rate (L/min) [4] Oxygen Flow Rate (L/min) [5] Oxygen Flow Rate (L/min) [6] EtCo2 (Normal 35-45 , high quality CPR 10-20 & ROSC>/=40mmHg 33 EtCo2 (Normal 35-45 , high quality CPR 10-20 & ROSC>/=40mmHg [1 (Initial Baseline)] EtCo2 (Normal 35-45 , high quality CPR 10-20 & ROSC>/=40mmHg [2] EtCo2 (Normal 35-45 , high quality CPR 10-20 & ROSC>/=40mmHg [3] EtCo2 (Normal 35-45 , high quality CPR 10-20 & ROSC>/=40mmHg [4] EtCo2 (Normal 35-45 , high quality CPR 10-20 & ROSC>/=40mmHg [5] EtCo2 (Normal 35-45 , high quality CPR 10-20 & ROSC>/=40mmHg [6] 10/05/24 23:30 10/05/24 23:33 10/05/24 23:38 Temperature Temperature Source Pulse Rate 89 91 Pulse Rate [1 (Initial Baseline)] 95 Pulse Rate [2] 95 Pulse Rate [3] 95 Pulse Rate [4] 88 Pulse Rate [5] 89 Pulse Rate [6] 90 Respiratory Rate 14 13 Respiratory Rate [1 (Initial Baseline)] 17 Respiratory Rate [2] 17 Respiratory Rate [3] 17 Respiratory Rate [4] 16 Respiratory Rate [5] 14 Respiratory Rate [6] 14 Blood Pressure 128/61 H 132/62 H Blood Pressure [1 (Initial Baseline)] 150/65 H Blood Pressure [2] 171/71 H Blood Pressure [3] 171/71 H Blood Pressure [4] 142/76 H Blood Pressure [5] 141/78 H Blood Pressure [6] 138/60 H Blood Pressure Mean Pulse Ox 96 95 Oxygen Delivery Method Room Air Room Air Oxygen Delivery Method [1 (Initial Baseline)] Nasal Cannula Oxygen Delivery Method [2] Nasal Cannula Oxygen Delivery Method [3] Nasal Cannula Oxygen Delivery Method [4] Nasal Cannula Oxygen Delivery Method [5] Nasal Cannula Oxygen Delivery Method [6] Nasal Cannula Oxygen Flow Rate (L/min) Oxygen Flow Rate (L/min) [1 (Initial Baseline)] 2 Oxygen Flow Rate (L/min) [2] 2 Oxygen Flow Rate (L/min) [3] 2 Oxygen Flow Rate (L/min) [4] 2 Oxygen Flow Rate (L/min) [5] 2 Oxygen Flow Rate (L/min) [6] 2 EtCo2 (Normal 35-45 , high quality CPR 10-20 & ROSC>/=40mmHg 28 30 EtCo2 (Normal 35-45 , high quality CPR 10-20 & ROSC>/=40mmHg [1 (Initial Baseline)] 34 EtCo2 (Normal 35-45 , high quality CPR 10-20 & ROSC>/=40mmHg [2] 34 EtCo2 (Normal 35-45 , high quality CPR 10-20 & ROSC>/=40mmHg [3] 35 EtCo2 (Normal 35-45 , high quality CPR 10-20 & ROSC>/=40mmHg [4] 35 EtCo2 (Normal 35-45 , high quality CPR 10-20 & ROSC>/=40mmHg [5] 34 EtCo2 (Normal 35-45 , high quality CPR 10-20 & ROSC>/=40mmHg [6] 33 10/06/24 00:34 Temperature 98.2 F Temperature Source Pulse Rate 92 Pulse Rate [1 (Initial Baseline)] Pulse Rate [2] Pulse Rate [3] Pulse Rate [4] Pulse Rate [5] Pulse Rate [6] Respiratory Rate 18 Respiratory Rate [1 (Initial Baseline)] Respiratory Rate [2] Respiratory Rate [3] Respiratory Rate [4] Respiratory Rate [5] Respiratory Rate [6] Blood Pressure 152/69 H Blood Pressure [1 (Initial Baseline)] Blood Pressure [2] Blood Pressure [3] Blood Pressure [4] Blood Pressure [5] Blood Pressure [6] Blood Pressure Mean 96 Pulse Ox 98 Oxygen Delivery Method Oxygen Delivery Method [1 (Initial Baseline)] Oxygen Delivery Method [2] Oxygen Delivery Method [3] Oxygen Delivery Method [4] Oxygen Delivery Method [5] Oxygen Delivery Method [6] Oxygen Flow Rate (L/min) Oxygen Flow Rate (L/min) [1 (Initial Baseline)] Oxygen Flow Rate (L/min) [2] Oxygen Flow Rate (L/min) [3] Oxygen Flow Rate (L/min) [4] Oxygen Flow Rate (L/min) [5] Oxygen Flow Rate (L/min) [6] EtCo2 (Normal 35-45 , high quality CPR 10-20 & ROSC>/=40mmHg EtCo2 (Normal 35-45 , high quality CPR 10-20 & ROSC>/=40mmHg [1 (Initial Baseline)] EtCo2 (Normal 35-45 , high quality CPR 10-20 & ROSC>/=40mmHg [2] EtCo2 (Normal 35-45 , high quality CPR 10-20 & ROSC>/=40mmHg [3] EtCo2 (Normal 35-45 , high quality CPR 10-20 & ROSC>/=40mmHg [4] EtCo2 (Normal 35-45 , high quality CPR 10-20 & ROSC>/=40mmHg [5] EtCo2 (Normal 35-45 , high quality CPR 10-20 & ROSC>/=40mmHg [6] Positive well nourished, well developed and obese General Appearance ED: well developed Nutritional Appearance: obese HEENT HEENT Narrative: Normocephalic atraumatic No signs of depressed or basilar skull fracture No tongue or lip swelling no oral lesions no airway edema or compromise Eyes PERRL and EOMs intact bilaterally General Eye ED: Negative for scleral icterus Neck supple Neck Narrative: No bony deformity or step-off of the cervical spine no midline tenderness to palpation Chest Wall palpation of chest normal Resp normal respiratory effort and clear to auscultation bilaterally Cardio regular rate and regular rhythm Extremity Extremity Narrative: Right lower extremity is neurovascularly intact. However the right lower extremity is shortened and externally rotated concerning for fracture versus dislocation. Pelvis is stable. Compartments are soft and compressible going against compartment syndrome There is a postoperative wound along the right upper thigh that is clean dry and intact without secondary findings to suggest infection Neuro oriented x3, CN's II-XII intact bilaterally and no sensory deficits noted Sensorium / Orientation: alert Psych mental status grossly normal Skin no rashes or lesions noted Skin Narrative: Postoperative wound to the right thigh as documented above MDM MDM MDM Narrative Medical decision making narrative: Patient presented to the ER with stable vitals. She reported a mechanical fall and therefore I felt no need for cardiac or syncope workup. She did not strike her head or have loss of consciousness so my concern for a traumatic subarachnoid or subdural hemorrhage is low and I do not feel the need for a CT scan. History and exam is most consistent with a hip dislocation in order to confirm this and also rule out a pubic rami fracture or periprosthetic fracture and x-ray was obtained. X-ray confirmed a hip dislocation. Therefore the patient underwent conscious sedation with closed reduction as documented below. After the joint was properly reduced x-ray was reordered to confirm proper alignment. As the joint has been reduced to its proper alignment patient is hemodynamically stable and remains neurovascularly intact there is no need for further intervention and she is otherwise safe for discharge Patient was given a total of 80 mg of propofol and 2.5 mg of Versed. Following this traction with external rotation was applied to the right hip and there was spontaneous reduction of the dislocation. Following reduction patient remained neurovascularly intact and tolerated procedure well without complication History & Record Review Discussion w/independent historian: Patient and Family Radiography Diagnostic Testing: Clinical Impression(s) from Imaging Studies Hip/Pelvis X-Ray 10/05/24 22:08 IMPRESSION: Superior, lateral dislocation of the right femoral head prosthesis as compared to the acetabular cap. Reading [facility] Hip/Pelvis X-Ray 10/05/24 23:28 IMPRESSION: Satisfactory right prosthetic hip reduction. Reading Location: [facility] X-ray of the right hip as interpreted by the emergency medicine physician reveals a superior lateral dislocation of the right prosthetic femoral head from the acetabular Status post reduction right hip x-ray as interpreted by the emergency medicine physician reveals appropriate/satisfactory hip reduction without surrounding periprosthetic fracture Procedures Procedural Sedation 1 (Initial Baseline): Consent Signed: Yes Any Problems With Anesthesia: No You/Your family experience fever (hyperthermia) w/anesthesia: No Sedation medication: Propofol Dose: 80 Route: IV Maliampati Score: Class III ASA Classification: III Discharge Plan Triage Chief Complaint: Lower Extremity Injury ED Provider: Steve Abernathy Dx/Rx/DC Orders Clinical Impression: Anterior dislocation of right hip, Hypertension, Crohn's disease Instructions: ED Hip Replace Dislocation Reduc Prescriptions: No Action albuterol sulfate 90 mcg/actuation HFA aerosol inhaler 2 puff INHALATION Q6H PRN (Reason: Sob &/Or Wheezing) amlodipine 10 MG tablet 10 mg PO QPM Patient Comments: heart, blood pressure fluticasone propionate 1 SPRAY spray,suspension 1 spray NASAL QHS lisinopril 20 MG tablet 20 mg PO DAILY Patient Comments: blood pressure montelukast 10 mg tablet 10 mg PO QHS Patient Comments: TAKE 1 TABLET DAILY AT BEDTIME acetaminophen 500 MG tablet 1,000 mg PO Q8 PRN (Reason: Pain) multivitamin Tablet 1 tab PO DAILY atorvastatin [Lipitor] 20 mg tablet 20 mg PO QHS omeprazole 20 mg tablet,disintegrat, delay rel 20 mg PO DAILY azelastine [Astepro Allergy] 205.5 mcg (0.15 %) spray,non-aerosol 1 spray intranasal DAILY Rx Instructions: administer into each nostril NewFlora 10 billion cell capsule 100 mmu cells PO DAILY Patient Comments: UNSURE OF STRENGTH OR BRAND PURCHASED PRIOBIOTIC AT THE [employer] [place] [facility] 200-5 mcg/actuation HFA aerosol inhaler 2 inh inhalation BID cholecalciferol (vitamin D3) [Vitamin D3] 25 mcg (1,000 unit) capsule 25 mcg PO DAILY meloxicam 7.5 mg tablet 7.5 mg PO BID Primary Care Provider: Caitlin Moreland Referrals: Caitlin Moreland MD [Primary Care Provider] - Placido Jaramillo MD [Med Staff - Active Staff] - Activity Restrictions/Additional Instructions: Please follow-up with your orthopedic physician to discuss any further treatment options as you have dislocated your prosthetic hip twice in the last 7 days. Try to avoid turning or twisting with your right foot as the pivot foot to reduce excess stress on the joint and return to the ER should you have any further concerns Print Language: Frisian Disposition Disposition: Home, Self Care Discharge Date/Time: 10/06/24 00:45
[2024-10-06 00:34] VITALS: BP 152/69; PULSE 92; RESP 18; TEMP 36.8; O2SAT 98
== END 2024-10-06 00:45 | disposition home or self-care (01) ==
PROVIDERS: Emergency Provider Emergency Medicine; PCP Internal Medicine; Visit Provider Emergency Medicine
DX: S73.034A Other anterior dislocation of right hip, initial encounter (principal); K50.90 Crohn's disease, unspecified, without complications; I10 Essential (primary) hypertension; J45.909 Unspecified asthma, uncomplicated; K21.9 Gastro-esophageal reflux disease without esophagitis; Z96.641 Presence of right artificial hip joint; E66.9 Obesity, unspecified; W19.XXXA Unspecified fall, initial encounter
CPT/HCPCS: 27250; 73501; 73502; 96361; 96374; 96375; 99285; J2405

== ENCOUNTER 2024-10-18 10:00 | Outpatient (CLI) | payer MEDICARE, SELFPAY | END 2024-10-18 19:00 | disposition home or self-care (01) | LOC: SDC 06-15 09:26 | PROVIDERS: Anesthesiology; PCP Internal Medicine; Referring Provider Specialist; Visit Provider Specialist | DX: Z53.9 Procedure and treatment not carried out, unspecified reason (principal); Z96.641 Presence of right artificial hip joint; I10 Essential (primary) hypertension; K21.9 Gastro-esophageal reflux disease without esophagitis; E78.00 Pure hypercholesterolemia, unspecified; J45.909 Unspecified asthma, uncomplicated; Z79.899 Other long term (current) drug therapy | CPT/HCPCS: 36415; 83735; 87081 ==

== ENCOUNTER 2024-10-26 15:04 | Inpatient (IN) | payer MEDICARE, SELFPAY ==
[2024-10-26] VITALS (10 sets, daily range): BP systolic 100–189; BP diastolic 65–90; PULSE 70–91; RESP 12–20; TEMP 36.6–36.7; O2SAT 94–100; BMI 39.6; BMI 38.9
[2024-10-26] MEDS: Ondansetron 4 MG/2 ML Vial IV (15:17)
--- NOTE | 2024-10-26 15:17 | EX.ED.GENINJ ---
HPI History of Present Illness Chief Complaint: Fall Informant: patient and EMS Narrative Narrative: Brought in by EMS for fall and hip pain concerns for dislocation. Approximately 9 weeks postop elective right hip arthroplasty. She states came home was backing up in her bedroom she stumbled falling back hitting shoulder on the door sliding down onto her hip. She felt her hip come out. No head injuries no headache no back pain. Pain in her right hip. She is followed by Dr. Jaramillo. She has had 2 dislocations since her surgery last time was October 06. Status post fentanyl by EMS. Pain 7 out of 10. Last meal was 11 AM over 4 hours ago. Prior similar symptoms: Yes PFSH PFSH Medical History (Updated 10/26/24 @ 19:49 by Samara Trevino) Hypothyroidism Osteoarthritis Hiatal hernia History of renal disease Restless legs Dietary restriction Asthma History of pain when walking Hypertension Chest pain RBBB Crohn's disease COVID Wears partial dentures Wears glasses Post-menopausal Arthritis Anemia DVT (deep venous thrombosis) History of hiatal hernia History of diverticulitis Gastric reflux Non-smoker History of edema History of echocardiogram History of stress test [place] esophagus Epigastric pain Positive FIT (fecal immunochemical test) Sesamoiditis Sciatica Internal hemorrhoids Gastritis Diverticulosis of large intestine Diverticulosis of colon DVT (deep venous thrombosis) Cardiomegaly Bowel perforation Abdominal pain Anemia Chest pain HTN (hypertension) Home Medications ?Medication ?Instructions ?Recorded ?Last Taken ?Type amlodipine 10 mg tablet 10 mg PO QPM bp 04/03/16 10/25/24 History albuterol sulfate 90 mcg/actuation 2 puff inhalation Q6H PRN Sob &/Or 11/04/17 11/03/23 History aerosol inhaler Wheezing fluticasone propionate 50 1 spray QHS nasal congestion 01/07/19 10/25/24 History mcg/actuation nasal spray,suspension lisinopril 20 mg tablet 20 mg PO DAILY bp 01/07/19 10/26/24 History montelukast 10 mg tablet 10 mg PO QHS allergy 08/15/21 10/25/24 History acetaminophen 500 mg tablet 1,000 mg PO Q8 PRN Pain 08/22/21 10/25/24 History multivitamin 1 tab PO DAILY supplement 08/22/21 10/25/24 History atorvastatin 20 mg tablet (Lipitor) 20 mg PO QHS cholesterol 09/13/21 10/25/24 History Lactobacillus acidophilus 10 100 mmu cells PO DAILY immune 09/15/23 10/26/24 History billion cell capsule (NewFlora) supplement azelastine 205.5 mcg (0.15 %) 1 spray intranasal DAILY PRN 09/15/23 11/16/23 History nasal spray (Astepro Allergy) allergy omeprazole 20 mg delayed 20 mg PO DAILY heartburn 09/15/23 10/26/24 History release,disintegrating tablet mometasone-formoterol HFA 200 2 inh inhalation BID allergies 10/15/23 10/25/24 History mcg-5 mcg/actuation aerosol inhaler (Dulera) cholecalciferol (vitamin D3) 25 25 mcg PO DAILY supplement 07/27/24 10/26/24 History mcg (1,000 unit) capsule (Vitamin D3) meloxicam 7.5 mg tablet 7.5 mg PO BID pain 10/05/24 10/26/24 History carboxymethylcellulose 0.5 1 drp EACH EYE DAILY 10/26/24 Unknown History %-glycerin 0.9 % eye drops (Lubricant Eye (cmc-glycerin)) ferrous sulfate 325 mg (65 mg 325 mg PO DAILY 10/26/24 10/26/24 History iron) tablet (FeroSul) folic acid 1 mg tablet 1 mg PO DAILY 10/26/24 10/26/24 History Allergy/AdvReac Type Severity Reaction Status Date / Time amoxicillin trihydrate (From Allergy Rash Verified 10/26/24 15:08 Augmentin) Cephalosporins Allergy Rash Verified 10/26/24 15:08 potassium clavulanate (From Allergy Rash Verified 10/26/24 15:08 Augmentin) Sulfa (Sulfonamide Allergy Rash Verified 10/26/24 15:08 Antibiotics) Family History Sister Arthritis Breast cancer Osteoporosis Father Diabetes Cancer Skin Mother Hypertension Cancer skin cancer Osteoporosis Surgical History (Updated 10/26/24 @ 19:48 by Samara Trevino) History of appendectomy History of cholecystectomy Hx of total knee arthroplasty History of cardiac catheterization Hx of total knee replacement Hx of total shoulder replacement History of esophagogastroduodenoscopy (EGD) Hx of ileostomy S/P tonsillectomy S/P cholecystectomy S/P ovarian cystectomy History of esophagogastroduodenoscopy (EGD) S/P colonoscopy Social History Smoking Status: Never smoker second hand exposure: No alcohol intake: never substance use type: does not use caffeine: Yes what type of physical activity do you participate in: none frequency: does not exercise seatbelt use: always ROS ROS ED Constitutional Constitutional ED: Denies chills, fever(s) or sweats ENT ENT ED: Denies sore throat Cardiovascular Cardiovascular: Denies chest pain, leg edema, palpitations or racing heartbeat Respiratory/Chest Respiratory/Chest: Denies cough, dyspnea or dyspnea on exertion Gastrointestinal Gastrointestinal: Denies abdominal pain, diarrhea, nausea or vomiting Genitourinary Genitourinary ED: Denies dysuria, hematuria or urinary frequency Musculoskeletal Musculoskeletal: Reports extremity pain; Denies back pain or neck pain Integumentary Denies rash or wounds Neurologic Neurologic: Denies headache(s), paresthesias or weakness EXAM Physical Exam Const Vital Signs: 10/26/24 15:05 10/26/24 16:07 10/26/24 16:55 Temperature 97.8 F Temperature Source Oral Pulse Rate 80 91 Pulse Rate [3] Respiratory Rate 20 H 13 Respiratory Rate [3] Respiratory Effort Normal Non-Labored Blood Pressure 189/90 H 179/76 H Blood Pressure [3] Blood Pressure Mean 123 Baseline BP 179/76 Pulse Ox 97 99 Oxygen Delivery Method Room Air Nasal Cannula Oxygen Delivery Method [1 (Initial Baseline)] Oxygen Delivery Method [2] Oxygen Delivery Method [3] Oxygen Flow Rate (L/min) 3 Oxygen Flow Rate (L/min) [1 (Initial Baseline)] Oxygen Flow Rate (L/min) [2] Oxygen Flow Rate (L/min) [3] EtCo2 (Normal 35-45 , high quality CPR 10-20 & ROSC>/=40mmHg 34 EtCo2 (Normal 35-45 , high quality CPR 10-20 & ROSC>/=40mmHg [3] 10/26/24 16:56 10/26/24 16:59 10/26/24 17:05 Temperature Temperature Source Pulse Rate 81 Pulse Rate [3] 87 Respiratory Rate 12 Respiratory Rate [3] 14 Respiratory Effort Blood Pressure 143/71 H Blood Pressure [3] 133/70 H Blood Pressure Mean Baseline BP Pulse Ox 99 Oxygen Delivery Method Nasal Cannula Oxygen Delivery Method [1 (Initial Baseline)] Nasal Cannula Oxygen Delivery Method [2] Nasal Cannula Oxygen Delivery Method [3] Nasal Cannula Oxygen Flow Rate (L/min) 3 Oxygen Flow Rate (L/min) [1 (Initial Baseline)] 3 Oxygen Flow Rate (L/min) [2] 3 Oxygen Flow Rate (L/min) [3] 3 EtCo2 (Normal 35-45 , high quality CPR 10-20 & ROSC>/=40mmHg 34 36 EtCo2 (Normal 35-45 , high quality CPR 10-20 & ROSC>/=40mmHg [3] 33 10/26/24 17:10 10/26/24 17:15 10/26/24 17:25 Temperature Temperature Source Pulse Rate 79 82 86 Pulse Rate [3] Respiratory Rate 17 15 20 H Respiratory Rate [3] Respiratory Effort Blood Pressure 140/76 H 100/90 H 141/76 H Blood Pressure [3] Blood Pressure Mean 97 Baseline BP Pulse Ox 98 97 Oxygen Delivery Method Room Air Room Air Oxygen Delivery Method [1 (Initial Baseline)] Oxygen Delivery Method [2] Oxygen Delivery Method [3] Oxygen Flow Rate (L/min) Oxygen Flow Rate (L/min) [1 (Initial Baseline)] Oxygen Flow Rate (L/min) [2] Oxygen Flow Rate (L/min) [3] EtCo2 (Normal 35-45 , high quality CPR 10-20 & ROSC>/=40mmHg 34 34 EtCo2 (Normal 35-45 , high quality CPR 10-20 & ROSC>/=40mmHg [3] 10/26/24 18:00 Temperature Temperature Source Pulse Rate 85 Pulse Rate [3] Respiratory Rate 13 Respiratory Rate [3] Respiratory Effort Blood Pressure 154/65 H Blood Pressure [3] Blood Pressure Mean 91 Baseline BP Pulse Ox 97 Oxygen Delivery Method Oxygen Delivery Method [1 (Initial Baseline)] Oxygen Delivery Method [2] Oxygen Delivery Method [3] Oxygen Flow Rate (L/min) Oxygen Flow Rate (L/min) [1 (Initial Baseline)] Oxygen Flow Rate (L/min) [2] Oxygen Flow Rate (L/min) [3] EtCo2 (Normal 35-45 , high quality CPR 10-20 & ROSC>/=40mmHg EtCo2 (Normal 35-45 , high quality CPR 10-20 & ROSC>/=40mmHg [3] Positive well nourished and well developed Constitutional Narrative: GCS 15. General Appearance ED: well developed and NAD HEENT Reports moist mucous membranes normocephalic and atraumatic Eyes General Eye ED: Yes normal appearance of both eyes Neck full ROM Chest Wall inspection of chest normal and palpation of chest normal Chest: Negative for tenderness Resp normal respiratory effort and normal air movement Effort and Inspection: symmetric chest movement; Negative for respiratory distress Cardio regular rate, regular rhythm and no murmurs Peripheral Pulses: pulses 2+ throughout GI normal to inspection, nondistended, normoactive bowel sounds and non-tender Palpation: Negative for guarding or rebound tenderness present Back/Spine normal to inspection and no thoracic nor lumbar tenderness Extremity Extremity Narrative: Right lower extremity shortened and externally rotated. No femur tenderness. Soft compartments. Pulses intact distally. General Extremety ED: Yes tenderness; Negative for edema General Extremity: Negative for edema Neuro oriented x3 and no sensory deficits noted Sensorium / Orientation: awake and alert Skin no rashes or lesions noted and no wounds PROC Procedures Procedural Sedation 1 (Initial Baseline): Consent Signed: Yes Any Problems With Anesthesia: No You/Your family experience fever (hyperthermia) w/anesthesia: No Sedation medication: Propofol Dose: 70 Route: IV Maliampati Score: Class II ASA Classification: II MDM MDM MDM Narrative Medical decision making narrative: Interventions / MDM: Differential diagnosis: Recurrent right hip dislocation, right hip pain Diagnosis considered but do not suspect: Fracture however x-ray negative. My EKG interpretation: Sinus rhythm 85, no ST changes, right bundle branch block. Similar to August 23, 2024. Imaging independently reviewed and interpreted by myself: 1 view pelvis: Right hip dislocation. 2 views right femur: Anterior dislocation right hip. Preop 1 view chest x-ray: No acute process. Post reduction 2 view right hip: Reduction of prosthetic hip. Also read by radiology. External documents reviewed: N/A Test considered but not ordered:N/A ED course: Right lower extremity shortened rotated with recent arthroplasty. Concerns for likely dislocation. Will keep her NPO. IV established for labs, morphine Zofran ordered. Will obtain pelvis and femur films. X-ray confirms dislocation there is no fracture. Consent obtained for reduction. 1649: Timeout performed name date of . Last meal 11 AM. Normal sinus rhythm on the monitor. ASA of 2. Mallampati of 2. Patient given a total of 70 mg of IV propofol. Captain Theron maneuver performed, Vascular intact post relocation. Lower extremity more aligned and not shortened or rotated. knee immobilizer placed. Total sedation time 10 minutes. I did speak with on-call orthopedist Dr. Shahab Bella, who got a hold of Dr. Placido Jaramillo does confirm admission to hospitalist. He would like medical clearance for planned revision on . I spoke with hospitalist Dr. Stacey Aldridge for admission. Re-evaluation: stable Disposition discussed with patient/family/significant other: Patient and family Case discussed with consulting clinician: orthopedic service, hospitalist service This note was generated with Klique dictation software. It may contain incorrect words, spelling, and punctuation that were not noted in checking the note before signing. Lab Data Attestation: I reviewed the patient's lab results. Labs: Laboratory Results - last 24 hr 10/26/24 15:14 WBC 6.4 RBC 4.99 Hgb 12.0 Hct 38.9 MCV 78.0 L MCH 24.0 L MCHC 30.8 L RDW Std Deviation 41.3 RDW Coeff of Anuradha 14.8 H Plt Count 210 MPV 10.0 Immature Gran % (Auto) 0.500 Neut % (Auto) 70.2 H Lymph % (Auto) 17.7 L [place] % (Auto) 7.9 Eos % (Auto) 2.8 Baso % (Auto) 0.9 Absolute Neuts (auto) 4.5 Absolute Lymphs (auto) 1.14 Nucleated RBC % 0 PT 13.7 INR 1.0 APTT 25.7 Sodium 136 Potassium 4.0 Chloride 101 Carbon Dioxide 23.8 Anion Gap 11 BUN 21 H Creatinine 0.72 Estim Creat Clear Calc 68.68 Est GFR (MDRD) Non-Af 88 BUN/Creatinine Ratio 29.4 H Glucose 130 H Calcium 9.7 Radiography Diagnostic Testing: Clinical Impression(s) from Imaging Studies Femur X-Ray 10/26/24 16:05 IMPRESSION: Acute right hip dislocation. Recommend urgent orthopedic surgery consultation. Reading Location: [id number] Pelvis X-Ray 10/26/24 16:05 IMPRESSION: Posterior dislocation of the right humeral head prosthesis. Acetabular cup remains in place. Ovoid calcification in the left hemipelvis, nonspecific but potentially a fibroid. Reading Location: [facility] Hip X-Ray 10/26/24 17:15 IMPRESSION: Status post reduction of right hip prosthesis dislocation. Anatomic alignment. Reading Location: [facility] Chest X-Ray 10/26/24 18:02 IMPRESSION: No focal infiltrate or consolidation is seen within the lungs. Reading Location: [id number] Discharge Plan Dx/Rx/DC Orders Clinical Impression: Recurrent dislocation of right hip, Acute pain of right hip, Fall Disposition Disposition: Acute Care Hospital [facility] Discharge Date/Time: 10/26/24 19:00
[2024-10-26] MEDS: Morphine 4 MG/ML Syringe IV (15:18)
[2024-10-26 15:20] LABS: Absolute Lymphocyte Count 1.14 X10^3/uL (0.83-4.51); Absolute Neutrophil Count 4.5 X10^3/uL (2.0-7.7); Basophil# 0.06 X10^3/uL; Basophil% 0.9 % (0-1); Eosinophil# 0.18 X10^3/uL; Eosinophils% 2.8 % (0-5); Hematocrit 38.9 % (37-47); Lymphocyte # 1.14 X10^3/ul (0.83-4.51); Lymphocyte % 17.7 % (19-41); Mean Corp Hgb Conc 30.8 g/dL (32-36); Monocyte# 0.51 X10^3/uL; Monocyte% 7.9 % (0-10); NRBC Flagged by Analyzer 0 % (0-5); Neutrophil # 4.51 X10^3/uL (2.7-7.7); Neutrophil % 70.2 % (47-70); Platelet Count 210 K/mm3 (150-450); RBC Distribution Width CV 14.8 % (11.6-14.6); RBC Distribution Width SD 41.3 fl (35.1-43.9); Red Blood Count 4.99 M/mm3 (4.2-5.4); White Blood Count 6.4 K/mm3 (4.4-11.0)
[2024-10-26 15:38] LABS: Partial Thromboplast Time 25.7 Seconds (24.1-36.2)
[2024-10-26 15:41] LABS: Anion Gap 11 (5-15); BUN 21 mg/dL (4-19); BUN/Creat Ratio 29.4 RATIO (10-20); Calcium,Total 9.7 mg/dL (7.6-11.0); Carbon Dioxide 23.8 mmol/L (21.0-32.0); Chloride 101 mmol/L (98-108); Creatinine, Serum 0.72 mg/dL (0.70-1.20); EST Glomerular Filtration Rate 88 (>60); Estimated Creatinine Clearance 68.68 ml/min (50-250); Glucose 130 mg/dL (70-99); Sodium Level 136 mmol/L (133-145)
[2024-10-26 15:50] LABS: Prothrombin Time (Protime)PT. 13.7 SECONDS (11.7-14.9)
--- NOTE | 2024-10-26 16:05 | RAD_ITS ---
PROCEDURE: Pelvis radiograph REASON FOR EXAM: INJURY TECHNIQUE: 1 view(s) of the pelvis. COMPARISON: None FINDINGS: See impression RAD/Pelvis 1 or 2 Views IMPRESSION: Posterior dislocation of the right humeral head prosthesis. Acetabular cup rem ains in place. Ovoid calcification in the left hemipelvis, nonspecific but potentially a fibroid. Reading Location: [facility]
--- NOTE | 2024-10-26 16:05 | RAD_ITS ---
PROCEDURE: FEMUR MIN 2 VIEWS REASON FOR EXAM: INJURY TECHNIQUE: 2 view(s) of each femur COMPARISON: None. FINDINGS: Acute right hip joint dislocation is present with superior dislocation of the femoral component of the right hip prosthesis. Recommend urgent orthopedic consultation. No definite fracture is seen. Right knee prosthesis is in place. RAD/Femur Min 2 Views IMPRESSION: Acute right hip dislocation. Recommend urgent orthopedic surgery consultation. Reading Location: [id number]
[2024-10-26] MEDS: Propofol 200 MG/20 ML Vial IV BOLUS (16:56)
--- NOTE | 2024-10-26 17:15 | RAD_ITS ---
PROCEDURE: HIP MIN 2 VIEWS (PORTABLE) REASON FOR EXAM: RELOCATION TECHNIQUE: 2 view of the right hip COMPARISON: Right hip x-ray performed on the same day. FINDINGS: Sit-ups post reduction of right hip arthroplasty dislocation. Anatomic alignment. No fracture is identified. Degenerative changes seen within the right SI joint. No fracture is identified. RAD/Hip Min 2 Views (Portable) IMPRESSION: Status post reduction of right hip prosthesis dislocation. Anatomic alignment. Reading Location: [id number]
--- NOTE | 2024-10-26 18:00 | EKG12_ITS ---
Test Reason : DYSRHYTHMIA Blood Pressure : */* mmHG Vent. Rate : 85 BPM Atrial Rate : 85 BPM P-R Int : 206 ms QRS Dur : 162 ms QT Int : 424 ms P-R-T Axes : 45 16 28 degrees QTcB Int : 504 ms Normal sinus rhythm Right bundle branch block Abnormal ECG Confirmed by GUSTAVO SOTO, IDALIA ([id number]), state editor MENDEL MA ([id number]) on 11/01/2024 11:18:07 AM Referred By: Confirmed By: IDALIA CHEN MD
--- NOTE | 2024-10-26 18:02 | RAD_ITS ---
PROCEDURE: CHEST 1 VIEW (PORTABLE) REASON FOR EXAM: PRE OP TECHNIQUE: Frontal view of the chest. COMPARISON: Chest x-ray dated 09/15/2023. FINDINGS: The heart size is normal. The lungs are clear. Streaky changes at the left lung base may represent scarring, similar to prior examination. No acute osseous abnormality seen. Status post bilateral shoulder arthroplasty. No change. RAD/Chest 1 View (Portable) IMPRESSION: No focal infiltrate or consolidation is seen within the lungs. Reading Location: [id number]
--- NOTE | 2024-10-26 18:18 | HP.PCM.HOS_ITS ---
HPI - General HPI Narrative JA ADAME, is a 73 F with pmhx of R hip arthroplasty per Dr. Jaramillo on Aug 23, also with hx of DVT following colon resection, HTN, asthma, GERD, Crohns disease, who presented to the ER today with dislocation of her R post op hip. This is the third occurrence of dislocation since the surgery in August. She reports that she was at home and took a step and rotated her body to the left which caused her right hip to pop out, at which point she fell to the ground. She was brought to the ER by EMS and xray was obtained showing posterior dislocation of the humeral head prosthesis, subsequently reduced by ER provider, who then contacted [employer] ortho and plan was made to admit the patient to take to surgery for revision on . At this time pt in agreement with plan and reporting 0 pain at rest in bed in immobilizer. No recent illness or infection, no cough, chest pain, abdominal pain, fevers. Pt last ate about 1100 today. [facility] Medical History History of renal disease Restless legs Dietary restriction Asthma History of pain when walking Hypertension Chest pain RBBB Crohn's disease COVID Wears partial dentures Wears glasses Post-menopausal Arthritis Anemia DVT (deep venous thrombosis) History of hiatal hernia History of diverticulitis Gastric reflux Non-smoker History of edema History of echocardiogram History of stress test [place] esophagus Epigastric pain Positive FIT (fecal immunochemical test) Sesamoiditis Sciatica Internal hemorrhoids Gastritis Diverticulosis of large intestine Diverticulosis of colon DVT (deep venous thrombosis) Cardiomegaly Bowel perforation Abdominal pain Anemia Chest pain HTN (hypertension) Home Medications ?Medication ?Instructions ?Recorded ?Last Taken ?Type amlodipine 10 mg tablet 10 mg PO QPM bp 04/03/1606/11 History albuterol sulfate 90 mcg/actuation 2 puff inhalation Q 6H PRN Sob &/Or 11/04/17 11/03/23 History aerosol inhaler Wheezing fluticasone propionate 50 1 spray QHS nasal congestion 01/07/19 10/25/24 History mcg/actuation nasal spray,suspension lisinopril 20 mg tablet 20 mg PO DAILY bp 01/07/19 0 10/26/24 History montelukast 10 mg tablet 10 mg PO QHS allergy 1 10/25/24 History acetaminophen 500 mg tablet 1,000 mg PO Q8 PRN Pain 10/25/24 History multivitamin 1 tab PO DAILY supplement 10/25/24 History atorvastatin 20 mg tablet (Lipitor) 20 mg PO QHS chol esterol 09/13/21 10/25/24 History Lactobacillus acidophilus 10 100 mmu cells PO DAILY im mune 09/15/23 10/26/24 History billion cell capsule (NewFlora) supplement azelastine 205.5 mcg (0.15 %) 1 spray intranasal DAILY PRN 09/15/23 11/16/23 History nasal spray (Astepro Allergy) allergy omeprazole 20 mg delayed 20 mg PO DAILY heartburn 10/26/24 History release,disintegrating tablet mometasone-formoterol HFA 200 2 inh inhalation BID all ergies 10/15/23 10/25/24 History mcg-5 mcg/actuation aerosol inhaler (Dulera) cholecalciferol (vitamin D3) 25 25 mcg PO DAILY supple ment 07/27/24 10/26/24 History mcg (1,000 unit) capsule (Vitamin D3) meloxicam 7.5 mg tablet 7.5 mg PO BID pain 10/05/24 10/26/24 History carboxymethylcellulose 0.5 1 drp EACH EYE DAILY
--- NOTE | 2024-10-26 18:18 | PCM.HP.STD ---
HPI - General HPI Narrative JA ADAME, is a 73 F with pmhx of R hip arthroplasty per Dr. Jaramillo on Aug 23, also with hx of DVT following colon resection, HTN, asthma, GERD, Crohns disease, who presented to the ER today with dislocation of her R post op hip. This is the third occurrence of dislocation since the surgery in August. She reports that she was at home and took a step and rotated her body to the left which caused her right hip to pop out, at which point she fell to the ground. She was brought to the ER by EMS and xray was obtained showing posterior dislocation of the humeral head prosthesis, subsequently reduced by ER provider, who then contacted director of online merchandising ortho and plan was made to admit the patient to take to surgery for revision on . At this time pt in agreement with plan and reporting 0 pain at rest in bed in immobilizer. No recent illness or infection, no cough, chest pain, abdominal pain, fevers. Pt last ate about 1100 today. [facility] Medical History History of renal disease Restless legs Dietary restriction Asthma History of pain when walking Hypertension Chest pain RBBB Crohn's disease COVID Wears partial dentures Wears glasses Post-menopausal Arthritis Anemia DVT (deep venous thrombosis) History of hiatal hernia History of diverticulitis Gastric reflux Non-smoker History of edema History of echocardiogram History of stress test [place] esophagus Epigastric pain Positive FIT (fecal immunochemical test) Sesamoiditis Sciatica Internal hemorrhoids Gastritis Diverticulosis of large intestine Diverticulosis of colon DVT (deep venous thrombosis) Cardiomegaly Bowel perforation Abdominal pain Anemia Chest pain HTN (hypertension) Home Medications ?Medication ?Instructions ?Recorded ?Last Taken ?Type amlodipine 10 mg tablet 10 mg PO QPM bp 04/03/16 10/25/24 History albuterol sulfate 90 mcg/actuation 2 puff inhalation Q6H PRN Sob &/Or 11/04/17 11/03/23 History aerosol inhaler Wheezing fluticasone propionate 50 1 spray QHS nasal congestion 01/07/19 10/25/24 History mcg/actuation nasal spray,suspension lisinopril 20 mg tablet 20 mg PO DAILY bp 01/07/19 10/26/24 History montelukast 10 mg tablet 10 mg PO QHS allergy 08/15/21 10/25/24 History acetaminophen 500 mg tablet 1,000 mg PO Q8 PRN Pain 08/22/21 10/25/24 History multivitamin 1 tab PO DAILY supplement 08/22/21 10/25/24 History atorvastatin 20 mg tablet (Lipitor) 20 mg PO QHS cholesterol 09/13/21 10/25/24 History Lactobacillus acidophilus 10 100 mmu cells PO DAILY immune 09/15/23 10/26/24 History billion cell capsule (NewFlora) supplement azelastine 205.5 mcg (0.15 %) 1 spray intranasal DAILY PRN 09/15/23 11/16/23 History nasal spray (Astepro Allergy) allergy omeprazole 20 mg delayed 20 mg PO DAILY heartburn 09/15/23 10/26/24 History release,disintegrating tablet mometasone-formoterol HFA 200 2 inh inhalation BID allergies 10/15/23 10/25/24 History mcg-5 mcg/actuation aerosol inhaler (Dulera) cholecalciferol (vitamin D3) 25 25 mcg PO DAILY supplement 07/27/24 10/26/24 History mcg (1,000 unit) capsule (Vitamin D3) meloxicam 7.5 mg tablet 7.5 mg PO BID pain 10/05/24 10/26/24 History carboxymethylcellulose 0.5 1 drp EACH EYE DAILY 10/26/24 Unknown History %-glycerin 0.9 % eye drops (Lubricant Eye (cmc-glycerin)) ferrous sulfate 325 mg (65 mg 325 mg PO DAILY 10/26/24 10/26/24 History iron) tablet (FeroSul) folic acid 1 mg tablet 1 mg PO DAILY 10/26/24 10/26/24 History Allergy/AdvReac Type Severity Reaction Status Date / Time amoxicillin trihydrate (From Allergy Rash Verified 10/26/24 15:08 Augmentin) Cephalosporins Allergy Rash Verified 10/26/24 15:08 potassium clavulanate (From Allergy Rash Verified 10/26/24 15:08 Augmentin) Sulfa (Sulfonamide Allergy Rash Verified 10/26/24 15:08 Antibiotics) Family History Sister Arthritis Breast cancer Osteoporosis Father Diabetes Cancer Skin Mother Hypertension Cancer skin cancer Osteoporosis Surgical History Hx of total knee arthroplasty History of cardiac catheterization Hx of total knee replacement Hx of total shoulder replacement History of esophagogastroduodenoscopy (EGD) Hx of ileostomy S/P tonsillectomy S/P cholecystectomy S/P ovarian cystectomy History of esophagogastroduodenoscopy (EGD) S/P colonoscopy Social History Smoking Status: Never smoker second hand exposure: No alcohol intake: never substance use type: does not use caffeine: Yes what type of physical activity do you participate in: none frequency: does not exercise seatbelt use: always ROS Constitutional Constitutional: Denies anorexia, fatigue or fever(s) Eyes Eyes: Denies blurry vision or change in eye color ENT HEENT: Denies abnormal hearing, ear pain or nasal congestion Cardiovascular Cardiovascular: Denies chest pain, edema or lightheadedness Respiratory/Chest Respiratory/Chest: Denies cough, dyspnea or productive cough Gastrointestinal Gastrointestinal: Denies abdominal pain, diarrhea or vomiting Genitourinary Genitourinary: Denies burning urination, difficulty urinating or dysuria Musculoskeletal Musculoskeletal: Reports joint pain; Denies back pain Neurologic Neurologic: Denies abnormal speech, confusion or disequilibrium Psychiatric Psychiatric: Denies anxiety or depression Endocrine Endocrinology: Denies change in body appearance Hematologic/Lymphatic Hematologic/Lymphatic: Denies anemia Allergic/Immunologic Allergic/Immunologic: Denies rhinitis Vital Signs Vital Signs Vital Signs: 10/26/24 15:05 10/26/24 16:07 10/26/24 16:55 Temperature 97.8 F Temperature Source Oral Pulse Rate 80 91 Pulse Rate [3] Respiratory Rate 20 H 13 Respiratory Rate [3] Respiratory Effort Normal Non-Labored Blood Pressure 189/90 H 179/76 H Blood Pressure [3] Blood Pressure Mean 123 Baseline BP 179/76 Pulse Ox 97 99 Oxygen Delivery Method Room Air Nasal Cannula Oxygen Delivery Method [1 (Initial Baseline)] Oxygen Delivery Method [2] Oxygen Delivery Method [3] Oxygen Flow Rate (L/min) 3 Oxygen Flow Rate (L/min) [1 (Initial Baseline)] Oxygen Flow Rate (L/min) [2] Oxygen Flow Rate (L/min) [3] EtCo2 (Normal 35-45 , high quality CPR 10-20 & ROSC>/=40mmHg 34 EtCo2 (Normal 35-45 , high quality CPR 10-20 & ROSC>/=40mmHg [3] 10/26/24 16:56 10/26/24 16:59 10/26/24 17:05 Temperature Temperature Source Pulse Rate 81 Pulse Rate [3] 87 Respiratory Rate 12 Respiratory Rate [3] 14 Respiratory Effort Blood Pressure 143/71 H Blood Pressure [3] 133/70 H Blood Pressure Mean Baseline BP Pulse Ox 99 Oxygen Delivery Method Nasal Cannula Oxygen Delivery Method [1 (Initial Baseline)] Nasal Cannula Oxygen Delivery Method [2] Nasal Cannula Oxygen Delivery Method [3] Nasal Cannula Oxygen Flow Rate (L/min) 3 Oxygen Flow Rate (L/min) [1 (Initial Baseline)] 3 Oxygen Flow Rate (L/min) [2] 3 Oxygen Flow Rate (L/min) [3] 3 EtCo2 (Normal 35-45 , high quality CPR 10-20 & ROSC>/=40mmHg 34 36 EtCo2 (Normal 35-45 , high quality CPR 10-20 & ROSC>/=40mmHg [3] 33 10/26/24 17:10 10/26/24 17:15 10/26/24 17:25 Temperature Temperature Source Pulse Rate 79 82 86 Pulse Rate [3] Respiratory Rate 17 15 20 H Respiratory Rate [3] Respiratory Effort Blood Pressure 140/76 H 100/90 H 141/76 H Blood Pressure [3] Blood Pressure Mean 97 Baseline BP Pulse Ox 98 97 Oxygen Delivery Method Room Air Room Air Oxygen Delivery Method [1 (Initial Baseline)] Oxygen Delivery Method [2] Oxygen Delivery Method [3] Oxygen Flow Rate (L/min) Oxygen Flow Rate (L/min) [1 (Initial Baseline)] Oxygen Flow Rate (L/min) [2] Oxygen Flow Rate (L/min) [3] EtCo2 (Normal 35-45 , high quality CPR 10-20 & ROSC>/=40mmHg 34 34 EtCo2 (Normal 35-45 , high quality CPR 10-20 & ROSC>/=40mmHg [3] Weight Weight: 98.5 kg Body Mass Index (BMI) 39.6 Physical Exam Const alert, oriented x3 and no apparent distress Constitutional Narrative: obese General Appearance: cooperative HEENT normocephalic and head/scalp atraumatic Eyes PERRL Neck no lymphadenopathy Resp normal respiratory effort, no retractions, no use of accessory muscles and clear to auscultation bilaterally Cardio regular rate, regular rhythm, S1 normal heart sound, S2 normal heart sound and no murmurs GI normal to inspection, nondistended, normoactive bowel sounds, soft to palpation and non-tender Extremity Extremity Narrative: trace edema BL LE Skin Skin Narrative: no wounds or rashes Neuro oriented x3, CN's II-XII intact bilaterally and moves all extremities Psych affect normal Results Lab / Micro Data 10/26/24 15:14 10/26/24 15:14 Labs: Laboratory Results - last 24 hr 10/26/24 15:14: WBC 6.4, RBC 4.99, Hgb 12.0, Hct 38.9, MCV 78.0 L, MCH 24.0 L, MCHC 30.8 L, RDW Std Deviation 41.3, RDW Coeff of Anuradha 14.8 H, Plt Count 210, MPV 10.0, Immature Gran % (Auto) 0.500, Neut % (Auto) 70.2 H, Lymph % (Auto) 17.7 L, [place] % (Auto) 7.9, Eos % (Auto) 2.8, Baso % (Auto) 0.9, Absolute Neuts (auto) 4.5, Absolute Lymphs (auto) 1.14, Nucleated RBC % 0, PT 13.7, INR 1.0, APTT 25.7, Sodium 136, Potassium 4.0, Chloride 101, Carbon Dioxide 23.8, Anion Gap 11, BUN 21 H, Creatinine 0.72, Estim Creat Clear Calc 68.68, Est GFR (MDRD) Non-Af 88, BUN/Creatinine Ratio 29.4 H, Glucose 130 H, Calcium 9.7 Imaging Radiology Impression Femur X-Ray 10/26/24 16:05 IMPRESSION: Acute right hip dislocation. Recommend urgent orthopedic surgery consultation. Reading Location: [id number] Pelvis X-Ray 10/26/24 16:05 IMPRESSION: Posterior dislocation of the right humeral head prosthesis. Acetabular cup remains in place. Ovoid calcification in the left hemipelvis, nonspecific but potentially a fibroid. Reading Location: [facility] Hip X-Ray 10/26/24 17:15 IMPRESSION: Status post reduction of right hip prosthesis dislocation. Anatomic alignment. Reading Location: [id number] Assessment & Plan Assessment/Plan (1) Recurrent dislocation of right hip: PLAN: 1. Recurrent dislocation right hip - 3rd occurrence since initial surgery in August. Successfully reduced by ER provider. Ortho contacted by ER provider, plan to take the patient for revision on . Pt admitted to med surg. Pain control prn. Pt in immobilizer. CXR and EKG pending. No hx heart disease. 2. Debility 2/2 #1 - pt normally ambulates with cane and walker, will need PTOT post op. Lives with and son 3. Hx DVT - occurred post bowel perf with surgical resection, completed 2 weeks xarelto and aspirin at that time with no recurrence. 4. Hx asthma - lungs clear, sats normal no sob, no exacerbation at this time 5. Hx HTN - resume home meds when appropriate 6. GERD with hiatal hernia - on ppi 7. HLD - on statin 8. Hx chronic anemia - hgb normal at this time, on iron and folate DVT ppx : lovenox DC planning: home with /son, is healthcare POA Code status: discussed with pt she is full code. This patient was seen by Philipp Escalera PA-C under the supervision of Doctor Aldridge.
[2024-10-26] MEDS: Fluticasone 0.05% 1 SPRAY NASAL.SRY NASAL (21:58)
[2024-10-26] MEDS: amLODIPine 10 MG Tablet PO (22:02)
[2024-10-26] MEDS: Montelukast 10 MG Tablet PO (22:02)
[2024-10-26] MEDS: Atorvastatin Calcium 20 MG Tablet PO (22:02)
[2024-10-26] MEDS: Albuterol 2.5 MG/3 ML VIAL.NEB. INHALATION (23:49)
[2024-10-27] VITALS (8 sets, daily range): BP systolic 122–139; BP diastolic 53–66; PULSE 65–84; RESP 14–18; TEMP 36.3–36.8; O2SAT 93–100; BMI 38.8
[2024-10-27 07:19] LABS: Absolute Lymphocyte Count 1.13 X10^3/uL (0.83-4.51); Absolute Neutrophil Count 3.4 X10^3/uL (2.0-7.7); Basophil# 0.05 X10^3/uL; Eosinophil# 0.18 X10^3/uL; Eosinophils% 3.5 % (0-5); Hematocrit 36.9 % (37-47); Hemoglobin 11.5 g/dL (12.0-15.0); Lymphocyte # 1.13 X10^3/ul (0.83-4.51); Lymphocyte % 21.7 % (19-41); Mean Corp Hgb Conc 31.2 g/dL (32-36); Mean Corpuscular Hgb 24.3 pg (27.0-32.0); Mean Corpuscular Volume 77.8 fL (81-99); Mean Platelet Vol. 10.2 fl (6.2-12.0); Monocyte# 0.44 X10^3/uL; Monocyte% 8.5 % (0-10); NRBC Flagged by Analyzer 0 % (0-5); Neutrophil # 3.38 X10^3/uL (2.7-7.7); Neutrophil % 64.9 % (47-70); Platelet Count 199 K/mm3 (150-450); RBC Distribution Width SD 42.4 fl (35.1-43.9); Red Blood Count 4.74 M/mm3 (4.2-5.4); White Blood Count 5.2 K/mm3 (4.4-11.0)
[2024-10-27] MEDS: Budesonide Respules 0.5 MG/2 ML AMPUL.NEB. INHALATION ×2 (07:43→20:36)
[2024-10-27] MEDS: Albuterol 2.5 MG/3 ML VIAL.NEB. INHALATION ×3 (07:43→20:36)
--- NOTE | 2024-10-27 08:03 | PCM.PN.HOSP ---
Reason for Visit Reason for Visit: Diagnoses Recurrent dislocation, right hip (10/26/24) Subjective Subjective Patient reports feeling fine as she is laying in bed. Had 2 episodes of loose stool earlier without any overt vomiting or significant abdominal pain, reports this started last night Objective Data Objective Data Vital Signs: Vital Signs Temp Pulse Resp BP Pulse Ox O2 Del Method O2 Flow Rate 97.5 F L 79 16 122/57 H 95 Room Air 3 10/27/24 02:00 10/27/24 02:00 10/27/24 02:00 10/27/24 02:00 10/27/24 02:00 10/27/24 02:00 10/26/24 17:05 Oxygen Flow Rate (L/min) [3] 3 Oxygen Flow Rate (L/min) [2] 3 Oxygen Flow Rate (L/min) [1 ( 3 Initial Baseline)] Oxygen Flow Rate (L/min) 3 Oxygen Delivery Method [3] Nasal Cannula Oxygen Delivery Method [2] Nasal Cannula Oxygen Delivery Method [1 ( Nasal Cannula Initial Baseline)] Oxygen Delivery Method Room Air Weight: 95.8 kg Body Mass Index (BMI) 38.8 Intake & Output: Intake and Output for Last 24 Hours 10/25/24 10/26/24 10/27/24 23:59 23:59 23:59 Intake Total 400 / 400 Output Total 1550 / 1550 Balance -1150 / -1150 Lab / Micro Data 10/27/24 06:18 10/27/24 06:18 Labs: Laboratory Results - last 24 hr 10/26/24 15:14: WBC 6.4, RBC 4.99, Hgb 12.0, Hct 38.9, MCV 78.0 L, MCH 24.0 L, MCHC 30.8 L, RDW Std Deviation 41.3, RDW Coeff of Anuradha 14.8 H, Plt Count 210, MPV 10.0, Immature Gran % (Auto) 0.500, Neut % (Auto) 70.2 H, Lymph % (Auto) 17.7 L, [place] % (Auto) 7.9, Eos % (Auto) 2.8, Baso % (Auto) 0.9, Absolute Neuts (auto) 4.5, Absolute Lymphs (auto) 1.14, Nucleated RBC % 0, PT 13.7, INR 1.0, APTT 25.7, Sodium 136, Potassium 4.0, Chloride 101, Carbon Dioxide 23.8, Anion Gap 11, BUN 21 H, Creatinine 0.72, Estim Creat Clear Calc 68.68, Est GFR (MDRD) Non-Af 88, BUN/Creatinine Ratio 29.4 H, Glucose 130 H, Calcium 9.7 10/27/24 06:18: WBC 5.2, RBC 4.74, Hgb 11.5 L, Hct 36.9 L, MCV 77.8 L, MCH 24.3 L, MCHC 31.2 L, RDW Std Deviation 42.4, RDW Coeff of Anuradha 15.0 H, Plt Count 199, MPV 10.2, Immature Gran % (Auto) 0.400, Neut % (Auto) 64.9, Lymph % (Auto) 21.7, [place] % (Auto) 8.5, Eos % (Auto) 3.5, Baso % (Auto) 1.0, Absolute Neuts (auto) 3.4, Absolute Lymphs (auto) 1.13, Nucleated RBC % 0 Radiography Diagnostic Testing: Radiology Impression Femur X-Ray 10/26/24 16:05 IMPRESSION: Acute right hip dislocation. Recommend urgent orthopedic surgery consultation. Reading Location: [facility] Pelvis X-Ray 10/26/24 16:05 IMPRESSION: Posterior dislocation of the right humeral head prosthesis. Acetabular cup remains in place. Ovoid calcification in the left hemipelvis, nonspecific but potentially a fibroid. Reading Location: [facility] Hip X-Ray 10/26/24 17:15 IMPRESSION: Status post reduction of right hip prosthesis dislocation. Anatomic alignment. Reading Location: [facility] Chest X-Ray 10/26/24 18:02 IMPRESSION: No focal infiltrate or consolidation is seen within the lungs. Reading Location: [facility] Physical Exam Narrative General: Alert, oriented, no apparent distress HEENT: Atraumatic, normocephalic Eyes: Anicteric, normal conjunctiva, extraocular movements grossly intact Neck: Supple Respiratory: Clear to auscultation bilaterally, normal respiratory effort Cardiovascular: Regular rate and rhythm GI: Soft, nontender, nondistended Extremities: No edema Musculoskeletal: Lower extremity immobilized Neuro: No overt focal neurological deficits Skin: No rashes appreciated Psych: Cooperative Assessment & Plan Assessment/Plan (1) Recurrent dislocation of right hip: PLAN: Plan #Recurrent R hip dislocation -s/p R hip arthroplasty w/ Dr. Ferraro on Aug 23 -Pt presented w/ recurrent hip dislocation w/ xray showing posterior dislocation -This was reduced by ER provider and Ortho contacted who plan for revision on -Patient in immobilizer -Ortho consulted -Pain control and supportive care pending surgery -N.p.o. at midnight #GERD -Continue PPI # History of DVT -Occurred post bowel perforation with surgical resection, has completed 2 weeks of Xarelto and aspirin at that time with no recurrence # History of asthma -Continue inhalers #Hypertension -Blood pressure 122/57 -Patient's home lisinopril and amlodipine continued -Will plan to hold day of surgery # Loose stool -Only 2 episodes and without any associated vomiting and no severe abdominal pain, will monitor, if this increases in frequency or other symptoms develop can consider stool studies or further workup, but patient vitally stable and in no acute distress #DVT ppx: Lovenox subcu Yenifer Mcgarry MD Time spent in the patient's overall evaluation, decision-making process, review of diagnostic data, adjustment of management, discussion with other providers, nursing and ancillary staff involved in patient's care documentation, 36 Minutes Charges/Coding Visit Charges Inpatient E&M: 49847 Subs Hosp L2
[2024-10-27 08:16] LABS: ALB/GLOB Ratio 1.6 RATIO (0.9-2.4); AST(SGOT) 15 U/L (<=31); Alanine Aminotransfer ALT/SGPT 8 U/L (<=34); Albumin, Serum 3.6 g/dL (3.4-4.8); Alkaline Phosphatase 109 U/L (35-104); Anion Gap 12 (5-15); BUN 13 mg/dL (4-19); BUN/Creat Ratio 20.5 RATIO (10-20); Calcium,Total 9.5 mg/dL (7.6-11.0); Carbon Dioxide 21.5 mmol/L (21.0-32.0); Chloride 107 mmol/L (98-108); Creatinine, Serum 0.65 mg/dL (0.70-1.20); EST Glomerular Filtration Rate 93 (>60); Estimated Creatinine Clearance 67.61 ml/min (50-250); Globulin 2.3 g/dL (2.2-4.2); Glucose 113 mg/dL (70-99); Magnesium 2.2 mg/dL (1.5-2.2); Phosphorus 3.6 mg/dL (2.7-4.5); Potassium 3.8 mmol/L (3.3-5.1); Protein, Total 5.9 g/dL (5.9-8.4); Sodium Level 141 mmol/L (133-145); Total Bilirubin 0.64 mg/dL (0.00-1.30)
[2024-10-27] MEDS: Cholecalciferol (VIT D3) 25 MCG TABLET (1,000 UNITS) PO (08:38)
[2024-10-27] MEDS: Enoxaparin 40 MG/0.4 ML Syringe SC (08:38)
[2024-10-27] MEDS: Folic Acid 1 MG Tablet PO (08:39)
[2024-10-27] MEDS: Lactobacillis Acidophilus 1 CAP PO (08:39)
[2024-10-27] MEDS: Lisinopril 20 MG Tablet PO (08:39)
[2024-10-27] MEDS: Pantoprazole Sodium 20 MG Tablet PO (08:39)
[2024-10-27] MEDS: CARBOXYMETHYLCELLULOSE SODIUM 1 DRP DROPS OPHTHALMIC (08:39)
--- NOTE | 2024-10-27 09:20 | CASEMGMT ---
SYD MENDOZA Assessment: Face to Face with pt for initial transition planning/care coordination assessment. SYD MENDOZA introduced self and role at [facility], pt voices understanding and consents to assessment. Pt is A&O x4 and answers all questions appropriately at this time. Pt lying in bed. Completed half of assessment and pt needed to use restroom, SYD MENDOZA came back after to finish assessment. Care providers, pharmacy, and demographics verified/updated. Admitting Dx: recurrent R hip dislocation s/p BRYANT Strata Score: 2 PCP:Merly Specialists:lupe Jaramillo; Fritz Jones pulm Preferred Pharmacy: [facility]: [facility] Prescription Benefit: yes LNOK: Adelso Golden, ; Irwin Golden Jr, son Living Arrangements: Pt lives with and son in a two story home with no steps to enter. Pt reports to get to her bed and bath she needs to navigate 16 steps. She does have a bath and bed on main level but does not typically use but could. Pt reports prior to this hospitalization she was I in ADL/IADLs and denies concerns at home. Transportation: Pt family transports her to medical appts. DME:lift chair, shower chair, cane, walker HHC/SNF: Denies hx of Pt states no concerns with going home at time of dc. Pt to have OR tomorrow. SYD MENDOZA to follow therapy evals and dc needs. Pt states no further concerns/needs. Advised pt to ask CM if any further questions/concerns/needs arise, voices understanding. Pt Goal: Home Plan: TBD pending surgery and therapy evals post op Mya VELARDE CM
[2024-10-27] MEDS: Ferrous Sulfate 325 MG Tablet PO (11:57)
[2024-10-27] MEDS: Multivitamins,Therapeutic Tablet 1 TABLET PO (11:57)
--- NOTE | 2024-10-27 16:13 | NURSING ---
All documentation by director of emergency nursing Dorothy Goodrich reviewed by professional nursing tutor Roslyn CARRERAN, RN.
--- NOTE | 2024-10-27 17:46 | CONS.ORTHO ---
HPI Consult Data Date of Consult: 10/27/24 HPI Narrative Reason for Consultation: Right hip pain HPI Narrative: JA ADAME, is a 73 F who presents with right hip pain. Patient is status post right total replacement on August 23, 2024. She had subsequent dislocation shortly after her 6-week follow-up visit on September 30. She was reduced and began therapy. Subsequently she dislocated again on October 05. She was seen evaluate in the office and we had made plans to proceed with revision surgery to convert the patient to a dual mobility implant with possible complete acetabular revision. She dislocated her third time last evening. Based on this and concerns of safety at home she was admitted to medicine service and she is being cleared for surgery for tomorrow. Patient reports minimal pain now that she is reduced. She had significant pain was unable to bear weight when the hip was dislocated. She was reduced in the emergency department successfully. She reports no numbness and tingling at this time. She is currently wearing a knee immobilizer. [facility] Medical History Hypothyroidism Osteoarthritis Hiatal hernia History of renal disease Restless legs Dietary restriction Asthma History of pain when walking Hypertension Chest pain RBBB Crohn's disease COVID Wears partial dentures Wears glasses Post-menopausal Arthritis Anemia DVT (deep venous thrombosis) History of hiatal hernia History of diverticulitis Gastric reflux Non-smoker History of edema History of echocardiogram History of stress test [place] esophagus Epigastric pain Positive FIT (fecal immunochemical test) Sesamoiditis Sciatica Internal hemorrhoids Gastritis Diverticulosis of large intestine Diverticulosis of colon DVT (deep venous thrombosis) Cardiomegaly Bowel perforation Abdominal pain Anemia Chest pain HTN (hypertension) Home Medications ?Medication ?Instructions ?Recorded ?Last Taken ?Type amlodipine 10 mg tablet 10 mg PO QPM bp 04/03/16 10/25/24 History albuterol sulfate 90 mcg/actuation 2 puff inhalation Q6H PRN Sob &/Or 11/04/17 11/03/23 History aerosol inhaler Wheezing fluticasone propionate 50 1 spray QHS nasal congestion 01/07/19 10/25/24 History mcg/actuation nasal spray,suspension lisinopril 20 mg tablet 20 mg PO DAILY bp 01/07/19 10/26/24 History montelukast 10 mg tablet 10 mg PO QHS allergy 08/15/21 10/25/24 History acetaminophen 500 mg tablet 1,000 mg PO Q8 PRN Pain 08/22/21 10/25/24 History multivitamin 1 tab PO DAILY supplement 08/22/21 10/25/24 History atorvastatin 20 mg tablet (Lipitor) 20 mg PO QHS cholesterol 09/13/21 10/25/24 History Lactobacillus acidophilus 10 100 mmu cells PO DAILY immune 09/15/23 10/26/24 History billion cell capsule (NewFlora) supplement azelastine 205.5 mcg (0.15 %) 1 spray intranasal DAILY PRN 09/15/23 11/16/23 History nasal spray (Astepro Allergy) allergy omeprazole 20 mg delayed 20 mg PO DAILY heartburn 09/15/23 10/26/24 History release,disintegrating tablet mometasone-formoterol HFA 200 2 inh inhalation BID allergies 10/15/23 10/25/24 History mcg-5 mcg/actuation aerosol inhaler (Dulera) cholecalciferol (vitamin D3) 25 25 mcg PO DAILY supplement 07/27/24 10/26/24 History mcg (1,000 unit) capsule (Vitamin D3) meloxicam 7.5 mg tablet 7.5 mg PO BID pain 10/05/24 10/26/24 History carboxymethylcellulose 0.5 1 drp EACH EYE DAILY 10/26/24 Unknown History %-glycerin 0.9 % eye drops (Lubricant Eye (cmc-glycerin)) ferrous sulfate 325 mg (65 mg 325 mg PO DAILY 10/26/24 10/26/24 History iron) tablet (FeroSul) folic acid 1 mg tablet 1 mg PO DAILY 10/26/24 10/26/24 History Allergy/AdvReac Type Severity Reaction Status Date / Time amoxicillin trihydrate (From Allergy Rash Verified 10/26/24 15:08 Augmentin) Cephalosporins Allergy Rash Verified 10/26/24 15:08 potassium clavulanate (From Allergy Rash Verified 10/26/24 15:08 Augmentin) Sulfa (Sulfonamide Allergy Rash Verified 10/26/24 15:08 Antibiotics) Family History Sister Arthritis Breast cancer Osteoporosis Father Diabetes Cancer Skin Mother Hypertension Cancer skin cancer Osteoporosis Surgical History History of appendectomy History of cholecystectomy Hx of total knee arthroplasty History of cardiac catheterization Hx of total knee replacement Hx of total shoulder replacement History of esophagogastroduodenoscopy (EGD) Hx of ileostomy S/P tonsillectomy S/P cholecystectomy S/P ovarian cystectomy History of esophagogastroduodenoscopy (EGD) S/P colonoscopy Social History Smoking Status: Never smoker second hand exposure: No alcohol intake: never substance use type: does not use caffeine: Yes what type of physical activity do you participate in: none frequency: does not exercise seatbelt use: always ROS ROS Narrative Patient did have some loose stools today. Otherwise 14 point review of systems is negative except what is mentioned in the HPI Vital Signs Vital Signs Vital Signs: 10/26/24 18:00 10/26/24 19:15 10/26/24 20:00 Temperature 98.1 F Temperature Source Oral Pulse Rate 85 86 Respiratory Rate 13 18 Respiratory Effort Non-Labored Respiratory Depth Normal Respiratory Pattern Normal Blood Pressure 154/65 H 158/66 H Blood Pressure Mean 91 96 Blood Pressure Source Monitor Blood Pressure Position Semi-Fowlers Blood Pressure Location Right Arm Pulse Ox 97 94 Oxygen Delivery Method Room Air Room Air 10/26/24 23:52 10/26/24 23:52 10/27/24 02:00 Temperature 97.5 F L Temperature Source Temporal Pulse Rate 70 79 Respiratory Rate 18 16 Respiratory Effort Respiratory Depth Respiratory Pattern Normal Blood Pressure 122/57 H Blood Pressure Mean 78 Blood Pressure Source Monitor Blood Pressure Position Semi-Fowlers Blood Pressure Location Right Forearm Pulse Ox 98 95 Oxygen Delivery Method Room Air Room Air 10/27/24 02:00 10/27/24 07:43 10/27/24 07:43 Temperature Temperature Source Pulse Rate 80 Respiratory Rate 18 Respiratory Effort Normal Respiratory Depth Respiratory Pattern Blood Pressure Blood Pressure Mean Blood Pressure Source Blood Pressure Position Blood Pressure Location Pulse Ox 93 Oxygen Delivery Method Room Air Room Air 10/27/24 08:00 10/27/24 08:10 10/27/24 13:35 Temperature 97.4 F L Temperature Source Oral Pulse Rate 71 71 79 Respiratory Rate 14 14 18 Respiratory Effort Normal Non-Labored Respiratory Depth Normal Respiratory Pattern Normal Blood Pressure 131/53 H Blood Pressure Mean 79 Blood Pressure Source Monitor Blood Pressure Position Semi-Fowlers Blood Pressure Location Right Arm Pulse Ox 100 100 Oxygen Delivery Method Room Air Room Air 10/27/24 14:27 10/27/24 14:45 Temperature 98.3 F Temperature Source Oral Pulse Rate 84 Respiratory Rate 16 Respiratory Effort Normal Respiratory Depth Respiratory Pattern Blood Pressure 139/62 H Blood Pressure Mean 87 Blood Pressure Source Monitor Blood Pressure Position Semi-Fowlers Blood Pressure Location Right Forearm Pulse Ox 96 Oxygen Delivery Method Room Air Weight Weight: 211 lb 3.245 oz Body Mass Index (BMI) 38.8 Physical Exam Const alert and oriented x3 HEENT normocephalic Eyes PERRL Neck no JVD Resp normal respiratory effort Cardio Cardio Narrative: Regular distal pulse rate GI non-distended Extremity Extremity Narrative: Right lower extremity: Incision is clean dry and intact. There is a small eschar on the distal portion of the incision where a small suture tail appears to be present. No erythema. No significant pain or excessive swelling. Exam was limited with range of motion testing secondary to instability. Positive dorsiflexion neutral plantarflexion distally. Sensations intact light touch saphenous, sural, superficial peroneal, deep peroneal tibial nerve distributions distally. Positive DP pulses. Skin Skin Narrative: Surgical incision stable and well-healed with small eschar. Neuro CN's II-XII intact bilaterally Psych affect normal Medical Records Data Attestation: I reviewed the patient's medical records Lab / Micro Data Attestation: I reviewed the patient's lab results. 10/27/24 06:18 10/27/24 06:18 Labs: Laboratory Results - last 24 hr 10/27/24 06:18: WBC 5.2, RBC 4.74, Hgb 11.5 L, Hct 36.9 L, MCV 77.8 L, MCH 24.3 L, MCHC 31.2 L, RDW Std Deviation 42.4, RDW Coeff of Anuradha 15.0 H, Plt Count 199, MPV 10.2, Immature Gran % (Auto) 0.400, Neut % (Auto) 64.9, Lymph % (Auto) 21.7, [place] % (Auto) 8.5, Eos % (Auto) 3.5, Baso % (Auto) 1.0, Absolute Neuts (auto) 3.4, Absolute Lymphs (auto) 1.13, Nucleated RBC % 0, Sodium 141, Potassium 3.8, Chloride 107, Carbon Dioxide 21.5, Anion Gap 12, BUN 13, Creatinine 0.65 L, Estim Creat Clear Calc 67.61, Est GFR (MDRD) Non-Af 93, BUN/Creatinine Ratio 20.5 H, Glucose 113 H, Calcium 9.5, Phosphorus 3.6, Magnesium 2.2, Total Bilirubin 0.64, AST 15, ALT 8, Alkaline Phosphatase 109 H, Total Protein 5.9, Albumin 3.6, Globulin 2.3, Albumin/Globulin Ratio 1.6 Imaging Radiology Impression Hip x-rays from postoperatively as well as all 3 dislocations were reviewed. Currently patient is well reduced and stable at this time.No acute fractures or abnormalities with the implants are appreciated. Chest X-Ray 10/26/24 18:02 IMPRESSION: No focal infiltrate or consolidation is seen within the lungs. Reading Location: [id number] Assessment & Plan Assessment/Plan (1) Dislocation of internal right hip prosthesis, subsequent encounter: PLAN: Natural history of the disease process and treatment options were again discussed the patient. Patient has previously been consented for surgery in my office. Ultimately we discussed risk and benefit of the procedure which include but are not to blood loss, DVTs, PEs, nervous and vascular damage general risk of anesthesia including loss of life, possible need for blood transfusion. Ultimately, patient has had another dislocation at this point we are concerned about her safety returning home if she has no dislocation and falls this could result in further damage or injury. Based on this patient was admitted to the hospital and we will plan on doing surgery in an urgent fashion. Additional risk this procedure including further dislocations fractures and leg length discrepancy were also discussed at length with the patient. Patient's was at the bedside. At this time plan will be to proceed with revision right shoulder replacement femoral and acetabular components tomorrow. Patient was made n.p.o. after midnight. Anticoagulants will need to be held after midnight. Antibiotics ordered on-call to the operating room.
[2024-10-27] MEDS: amLODIPine 10 MG Tablet PO (20:38)
[2024-10-27] MEDS: Fluticasone 0.05% 1 SPRAY NASAL.SRY NASAL (20:39)
[2024-10-27] MEDS: Montelukast 10 MG Tablet PO (20:39)
[2024-10-27] MEDS: Atorvastatin Calcium 20 MG Tablet PO (20:39)
[2024-10-28] VITALS (15 sets, daily range): BP systolic 94–153; BP diastolic 53–86; PULSE 73–90; RESP 16–18; TEMP 36.1–36.9; O2SAT 95–100; BMI 38.2; BMI 37.9
[2024-10-28 06:48] LABS: Hematocrit 38.6 % (37-47); Hemoglobin 11.9 g/dL (12.0-15.0); Mean Corp Hgb Conc 30.8 g/dL (32-36); Mean Corpuscular Hgb 24.1 pg (27.0-32.0); Mean Corpuscular Volume 78.3 fL (81-99); Mean Platelet Vol. 9.9 fl (6.2-12.0); Platelet Count 197 K/mm3 (150-450); RBC Distribution Width CV 15.2 % (11.6-14.6); RBC Distribution Width SD 43.1 fl (35.1-43.9); Red Blood Count 4.93 M/mm3 (4.2-5.4); White Blood Count 4.6 K/mm3 (4.4-11.0)
[2024-10-28] MEDS: Albuterol 2.5 MG/3 ML VIAL.NEB. INHALATION (07:30)
[2024-10-28] MEDS: Budesonide Respules 0.5 MG/2 ML AMPUL.NEB. INHALATION (07:30)
--- NOTE | 2024-10-28 08:07 | PCM.PN.HOSP ---
Reason for Visit Reason for Visit: Diagnoses Recurrent dislocation, right hip (10/26/24) Dislocation of internal right hip prosthesis, subsequent encounter (10/26/24) Subjective Subjective Patient seen prior to surgery, denies any pain, reports some further diarrhea today, had 3 total yesterday, today endorse that she thinks it may be her iron supplement, most people this causes constipation however she reports at home it was giving her diarrhea so she stopped it and it resolved and now that she is getting here she has diarrhea again. Will trial stopping this. No vomiting or significant abdominal pain Objective Data Objective Data Vital Signs: Vital Signs Temp Pulse Resp BP Pulse Ox O2 Del Method O2 Flow Rate 97.8 F 78 16 149/66 H 98 Room Air 3 10/28/24 02:40 10/28/24 02:40 10/28/24 02:40 10/28/24 02:40 10/28/24 02:40 10/28/24 02:40 10/26/24 17:05 Oxygen Flow Rate (L/min) [3] 3 Oxygen Flow Rate (L/min) [2] 3 Oxygen Flow Rate (L/min) [1 ( 3 Initial Baseline)] Oxygen Flow Rate (L/min) 3 Oxygen Delivery Method [3] Nasal Cannula Oxygen Delivery Method [2] Nasal Cannula Oxygen Delivery Method [1 ( Nasal Cannula Initial Baseline)] Oxygen Delivery Method Room Air Weight: 94.1 kg Body Mass Index (BMI) 38.2 Intake & Output: Intake and Output for Last 24 Hours 10/26/24 10/27/24 10/28/24 23:59 23:59 23:59 Intake Total 1200 / 1200 Output Total 2950 / 3750 1500 / 1500 Balance -1750 / -2550 -1500 / -1500 Lab / Micro Data 10/28/24 05:57 10/28/24 05:57 Labs: Laboratory Results - last 24 hr 10/27/24 06:18: Sodium 141, Potassium 3.8, Chloride 107, Carbon Dioxide 21.5, Anion Gap 12, BUN 13, Creatinine 0.65 L, Estim Creat Clear Calc 67.61, Est GFR (MDRD) Non-Af 93, BUN/Creatinine Ratio 20.5 H, Glucose 113 H, Calcium 9.5, Phosphorus 3.6, Magnesium 2.2, Total Bilirubin 0.64, AST 15, ALT 8, Alkaline Phosphatase 109 H, Total Protein 5.9, Albumin 3.6, Globulin 2.3, Albumin/Globulin Ratio 1.6 10/28/24 05:57: WBC 4.6, RBC 4.93, Hgb 11.9 L, Hct 38.6, MCV 78.3 L, MCH 24.1 L, MCHC 30.8 L, RDW Std Deviation 43.1, RDW Coeff of Anuradha 15.2 H, Plt Count 197, MPV 9.9 Physical Exam Narrative General: Alert, oriented, no apparent distress HEENT: Atraumatic, normocephalic Eyes: Anicteric, normal conjunctiva, extraocular movements grossly intact Neck: Supple Respiratory: Clear to auscultation bilaterally, normal respiratory effort Cardiovascular: Regular rate and rhythm GI: Soft, nontender, nondistended Extremities: No edema Musculoskeletal: Lower extremity immobilized Neuro: No overt focal neurological deficits Skin: No rashes appreciated Psych: Cooperative Assessment & Plan Assessment/Plan (1) Recurrent dislocation of right hip: PLAN: Plan #Recurrent R hip dislocation -s/p R hip arthroplasty w/ Dr. Ferraro on Aug 23 -Pt presented w/ recurrent hip dislocation w/ xray showing posterior dislocation -This was reduced by ER provider and Ortho contacted who plan for revision on -Patient in immobilizer -Ortho consulted -Pain control and supportive care pending surgery -N.p.o. at midnight -10/28: Patient for surgery today, has remained n.p.o. #Hypertension -Blood pressure 122/57 -Patient's home lisinopril and amlodipine continued -Will plan to hold day of surgery -10/28: BP 149/66, if vitally stable can likely reinstitute tomorrow # Loose stool -Only 2 episodes and without any associated vomiting and no severe abdominal pain, will monitor, if this increases in frequency or other symptoms develop can consider stool studies or further workup, but patient vitally stable and in no acute distress -10/28: Continue to monitor, 2 loose stools today, patient reports that she thinks it may be her iron supplement, most people this causes constipation however she reports at home it was giving her diarrhea so she stopped it and it resolved and now that she is getting here she has diarrhea again. Will trial stopping this Chronic medical problems: #GERD -Continue PPI # History of DVT -Occurred post bowel perforation with surgical resection, has completed 2 weeks of Xarelto and aspirin at that time with no recurrence # History of asthma -Continue inhalers #DVT ppx: Lovenox subcu Yenifer Mcgarry MD Time spent in the patient's overall evaluation, decision-making process, review of diagnostic data, adjustment of management, discussion with other providers, nursing and ancillary staff involved in patient's care documentation, 36 Minutes Charges/Coding Visit Charges Inpatient E&M: 00137 Subs Hosp L2
[2024-10-28 09:06] LABS: Anion Gap 11 (5-15); BUN 13 mg/dL (4-19); BUN/Creat Ratio 17.7 RATIO (10-20); Calcium,Total 9.7 mg/dL (7.6-11.0); Carbon Dioxide 24.8 mmol/L (21.0-32.0); Chloride 105 mmol/L (98-108); Creatinine, Serum 0.71 mg/dL (0.70-1.20); EST Glomerular Filtration Rate 90 (>60); Estimated Creatinine Clearance 66.94 ml/min (50-250); Glucose 125 mg/dL (70-99); Potassium 3.8 mmol/L (3.3-5.1); Sodium Level 141 mmol/L (133-145)
[2024-10-28] MEDS: CARBOXYMETHYLCELLULOSE SODIUM 1 DRP DROPS OPHTHALMIC (09:14)
[2024-10-28] MEDS: Ferrous Sulfate 325 MG Tablet PO (09:14)
[2024-10-28] MEDS: Cholecalciferol (VIT D3) 25 MCG TABLET (1,000 UNITS) PO (09:14)
[2024-10-28] MEDS: Lactobacillis Acidophilus 1 CAP PO (09:14)
[2024-10-28] MEDS: Folic Acid 1 MG Tablet PO (09:14)
[2024-10-28] MEDS: Multivitamins,Therapeutic Tablet 1 TABLET PO (09:14)
[2024-10-28] MEDS: Pantoprazole Sodium 20 MG Tablet PO (09:14)
[2024-10-28] MEDS: Acetaminophen 500 MG Tablet 1000 MG PO ×2 (11:37→22:09)
[2024-10-28] MEDS: Lactated Ringers 1,000 ML 999 ML IV ×2 (13:23→17:55)
[2024-10-28] MEDS: Magnesium 1 GM over 15 mins IV (13:23)
[2024-10-28] MEDS: Gabapentin 600 MG Tablet PO (13:27)
--- NOTE | 2024-10-28 13:59 | PCM.PRE.AN2 ---
ASA Classification* ASA Classification ASA Classification: 3 Assessment & Plan Anesthesia* Anesthesia Assessment Anesthesia Assessment: Discussed sedation and/or anesthesia options, risks, benefits, and alternatives with patient/parents/legal guardian/POA. Questions invited. The patient/parents/legal guardian/POA seems to understand and agrees to proceed with anesthesia plan. Reviewed the physical assessment, medical history, allergy history and patient home medications list prior to surgery/procedure/anesthetic and documented any changes. Discussed benefits and risks of a fascia iliac block, including infection, bleeding, and the risk of nerve damage. The patient understands the risks and benefits and has given informed consent for a nerve block to be performed, if needed, postoperatively. Performed airway and anesthesia risk assessments. As per internal medicine: #Hypertension -Blood pressure 122/57 -Patient's home lisinopril and amlodipine continued Chronic medical problems: #GERD -Continue PPI # History of DVT -Occurred post bowel perforation with surgical resection, has completed 2 weeks of Xarelto and aspirin at that time with no recurrence # History of asthma -Continue inhalers Anesthesia Type Anesthesia Type: Spinal and Block (If needed, consent obtained. ) History Source History Obtained from:: Patient and Chart Anesthesia Focused Assessment* Temperature: 98.4 F Pulse Rate: 73 Blood Pressure: 137/63 Respiratory Rate: 16 Pulse Ox: 95 Oxygen Delivery Method: Room Air Oxygen Flow Rate (L/min): 3 Airway Assessment Mouth opens: >3 cm Mallampati Score: II Teeth Condition: Intact and Missing (missing a few) Neck Range of motion (ROM): Full ROM Focused Labs Anesthesia Preop lab: CBC WBC 4.6 K/mm3 (4.4-11.0) 10/28/24 05:57 10/28/24 RBC 4.93 M/mm3 (4.2-5.4) 10/28/24 05:57 10/28/24 Hgb 11.9 g/dL (12.0-15.0) L 10/28/24 05:57 10/28/24 Hct 38.6 % (37-47) 10/28/24 05:57 10/28/24 Plt Count 197 K/mm3 (150-450) 10/28/24 05:57 10/28/24 CHEMISTRY Potassium 3.8 mmol/L (3.3-5.1) 10/28/24 05:57 10/28/24 Sodium 141 mmol/L (133-145) 10/28/24 05:57 10/28/24 Magnesium 2.2 mg/dL (1.5-2.2) 10/27/24 06:18 10/27/24 Phosphorus 3.6 mg/dL (2.7-4.5) 10/27/24 06:18 10/27/24 BUN 13 mg/dL (4-19) 10/28/24 05:57 10/28/24 Creatinine 0.71 mg/dL (0.70-1.20) 10/28/24 05:57 10/28/24 Glucose 125 mg/dL (70-99) H 10/28/24 05:57 10/28/24 POC Glucose 112 mg/dL (74-106) H 10/28/24 13:55 10/28/24 TSH 1.05 uIU/mL (0.358-3.74) 04/03/16 09:14 04/03/16 COAG PT 13.7 SECONDS (11.7-14.9) 10/26/24 15:14 10/26/24 Pre-Assessment Diagnosis/Proposed Procedure Planned Operative Procedure(s): Revision (R) BRYANT Anesthesia History 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 When Was Last Pacemaker Check QUESTION #4 FULL TEXT: You/Your Family Experience fever (hyperthermia) with Anesthesia Last Oral Intake Last Oral intake: Last Oral Intake NPO since 21:00 10/28/24 13:44 Meds taken in AM with sips of Yes 10/28/24 13:44 water? Meds patient instructed to gabapentin. 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 Female HX of Motion Sickness HX of N/V After Surgery Non-Smoker Duration of Surgery greater than 60 minutes Number of Risk Factors PONV Score Height & Weight Height & Weight: Anesthesia: Height & Weight Height 5 ft 2 in 10/28/24 13:44 Weight: 94.1 kg 10/28/24 13:44 Body Mass Index (BMI) 37.9 10/28/24 13:44 Respiratory Assessment Respiratory Assessment - beauty operator apprentice: Respiratory Tract Infection Hx - beauty operator apprentice Hx Respiratory Tract Infection No 10/27/24 20:45 STOP Sleep Apnea STOP Sleep Apnea - beauty operator apprentice: STOP Sleep Apnea - beauty operator apprentice Hx Hypertension Yes: controlled with meds 10/28/24 09:34 Hx Sleep Apnea No 10/26/24 19:44 CPAP No 10/26/24 19:44 BIPAP Do you snore loudly (louder Yes 10/26/24 19:44 than talking or can be heard Do you often feel tired/ No 10/26/24 19:44 fatigued/ sleepy during daytime? Has anyone observed you stop No 10/26/24 19:44 breathing during sleep? STOP Results Positive 10/26/24 19:44 QUESTION #5 FULL TEXT : Do you snore loudly (louder than talking or can be heard through closed doors)? 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 Specify any problems Hx of Preganancy in last 3 N/A 10/26/24 19:44 Months Nurse Filling Out Transfusion FSTEINER 10/26/24 19:44 & Questions: Date: 10/26/24 10/26/24 19:44 Time: 19:44 10/26/24 19:44 Patient unable to answer at this time (ie. confused, unrespo /Reproduction History /Reproductive History - beauty operator apprentice: /Reproductive Hx- beauty operator apprentice Hx Now No 10/27/24 20:45 Gestational Age (in weeks): EDC: Hx Hx Para Hx Section SAB No 10/27/24 20:45 Active Medications Active Medications: Current Medications Generic Name Dose Route Start Last Admin Trade Name Freq PRN Reason Stop Dose Admin Acetaminophen 1,000 mg 10/26/24 22:00 10/28/24 11:37 Acetaminophen 500 Mg Tablet PO 1,000 mg Q8 DIMITRIS Administration Albuterol Sulfate 2.5 mg 10/26/24 20:01 10/26/24 23:49 Albuterol 2.5 Mg/3 Ml Vial.Neb. INHALATION 2.5 mg Q2H PRN PRN Administration SOB &/OR WHEEZING Albuterol Sulfate 2.5 mg 10/26/24 20:15 10/28/24 07:30 Albuterol 2.5 Mg/3 Ml Vial.Neb. INHALATION 2.5 mg Q6HWA.RT DIMITRIS Administration Amlodipine Besylate 10 mg 10/26/24 21:00 10/27/24 20:38 Amlodipine 10 Mg Tablet PO 10 mg QPM DIMITRIS Administration Protocol Artificial Tears 1 drp 10/27/24 10:00 10/28/24 09:14 Carboxymethylcellulose Sodium 1 Drp Drops OPHTHALMIC 1 drp DAILY DIMITRIS Administration Atorvastatin Calcium 20 mg 10/26/24 22:00 10/27/24 20:39 Atorvastatin Calcium 20 Mg Tablet PO 20 mg QHS DIMITRIS Administration Azelastine HCl 1 spray 10/26/24 20:14 Azelastine Hcl Nasal.Sry NASAL DAILY PRN allergy Budesonide 0.5 mg 10/26/24 20:15 10/28/24 07:30 Budesonide Respules 0.5 Mg/2 Ml Ampul.Neb. INHALATION 0.5 mg Q12H.RT DIMITRIS Administration Cholecalciferol 25 mcg 10/27/24 10:00 10/28/24 09:14 Cholecalciferol (Vit D3) 25 Mcg Tablet (1,000 Units) PO 25 mcg DAILY DIMITRIS Administration Docusate Sodium 100 mg 10/26/24 22:00 10/28/24 07:15 Docusate Sodium 100 Mg Capsule PO Not Given BID [facility] Enoxaparin Sodium 40 mg 10/27/24 10:00 10/27/24 08:38 Enoxaparin 40 Mg/0.4 Ml Syringe SC 40 mg DAILY DIMITRIS Administration Ferrous Sulfate 325 mg 10/27/24 12:00 10/28/24 09:14 Ferrous Sulfate 325 Mg Tablet PO 325 mg DAILY@1200 DIMITRIS Administration Fluticasone Propionate 1 spray 10/26/24 22:00 10/27/24 20:39 Fluticasone 0.05% 1 [place] Nasal.Sry NASAL 1 spray QHS DIMITRIS Administration Folic Acid 1 mg 10/27/24 08:00 10/28/24 09:14 Folic Acid 1 Mg Tablet PO 1 mg BREAKFAST DIMITRIS Administration Guaifenesin 20 ml 10/26/24 20:01 Guaifenesin 10 Ml Udc (200mg/10ml) PO Q4H PRN PRN COUGH Sodium Chloride 100 mls @ 15 mls/hr 10/26/24 19:43 IV .Q6H40M PRN Saline Flush Sodium Chloride 100 mls @ 15 mls/hr 10/26/24 19:43 IV .Q6H40M PRN Additional IVPB Infusion Lactated Ringer's 1,000 mls @ 999 mls/hr 10/28/24 13:30 10/28/24 13:23 IV 10/28/24 14:30 999 mls/hr .Q1H1M DIMITRIS Administration Lactated Ringer's 1,000 mls @ 999 mls/hr 10/28/24 13:30 IV 10/28/24 14:30 .Q1H1M DIMITRIS Lactated Ringer's 1,000 mls @ 125 mls/hr 10/28/24 13:30 IV 10/28/24 21:29 .Q8H DIMITRIS Insulin Human Lispro 1 - 6 unit 10/28/24 13:30 Insulin Lispro 100 Unit/Ml Insuln.Pen SC Q4H PRN PRN BG>/= 180, SEE PROTOCOL Protocol Lisinopril 20 mg 10/27/24 10:00 10/27/24 08:39 Lisinopril 20 Mg Tablet PO 20 mg DAILY DIMITRIS Administration Protocol Melatonin 3 mg 10/26/24 20:01 Melatonin 3 Mg Tablet PO QHS PRN PRN INSOMNIA Montelukast Sodium 10 mg 10/26/24 22:00 10/27/24 20:39 Montelukast 10 Mg Tablet PO 10 mg QHS DIMITRIS Administration Morphine Sulfate 2 - 4 mg 10/26/24 20:01 Morphine 2 Mg/Ml Syringe IV Q3H PRN PRN Pain Score 6-10 Multivitamins 1 tablet 10/27/24 12:00 10/28/24 09:14 Multivitamins,Therapeutic Tablet PO 1 tablet LUNCH DIMITRIS Administration Nystatin 1 applic 10/27/24 17:10 10/28/24 07:15 Nystatin Powder 15gm Bottle TOPICAL Not Given BID [facility] Protocol Ondansetron HCl 4 mg 10/26/24 20:01 Ondansetron 4 Mg/2 Ml Vial IV Q8H PRN PRN NAUSEA/VOMITING Oxycodone HCl 5 mg 10/26/24 20:01 Oxycodone 5 Mg Tablet PO Q4H PRN PRN Pain Score 4-10 Pantoprazole Sodium 20 mg 10/27/24 10:00 10/28/24 09:14 Pantoprazole Sodium 20 Mg Tablet PO 20 mg DAILY [facility] Administration Senna/Docusate Sodium 2 tablet 10/26/24 20:01 Senna/Docusate Sodium 1 Tablet PO BID PRN PRN Constipation Sodium Chloride 10 - 40 ml 10/26/24 19:43 0.9% Saline Lock 10 Ml Syringe IV UD PRN SALINE FLUSH Tizanidine HCl 4 mg 10/26/24 20:01 Tizanidine Hcl 2 Mg Tablet PO Q8H PRN PRN spasms/musculoskeletal pain [facility] Medical History Hypothyroidism Osteoarthritis Hiatal hernia History of renal disease Restless legs Dietary restriction Asthma History of pain when walking Hypertension Chest pain RBBB Crohn's disease COVID Wears partial dentures Wears glasses Post-menopausal Arthritis Anemia DVT (deep venous thrombosis) History of hiatal hernia History of diverticulitis Gastric reflux Non-smoker History of edema History of echocardiogram History of stress test [place] esophagus Epigastric pain Positive FIT (fecal immunochemical test) Sesamoiditis Sciatica Internal hemorrhoids Gastritis Diverticulosis of large intestine Diverticulosis of colon DVT (deep venous thrombosis) Cardiomegaly Bowel perforation Abdominal pain Anemia Chest pain HTN (hypertension) Home Medications ?Medication ?Instructions ?Recorded ?Last Taken ?Type amlodipine 10 mg tablet 10 mg PO QPM bp 04/03/16 10/25/24 History albuterol sulfate 90 mcg/actuation 2 puff inhalation Q6H PRN Sob &/Or 11/04/17 11/03/23 History aerosol inhaler Wheezing fluticasone propionate 50 1 spray QHS nasal congestion 01/07/19 10/25/24 History mcg/actuation nasal spray,suspension lisinopril 20 mg tablet 20 mg PO DAILY bp 01/07/19 10/26/24 History montelukast 10 mg tablet 10 mg PO QHS allergy 08/15/21 10/25/24 History acetaminophen 500 mg tablet 1,000 mg PO Q8 PRN Pain 08/22/21 10/25/24 History multivitamin 1 tab PO DAILY supplement 08/22/21 10/25/24 History atorvastatin 20 mg tablet (Lipitor) 20 mg PO QHS cholesterol 09/13/21 10/25/24 History Lactobacillus acidophilus 10 100 mmu cells PO DAILY immune 09/15/23 10/26/24 History billion cell capsule (NewFlora) supplement azelastine 205.5 mcg (0.15 %) 1 spray intranasal DAILY PRN 09/15/23 11/16/23 History nasal spray (Astepro Allergy) allergy omeprazole 20 mg delayed 20 mg PO DAILY heartburn 09/15/23 10/26/24 History release,disintegrating tablet mometasone-formoterol HFA 200 2 inh inhalation BID allergies 10/15/23 10/25/24 History mcg-5 mcg/actuation aerosol inhaler (Dulera) cholecalciferol (vitamin D3) 25 25 mcg PO DAILY supplement 07/27/24 10/26/24 History mcg (1,000 unit) capsule (Vitamin D3) meloxicam 7.5 mg tablet 7.5 mg PO BID pain 10/05/24 10/26/24 History carboxymethylcellulose 0.5 1 drp EACH EYE DAILY 10/26/24 Unknown History %-glycerin 0.9 % eye drops (Lubricant Eye (cmc-glycerin)) ferrous sulfate 325 mg (65 mg 325 mg PO DAILY 10/26/24 10/26/24 History iron) tablet (FeroSul) folic acid 1 mg tablet 1 mg PO DAILY 10/26/24 10/26/24 History Allergy/AdvReac Type Severity Reaction Status Date / Time amoxicillin trihydrate (From Allergy Rash Verified 10/26/24 15:08 Augmentin) Cephalosporins Allergy Rash Verified 10/26/24 15:08 potassium clavulanate (From Allergy Rash Verified 10/26/24 15:08 Augmentin) Sulfa (Sulfonamide Allergy Rash Verified 10/26/24 15:08 Antibiotics) Family History Sister Arthritis Breast cancer Osteoporosis Father Diabetes Cancer Skin Mother Hypertension Cancer skin cancer Osteoporosis Surgical History History of appendectomy History of cholecystectomy Hx of total knee arthroplasty History of cardiac catheterization Hx of total knee replacement Hx of total shoulder replacement History of esophagogastroduodenoscopy (EGD) Hx of ileostomy S/P tonsillectomy S/P cholecystectomy S/P ovarian cystectomy History of esophagogastroduodenoscopy (EGD) S/P colonoscopy Social History Smoking Status: Never smoker second hand exposure: No alcohol intake: never substance use type: does not use caffeine: Yes what type of physical activity do you participate in: none frequency: does not exercise seatbelt use: always Prior Cardiac Testing/Procedures Prior Cardiac Testing/Procedures: Echocardiogram (EF 55-60%, 09/15/23) Addt'l Information Additional Findings: EKG: Normal sinus rhythm Right bundle branch block Review of Systems (Anesthesia) ROS Narrative System reviewed and no additional complaints, except as documented. Physical Exam Const alert, oriented x3 and average body habitus Resp normal respiratory effort, normal air movement and clear to auscultation bilaterally Cardio regular rate, regular rhythm, no murmurs and diaphoretic
[2024-10-28 14:18] LABS: Bedside Glucose 112 mg/dL (74-106)
[2024-10-28] MEDS: dexAMETHasone 10 MG/ML Vial IV (15:15)
--- NOTE | 2024-10-28 15:21 | CHAPLAIN ---
Type of Pastoral Visit ___ Initial Visit ___ Follow-up Visit ___ On-call Visit ___ General Patient Visit ___ Spiritual Assessment ___ Family Conference ___ Bereavement ___ Rapid Response ___ Code Blue ___ Other (describe below) Pastoral Care Referral From ___ Patient ___ Family ___ Nurse ___ Physician ___ Resolution Agent ___ Asp Net Mvc Developer ___ Other (describe below) Sacrament/Intervention ___ Active listening ___ Anointing ___ Adventism ___ Bereavement ___ Communion ___ Mira exploration ___ ___ Life review ___ Prayer ___ Reconciliation ___ Sacrament of Sick ___ Supportive presence ___ Wedding ___ Other (describe below) Pastoral Comments patient and bed are out of the room; left a calling card
[2024-10-28] MEDS: Cefazolin 2 GM in Syringe 10 ML IV (15:32)
--- NOTE | 2024-10-28 16:15 | RAD_ITS ---
PROCEDURE: HIP 1 VIEW WITH PELVIS REASON FOR EXAM: RT HIP TOTAL HIP ARTHROPLASTY TECHNIQUE: 4 (1) view of the right hip COMPARISON: None. FINDINGS: 8 seconds of fluoroscopy of the right hip is utilized in the operating room during arthroplasty and 4 images are submitted for interpretation. RAD/Hip 1 view with Pelvis IMPRESSION: Fluoroscopy during right hip arthroplasty. Reading Location: [id number]
[2024-10-28] MEDS: TRANEXAMIC ACID 2,000 MG, 0.9% Normal Saline (100mL Bag) 100 ML OPERA.SITE (17:04)
[2024-10-28] MEDS: JPS (Morphine 10mg/ml) OPERA.SITE (17:04)
[2024-10-28] MEDS: Heparin 10,000 UNITS/10 ML Vial 30000 UNITS IV (17:15)
--- NOTE | 2024-10-28 17:24 | OP.PCM_ITS ---
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 Their intimate knowledge of my steps in the procedure aided in safe and expedient completion of the procedure. The PE played a vital rolls in positioning particularly in obtaining the appropriate positioning of the) Additional environmental engineering assistant?: No Type of Anesthesia: Spinal RN Documented Start/Stop Times: Operation Date: 10/28/24 14:00 Case Time Into Pre-Op 10/28/24 12:56 Out of Pre-Op 10/28/24 14:52 Anesthesia Start 10/28/24 15:01 Into Room 10/28/24 15:01 Procedure Start 10/28/24 15:40 Procedure End 10/28/24 17:46 Anesthesia End 10/28/24 17:51 Out of Room 10/28/24 17:51 Into Recovery 10/28/24 17:55 Out of Recovery 10/28/24 18:46 Into Phase II Recovery 10/28/24 18:47 Out of Phase II 10/28/24 19:37 Procedure Start Time: 15:40 Procedure Stop Time: 17:46 Select all DRAINS/GRAFTS/IMPLANTS that apply: Prosthetic device Prosthetic device details: 1. Chel Trident 2 TriTanium multihole 52 mm acetabulum shell 2. Alleyton cobalt-chromium 42E MDM liner 3. [place] X3 polyethylene MDM femoral head 42E 4. Chel Biolox delta 28 mm, +2.5 mm C taper femoral head 5. Chel V40 to C Taper adapter sleeve Special Medications: Ancef Estimated Blood Loss: 300 mL Fluids Replaced: 2000 mL crystalloid Specimen collected: No Description of surgery: On the day of the procedure patient was again seen and evaluated in the preoperative area. Patient's and son were at bedside and all parties were given opportunity ask any further questions or concerns. Risk and benefits of surgery were again reiterated with the patient. Patient demonstrated understanding wish to proceed. Right hip was signed. Patient was in deep at the operating room by anesthesia where a spinal anesthetic was placed. Once the spinal anesthetic was placed patient was placed in the supine position. Anesthesia assumed control of the C-spine and airway and remained controlled throughout the remainder of the procedure. Bump was placed underneath the sacrum with the assistance of my physician environmental engineering assistant and the circulating nurse. All bony prominences were identified and well-padded pannus was retracted using soft tissue retention system from the previous incision and bony landmarks were marked out. Right lower extremity was then prepped in a sterile fashion while the surgeon scrubbed. Upon reentering the room the right lower extremity was draped in the standard orthopedic fashion. Timeout was called everyone agreed upon the side, the site, the procedure be performed, patient's identity antibiotic given. Incision was marked out once more. An incision was taken down through skin. Bovie cautery was used to dissect through subcutaneous fatty and scar tissues until we are able to reach the fascia layer. Fasciotomy was performed and the TFL was retracted laterally. We carefully dissected down to the joint. Once we dissected into the joint retractors were placed over the medial and lateral femoral neck. This allowed us to do a synovectomy around the hip joint and remove some of the scar tissue. Once we were down into the joint we then trialed dislocated the hip. The hip would not dislocate with simple external rotation of the hip joint. Bone hook was placed around the femoral head dislocated quite simply. Femur was retracted laterally and lifted out of the wound and bone tamp was used to remove the femoral head from the trunnion. At this time the area was prepared in order to place the trunnion posterior and superior to the acetabulum and our attention was directed towards the acetabulum. Acetabular cup Tomes were used to separate the bone from the implant interface. Using these cup Tomes we were able to completely dissociate the acetabular component with minimal bone loss. After assessing bone loss we were able to then reamed from the previous 48 mm socket to a 52 mm. Got good bone chatter with 52 mm. At this time a 52 mm cup was open and impacted in place using live fluoroscopy after irrigating out the wound with normal saline and chlorhexidine solution. Based on patient's previous intraoperative fluoroscopy, preoperative x-rays and intraoperative images. As well as direct visualization from the original socket to the new acetabulum. We obtained at least 30 degrees of retroversion in comparison to the previous cup version. Acetabulum had good bony fixation and the MDM liner was impacted into the socket after irrigating out the wound. Attention was directed back towards the femur. We now need to use an MDM dual mobility femur. A +2.5 mm femur was trialed. Live x-ray was used to verify that this gave us appropriate leg length. Hip was stable in full extension with external rotation of the foot to the fullest extent. With hip flexion to 90 degrees patient can internally rotate to 30 degrees without dislocation or instability. Based on this we elected to proceed with a +2.5 mm, 28 mm femoral Biolox delta head with a 42E MDM polyethylene liner. These were assembled on the back table of the wound was irrigated out. Trunnion was again exposed. The 40 taper to C taper sleeve was placed over the trunnion after was cleaned and dried and the femoral head was put into place and impacted with the femoral head impactor. Yu taper was tested and found to be stable. Hip was reduced. Hip remained stable on external rotation and with hip flexion and internal rotation. Leg lengths remained appropriate. Final x-rays were taken. The wound was zak irrigated out with normal saline after a 3-minute dilute Betadine lavage and chlorhexidine lavage for 1 minute. TXA lavage was also used. After copiously irrigated out the wound wound was closed closing the fascia with #1 Vicryl. Deep fatty layer was closed with #1 Vicryl. Skin was closed with 2-0 Vicryl and final skin closure was done with 2- 0 nylon sutures. Prevena wound VAC dressing was placed due to the patient's pannus and revision nature of the surgery. Patient was awakened by anesthesia and transferred to the PACU for recovery in stable condition. Postoperative plan: DVT prophylaxis?patient was placed on Xarelto 10 mg daily for 2 weeks followed by aspirin 81 mg twice daily for 2 weeks. Patient does have a history of DVT. Patient is weightbearing as tolerated. Anterior precautions will be used. Begin physical therapy tomorrow. Patient will be ready for discharge when she passes physical therapy provided she remains medically stable. Surgical Findings: Stable hip at completion of case. Acetabulum was changed from a polyethylene liner to a dual mobility liner and 48 mm to 52 mm with about 30 degrees additional retroversion in relation to previous component. Femoral head was revised to a MDM component with larger femoral head and dual mobility. Complications Complications: No Admit VTE Documentation VTE Present on Admission: No VTE Mechan Device Prophylaxis: SCD's and Thigh High RORO Hose VTE Pharm Prophylaxis ordered?: Yes
--- NOTE | 2024-10-28 17:47 | PCM.POST.ANE ---
Anesthesia: Postop Eval I Current Vital Signs Temperature: 97 F Pulse Rate: 77 Blood Pressure: 115/62 Respiratory Rate: 16 Pulse Ox: 100 Oxygen Delivery Method: Room Air Assessment Airway patent: Yes Spontaneous unlabored respirations: Yes Mental status: Awake and Calm nausea: No Vomiting: No Anesthesia Complication: No Fluid Hydration Crystalloid volume administer (ml): 2,000 Total IV fluid infused: 2,000 Progress Note Anesthesia document: Postop Eval 1 completed: Yes
--- NOTE | 2024-10-28 17:50 | POSTOPAN2_ITS ---
Anesthesia Postop Eval I Sum Postop Eval Completion status Anesthesia document: Postop Eval 1 completed: Yes Anesthesia Postop Eval I Summary Anesthesia Postop Eval I Summary: Anesthesia Postop Eval I: Assessment Summary Airway patent Yes 10/28/24 17:47 WEB DEVELOPMENT [email or web address].[email or web address] Spontaneous unlabored Yes 10/28/24 17:47 WEB DEVELOPMENT CONSULTANT.TNES respirations Mental status Awake,Calm 10/28/24 17:47 WEB DEVELOPMENT CONSULTANT.TNES nausea No 10/28/24 17:47 WEB DEVELOPMENT CONSULTANT.TNES Vomiting No 10/28/24 17:47 WEB DEVELOPMENT CONSULTANT.TNES Anesthesia Postop Eval I: Fluid Summary Crystalloid volume administer 2,000 10/28/24 17:47 WEB DEVELOPMENT CONSULTANT.TNES (ml) Colloids volume administered ( ml) Blood Product volume administered (ml) Total IV fluid infused 2,000 10/28/24 17:47 WEB DEVELOPMENT CONSULTANT.TNES Anesthesia Postop Eval I: Summary Notes Anesthesia Complication No 10/28/24 17:47 WEB DEVELOPMENT CONSULTANT.TNES Anesthesia Complication Comment: Post-operative progress note Anesthesia: Postop Eval II Evaluation Mental status: Awake and Calm Pain Level: 0 nausea: No Vomiting: No Complications Anesthesia Complication: No
--- NOTE | 2024-10-28 17:50 | PCM.POSTANE2 ---
Anesthesia Postop Eval I Sum Postop Eval Completion status Anesthesia document: Postop Eval 1 completed: Yes Anesthesia Postop Eval I Summary Anesthesia Postop Eval I Summary: Anesthesia Postop Eval I: Assessment Summary Airway patent Yes 10/28/24 17:47 SENIOR TAX [email or web address].[email or web address] Spontaneous unlabored Yes 10/28/24 17:47 SENIOR TAX SPECIALIST.TNES respirations Mental status Awake,Calm 10/28/24 17:47 SENIOR TAX SPECIALIST.TNES nausea No 10/28/24 17:47 SENIOR TAX SPECIALIST.TNES Vomiting No 10/28/24 17:47 SENIOR TAX SPECIALIST.TNES Anesthesia Postop Eval I: Fluid Summary Crystalloid volume administer 2,000 10/28/24 17:47 SENIOR TAX SPECIALIST.TNES (ml) Colloids volume administered ( ml) Blood Product volume administered (ml) Total IV fluid infused 2,000 10/28/24 17:47 SENIOR TAX SPECIALIST.TNES Anesthesia Postop Eval I: Summary Notes Anesthesia Complication No 10/28/24 17:47 SENIOR TAX SPECIALIST.TNES Anesthesia Complication Comment: Post-operative progress note Anesthesia: Postop Eval II Evaluation Mental status: Awake and Calm Pain Level: 0 nausea: No Vomiting: No Complications Anesthesia Complication: No
--- NOTE | 2024-10-28 17:54 | RAD_ITS ---
PROCEDURE: HIP MIN 2 VIEWS (PORTABLE) REASON FOR EXAM: POST OP TECHNIQUE: One (1) view of the right hip COMPARISON: None. FINDINGS: Status post right hip arthroplasty. The prosthesis appears located. Normal alignment. Soft tissues are unremarkable. RAD/Hip Min 2 Views (Portable) IMPRESSION: TOTAL HIP REPLACEMENT Reading Location: [id number]
[2024-10-28] MEDS: Lactated Ringers 1,000 ML 125 ML IV (19:30)
[2024-10-28] MEDS: Nystatin Powder 15gm Bottle 1 APPLIC TOPICAL (22:06)
[2024-10-28] MEDS: Fluticasone 0.05% 1 SPRAY NASAL.SRY NASAL (22:06)
[2024-10-28] MEDS: Atorvastatin Calcium 20 MG Tablet PO (22:06)
[2024-10-28] MEDS: Montelukast 10 MG Tablet PO (22:06)
[2024-10-29] MEDS: Cefazolin 1 GM/50 ML BAG IV ×2 (00:02→06:21)
[2024-10-29 00:04] VITALS: BP 139/74; PULSE 92; RESP 16; TEMP 36.4; O2SAT 96
[2024-10-29 04:25] VITALS: BP 143/71; PULSE 74; RESP 16; TEMP 36.6; O2SAT 98
[2024-10-29] MEDS: Acetaminophen 500 MG Tablet 1000 MG PO ×2 (04:46→13:10)
[2024-10-29] MEDS: Rivaroxaban 10 MG Tablet PO (04:46)
[2024-10-29 05:37] VITALS: BMI 38.2
[2024-10-29 06:20] LABS: Hematocrit 36.9 % (37-47); Hemoglobin 11.6 g/dL (12.0-15.0); Mean Corp Hgb Conc 31.4 g/dL (32-36); Mean Corpuscular Volume 76.2 fL (81-99); Mean Platelet Vol. 10.1 fl (6.2-12.0); Platelet Count 209 K/mm3 (150-450); RBC Distribution Width CV 14.6 % (11.6-14.6); Red Blood Count 4.84 M/mm3 (4.2-5.4); White Blood Count 7.3 K/mm3 (4.4-11.0)
[2024-10-29] MEDS: oxyCODONE 5 MG Tablet PO ×2 (06:21→15:16)
--- NOTE | 2024-10-29 07:13 | PN.HOSP_ITS ---
Reason for Visit Reason for Visit: Diagnoses Recurrent dislocation, right hip (10/26/24) Dislocation of internal right hip prosthesis, subsequent encounter (10/26/24) Objective Data Objective Data Vital Signs: Vital Signs Temp Pulse Resp BP Pulse Ox O2 Del Method O2 Flow Rate 97.8 F 74 16 143/71 H 98 Room Air 4 10/29/24 04:25 10/29/24 04:25 10/29/24 04:25 10/29/24 04:25 10/29/24 04:25 10/29/24 04:25 10/28/24 18:45 Oxygen Flow Rate (L/min) [3] 3 Oxygen Flow Rate (L/min) [2] 3 Oxygen Flow Rate (L/min) [1 ( 3 Initial Baseline)] Oxygen Flow Rate (L/min) 4 Oxygen Delivery Method [3] Nasal Cannula Oxygen Delivery Method [2] Nasal Cannula Oxygen Delivery Method [1 ( Nasal Cannula Initial Baseline)] Oxygen Delivery Method Room Air Weight: 94.3 kg Body Mass Index (BMI) 38.2 Intake & Output: Intake and Output for Last 24 Hours 10/27/24 10/28/24 10/29/24 23:59 23:59 23:59 Intake Total 1200 / 1200 5122 / 5122 2250 / 2250 Output Total 2950 / 3750 4600 / 4600 1100 / 1100 Balance -1750 / -2550 522 / 522 1150 / 1150 Lab / Micro Data 10/29/24 05:40 10/28/24 05:57 Labs: Laboratory Results - last 24 hr 10/28/24 05:57: Sodium 141, Potassium 3.8, Chloride 105, Carbon Dioxide 24.8, Anion Gap 11, BUN 13, Creatinine 0.71, Estim Creat Clear Calc 66.94, Est GFR (MDRD) Non-Af 90, BUN/Creatinine Ratio 17.7, Glucose 125 H, Calcium 9.7 10/28/24 13:55: POC Glucose 112 H 10/29/24 05:40: WBC 7.3, RBC 4.84, Hgb 11.6 L, Hct 36.9 L, MCV 76.2 L, MCH 24.0 L, MCHC 31.4 L, RDW Std Deviation 40.0, RDW Coeff of Anuradha 14.6, Plt Count 209, MPV 10.1 Radiography Diagnostic Testing: Radiology Impression Hip/Pelvis X-Ray 10/28/24 16:15 IMPRESSION: Fluoroscopy during right hip arthroplasty. Reading Location: [id number] Hip X-Ray 10/28/24 17:54 IMPRESSION: TOTAL HIP REPLACEMENT Reading Location: [facility] Assessment & Plan Assessment/Plan (1) Recurrent dislocation of right hip: PLAN: Plan #Recurrent R hip dislocation -s/p R hip arthroplasty w/ Dr. Ferraro on Aug 23 -Pt presented w/ recurrent hip dislocation w/ xray showing posterior dislocation -This was reduced by ER provider and Ortho contacted who plan for revision on -Patient in immobilizer -Ortho consulted -Pain control and supportive care pending surgery -N.p.o. at midnight -10/28: Patient for surgery today, has remained n.p.o. -10/29: Status post right hip repair, new PT OT eval's pending, further dispo pending patient's progress/ability with PT. Patient hide milligrams of Xarelto with plan for 2 weeks followed by aspirin twice daily for 2 weeks per Ortho #Hypertension -Blood pressure 122/57 -Patient's home lisinopril and amlodipine continued -Will plan to hold day of surgery -10/28: BP 149/66, if vitally stable can likely reinstitute tomorrow -10/29: A.m. blood pressure 143/71, will resume home medications # Loose stool -Only 2 episodes and without any associated vomiting and no severe abdominal pain, will monitor, if this increases in frequency or other symptoms develop can consider stool studies or further workup, but patient vitally stable and in no acute distress -10/28: Continue to monitor, 2 loose stools today, patient reports that she thinks it may be her iron supplement, most people this causes constipation however she reports at home it was giving her diarrhea so she stopped it and it resolved and now that she is getting here she has diarrhea again. Will trial stopping this -10/29: Chronic medical problems: #GERD -Continue PPI # History of DVT -Occurred post bowel perforation with surgical resection, has completed 2 weeks of Xarelto and aspirin at that time with no recurrence # History of asthma -Continue inhalers #DVT ppx: Lovenox subcu Yenifer Mcgarry MD Time spent in the patient's overall evaluation, decision-making process, review of diagnostic data, adjustment of management, discussion with other providers, nursing and ancillary staff involved in patient's care documentation, 36 Minutes
--- NOTE | 2024-10-29 07:14 | PCM.PN.ORT ---
Subjective Subjective Patient appears to be comfortable and bedside chair. Patient has not yet been up working with physical therapy. Patient states that her pain is controlled and she took her first dose of oxycodone this morning. Patient denies any shortness of breath, chest pain, calf pain, fever, chills, dizziness, nausea, vomiting, lightheadedness. Patient denies any adverse events overnight. Objective Data Objective Data Vital Signs: Vital Signs Temp Pulse Resp BP Pulse Ox O2 Del Method O2 Flow Rate 97.8 F 74 16 143/71 H 98 Room Air 4 10/29/24 04:25 10/29/24 04:25 10/29/24 04:25 10/29/24 04:25 10/29/24 04:10/29/24 04:10/28/24 18:45 Oxygen Flow Rate (L/min) [3] 3 Oxygen Flow Rate (L/min) [2] 3 Oxygen Flow Rate (L/min) [1 ( 3 Initial Baseline)] Oxygen Flow Rate (L/min) 4 Oxygen Delivery Method [3] Nasal Cannula Oxygen Delivery Method [2] Nasal Cannula Oxygen Delivery Method [1 ( Nasal Cannula Initial Baseline)] Oxygen Delivery Method Room Air Weight: 94.3 kg Body Mass Index (BMI) 38.2 Intake & Output: Intake and Output for Last 24 Hours 10/27/24 10/28/24 10/29/24 23:59 23:59 23:59 Intake Total 1200 / 1200 5122 / 5122 2250 / 2250 Output Total 2950 / 3750 4600 / 4600 1100 / 1100 Balance -1750 / -2550 522 / 522 1150 / 1150 Lab / Micro Data 10/29/24 05:40 10/28/24 05:57 Labs: Laboratory Results - last 24 hr 10/28/24 05:57: Sodium 141, Potassium 3.8, Chloride 105, Carbon Dioxide 24.8, Anion Gap 11, BUN 13, Creatinine 0.71, Estim Creat Clear Calc 66.94, Est GFR (MDRD) Non-Af 90, BUN/Creatinine Ratio 17.7, Glucose 125 H, Calcium 9.7 10/28/24 13:55: POC Glucose 112 H 10/29/24 05:40: WBC 7.3, RBC 4.84, Hgb 11.6 L, Hct 36.9 L, MCV 76.2 L, MCH 24.0 L, MCHC 31.4 L, RDW Std Deviation 40.0, RDW Coeff of Anuradha 14.6, Plt Count 209, MPV 10.1 Radiography Diagnostic Testing: Radiology Impression Hip/Pelvis X-Ray 10/28/24 16:15 IMPRESSION: Fluoroscopy during right hip arthroplasty. Reading Location: [facility] Hip X-Ray 10/28/24 17:54 IMPRESSION: TOTAL HIP REPLACEMENT Reading Location: [facility] Physical Exam Narrative 1. RORO hose in place bilaterally. 2. SCDs in place bilaterally. 3. Prevena wound VAC in place with minimal condensation in tubing. Dressing is clean dry and intact. 4. Right hip is soft and supple. 5. Dorsiflexion plantarflexion are performed without pain or restriction. 6. Sensation intact to light touch. 7. Neurovascularly intact. 8. Negative Homans bilaterally. Patient does admit to skin soreness in her calves but states that this is her baseline. Const alert, oriented x3 and no apparent distress Assessment & Plan Assessment/Plan (1) Status post revision of total replacement of right hip: PLAN: Status post revision right total replacement anterior femoral and acetabular components day 1. 1. DVT prophylaxis: Patient will be on Xarelto for 2 weeks following surgery due to history of DVT. Following Xarelto for 2 weeks patient will then switch to aspirin 81 mg 2 times per day until 4 weeks postoperatively. Patient will be wearing RORO hose for 2 weeks postoperatively. Patient was advised while on Xarelto for the first 2 weeks to not take any anti-inflammatory medications such as her regular meloxicam. 2. Pain medications: Will continue current pain regimen. Patient will be on Tylenol 1000 mg every 8 hours, as well as oxycodone as needed for breakthrough pain. OARRS report was reviewed today. The risk of abuse potential for narcotic pain medication was discussed and reviewed. Patient was advised not to drive motor vehicle or operate heavy equipment while taking narcotic pain medication. They were instructed to use the minimal amount of narcotic pain medication for their current pain. Patient voiced understanding. 3. Constipation: Patient was instructed to take senna as instructed until her first bowel movement to decrease risk of impaction following surgery. Patient was instructed if they have not yet had bowel movement in 3 days to call our office for reevaluation. 4. Physical therapy: Patient will be weightbearing as tolerated with walker. Patient will work with physical therapy before leaving hospital. 5. Anterior hip precautions were reviewed with patient in office today. 6. Prevena wound VAC: Patient will be on Prevena wound VAC for 1 week postoperatively. Patient is able to remove the wound VAC and dispose of it on 11/04/2024. Patient was educated she will have to sponge bathe while wound VAC is in place as she is not to get wound VAC wet. 7. H&H: 11.6/36.9. Currently asymptomatic. Patient was already following anemia protocol the iron has been stopped due to loose stools. Patient's H&H is currently stable. 8. BMP is pending will review. Primary care team will also likely review BMP. 9. Incentive spirometry: Patient was encouraged to use incentive spirometer every hour that they are awake for the first week to exercise like to decrease risk of postoperative lung infection. 10. Patient is to follow-up per postoperative instructions. 11. Medicine is primary care team and will continue to manage chronic disease. Recommendations from medicine are appreciated. 12. Patient is okay for discharge from an orthopedic standpoint as long as pain maintains adequately controlled, has worked with and done well with physical therapy, and is okay per medicine doctors recommendations. 13. Disposition: Patient will follow-up per postoperative instructions. Patient does have outpatient physical therapy established. Patient will follow-up with our office in 2 weeks for postoperative visit. Anterior hip precautions were reviewed with patient in office today. Primary care team will continue to manage and prepare for appropriate discharge. Patient plans to go home at this time. Patient does state she may have concerns with going today as her [id number] and her will have services today and tomorrow morning that he will be rather busy with and she thinks that she would be home alone. Patient will work with and be evaluated by physical therapy today. Patient was encouraged to call our office with any questions, concerns, new problems. All questions were answered best my ability.
[2024-10-29 07:20] VITALS: PULSE 78; RESP 19
[2024-10-29] MEDS: Budesonide Respules 0.5 MG/2 ML AMPUL.NEB. INHALATION (07:27)
[2024-10-29] MEDS: Albuterol 2.5 MG/3 ML VIAL.NEB. INHALATION ×2 (07:27→13:18)
[2024-10-29] MEDS: Folic Acid 1 MG Tablet PO (08:14)
[2024-10-29] MEDS: Lactobacillis Acidophilus 1 CAP PO (08:15)
[2024-10-29] MEDS: Cholecalciferol (VIT D3) 25 MCG TABLET (1,000 UNITS) PO (08:16)
[2024-10-29] MEDS: Pantoprazole Sodium 20 MG Tablet PO (08:16)
[2024-10-29] MEDS: CARBOXYMETHYLCELLULOSE SODIUM 1 DRP DROPS OPHTHALMIC (08:16)
[2024-10-29] MEDS: Nystatin Powder 15gm Bottle 1 APPLIC TOPICAL (08:16)
[2024-10-29] MEDS: Multivitamins,Therapeutic Tablet 1 TABLET PO (08:17)
[2024-10-29 08:18] LABS: Anion Gap 13 (5-15); BUN 13 mg/dL (4-19); BUN/Creat Ratio 20.2 RATIO (10-20); Calcium,Total 9.6 mg/dL (7.6-11.0); Carbon Dioxide 22.2 mmol/L (21.0-32.0); Chloride 101 mmol/L (98-108); Creatinine, Serum 0.65 mg/dL (0.70-1.20); EST Glomerular Filtration Rate 93 (>60); Estimated Creatinine Clearance 67.02 ml/min (50-250); Glucose 186 mg/dL (70-99); Sodium Level 136 mmol/L (133-145)
[2024-10-29] MEDS: Lisinopril 20 MG Tablet PO (08:19)
[2024-10-29 08:31] VITALS: BP 141/71; PULSE 95; RESP 18; TEMP 36.7; O2SAT 97
--- NOTE | 2024-10-29 10:45 | CASEMGMT ---
Addendum entered by Michelle Martins 10/29/24 14:23: Per Radha at [facility], they will see pt for care tomorrow. Updated pt. Addendum entered by Michelle Martins 10/29/24 12:12: Pt has chosen 1. [facility] 2. [facility] 3. [facility]. TC to Radha at [facility], referral made. Addendum entered by Michelle Martins 10/29/24 11:44: SYD MENDOZA into pt room provided pt with HHC list created by dc property management assistant. Addendum entered by Michelle Martins 10/29/24 11:08: SYD MENDOZA checked back with pt, she states she still wants HHC. She is aware that SYD MENDOZA will bring in a list of options. Original Note: SYD MENDOZA into pt room, pt states she is interested in HHC instead of outpt as they do not have any transportation. Discussed using the hospital van to go to [email or web address], pt states she would like to talk to her . SYD MENDOZA to check back.
--- NOTE | 2024-10-29 11:11 | CASEMGMT ---
Discharge Planning A list of?HH providers including quality and resource use data and consistent with the patient's preferred geographic region, medical needs, and insurance network was created in [employer].? This list was provided to the RN REJI. Monserrat Rosario, Discharge Planning Asst.
--- NOTE | 2024-10-29 12:15 | CASEMGMT ---
TC to [facility], pt xarelto cost is $21.98.
--- NOTE | 2024-10-29 12:50 | PCM.DC ---
Discharge Instructions Diet Discharge Diet: No restrictions DC O2, CPAP, BIPAP needs Home O2 Discharge instructions: No Dressing / Incision Discharge Activity: - (See additional instructions) Follow Up Care Test Results: Test results from this visit will be discussed in further detail at your follow-up appointment, if applicable. Discharge Plan Admission Admit Date/Time: 10/26/24 18:06 Primary Reason for Your Visit: Recurrent right hip dislocation Attending Provider: Yenifer Mcgarry Primary Care Provider: Caitlin Moreland Consulting Providers: Placido Jaramillo; Stacey Aldridge Instructions Patient Instructions: ED Fall Prevention Additional Instructions / Restrictions: DISCHARGE INSTRUCTIONS PLEASE READ *Please take this with you to your next doctors appointment* -You will need to take Xarelto for 2 weeks after discharge and then switch to aspirin 81 mg twice daily until 4 weeks postoperatively. Also advised to wear RORO hose for 2 weeks. -Is recommended you take Tylenol 1000 mg every 8 hours and oxycodone as needed for breakthrough pain, I will be important to not take any other products containing Tylenol or consume alcohol during this time. -You would benefit from taking docusate until your first bowel movement postoperatively to reduce risk of impaction. If you have not yet had a bowel movement 3 days please contact the orthopedic office -Please follow-up with your orthopedic doctor in 2 weeks upon discharge. Please call their office to schedule hospital follow-up appointment upon discharge. -You will be on Prevena wound VAC for 1 week postoperatively. You are able to remove the wound VAC and dispose of it on 11/04/2024. You will have to sponge bathe while wound VAC is in place and do not to get wound VAC wet. -Weightbearing as tolerated with walker, anterior hip precautions as discussed with your orthopedic team -Recommend using an incentive spirometer every hour that you are awake for the first week you are home to decrease risk of postoperative lung infections -Please call your primary care provider's office upon discharge to schedule a hospital follow up within 1 week. -For any concerning signs or symptoms please call 911 or proceed to the nearest emergency department Discharge Orders/Prescriptions Prescriptions: New Xarelto 10 mg Tablet 10 mg PO DAILY 14 Days Qty: 14 0RF docusate sodium 100 mg Capsule 100 mg PO BID 3 Days Qty: 6 0RF Rx Instructions: Take postoperatively until you have bowel movement, if no bowel movement in 3 days contact your Ortho doc oxycodone 5 mg Tablet 5 mg PO Q4H PRN PRN (Reason: Pain Score 4-10) 42 Days Qty: 7 0RF Rx Instructions: Hold for sedation or confusion Continued albuterol sulfate 90 mcg/actuation HFA aerosol inhaler 2 puff INHALATION Q6H PRN (Reason: Sob &/Or Wheezing) amlodipine 10 MG tablet 10 mg PO QPM fluticasone propionate 1 SPRAY spray,suspension 1 spray NASAL QHS lisinopril 20 MG tablet 20 mg PO DAILY montelukast 10 mg tablet 10 mg PO QHS acetaminophen 500 MG tablet 1,000 mg PO Q8 PRN (Reason: Pain) multivitamin Tablet 1 tab PO DAILY atorvastatin [Lipitor] 20 mg tablet 20 mg PO QHS omeprazole 20 mg tablet,disintegrat, delay rel 20 mg PO DAILY azelastine [Astepro Allergy] 205.5 mcg (0.15 %) spray,non-aerosol 1 spray intranasal DAILY PRN (Reason: allergy) Rx Instructions: administer into each nostril NewFlora 10 billion cell capsule 100 mmu cells PO DAILY Patient Comments: UNSURE OF STRENGTH OR BRAND PURCHASED PRIOBIOTIC AT THE [employer] [facility] [place] 200-5 mcg/actuation HFA aerosol inhaler 2 inh inhalation BID cholecalciferol (vitamin D3) [Vitamin D3] 25 mcg (1,000 unit) capsule 25 mcg PO DAILY folic acid 1 mg tablet 1 mg PO DAILY Lubricant Eye (cmc-glycerin) 0.5-0.9 % drops 1 drp EACH EYE DAILY Held meloxicam 7.5 mg tablet 7.5 mg PO BID Hold Instructions: Resume on 11/13/24. Do not take until you are no longer on Xarelto Patient Comments: PT ONLY TAKES ONCE DAILY Discontinued ferrous sulfate [FeroSul] 325 mg (65 mg iron) tablet 325 mg PO DAILY Referrals / Follow Up: Caitlin Moreland MD [Primary Care Provider] - Within 1 Week Placido Jaramillo MD [Med Staff - Active Staff] - Within 2 Weeks Disposition Disposition (needs filled in before D/C Order can be placed): Home Health Service
[2024-10-29 13:00] VITALS: BP 136/69; PULSE 80; RESP 18; TEMP 36.6; O2SAT 100
--- NOTE | 2024-10-29 13:02 | DS.PCM_ITS ---
Providers Date of Admission: 10/26/24 Date of Discharge: 10/29/24 Primary Care Physician: Dr. 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 #Hypertension #GERD # History of DVT # History of asthma Medications at Discharge Home Medications amlodipine 10 mg tablet 10 mg PO QPM bp 04/03/16 albuterol sulfate 90 mcg/actuation aerosol inhaler 2 puff inhalation Q6H PRN Sob &/Or Wheezing 11/04/17 fluticasone propionate 50 mcg/actuation nasal spray,suspension 1 spray QHS nasal congestion 01/07/19 lisinopril 20 mg tablet 20 mg PO DAILY bp 01/07/19 montelukast 10 mg tablet 10 mg PO QHS allergy 08/15/21 acetaminophen 500 mg tablet 1,000 mg PO Q8 PRN Pain 08/22/21 multivitamin 1 tab PO DAILY supplement 08/22/21 atorvastatin 20 mg tablet (Lipitor) 20 mg PO QHS cholesterol 09/13/21 Lactobacillus acidophilus 10 billion cell capsule (NewFlora) 100 mmu cells PO DAILY immune supplement 09/15/23 azelastine 205.5 mcg (0.15 %) nasal spray (Astepro Allergy) 1 spray intranasal DAILY PRN allergy 09/15/23 omeprazole 20 mg delayed release,disintegrating tablet 20 mg PO DAILY heartburn 09/15/23 mometasone-formoterol HFA 200 mcg-5 mcg/actuation aerosol inhaler (Dulera) 2 inh inhalation BID allergies 10/15/23 cholecalciferol (vitamin D3) 25 mcg (1,000 unit) capsule (Vitamin D3) 25 mcg PO DAILY supplement 07/27/24 meloxicam 7.5 mg tablet 7.5 mg PO BID pain 10/05/24 Held on 10/29/24. Instructions: Resume on 11/13/24. Do not take until you are no longer on Xarelto carboxymethylcellulose 0.5 %-glycerin 0.9 % eye drops (Lubricant Eye (cmc- glycerin)) 1 drp EACH EYE DAILY 10/26/24 folic acid 1 mg tablet 1 mg PO DAILY 10/26/24 docusate sodium 100 mg capsule 100 mg PO BID 3 days #6 caps 10/29/24 oxycodone 5 mg tablet 5 mg PO Q4H PRN pain 7 days #42 tabs 10/29/24 rivaroxaban 10 mg tablet (Xarelto) 10 mg PO DAILY 14 days #14 tabs 10/29/24 Hospital Course Procedures - (Total revision of right hip due to recurrent hip dislocation) Summary of Care Provided Minutes Spent on Discharge: 32 Hospital Course: #Recurrent R hip dislocation #Hypertension #GERD # History of DVT # History of asthma 73-year-old female with history as above presented [facility] ED 10/26/2024 with right hip pain and was found to have a recurrent right hip dislocation, given this is not happened several times patient's hip was reduced in the ED and Ortho contacted who recommended admission and the patient would require surgery. Patient underwent revision of right total hip replacement on 10/28 and tolerated this very well. Postoperatively patient doing well and got up and moved around with therapy, no new or acute complaints and patient comfortable with discharge home. During her hospitalization only complaint was loose stool however after stopping iron, she reports the iron caused loose stool at home and it resolved when she stopped, the loose stool stopped here as well. Discussed with orthopedic PA to confirm patient still okay for discharge, discussed medicine for patient to be discharged with, will send in Xarelto and oxycodone and recommended pill count and duration. Patient discharged home with home health in stable condition with discharge instructions as follows: -You will need to take Xarelto for 2 weeks after discharge and then switch to aspirin 81 mg twice daily until 4 weeks postoperatively. Also advised to wear RORO hose for 2 weeks. -Is recommended you take Tylenol 1000 mg every 8 hours and oxycodone as needed for breakthrough pain, I will be important to not take any other products containing Tylenol or consume alcohol during this time. -You would benefit from taking docusate until your first bowel movement postoperatively to reduce risk of impaction. If you have not yet had a bowel movement 3 days please contact the orthopedic office -Please follow-up with your orthopedic doctor in 2 weeks upon discharge. Please call their office to schedule hospital follow-up appointment upon discharge. -You will be on Prevena wound VAC for 1 week postoperatively. You are able to remove the wound VAC and dispose of it on 11/04/2024. You will have to sponge bathe while wound VAC is in place and do not to get wound VAC wet. -Weightbearing as tolerated with walker, anterior hip precautions as discussed with your orthopedic team -Recommend using an incentive spirometer every hour that you are awake for the first week you are home to decrease risk of postoperative lung infections -Please call your primary care provider's office upon discharge to schedule a hospital follow up within 1 week. -For any concerning signs or symptoms please call 911 or proceed to the nearest emergency department Physical Exam Narrative General: Alert, oriented, no apparent distress HEENT: Atraumatic, normocephalic Eyes: Anicteric, normal conjunctiva, extraocular movements grossly intact Neck: Supple Respiratory: Clear to auscultation bilaterally, normal respiratory effort Cardiovascular: Regular rate and rhythm GI: Soft, nontender, nondistended Extremities: No edema Musculoskeletal: Moving all extremities Neuro: No overt focal neurological deficits Skin: No rashes appreciated Psych: Cooperative Weight / BMI Weight Weight: 94.3 kg Body Mass Index (BMI) 38.2 ABG / Lab / Microbiology Data 10/29/24 05:40 10/29/24 05:40 Laboratory: Laboratory Results - last 24 hr 10/29/24 05:40: WBC 7.3, RBC 4.84, Hgb 11.6 L, Hct 36.9 L, MCV 76.2 L, MCH 24.0 L, MCHC 31.4 L, RDW Std Deviation 40.0, RDW Coeff of Anuradha 14.6, Plt Count 209, MPV 10.1, Sodium 136, Potassium 4.0, Chloride 101, Carbon Dioxide 22.2, Anion Gap 13, BUN 13, Creatinine 0.65 L, Estim Creat Clear Calc 67.02, Est GFR (MDRD) Non-Af 93, BUN/Creatinine Ratio 20.2 H, Glucose 186 H, Calcium 9.6 Radiography Diagnostic Testing: Radiology Impression Hip/Pelvis X-Ray 03/13/25 16:15 IMPRESSION: Fluoroscopy during right hip arthroplasty. Reading Location: [facility] Hip X-Ray 10/28/24 17:54 IMPRESSION: TOTAL HIP REPLACEMENT Reading Location: [facility] D/C Instructions Discharge Diet: No restrictions DC O2, CPAP, BIPAP Needs Home O2 Discharge instructions: No Meaningful Use Info Meaningful Use Meaningful Use Diagnoses (Choose all that apply): None applicable Ischemic Stroke Statin Dosing Therapy Reference: STATIN DOSE THERAPY REFERENCE: * Patients > 75 years receive moderate or high dose statin therapy. * Patients 75 years or YOUNGER should receive HIGH intensity statin dose unless contraindicated. You will be required to document reason for non-treatment if statin daily dose does not meet guidelines. HIGH DOSE STATIN THERAPY DAILY Atorvastatin > than or = to 40 mg Rosuvastatin > than or = to 20 mg Amlodipine + Atorvastatin > than or = to 2.5/40 mg Ezetimibe + Simvastatin 10/80 mg Simvastatin 80mg Discharge Plan Admission Admit Date/Time: 10/26/24 18:06 Primary Reason for Your Visit: Recurrent right hip dislocation Attending Provider: Yenifer Mcgarry Primary Care Provider: Caitlin Moreland Consulting Providers: Placido Jaramillo; Stacey Aldridge Instructions Patient Instructions: ED Fall Prevention Additional Instructions / Restrictions: DISCHARGE INSTRUCTIONS PLEASE READ *Please take this with you to your next doctors appointment* -You will need to take Xarelto for 2 weeks after discharge and then switch to aspirin 81 mg twice daily until 4 weeks postoperatively. Also advised to wear RORO hose for 2 weeks. -Is recommended you take Tylenol 1000 mg every 8 hours and oxycodone as needed for breakthrough pain, I will be important to not take any other products containing Tylenol or consume alcohol during this time. -You would benefit from taking docusate until your first bowel movement postoperatively to reduce risk of impaction. If you have not yet had a bowel movement 3 days please contact the orthopedic office -Please follow-up with your orthopedic doctor in 2 weeks upon discharge. Please call their office to schedule hospital follow-up appointment upon discharge. -You will be on Prevena wound VAC for 1 week postoperatively. You are able to remove the wound VAC and dispose of it on 11/04/2024. You will have to sponge bathe while wound VAC is in place and do not to get wound VAC wet. -Weightbearing as tolerated with walker, anterior hip precautions as discussed with your orthopedic team -Recommend using an incentive spirometer every hour that you are awake for the first week you are home to decrease risk of postoperative lung infections -Please call your primary care provider's office upon discharge to schedule a hospital follow up within 1 week. -For any concerning signs or symptoms please call 911 or proceed to the nearest emergency department Discharge Orders/Prescriptions Prescriptions: New Xarelto 10 mg Tablet 10 mg PO DAILY 14 Days Qty: 14 0RF docusate sodium 100 mg Capsule 100 mg PO BID 3 Days Qty: 6 0RF Rx Instructions: Take postoperatively until you have bowel movement, if no bowel movement in 3 days contact your Ortho doc oxycodone 5 mg tablet 5 mg PO Q4H PRN (Reason: pain) 7 Days Qty: 42 0RF Continued albuterol sulfate 90 mcg/actuation HFA aerosol inhaler 2 puff INHALATION Q6H PRN (Reason: Sob &/Or Wheezing) amlodipine 10 MG tablet 10 mg PO QPM fluticasone propionate 1 SPRAY spray,suspension 1 spray NASAL QHS lisinopril 20 MG tablet 20 mg PO DAILY montelukast 10 mg tablet 10 mg PO QHS acetaminophen 500 MG tablet 1,000 mg PO Q8 PRN (Reason: Pain) multivitamin Tablet 1 tab PO DAILY atorvastatin [Lipitor] 20 mg tablet 20 mg PO QHS omeprazole 20 mg tablet,disintegrat, delay rel 20 mg PO DAILY azelastine [Astepro Allergy] 205.5 mcg (0.15 %) spray,non-aerosol 1 spray intranasal DAILY PRN (Reason: allergy) Rx Instructions: administer into each nostril NewFlora 10 billion cell capsule 100 mmu cells PO DAILY Patient Comments: UNSURE OF STRENGTH OR BRAND PURCHASED PRIOBIOTIC AT THE [employer] [facility] IN [place] Duldenair 200-5 mcg/actuation HFA aerosol inhaler 2 inh inhalation BID cholecalciferol (vitamin D3) [Vitamin D3] 25 mcg (1,000 unit) capsule 25 mcg PO DAILY folic acid 1 mg tablet 1 mg PO DAILY Lubricant Eye (cmc-glycerin) 0.5-0.9 % drops 1 drp EACH EYE DAILY Held meloxicam 7.5 mg tablet 7.5 mg PO BID Hold Instructions: Resume on 11/13/24. Do not take until you are no longer on Xarelto Patient Comments: PT ONLY TAKES ONCE DAILY Discontinued ferrous sulfate [FeroSul] 325 mg (65 mg iron) tablet 325 mg PO DAILY Referrals / Follow Up: Caitlin Moreland MD [Primary Care Provider] - Within 1 Week Placido Jaramillo MD [Med Staff - Active Staff] - Within 2 Weeks Disposition Disposition (needs filled in before D/C Order can be placed): Home Health Service Charges/Coding Visit Charges Inpatient E&M: 74091 Disch Hosp >30min
[2024-10-29 13:35] VITALS: PULSE 77; RESP 209
--- NOTE | 2024-10-29 14:24 | NURSING ---
Dr leonard paged for clarification of doxycycline @ D/c as compared to office pink sheet for d/c-
--- NOTE | 2024-10-29 14:33 | NURSING ---
Dr Jaramillo returned call and verified that he did not plan on putting pt on doxycycline at d/c and to cross it off instruction sheet
== END 2024-10-29 16:47 | disposition home health service (06) | DRG 468 ==
LOC: ED 17:52 → MS3 19:44
PROVIDERS: Specialist; Admitting Provider Internal Medicine; Emergency Provider Emergency Medicine; PCP Internal Medicine; Visit Provider Internal Medicine
PROC: 0SP90JZ Removal of Synthetic Substitute from Right Hip Joint, Open Approach (ICD-10-PCS; principal; 2024-10-28 13:35)
DX: T84.020A Dislocation of internal right hip prosthesis, initial encounter (principal); D64.9 Anemia, unspecified; I10 Essential (primary) hypertension; J45.909 Unspecified asthma, uncomplicated; E78.5 Hyperlipidemia, unspecified; K44.9 Diaphragmatic hernia without obstruction or gangrene; K21.9 Gastro-esophageal reflux disease without esophagitis; M25.351 Other instability, right hip; R19.7 Diarrhea, unspecified; Z86.16 Personal history of COVID-19; Z86.718 Personal history of other venous thrombosis and embolism; Z96.641 Presence of right artificial hip joint; R53.81 Other malaise; R93.89 Abnormal findings on diagnostic imaging of other specified body structures; Y79.2 Prosthetic and other implants, materials and accessory orthopedic devices associated with adverse incidents; Z79.51 Long term (current) use of inhaled steroids; Z79.899 Other long term (current) drug therapy; Z79.52 Long term (current) use of systemic steroids; Z79.01 Long term (current) use of anticoagulants
CPT/HCPCS: 36415; 71045; 72170; 73501; 73502; 73552; 76000; 80048; 80053; 82962; 83735; 84100; 85025; 85027; 85610; 85730; 93005; 94640; 94668; 97162; 97166; 99252; 99285; C1776; A4216; G0463; J2405; J3475

== ENCOUNTER 2025-01-06 10:00 | Outpatient (RCR) | payer MEDICARE, SELFPAY ==
--- NOTE | 2024-12-07 09:28 | HP.PTEVAL ---
Patient's Visit Information Visit Information Visit Information: JA ADAME is a 73 year old F referred to Physical Therapy by Dr. Placido Jaramillo MD with a diagnosis of R BRYANT with revision on 10/28/24, anterior approach. Date of Evaluation: 12/07/24 Physical Therapist: Jose Chowdhury DPT Visit Plan Frequency: 2x /Week Duration: 6 Weeks Plan: 1) R hip strengthening, hip flexors, abduction, extension. 2) functional strengthening 3) SL stability on RLE 4) stair progression Pt. is very week with hip abduction, flexion and extension. Subjective Subjective: Pt. is here today for her initial evaluation with diagnosis of R BRYANT, initially on August 19. She had multiple dislocations ultimately having a revision on October 28. After the second surgery she had a wound vac as well. She has an anterior approach. Pt. reports having some slight numbness. She has been doing home therapy until now. Pt. reports being compliant with all exercises. Pt. does not use an AD normal, but does use a cane for ambulating on uneven ground. Pt. is having trouble with getting comfortable with falling asleep. Pt. reports having difficulty with lifting her leg, getting up into her car, stair negotiation. Pt. is hopeful to increase her strength in order to get back to all previous levels without limitations. Pain R hip: Pain Intensity (Out of 10): 1 Pain Intensity Range: 0 and 2 Objective Objective: POSTURE: Pt. has normal posture in stance. PALPATION: Pt. has tenderness at lateral hip, but normal healing incision. NEURO: slight decreased sensation and lateral hip, normal DTR of achilles. Difficult to elicit patellar DTR bilaterally due to replacements. ROM: R hip: flexion 100deg, abd 45deg, ext 0deg. ER/IR not tested. MMT: RLE: knee: ext 40.1#, flex 27.4#; hip: flexion 14.6#, abd 0# LLE: knee: ext 47.9#, flex 30.8#; hip: flexion 30.4# GAIT: pt. ambulates without AD. Pt. has slight antalgic pattern during R stance phase with R lateral lean. STAIR: Pt. has marked difficulty with raising RLE to next step with negotiation and difficulty with pushing up during R stance phase. Balance/Special Test Scores Lower Extremity Functional Score: 48 TUG Test Time Seconds: 11.1 30 Second Chair Rise Test Seconds: 14 Goals Goal 1:: LTG: Pt. to be I with HEP. Goal Time Frame: 4-6 Weeks Goal 2:: STG: Pt. to sleep throughout the night without increase in symptoms. Goal Time Frame: 2-4 Weeks Goal 3:: LTG: Pt. to have symmetrical strength between BLEs. Goal Time Frame: 4-6 Weeks Goal 4:: LTG: Pt. to complete TUG with time less than 10seconds. Goal Time Frame: 4-6 Weeks Goal 5:: LTG: Pt to complete stair negotiation with 1 HR with reciprocal pattern without good stability and control. Goal Time Frame: 4-6 Weeks Rehabilitation Potential Physical Therapy Diagnosis: Pt. has signs and symptoms consistent with R BRYANT with revision on 10/28/24, anterior approach. Pt has marked weakness in her R hip flexor, abductors and extensors. She is overall getting around well, but has marked gait abnormalities consistent with hip weakness. Pt. would benefit from PT to address the above limitations progressing back to all previous levels of lifestyle. Rehabilitation Potential: Excellent Anticipated Interventions Patient/Client Instruction: Educate patient on: Condition, Plan of Care, Risk Factors and Benefits of Fitness Program For the Purpose of:: To improve decision making, To facilitate caregiver knowledge, To improve self management, To prevent re-injury, To improve ability to perform tasks related to life management and To improve tolerance to ADL's Therapeutic Exercise to Include: Strength training, Power training, Endurance training, Balance training, Postural training, Flexibilty training and Gait and locomotor training For the Purpose of:: To decrease pain, To decrease swelling/inflammation, To increase ROM, To improve nutrient delivery to tissue, To increase oxygenation perfusion, To improve muscle performance and motor function and To improve ability to perform ADL's Text: Thank you for the opportunity to evaluate your patient. For Medicare and Medicare HMO plans, please review the plan of care and approve it. It will need to be FAXED BACK to us at [phone] for Medicare purposes. For Medicare only, by signing this I certify the plan of care. Please let me know if there are questions or concerns regarding this plan of care. Physician Signature: Date:
--- NOTE | 2025-01-06 10:41 | HP.PTDCSUM ---
Discharge Summary D/C summary: It has been my pleasure to treat JA ADAME referred by Dr. Placido Jaramillo MD, with the diagnosis of R BRYANT with revision on 10/28/24, anterior approach for a total of 8 visit(s). Discharge Date: 01/06/25 Please see the following information for a summary of their discharge status. Subjective Subjective: Pt. reports doing well today, but yesterday was a rough day. Pt. reports no pain over the past few weeks. Pt. reports having some weakness., especially with going up steps. Pt. reports being 75% better overall. Pain R hip: Pain Intensity (Out of 10): 0 Overall Improvement % Improvement: 75 Objective Objective/Function: ROM: Good L hip ROM, not odd restrictions noted. Good HS length MMT: RLE: knee Ext 52.1#, flex 33.1#; hip flex 32.2#, abd 8# LLE: knee Ext 50.3#, flex 33.7#; hip: flex 30.1#, abd 33.4# GAIT: Pt. ambulates well without AD. She has some slight R femoral Add indicative of weakness in her R glute. STAIRS: Pt. is able to ascend with 1 HR, but has marked increased difficulty with R stance phase. Descending was great with 1 HR. TU.8sec without AD 30sec sit to stand rep test: 14 without use of UEs Pt. is overall doing well. She does have marked hip abductor weakness. I talked with her about this. She is going to work on this on her own. I gave her 3 new hip abductor strengthening exercises to work on today. Hand out given with bands. Goals Goal 1:: LTG: Pt. to be I with HEP. Goal Progress: Goal Met Goal 2:: STG: Pt. to sleep throughout the night without increase in symptoms. Goal Progress: Goal Met Goal 3:: LTG: Pt. to have symmetrical strength between BLEs. Goal Progress: Progressing Goal 4:: LTG: Pt. to complete TUG with time less than 10seconds. Goal Progress: Goal Met Goal 5:: LTG: Pt to complete stair negotiation with 1 HR with reciprocal pattern without good stability and control. Goal Progress: Goal Met Plan Plan: Pt. to be DC from PT at this point in time. D/C Information d/c sentence: If there are questions or concerns regarding this patient's physical therapy, please feel free to call me at [phone]. Thank you for the referral of this patient. Sincerely, Jose Chowdhury, DPT Balance/Gait/Functional tests Balance/Special Test Scores Lower Extremity Functional Score: 48 TUG Test Time Seconds: 7.8 Tug Test: <10 sec.=free mobile 30 Second Chair Rise Test Seconds: 14 Improvement % Improvement: 75
== END 2025-01-06 19:00 | disposition home or self-care (01) ==
LOC: PT 10:00
PROVIDERS: PCP Internal Medicine; Referring Provider Specialist; Visit Provider Specialist
DX: Z96.641 Presence of right artificial hip joint (principal); T84.020D Dislocation of internal right hip prosthesis, subsequent encounter
CPT/HCPCS: 97110; 97161; 97530

== ENCOUNTER 2025-07-11 08:14 | Emergency (ER) | payer MEDICARE, SELFPAY ==
[2025-07-11 08:15] VITALS: BP 185/74; PULSE 114; RESP 18; TEMP 36.9; O2SAT 100; BMI 41.5
--- NOTE | 2025-07-11 08:46 | EKG12_ITS ---
Test Reason : Blood Pressure : */* mmHG Vent. Rate : 99 BPM Atrial Rate : 99 BPM P-R Int : 190 ms QRS Dur : 154 ms QT Int : 392 ms P-R-T Axes : 75 39 45 degrees QTcB Int : 503 ms Normal sinus rhythm Right bundle branch block Abnormal ECG Confirmed by KELI SOTO, RAUL ([id number]), editor newspaper MENDEL MA ([id number]) on 07/13/2025 9:08:56 AM Referred By: Confirmed By: RAUL DICKEY MD
--- NOTE | 2025-07-11 08:46 | ED.VIS.CHEST ---
HPI History of Present Illness Chief Complaint: Chest Pain Informant: patient Onset/Context/Timing Onset: Today Activity at onset: sudden and sleep Timing: Continuous Quality: Positive for Heaviness, Tightness and - (Wheezing) Location: Substernal Worsened By: Nothing Relieved By: - (Albuterol) Associated Symptoms: Positive for Dyspnea and Cough; Negative for Nausea, Vomiting, Diaphoresis, Fever, Lightheadedness, Acid Reflux or Palpitations Narrative Narrative: Patient presents with chest pain that began this morning when she woke up. Patient states it began rather suddenly. Patient states it is constant. Patient describes it as tightness and heaviness. Patient states she felt herself wheezing when she got up. Patient states she gave herself an albuterol aerosol at home which helped. Patient states nothing makes her worse. Patient admits to a cough. Patient denies any sputum production. Patient denies any fevers or chills. Patient denies any nausea or vomiting. CVD Risk Factors: Positive for Hypertension and Hypercholesterolemia; Negative for Diabetes, Family History 1' </=55 or Smoking PE Risk Factors: Positive for Prior DVT or PE (Patient had DVT many years ago.); Negative for Recent Travel/Surgery, Recent Immobilization, Cancer or OCP + Smoking + >/=35 PFSH PFSH Medical History Hypothyroidism Osteoarthritis Hiatal hernia History of renal disease Restless legs Dietary restriction Asthma History of pain when walking Hypertension Chest pain RBBB Crohn's disease COVID Wears partial dentures Wears glasses Post-menopausal Arthritis Anemia DVT (deep venous thrombosis) History of hiatal hernia History of diverticulitis Gastric reflux Non-smoker History of edema History of echocardiogram History of stress test [place] esophagus Epigastric pain Positive FIT (fecal immunochemical test) Sesamoiditis Sciatica Internal hemorrhoids Gastritis Diverticulosis of large intestine Diverticulosis of colon DVT (deep venous thrombosis) Cardiomegaly Bowel perforation Abdominal pain Anemia Chest pain HTN (hypertension) Home Medications ?Medication ?Instructions ?Recorded ?Last Taken ?Type amlodipine 10 mg tablet 10 mg PO QPM bp 04/03/16 07/10/25 History albuterol sulfate 90 mcg/actuation 2 puff inhalation Q6H PRN Sob &/Or 11/04/17 07/11/25 History aerosol inhaler Wheezing fluticasone propionate 50 1 spray QHS nasal congestion 05/23/19 11/23/25 History mcg/actuation nasal spray,suspension lisinopril 20 mg tablet 20 mg PO DAILY bp 01/07/19 07/11/25 History montelukast 10 mg tablet 10 mg PO QHS allergy 08/15/21 07/10/25 History acetaminophen 500 mg tablet 1,000 mg PO Q8 PRN Pain 08/22/21 10/25/24 History multivitamin 1 tab PO DAILY supplement 08/22/21 07/10/25 History atorvastatin 20 mg tablet (Lipitor) 20 mg PO QHS cholesterol 09/13/21 07/10/25 History Lactobacillus acidophilus 10 100 mmu cells PO DAILY immune 09/15/23 07/11/25 History billion cell capsule (NewFlora) supplement omeprazole 20 mg delayed 20 mg PO DAILY heartburn 09/15/23 07/11/25 History release,disintegrating tablet mometasone-formoterol HFA 200 2 inh inhalation BID allergies 10/15/23 07/11/25 History mcg-5 mcg/actuation aerosol inhaler (Dulera) carboxymethylcellulose 0.5 1 drp EACH EYE DAILY 10/26/24 07/10/25 History %-glycerin 0.9 % eye drops (Lubricant Eye (cmc-glycerin)) guaifenesin 1,200 mg tablet, 1,200 mg PO BID 07/11/25 07/11/25 History extended release 12 hr (Mucinex) Allergy/AdvReac Type Severity Reaction Status Date / Time amoxicillin trihydrate (From Allergy Rash Verified 07/11/25 08:15 Augmentin) Cephalosporins Allergy Rash Verified 07/11/25 08:15 potassium clavulanate (From Allergy Rash Verified 07/11/25 08:15 Augmentin) Sulfa (Sulfonamide Allergy Rash Verified 07/11/25 08:15 Antibiotics) Family History Sister Arthritis Breast cancer Osteoporosis Father Diabetes Cancer Skin Mother Hypertension Cancer skin cancer Osteoporosis Surgical History History of appendectomy History of cholecystectomy Hx of total knee arthroplasty History of cardiac catheterization Hx of total knee replacement Hx of total shoulder replacement History of esophagogastroduodenoscopy (EGD) Hx of ileostomy S/P tonsillectomy S/P cholecystectomy S/P ovarian cystectomy History of esophagogastroduodenoscopy (EGD) S/P colonoscopy Social History Smoking Status: Never smoker second hand exposure: No alcohol intake: never substance use type: does not use caffeine: Yes what type of physical activity do you participate in: none frequency: does not exercise seatbelt use: always ROS ROS ED Constitutional Constitutional ED: Denies chills or fever(s) Eyes Eyes: Denies blurry vision or change in vision ENT ENT ED: Reports sore throat; Denies rhinorrhea Cardiovascular Cardiovascular: Reports chest pain; Denies palpitations Respiratory/Chest Respiratory/Chest: Reports cough and dyspnea Gastrointestinal Gastrointestinal: Denies nausea or vomiting Genitourinary Genitourinary ED: Denies dysuria or hematuria Musculoskeletal Musculoskeletal: Denies back pain or neck pain Integumentary Denies abscess or rash Neurologic Neurologic: Reports headache(s); Denies weakness Allergic/Immunologic Allergic/Immunologic ED: Denies mouth swelling or urticaria EXAM Physical Exam Const Vital Signs: 07/11/25 08:15 07/11/25 09:00 07/11/25 09:25 Temperature 98.4 F Temperature Source Oral Pulse Rate 114 H 85 Respiratory Rate 18 18 Blood Pressure 185/74 H 148/70 H Blood Pressure Mean 111 96 Pulse Ox 100 92 Oxygen Delivery Method Room Air Room Air 07/11/25 10:48 07/11/25 12:09 Temperature Temperature Source Pulse Rate 85 88 Respiratory Rate 17 15 Blood Pressure 149/70 H 156/82 H Blood Pressure Mean 96 106 Pulse Ox 98 95 Oxygen Delivery Method Room Air Room Air Positive well nourished and well developed Constitutional Narrative: BMI is 41.6 General Appearance ED: well developed and NAD HEENT Reports moist mucous membranes Neck supple and no JVD Chest Wall palpation of chest normal Resp normal respiratory effort and clear to auscultation bilaterally Cardio regular rate and regular rhythm GI soft to palpation, non-tender and non-distended Neuro oriented x3, CN's II-XII intact bilaterally and no sensory deficits noted Sensorium / Orientation: awake and alert Motor Exam: strength 5/5 throughout Psych mental status grossly normal Heart Score History: Slightly/Non-Suspicious ECG: Nonspecific Repolarization Age: >/= 65 years Risk Factors: 1 or 2 Risk Factors Troponin: </= Normal Limit Score: 4 MDM MDM MDM Narrative Medical decision making narrative: Differential diagnosis includes cardiac dysrhythmia, cardiac ischemia, pneumonia, bronchitis, pulmonary embolism, electrolyte abnormality, gastroesophageal reflux disease, and anxiety. EKG will be obtained to assess for cardiac dysrhythmia and cardiac ischemia. Chest x-ray will be obtained to assess for pneumonia and bronchitis. CBC will be obtained to assess for leukocytosis and anemia. Basic metabolic profile will be obtained to assess for electrolyte abnormality and renal function. D-dimer will be obtained to assess for pulmonary embolism. High-sensitivity troponin will be obtained to assess for cardiac ischemia. 2-hour repeat high-sensitivity troponin will be obtained to assess for ongoing cardiac ischemia. History & Record Review Additional record(s) reviewed:: Prior inpatient record and Prior labs Lab Data Attestation: I reviewed the patient's lab results. Lab results narrative: CBC was reviewed. There is a slight anemia with a hemoglobin of 11.7 and hematocrit of 36.2. The remainder is within normal limits. Basic metabolic profile was reviewed. Glucose was mildly elevated at 160. The remainder is within normal limits. D-dimer was reviewed and was elevated at 1.60. High-sensitivity troponin was reviewed and was normal at 8. 2-hour repeat high-sensitivity troponin was repeated and was also normal at 8. Labs: Laboratory Results - last 24 hr 07/11/25 07/11/25 07/11/25 09:13 09:25 11:00 WBC 8.2 RBC 4.65 Hgb 11.7 L Hct 36.2 L MCV 77.8 L MCH 25.2 L MCHC 32.3 RDW Std Deviation 40.9 RDW Coeff of Anuradha 14.6 Plt Count 173 MPV 10.0 Immature Gran % (Auto) 0.200 Neut % (Auto) 83.0 H Lymph % (Auto) 9.1 L [place] % (Auto) 5.9 Eos % (Auto) 1.3 Baso % (Auto) 0.5 Absolute Neuts (auto) 6.8 Absolute Lymphs (auto) 0.75 L Nucleated RBC % 0 D-Dimer Quant (PE/DVT) Cancelled 1.60 H* Sodium 139 Potassium 3.9 Chloride 106 Carbon Dioxide 22.5 Anion Gap 11 BUN 16 Creatinine 0.65 L Estim Creat Clear Calc 66.81 Est GFR (MDRD) Non-Af 92 BUN/Creatinine Ratio 24.2 H Glucose 160 H Calcium 9.3 Troponin T High Sens 8 Troponin T Hi Sens 2 Hr 8 Radiography Diagnostic Testing: Clinical Impression(s) from Imaging Studies Chest X-Ray 07/11/25 09:14 IMPRESSION: No acute cardiopulmonary process Reading Location: [facility] Chest CTA 07/11/25 09:58 IMPRESSION: 1. No evidence of acute or chronic pulmonary embolus. 2. No acute aortic syndrome. 3. Coronary artery disease. 4. Circumferential bronchial wall thickening in the left lower lobe. Consider bronchiolitis. Mild scarring inferior lingula and left lower lobe. 5. Small sliding hiatus hernia. 6. Thoracic DISH. Reading Location: [facility] Portable 1 view chest x-ray was obtained. On my independent interpretation, lung allen are clear. There is normal cardiac silhouette. Bony thorax is normal. There is no acute process noted. Radiologist also interpreted the x-ray and agrees. Because of the elevated D-dimer, CTA of the chest was obtained. There is no evidence of pulmonary embolism or aortic dissection. There is bronchial wall thickening in the left lower lobe. There is mild scarring in the inferior lingula and left lower lobe. This was interpreted by the radiologist. I also independently reviewed the images and did not see any evidence of pulmonary embolism or aortic dissection. EKG Initial EKG: Attestation: I personally reviewed and interpreted this EKG as follows: Interpretation: Sinus Rhythm (99), RBBB and Non-Specific ST Changes Comments: EKG was obtained. On my independent interpretation, shows normal sinus rhythm with a rate of 99. MT interval was normal at 190 milliseconds. QRS interval was slightly prolonged at 154 ms. QTc interval was slightly prolonged at 503 ms. Raymond was normal. There are nonspecific ST-T wave changes noted. This was unchanged compared to previous EKG dated 10/26/2024. Prior EKG tracings: available for review Prior: Unchanged (10/26/2024) Treatment and Re-Evaluation :: Patient was given aspirin and sublingual nitroglycerin. Patient was feeling better on reevaluation. Patient was advised of her findings. Patient has a HEART score of 4. Patient was instructed to follow-up with her primary care physician in 5 to 7 days. Patient was instructed to return if worse in any way. Patient understood and was agreeable with the plan. All questions were answered. Discharge Plan Triage Chief Complaint: Chest Pain ED Provider: Victor Hugo Jimenez Dx/Rx/DC Orders Clinical Impression: Chest pain, Anemia Instructions: ED Chest Pain, Uncertain Cause Prescriptions: No Action albuterol sulfate 90 mcg/actuation HFA aerosol inhaler 2 puff INHALATION Q6H PRN (Reason: Sob &/Or Wheezing) amlodipine 10 MG tablet 10 mg PO QPM fluticasone propionate 1 SPRAY spray,suspension 1 spray NASAL QHS lisinopril 20 MG tablet 20 mg PO DAILY montelukast 10 mg tablet 10 mg PO QHS acetaminophen 500 MG tablet 1,000 mg PO Q8 PRN (Reason: Pain) multivitamin Tablet 1 tab PO DAILY atorvastatin [Lipitor] 20 mg tablet 20 mg PO QHS omeprazole 20 mg tablet,disintegrat, delay rel 20 mg PO DAILY NewFlora 10 billion cell capsule 100 mmu cells PO DAILY Patient Comments: UNSURE OF STRENGTH OR BRAND PURCHASED PRIOBIOTIC AT THE [place] IN [place] Dulera 200-5 mcg/actuation HFA aerosol inhaler 2 inh inhalation BID guaifenesin [Mucinex] 1,200 mg tablet extended release 12hr 1,200 mg PO BID Lubricant Eye (cmc-glycerin) 0.5-0.9 % drops 1 drp EACH EYE DAILY Primary Care Provider: Caitlin Moreland Referrals: Caitlin Moreland MD [Primary Care Provider, Internal Medicine] - 5-7 Days Print Language: Mosotho Disposition Disposition: Home, Self Care
[2025-07-11 09:00] VITALS: BP 148/70; PULSE 85; RESP 18; O2SAT 92
--- NOTE | 2025-07-11 09:14 | RAD_ITS ---
PROCEDURE: CHEST 1 VIEW (PORTABLE) 07/11/2025 REASON FOR EXAM: CHEST PAIN TECHNIQUE: Frontal view of the chest. COMPARISON: October 26, 2024 FINDINGS: Hardware: Reverse bilateral total shoulder arthroplasties. Heart: Heart size is mildly enlarged. Lungs: The lungs are clear. Bones: Degenerative changes are identified within the thoracic spine. RAD/Chest 1 View (Portable) IMPRESSION: No acute cardiopulmonary process Reading Location: [id number]
[2025-07-11 09:19] LABS: Hematocrit 36.2 % (37-47); Hemoglobin 11.7 g/dL (12.0-15.0); Immature Granulocytes Count 0.020 X10^3/uL (0.0-0.0); Mean Corp Hgb Conc 32.3 g/dL (32-36); Mean Corpuscular Volume 77.8 fL (81-99); Mean Platelet Vol. 10.0 fl (6.2-12.0); NRBC Flagged by Analyzer 0 % (0-5); Platelet Count 173 K/mm3 (150-450); RBC Distribution Width CV 14.6 % (11.6-14.6); RBC Distribution Width SD 40.9 fl (35.1-43.9); Red Blood Count 4.65 M/mm3 (4.2-5.4); White Blood Count 8.2 K/mm3 (4.4-11.0)
[2025-07-11] MEDS: Nitroglycerin SL (ED/IMG/CATH) 0.4 MG TABLET SL (09:31)
[2025-07-11 09:45] LABS: Anion Gap 11 (5-15); BUN 16 mg/dL (4-19); BUN/Creat Ratio 24.2 RATIO (10-20); Calcium,Total 9.3 mg/dL (7.6-11.0); Carbon Dioxide 22.5 mmol/L (21.0-32.0); Chloride 106 mmol/L (98-108); Estimated Creatinine Clearance 66.81 ml/min (50-250); Glucose 160 mg/dL (70-99); Potassium 3.9 mmol/L (3.3-5.1); Troponin T High Sensitivity 8 ng/L (<=14)
[2025-07-11 09:56] LABS: D-Dimer Quantitative (DVT/PE) 1.60 FEU/ug/m (0.27-0.49)
--- NOTE | 2025-07-11 09:58 | CT_ITS ---
PROCEDURE: CTA CHEST W/WO CONTRAST 07/11/2025 REASON FOR EXAM: ELEVATED D-DIMER TECHNIQUE: Procedure Code: [id number] Modality: CT Procedure: CTA CHEST W/WO CONTRAST Multiplanar Sagittal and Coronal images were obtained. 3D post processing was performed CONTRAST: Isovue 370 VOLUME: 100 mL One or more dose reduction techniques were used (e.g., Automated exposure control, adjustment of the mA and/or kV according to patient size, use of iterative reconstruction technique). RADIATION DOSE SUMMARY: CTDlvol: 25 mGy DLP: 585 mGycm COMPARISON: July 11, 2025 # of known CTs in the past 12 months: 0 # of known Cardiac Nuclear Medicine Studies in the past 12 months: 0 FINDINGS: Thoracic Aorta: No evidence of aortic rupture aneurysm or dissection. Heart: Normal-size. Mild left anterior descending coronary artery atherosclerosis. No pericardial effusion. Pulmonary Vessels: The timing and quality of the contrast bolus is diagnostic. There is no evidence of acute or chronic pulmonary embolus. Hardware: None Lymph nodes: None appear enlarged Lungs and Airways: Mild scarring in the subpleural aspect of the inferior lingula. Mild circumferential bronchial wall thickening involving the left lower lobe. Linear scarring posterior inferior left lower lobe. Pleura: No pleural effusion or pneumothorax. Upper Abdomen: Small sliding hiatus hernia. Bones: Diffuse idiopathic skeletal hyperostosis is present, DISH. CT/CTA Chest W/WO Contrast IMPRESSION: 1. No evidence of acute or chronic pulmonary embolus. 2. No acute aortic syndrome. 3. Coronary artery disease. 4. Circumferential bronchial wall thickening in the left lower lobe. Consider bronchiolitis. Mild scarring inferior lingula and left lower lobe. 5. Small sliding hiatus hernia. 6. Thoracic DISH. Reading Location: [id number]
[2025-07-11 10:48] VITALS: BP 149/70; PULSE 85; RESP 17; O2SAT 98
[2025-07-11 11:56] LABS: Troponin T High Sens 2 HR 8 ng/L (<=14)
[2025-07-11 12:09] VITALS: BP 156/82; PULSE 88; RESP 15; O2SAT 95
[2025-07-11 12:45] VITALS: BP 153/72; PULSE 88; RESP 19; TEMP 36.8; O2SAT 98
== END 2025-07-11 12:46 | disposition home or self-care (01) ==
PROVIDERS: Emergency Provider Emergency Medicine; PCP Internal Medicine; Visit Provider Emergency Medicine
DX: R07.9 Chest pain, unspecified (principal); E78.00 Pure hypercholesterolemia, unspecified; R06.00 Dyspnea, unspecified; Z86.718 Personal history of other venous thrombosis and embolism; I10 Essential (primary) hypertension; D64.9 Anemia, unspecified; J45.909 Unspecified asthma, uncomplicated; Z79.899 Other long term (current) drug therapy
CPT/HCPCS: 71045; 71275; 80048; 84484; 85025; 85379; 93005; 99284; Q9967; A4216